=== PATIENT | female | born 1945 | race African-American/Black ===

== ENCOUNTER → 2018-11-19 | Outpatient (CLI) | payer MEDICARE ==
--- NOTE | 2018-11-19 13:21 | BD ---
EXAMINATION TYPE: Axial Bone Density DATE OF EXAM: 11/19/2018 COMPARISON: NONE CLINICAL HISTORY: Postmenopausal female Height: 62 Weight: 182 FRAX RISK QUESTIONS: Alcohol (3 or more units per day): no Family History (Parent hip fracture): no Glucocorticoids (More than 3mos): no (Ex: prednisone, prednisolone, methylprednisolone, dexamethasone, and hydrocortisone). History of Fracture in Adulthood: no Secondary Osteoporosis: 1. Type 1 Diabetes: no 2. Hyperthyroidism: no 3. Menopause before 45: no, total hysterectomy age 52 4. Malnutrition: no 5. Chronic liver disease: no Rheumatoid Arthritis: no Current Tobacco Use: yes RISK FACTORS HISTORY OF: Family History of Osteoporosis: not to patient's knowledge Active: yes Diet low in dairy products/other sources of calcium: no Postmenopausal woman: yes Take estrogen and/or progesterone medications: no Lost more than 2 inches in height since high school: no Frequent falls: no Poor Health: no Hyperparathyroidism: no Adrenal Insufficiency: no MEDICATIONS: Prednisone or other steroids: no Thyroid Medications: no Osteoporosis Medications: no Additional Medications: Pioglitazone, Atorvastatin calcium Amlodipine, Losartan, Toujeo Additional History: Diabetic EXAM MEASUREMENTS: Bone mineral densitometry was performed using the [employer] Snap System. Bone mineral density as measured about the Lumbar spine is: ----- L1-L4(G/cm2): 0.929 T Score Values are as follows: ----- L2: -2.5 ----- L3: -1.9 ----- L4: -2.2 ----- L1-L4: -2.1 Bone mineral density BASELINE Bone mineral density about the R hip (g/cm2): 0.746 Bone mineral density about the L hip (g/cm2): 0.752 T Score values are as follows: -----R Neck: -2.1 -----L Neck: -2.1 -----R Total: -1.9 -----L Total: -1.8 Bone mineral density BASELINE IMPRESSION: Osteopenia (T Score between -2.5 and -1). There is slightly increased risk of fracture and the patient may be considered for treatment. Re-Screen 2-5 years. NOTE: T-SCORE=SD OF THE YOUNG ADULT MEAN.
--- NOTE | 2018-11-20 08:57 | MM ---
Reason for exam: screening (asymptomatic). History: Patient is postmenopausal. Physical Findings: A clinical breast exam by your physician is recommended on an annual basis and results should be correlated with mammographic findings. MG 3D Screening Mammo W/Cad Bilateral CC and MLO view(s) were taken. No prior studies available for comparison. Finding #1: There are suspicious multiple obscured round masses in the right breast. Finding #2: There are indeterminate calcifications in both breasts. ASSESSMENT: Incomplete: need additional imaging evaluation, BI-RAD 0 RECOMMENDATION: Special view mammogram of both breasts. Ultrasound of the right breast. [facility] will attempt to contact patient to return for supplemental views and ultrasound.
== END | disposition home or self-care (01) ==
LOC: RADMAMWWP 11:50
PROVIDERS: ATTEND Internal Medicine
DX: Z12.31 Encounter for screening mammogram for malignant neoplasm of breast (principal); M85.80 Other specified disorders of bone density and structure, unspecified site; Z78.0 Asymptomatic menopausal state
CPT/HCPCS: 77063; 77067; 77080

== ENCOUNTER → 2018-12-04 | Outpatient (CLI) | payer MEDICARE ==
--- NOTE | 2018-12-05 09:00 | MM ---
Reason for exam: additional evaluation requested from abnormal screening. Last mammogram was performed less than 1 month ago. History: Patient is postmenopausal. Took hormonal contraceptives for 5 years. Physical Findings: Nurse did not find any significant physical abnormalities on exam. (nurse beto). MG 3D Work Up W/Cad CHERI Bilateral CC with magnification, ML with magnification, and ML view(s) were taken. Spot compression CC and spot compression MLO view(s) were taken of the right breast. Prior study comparison: November 19, 2018, bilateral MG 3d screening mammo w/cad. The breast tissue is heterogeneously dense. This may lower the sensitivity of mammography. There are four right breast masses, both round and oval and circumscribed which persist on additional views. Three in the upper outer quadrant and one in the lower inner quadrant, all at middle depth. No sonographic correlate. There is also a group of calcifications in the right upper outer quadrant middle depth for which biopsy is recommeded. Recommendation to be made post results of bilateral stereo core biopsy. There is a grou of calcification in the left breast upper outer quadrant that is 4 mm at the middlw depth for which biopsy is recomended. ASSESSMENT: Suspicious, BI-RAD 4 RECOMMENDATION: Stereotactic core biopsy of both breasts. Called Dr Wilson with mammographic findings and has scheduled an appointment for the patient for 819 at [facility] with a Radiologist to have the bilateral stereo core biopsies done at 10:20 am.
--- NOTE | 2018-12-05 09:17 | USB ---
History: Patient is postmenopausal. Took hormonal contraceptives for 5 years. US Breast Workup Limited RT Right limited breast ultrasound including focal area of concern, retroareolar and axilla demonstrates no correlate to the mammogram findings. No suspicious findings. ASSESSMENT: Negative, BI-RAD 1 RECOMMENDATION: Stereotactic core biopsy of both breasts.
== END | disposition home or self-care (01) ==
LOC: RADMAMWWP 14:43
PROVIDERS: ATTEND Internal Medicine
DX: R92.8 Other abnormal and inconclusive findings on diagnostic imaging of breast (principal)
CPT/HCPCS: 77066; 76642; G0279; 77062

== ENCOUNTER → 2018-12-06 | Day surgery (SDC) | payer MEDICARE ==
[2018-12-06 09:46] VITALS: RESP 16; BMI 32.9
[2018-12-06 11:18] VITALS: BP 147/83; PULSE 90; TEMP 98.2
--- NOTE | 2018-12-06 15:45 | MM ---
EXAMINATION TYPE: MG stereo VAD BX LT, MG stereo VAD BX RT DATE OF EXAM: 12/06/2018 COMPARISON: 12/04/2018 and 12/06/2018 CLINICAL HISTORY: Indeterminate calcifications in both breasts for which stereotactic guided biopsy was recommended. TECHNIQUE: Stereotactic guided core biopsy of bilateral breasts. FINDINGS: The procedure of stereotactic guided core biopsy was explained to the patient. Benefits, alternatives, and risks were discussed. An informed consent was then obtained. Post procedural timeout was performed. Site A (left): Shortness pathway for biopsy was chosen. Shortness pathway was CC from above approach. Preprocedural localization images were obtained and a 4 mm group of calcifications within the upper outer quadrant of the left breast was demonstrated. Coordinates were calculated. Subsequently 7 cc of lidocaine without epinephrine was utilized to anesthetize the skin and deeper subcutaneous soft tissues. The needle was advanced to the appropriate depth. Prefire images were obtained ensuring appropriate location. Postfire injection of 4 cc of lidocaine with epinephrine was utilized to anesthetize the site of biopsy. Postfire images were obtained to ensure no movement of the calcifications after instillation of additional anesthetic. A vacuum assisted biopsy gun was used to obtain 7 core samples. The patient tolerated the procedure well without any immediate complication. The patient was kept in the radiology department for short stay after the procedure and then discharged home in stable condition. Targeted calcifications are identified in specimen mammogram. Post biopsy mammogram shows the T-shaped biopsy marker to appear in satisfactory position relative to the targeted area of concern on the preprocedure images without migration. Site B (right): Shortness pathway for biopsy was chosen. Shortness pathway was CC from below approach. Preprocedural localization images were obtained and a 2 mm group of calcifications within the upper outer quadrant of the right breast was demonstrated. Coordinates were calculated. Subsequently 7 cc of lidocaine without epinephrine was utilized to anesthetize the skin and deeper subcutaneous soft tissues. The needle was advanced to the appropriate depth. Prefire images were obtained ensuring appropriate location. Postfire injection of 5 cc of lidocaine with epinephrine was utilized to anesthetize the site of biopsy. Postfire images were obtained to ensure no movement of the calcifications after instillation of additional anesthetic. A vacuum assisted biopsy gun was used to obtain 7 core samples. The patient tolerated the procedure well without any immediate complication. The patient was kept in the radiology department for short stay after the procedure and then discharged home in stable condition. Targeted calcifications are identified in both specimen mammograms. Post biopsy mammogram shows the T markers to appear in satisfactory position relative to the targeted areas of concern on the preprocedure images without migration. IMPRESSION: SUCCESSFUL, UNCOMPLICATED STEREOTACTIC GUIDED CORE BIOPSY OF INDETERMINATE CALCIFICATIONS WITHIN BOTH BREASTS DETAILED ABOVE, FULL PATHOLOGY RESULTS TO FOLLOW. Pathology Results: Benign A. 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 B. 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 Recommendation Follow up mammogram of both breasts in 6 months. MTDD
== END | disposition home or self-care (01) ==
LOC: RADMAMWWP 09:20
PROVIDERS: ATTEND Internal Medicine
DX: D24.1 Benign neoplasm of right breast (principal); N60.12 Diffuse cystic mastopathy of left breast; N60.11 Diffuse cystic mastopathy of right breast
CPT/HCPCS: 88305; 19081 ×2; A4648; J2001

== ENCOUNTER 2021-06-04 07:18 | Day surgery (SDC) | payer MEDICARE ==
[2021-06-01 12:09] VITALS: BMI 31.8
[~2021-06-04 07:18] MED LIST: LACTATED RINGERS 1,000 ML IV SCH; LIDOCAINE 1% (10MG/ML) FOR IV START INTRADERMA PRN
[2021-06-04] MEDS ORDERED: LACTATED RINGERS 1,000 ML IV ONE ×2 (07:35)
[2021-06-04 07:42] VITALS: TEMP 97.3
[2021-06-04 07:51] LABS: Glucose,Whole Blood 176 mg/dL (75-99)
[2021-06-04] MEDS ORDERED: LIDOCAINE 1% (10MG/ML) FOR IV START INTRADERMA ONE (07:51)
[2021-06-04] MEDS ORDERED: PROPOFOL 10 MG/ML 20 ML VIAL IV ONE (08:12)
[2021-06-04] MEDS ORDERED: LIDOCAINE 1% INJ 10MG/ML (20 ML MDV) ONE (08:12)
--- NOTE | 2021-06-04 08:28 | P.PCN ---
Date of Procedure: 06/04/21 Procedure(s) Performed: BRIEF HISTORY: Patient is a 76-year-old pleasant female scheduled for an elective colonoscopy as a part of evaluation of prior history of colon polyps. Last colonoscopy was 5 years ago. PROCEDURE PERFORMED: Colonoscopy. PREOPERATIVE DIAGNOSIS: History of colon polyps. IV sedation per Anesthesia. PROCEDURE: After informed consent was obtained, the patient, was brought into the endoscopy unit. IV sedation was administered by Anesthesia under continuous monitoring. Digital rectal examination was normal. Initially the Olympus CF-160 flexible video colonoscope was then inserted in the rectum, gradually advanced into the cecum without any difficulty. Careful examination was performed as the scope was gradually being withdrawn. Ileocecal valve and the appendiceal orifice were visualized and appeared normal. Prep was excellent. Mucosa of the cecum, ascending colon, transverse colon, descending colon, sigmoid colon, and rectum appeared normal. Moderate sigmoid diverticulosis. Retroflexion was performed in the rectum and no lesions were seen. The patient tolerated the procedure well. IMPRESSION: Normal-appearing colon from rectum to cecum with no evidence of colorectal neoplasia . Scattered sigmoid diverticulosis. RECOMMENDATIONS: Findings of this examination were discussed with the patient and family.. She was advised to have a repeat surveillance colonoscopy in 5 years from now.
[2021-06-04 09:03] VITALS: BP 143/83; PULSE 79; RESP 16
== END 2021-06-04 09:03 | disposition home or self-care (01) ==
LOC: ORWHC2ENDO 07:18
PROVIDERS: ATTEND Internal Medicine Gastroenterology
DX: Z12.11 Encounter for screening for malignant neoplasm of colon (principal); K57.30 Diverticulosis of large intestine without perforation or abscess without bleeding; Z86.010 Personal history of colon polyps; I10 Essential (primary) hypertension; E78.5 Hyperlipidemia, unspecified; F17.200 Nicotine dependence, unspecified, uncomplicated; E11.9 Type 2 diabetes mellitus without complications; Z90.710 Acquired absence of both cervix and uterus; Z97.2 Presence of dental prosthetic device (complete) (partial); Z79.84 Long term (current) use of oral hypoglycemic drugs; Z79.899 Other long term (current) drug therapy; Z91.048 Other nonmedicinal substance allergy status
CPT/HCPCS: J2001; J2704; G0105; 45378

== ENCOUNTER → 2021-08-02 | Outpatient (CLI) | payer MEDICARE ==
[2021-08-02 13:07] LABS: HCT 44.2 % (34.0-46.0); HGB 13.2 gm/dL (11.4-16.0); Hypochromasia Slight; MCH 29.4 pg (25.0-35.0); MCHC 29.9 g/dL (31.0-37.0); MCV 98.5 fL (80.0-100.0); Mean Platelet Volume 7.7; Platelet Count 374 k/uL (150-450); RBC 4.49 m/uL (3.80-5.40); RDW 15.5 % (11.5-15.5); WBC 9.6 k/uL (3.8-10.6)
[2021-08-02 16:09] LABS: Lymphocytes # (M) 2.11 k/uL (1.0-4.8); Monocytes # (M) 0.38 k/uL (0-1.0); Neutrophils % (M) 74 %; Nucleated Red Blood Cells 0 /100 WBC (0-0); Total Cells Counted 100
[2021-08-02 18:28] LABS: Albumin 4.5 g/dL (3.8-4.9); Albumin/Globulin Ratio 1.32 (1.60-3.17); Anion Gap 13.5 mmol/L (10.00-18.00); BUN/Creat Ratio 23.89 Ratio (12.00-20.00); Blood Urea Nitrogen 21.5 mg/dL (9.0-27.0); Carbon Dioxide 24.5 mmol/L (20.0-27.5); Globulin 3.4 g/dL (1.6-3.3); Potassium 4.9 mmol/L (3.5-5.5); Total Bilirubin 0.3 mg/dL (0.30-1.20); Total Protein 7.9 g/dL (6.2-8.2)
== END | disposition home or self-care (01) ==
LOC: LABWHC1 11:12
PROVIDERS: ATTEND Internal Medicine
DX: D72.829 Elevated white blood cell count, unspecified (principal); I10 Essential (primary) hypertension; E11.9 Type 2 diabetes mellitus without complications
CPT/HCPCS: 36415; 80053; 83036; 85027

== ENCOUNTER → 2021-12-31 | Outpatient (CLI) | payer MEDICARE ==
--- NOTE | 2021-12-31 21:23 | CTL ---
EXAMINATION TYPE: CT Low Dose Lung DATE OF EXAM ORDERED: 12/31/2021 HISTORY: Lung cancer screening CT DLP: 120.[address] CTDI: 4 mGy Automated exposure control for dose reduction was used. SCREENING VISIT: Initial COMPARISON: None TECHNIQUE: Low dose computed tomography scan was performed through the chest at 1 mm thick sections a nd reconstructed images in multiple planes at 1 mm and [address] DIAGNOSTIC QUALITY: Satisfactory FINDINGS: LUNG NODULES: None. LUNGS: COPD: Severity: Mild to moderate Fibrosis: Severity: None Lymph nodes: None Other findings: Mild atelectasis/scarring in the lung bases. There is bronchiectasis noted RIGHT PLEURAL SPACE: Effusion: None Calcification: None Thickening: None Pneumothorax: None LEFT PLEURAL SPACE: Effusion: None Calcification: None Thickening: None Pneumothorax: None HEART: Severe coronary artery atherosclerosis. Severe atherosclerosis of the arterial vasculature. 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 Dilation of the pulmonary trunk up to 3.9 cm. 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 Coronary artery atheros clerosis. IMPRESSION: 1. No clinically significant pulmonary nodules. 2. Bronchiectasis with scarring in the lung bases. 3. Mild to moderate emphysema changes. 4. Severe coronary artery atherosclerosis. 5. Severe atherosclerosis of the arterial vasculature. 6. 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 LUNG RAD AND CT CHEST RECOMMENDATION: Lung-Rad 1 Negative: Continue annual screening with LDCT in 12 months. S Modifier (other clinically significant findings): S, see impression.
== END | disposition home or self-care (01) ==
LOC: RADMAMWWP 15:36
PROVIDERS: ATTEND Internal Medicine
DX: Z12.2 Encounter for screening for malignant neoplasm of respiratory organs (principal); Z12.31 Encounter for screening mammogram for malignant neoplasm of breast; M85.80 Other specified disorders of bone density and structure, unspecified site; Z87.891 Personal history of nicotine dependence
CPT/HCPCS: 71271; 77067; 77080

== ENCOUNTER → 2022-03-22 | Outpatient (CLI) | payer MEDICARE ==
--- NOTE | 2022-03-22 11:29 | CA ---
Transthoracic Echo Report Name: Farhana Hyman Age: 77 Gender: F : 1945 Exam Date: 03/22/2022 08:37 Exam Location: [place] [facility] Ht (in): 62 Wt (lb): 180 Ordering Physician: Laina Guillen MD Attending/Referring Phys: Rotor Balancer Valeri Crowder RDCS Procedure CPT: Indications: I27.20 pulmonary hypertention Cardiac Hx: Technical Quality: Fair Contrast 1: Total Dose (mL): Contrast 2: Total Dose (mL): MEASUREMENTS (Male / Female) Normal Values 2D ECHO LV Diastolic Diameter PLAX 3.6 cm 4.2 - 5.9 / 3.9 - 5.3 cm LV Systolic Diameter PLAX 1.9 cm IVS Diastolic Thickness 1.7 cm 0.6 - 1.0 / 0.6 - 0.9 cm LVPW Diastolic Thickness 1.2 cm 0.6 - 1.0 / 0.6 - 0.9 cm LV Relative Wall Thickness 0.8 RV Internal Dim ED PLAX 3.8 cm LVOT Diameter 2.0 cm LA Volume 37.1 cm??? 18 - 58 / 22 - 52 cm??? M-MODE Aortic Root Diameter MM 3.0 cm LA Systolic Diameter MM 2.7 cm LA Ao Ratio MM 0.9 AV Cusp Separation MM 1.5 cm DOPPLER AV Peak Velocity 191.0 cm/s AV Peak Gradient 14.6 mmHg AV Mean Velocity 119.3 cm/s AV Mean Gradient 6.5 mmHg AV Velocity Time Integral 29.1 cm LVOT Peak Velocity 182.8 cm/s LVOT Peak Gradient 13.4 mmHg LVOT Velocity Time Integral 32.7 cm LVOT Stroke Volume 106.6 cm??? LVOT Stroke Volume Index 58.3 ml/m??? LVOT Cardiac Index 5427.9 cm???/min???m??? AV Area Cont Eq vti 3.7 cm??? AV Area Cont Eq pk 3.1 cm??? MV Area PHT 3.1 cm??? Mitral E Point Velocity 69.0 cm/s Mitral A Point Velocity 105.8 cm/s Mitral E to A Ratio 0.7 MV Deceleration Time 245.5 ms MV E' Velocity 4.7 cm/s Mitral E to MV E' Ratio 14.6 TR Peak Velocity 306.4 cm/s TR Peak Gradient 37.5 mmHg Right Ventricular Systolic Press 41.8 mmHg FINDINGS Left Ventricle Moderately increased left ventricular wall thickness. Normal left ventricular systolic function with no obvious regional wall motion abnormalities. Left ventricular ejection fraction is estimated at 55-60 %. Right Ventricle Mild right ventricular dilatation. Mild pulmonary hypertension. Right ventricular systolic pressure estimated at 42 mm hg. Right Atrium Normal right atrial size. Left Atrium Normal left atrial size. Mitral Valve Structurally normal mitral valve. Mild thickening of the anterior mitral valve leaflet. Mild mitral regurgitation Aortic Valve Trileaflet aortic valve. Thickened aortic valve without stenosis. Aortic valve sclerosis. Tricuspid Valve Structurally normal tricuspid valve. Mild tricuspid regurgitation. Pulmonic Valve Structurally normal pulmonic valve. Trace pulmonic regurgitation. Pericardium No pericardial effusion. Aorta Normal size aortic root and proximal ascending aorta. CONCLUSIONS 1. Normal left ventricle size and systolic function 2. Mild pulmonary hypertension 3. Mild mitral and tricuspid regurgitation. Previewed by: Dr. Ferdinand Mccarthy MD (Electronically Signed) Final Date: 22 March 2022 11:28
== END | disposition home or self-care (01) ==
LOC: RADECHMAIN 08:28
PROVIDERS: ATTEND Internal Medicine
DX: I08.1 Rheumatic disorders of both mitral and tricuspid valves (principal); I27.20 Pulmonary hypertension, unspecified
CPT/HCPCS: 93306

== ENCOUNTER → 2022-10-11 | Outpatient (CLI) | payer MEDICARE ==
[2022-10-11 20:13] LABS: Blood Urea Nitrogen 28.3 mg/dL; Carbon Dioxide 25.1 mmol/L; Chloride 101 mmol/L; Potassium 4.2 mmol/L; Sodium 140 mmol/L
[2022-10-12 01:27] LABS: MCH 29.5 pg; MCHC 29.5 d/dL; MCV 99.8 FL; Mean Platelet Volume 10.3 FL; NRBC Per 100 WBC 0 X 10*3/uL; Platelet Count 345 X 10*3/uL; RBC 4.41 X 10*6/uL; RDW 15.8 %; WBC 10.09 X 10*3/uL
== END | disposition home or self-care (01) ==
LOC: LABPAT 12:36
PROVIDERS: ATTEND Internal Medicine Interventional Cardiology
DX: Z01.812 Encounter for preprocedural laboratory examination (principal); I25.10 Atherosclerotic heart disease of native coronary artery without angina pectoris
CPT/HCPCS: 80051; 82565; 84520; 85027

== ENCOUNTER 2022-10-17 07:51 | Day surgery (SDC) | payer MEDICARE ==
[2022-10-13 10:01] VITALS: BMI 32.2
[~2022-10-17 07:51] MED LIST changes: +ALPRAZolam 0.25 MG TAB PO PRN; +ALPRAZolam 0.5 MG TAB PO PRN; +ASPIRIN 325 MG TAB PO STA; +ATORVASTATIN 80 MG TAB PO STA; +HEPARIN SODIUM,PORCINE 10,000 UNIT in SODIUM CHLORIDE 0.9% 1,000 ML IRRIGATION PRN; +HEPARIN SODIUM,PORCINE 2,500 UNIT in SODIUM CHLORIDE 0.9% 250 ML IRRIGATION PRN; -LACTATED RINGERS 1,000 ML IV SCH; -LIDOCAINE 1% (10MG/ML) FOR IV START INTRADERMA PRN; +NITROGLYCERIN SL TABS 0.4 MG TAB SUBLINGUAL PRN; +SODIUM CHLORIDE 0.9% 1,000 ML in EMPTY BAG 1 BAG IV SCH
[2022-10-17 08:22] LABS: Glucose,Whole Blood 214 mg/dL (70-110)
[2022-10-17] MEDS ORDERED: amLODIPine 10 MG TAB PO STA (08:26)
[2022-10-17] MEDS ORDERED: INSULIN ASPART (NovoLOG) 100 UNIT/ML VIAL SQ ONE (08:30)
[2022-10-17 08:36] VITALS: RESP 16; TEMP 98.5
[2022-10-17] MEDS ORDERED: VERAPAMIL 2.5 MG/ML 2 ML AMP ONE (08:42)
[2022-10-17] MEDS ORDERED: HEPARIN SODIUM 1,000 UN/ML (10ML VL) ONE (08:56)
[2022-10-17] MEDS ORDERED: fentaNYL (PF) 50 MCG/ML 2 ML AMP ONE (08:56)
[2022-10-17] MEDS ORDERED: fentaNYL (PF) 50 MCG/ML 2 ML AMP IV ONE (09:01)
[2022-10-17] MEDS ORDERED: LIDOCAINE 1% INJ 10MG/ML (5 ML VIAL-PF) SQ ONE (09:02)
[2022-10-17] MEDS ORDERED: VERAPAMIL SYRINGE (5 MG/10 ML) INTRAARTER ONE (09:03)
[2022-10-17] MEDS ORDERED: MIDAZOLAM 2 MG/2 ML VIAL IV ONE (09:05)
[2022-10-17] MEDS ORDERED: HEPARIN SODIUM 1,000 UN/ML (10ML VL) IV ONE (09:08)
[2022-10-17] MEDS ORDERED: IOPAMIDOL-370 125ML BTL INJ ONE (09:19)
[2022-10-17] MEDS ORDERED: RX INFO: IV CONTRAST WAS GIVEN 1 EACH MISC MISCELLANE PRN (09:31)
--- NOTE | 2022-10-17 09:40 | P.CARDCATH ---
Date of Procedure: 10/17/22 Description of Procedure: Cardiac Catheterization: The patient is a 77-year-old female with known history of hypertension, hyperlipidemia and diabetes mellitus and chronic tobacco use who had a recent MPI with anterior and apical ischemia Recommendations were made regarding cardiac catheterization, the risks and the complications were discussed with the patient who is in full understanding and agreement. Procedure Description: Patient was brought to lab systems analyst in fasting semi-sedated state after receiving Fentanyl and Benadryl achieiving moderate conscious sedated state. Using Xylocaine Anesthesia and Seldinger technique, a 6-St Lucian sheath was introduced in the right radial artery . Subsequently, selective coronary angiography was performed using a 5-[place] Lucian 3.5 bend Lisa catheter. Multiple views of the coronary artery including hemiaxial views were obtained. The 5-[place] Lucian pigtail catheter was used to cross the aortic valve and LVEDP was calculated. Following that, catheter and sheath were removed. Hemostasis was obtained with deployment of TR band . There was no immediate complication. Patient was returned to room in stable condition. Of note, the patient received a total of 4500 units of intravenous heparin as well as intra-arterial verapamil. Findings: Fluoroscopy: Severe calcifications of the LAD was noted Left main: This is a large size vessel, bifurcating into LAD and left circumflex, left main has no high-grade stenosis. LAD: This is a large size vessel, giving rise to a large proximal diagonal branch. At the takeoff of the diagonal branch there is a complex tortuous lesion with stenosis up to 80% involving the takeoff of the diagonal branch. The rest of the vessel has no high-grade stenosis Left circumflex: This is a large nondominant vessel evening grass to 2 obtuse marginal branch the first one is proximal margin caliber, the left circumflex and its branches have no evidence of high-grade stenosis RCA: This is a dominant vessel, large in caliber, tortuous proximally, calcified. The proximal and mid RCA has mild obstructive disease of 20-30%. Left Ventriculogram: Not performed Hemodynamics: There was no gradient across the aortic valve, LVEDP was 1216 mmHg Conclusion: 1. Severely calcified LAD 2. Severe obstructive disease involving the proximal LAD and a tortuous lesion involving a large diagonal branch 3. Mild disease in the RCA 4. Normal LVEDP Recommendations: In view of the anatomy and the appearance and a history of diabetes I have re commended to obtain surgical evaluation for possible CABG. Depending on the recommendations further recommendations will be made. The findings and the recommendations were discussed with the patient and the family and they were in full understanding and agreement. Duration of sedation is 20 minutes.
[2022-10-17] MEDS ORDERED: SODIUM CHLORIDE 0.9% 1,000 ML IV SCH (09:45)
--- NOTE | 2022-10-17 12:02 | P.GSCN ---
History of Present Illness Consult date: 10/17/22 Reason for Consult: Coronary artery disease Requesting physician: Ferdinand Mccarthy History of present illness: This is a 77-year-old female patient who is followed by Dr. Pedro Leos for her primary care and with Dr. Mccarthy for her cardiology care. She has a past medical history significant for hypertension, hyperlipidemia, diabetes mellitus type 2, obesity with a BMI of 32.6 kg/m, peripheral vascular disease, a history of a 42 mm ascending aorta dilation seen on a computed tomography scan of the chest completed in December 2021, and chronic ongoing nicotine dependence smokes about half a pack of cigarettes per day. The patient over the past year has had complaints of progressive fatigue and shortness of breath with activity. She denies any recent fever, chills, nausea, vomiting, constipation, diarrhea, chest pain/pressure, palpitations, TIA or strokelike symptoms, presyncope or syncope. She does report that she also gets some swelling to her left lower extremity at times as well. In March 2022 the patient underwent a trans-thoracic 2-D echocardiogram which demonstrated a normal left ventricular systolic function with no obvious regional wall motion abnormalities, a left ventricular ejection fraction estimated at 55-60%, mild mitral valve regurgitation, a trileaflet aortic valve, mild tricuspid valve regurgitation, trace pulmonic valve regurgitation and no pericardial effusion seen. For further evaluation the patient underwent a nuclear Lexiscan Cardiolite stress test on 09/14/2022 which showed nondiagnostic electrocardiographic stress testing, probably abnormal myocardial perfusion imaging with reversible anteroapical wall defect with normal gated SPECT images, findings suggestive of stress-induced ischemia in LAD territory although the possibility of soft tissue attenuation could not be excluded. Subsequently, due to the patient's symptoms and findings on the stress test the patient was recommended to undergo a cardiac catheterization which was completed today 10/17/2022. The cardiac catheterization results showed a severely calcified LAD, severe obstructive disease involving the proximal LAD and torturous lesions involving a large diagonal branch, mild disease in the right coronary artery and normal LVEDP. Due to the findings on the cardiac catheterization a consult was placed to cardiothoracic surgery for further evaluation and treatment recommendations. Review of Systems A 14 point review of systems was completed and was negative except as mentioned in the HPI. 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 History of Any Multi-Drug Resistant Organisms: None Reported Past Surgical History: Hysterectomy, Tubal Ligation Additional Past Surgical History / Comment(s): COLONOSCOPY , bilateral breast biopsies Past Anesthesia/Blood Transfusion Reactions: No Reported Reaction Past Psychological History: No Psychological Hx Reported Smoking Status: Current every day smoker (Smokes about 1/2 packs a day.) Past Alcohol Use History: Rare Past Drug Use History: None Reported - Past Family History Mother Family Medical History: Diabetes Mellitus, Dialysis (Chronic kidney disease), Renal Disease Father Family Medical History: CVA/TIA, Hypertension Sister(s) Family Medical History: Diabetes Mellitus Brother(s) Family Medical History: Diabetes Mellitus Medications and Allergies Home Medications Medication Instructions Recorded Confirmed Type Atorvastatin [Lipitor] 20 mg PO DAILY 04/12/16 10/17/22 History Losartan/Hydrochlorothiazide 1 each PO DAILY 04/12/16 10/17/22 History [Losartan-Hctz 100-25 mg Tab] Pioglitazone [Actos] 15 mg PO DAILY 04/12/16 10/17/22 History amLODIPine BESYLATE [Norvasc] 10 mg PO QAM 04/12/16 10/17/22 History glipiZIDE [Glucotrol] 5 mg PO AC-BID 06/01/21 10/17/22 History Aspirin 81 mg PO DAILY #90 tab 10/17/22 Rx Allergies Allergy/AdvReac Type Severity Reaction Status Date / Time Iodine and Iodide Containing Allergy Anaphylaxis Verified 10/13/22 09:44 Produc shellfish derived [Shellfish] Allergy Anaphylaxis Verified 10/13/22 09:44 Surgical - Exam Vital Signs Temp Pulse Resp BP Pulse Ox 98.5 F 82 16 196/78 96 10/17/22 08:32 10/17/22 08:32 10/17/22 08:32 10/17/22 08:32 10/17/22 08:32 - General well developed, well nourished, no distress, no pain, obese - Eyes PERRL, normal ocular movement, no pale, no icteric - ENT normal pinna, normal nares, normal mucosa, no hearing loss, no congestion, dentures - Neck Neck is supple, no lymphadenopathy. no masses, no bruits, trachea midline, no venous distension - Respiratory Lung sounds essentially clear throughout, few scattered crackles or bilateral bases. Respirations are symmetrical and nonlabored. No wheezes, or rhonchi. - Cardiovascular Regular rhythm and rate. S1 and S2 present, negative for S3 or gallop. Systolic murmur present heard best her right sternal border 2/6. Peripheral pulses palpable. No edema present. - Abdomen Abdomen is soft, nontender and nondistended. Active bowel sounds present in all 4 abdominal quadrants. No guarding or rigidity. No organomegaly appreciated. - Genitourinary Deferred - Rectum deferred - Integumentary Skin is warm and dry. No clubbing or cyanosis is present. no rash, no growths, no abnormal pigmentation - Neurologic No focal deficits. normal coordination, normal sensation - Musculoskeletal normal gait, normal posture - Psychiatric oriented to time, oriented to person, oriented to place, speech is normal, memory intact Results - Labs Abnormal Lab Results - Last 24 Hours (Table) 10/17/22 Range/Units 08:20 POC Glucose (mg/dL) 214 H (70-110) mg/dL - Imaging Additional studies: Transthoracic echocardiogram and cardiac catheterization results reviewed by Dr. Avtar Sheehan. Assessment and Plan Assessment: Coronary artery disease Hypertension Hyperlipidemia Diabetes mellitus type 2 History of aortic aneurysm dilation 42 mm on computed tomography scan of the chest Obesity with BMI of 32.6 kg/m Chronic ongoing tobacco dependence, smokes half a pack per day of cigarettes Peripheral vascular disease Plan: The patient was seen and examined at her bedside in the extended stay unit. Her chart and diagnostics were reviewed. Her case was discussed in detail with Dr. Avtar Sheehan from cardiothoracic surgery. The patient will be seen by Dr. Chevy Hyde in the office as an outpatient on 10/20/2022 at 2:30 PM. Preoperative teaching and preoperative testing has been initiated. Once the patient is able to ambulate a 5 m walk test will be completed with the patient. Once her preoperative testing has been completed an STS risk score will be calculated discussed with the patient. More recommendations to follow based on patient's clinical course and once she sees Dr. Hyde in the office on 10/20/2022. Thank you Dr. Mccarthy for this consult and we look for to working with you in the care of this patient. I have personally seen and examined the patient, performed the documentation and the assessment and plan as written. 30 minutes spent on the visit . Flako ROMAN
--- NOTE | 2022-10-17 13:18 | US ---
EXAMINATION TYPE: US carotid duplex BILAT DATE OF EXAM: 10/17/2022 COMPARISON: NONE CLINICAL INDICATION: Female, 77 years old with history of Pre-Op Cardiac Surgery; pre open heart TECHNIQUE: Carotid duplex ultrasound examination. Indirect Doppler criteria was utilized. FINDINGS: EXAM MEASUREMENTS: RIGHT: Peak Systolic Velocity (PSV) cm/sec ----- Right CCA: 90.9 ----- Right ICA: 176.0 ----- Right ECA: 173.0 ICA/CCA ratio: 1.9 RIGHT: End Diastole cm/sec ----- Right CCA: 13.0 ----- Right ICA: 23.0 ----- Right ECA: 1.1 LEFT: Peak Systolic Velocity (PSV) cm/sec ----- Left CCA: 104.0 ----- Left ICA: 174.0 ----- Left ECA: 243.0 ICA/CCA ratio: 1.7 LEFT: End Diastole cm/sec ----- Left CCA: 11.7 ----- Left ICA: 20.8 ----- Left ECA: 1.6 VERTEBRALS (direction of flow): Right Vertebral: Antegrade Left Vertebral: not seen Rhythm: Normal RETAIL BEAUTY SPECIALIST NOTES: Challenging scan due to plaque at bifurcations limits views of ECA and ICA, could not elongate vessels very far, no significant stenosis seen IMPRESSION: Bilateral atherosclerotic plaque with no definite significant hemodynamic stenosis as seen and given limitations of this exam. Criteria for Assigning % of Stenosis / Diameter reduction (Estimation based on the indirect measurements of the internal carotid artery velocities (ICA PSV). 1. Normal (no stenosis)=ICA PSV < 125 cm/s: ratio < 2.0: ICA EDV<40 cm/s. 2. Less than 50% stenosis=ICA PSV < 125 cm/s: ratio < 2.0: ICA EDV<40 cm/s. 3. 50 to 69% stenosis=ICA PSV of 125 to 230 cm/s: ration 2.0 ? 4.0: ICA EDV 40-100 cm/s. 4. Greater than 70% stenosis to near occlusion= ICA PSV > 230 cm/s: ratio > 4.0: ICA EDV > 100 cm/s. 5. Near occlusion= ICA PSV velocities may be low or undetectable: variable ratio and ICA EDV. 6. Total occlusion=unable to detect flow.
[2022-10-17 13:37] LABS: Basophils % (A) 0 %; Eosinophils # (A) 0.4 k/uL (0-0.7); Eosinophils % (A) 2 %; HCT 36.5 % (34.0-46.0); HGB 11.6 gm/dL (11.4-16.0); Lymphocytes # (A) 0.9 k/uL (1.0-4.8); Lymphocytes % (A) 6 %; MCH 29.8 pg (25.0-35.0); MCHC 31.9 g/dL (31.0-37.0); MCV 93.7 fL (80.0-100.0); Mean Platelet Volume 7.5; Monocytes # (A) 0.1 k/uL (0-1.0); Monocytes % (A) 1 %; Neutrophils # (A) 14.7 k/uL (1.3-7.7); Neutrophils % (A) 91 %; Platelet Count 394 k/uL (150-450); RDW 15.7 % (11.5-15.5); WBC 16.1 k/uL (3.8-10.6)
[2022-10-17 13:46] LABS: INR 0.9 (<1.2); Partial Thromboplastin Time 23.6 sec (22.0-30.0); Prothrombin Time 10.1 sec (9.0-12.0)
[2022-10-17 13:48] LABS: ALT 15 U/L (4-34); AST 16 U/L (14-36); African American GFR (CKD) 67 (>60 ml/min/1.73 sqM); Albumin 3.9 g/dL (3.5-5.0); Alkaline Phosphatase 89 U/L (38-126); Anion Gap 9 mmol/L; Blood Urea Nitrogen 25 mg/dL (7-17); Calcium 9.3 mg/dL (8.4-10.2); Carbon Dioxide 25 mmol/L (22-30); Chloride 105 mmol/L (98-107); Glucose 225 mg/dL (74-99); Magnesium 2.2 mg/dL (1.6-2.3); Non-African American GFR(CKD) 58 (>60 ml/min/1.73 sqM); Potassium 4.2 mmol/L (3.5-5.1); Sodium 139 mmol/L (137-145); Total Bilirubin 0.4 mg/dL (0.2-1.3)
[2022-10-17 15:30] LABS: T4, Free (Free Thyroxine) 1.49 ng/dL (0.78-2.19)
--- NOTE | 2022-10-17 15:59 | XR ---
EXAMINATION TYPE: XR chest 2V DATE OF EXAM: 10/17/2022 COMPARISON: NONE TECHNIQUE: PA and lateral views submitted. HISTORY: Previa FINDINGS: The lungs are clear and there is no pneumothorax, pleural effusion, or focal pneumonia. Heart is enl arged and there is coarsened interstitium. Atherosclerotic ectasia of the aorta noted.. Osseous struc tures demonstrate hypertrophic and degenerative changes of the spine. Scattered linear areas of subs egmental consolidation most typical of atelectasis. IMPRESSION: 1. Cardiomegaly correlate for chronic interstitial lung disease such as fibrosis or venous congestion . Scattered linear areas of subsegmental consolidation most typical of atelectasis.
[2022-10-17 16:01] LABS: Appearance,Urine Clear (Clear); Bilirubin,Urine Negative (Negative); Blood,Urine Negative (Negative); Color,Urine Light Yellow; Glucose,Urine (UA) 1+ (Negative); Ketones,Urine Negative (Negative); Leukocyte Esterase,Urine Trace (Negative); Nitrite,Urine Negative (Negative); PH, Urine 5.5 (5.0-8.0); Protein,Urine Negative (Negative); RBC,Urine 1 /hpf (0-5); Specific Gravity,Urine 1.035 (1.001-1.035); Squamous Epithelial Cell,Urine 2 /hpf (0-4); Urobilinogen,Urine <2.0 mg/dL (<2.0); WBC,Urine 2 /hpf (0-5)
[2022-10-17] MEDS ORDERED: glipiZIDE 5 MG TAB PO SCH (17:30)
[2022-10-17 18:14] VITALS: PULSE 82
[2022-10-17 18:15] VITALS: BP 100/61
[2022-10-17 22:39] LABS: Chol/HDL Ratio 2.98 Ratio; LDL Cholesterol,Calculated 106.3 mg/dL (0.0-131.0)
[2022-10-17 22:57] LABS: Hepatitis A Antibody IgM Nonreactive; Hepatitis B Core IgM Nonreactive; Hepatitis B Surface Antigen Nonreactive
[2022-10-17 22:58] LABS: Hepatitis C IgG Antibody Nonreactive
[2022-10-18] MEDS ORDERED: ATORVASTATIN 20 MG TAB PO SCH (09:00)
[2022-10-18] MEDS ORDERED: amLODIPine 10 MG TAB PO SCH (09:00)
[2022-10-18] MEDS ORDERED: PIOGLITAZONE 15 MG TAB PO SCH (09:00)
[2022-10-18] MEDS ORDERED: LOSARTAN-HCTZ 50-12.5 MG 1 EACH TAB PO SCH (09:00)
--- NOTE | 2022-10-18 11:46 | US ---
EXAMINATION TYPE: Pre-Operative Non-Invasive Evaluation of the hand for Potential Radial Artery Heena , Measurements only DATE OF EXAM: 10/17/2022 12:55 PM CLINICAL INDICATION: Female, 77 years old with history of Pre-Op Cardiac Surgery; open heart SIDE PERFORMED: Left TECHNIQUE: Radial artery is measured utilizing real time linear array sonography. Dominant hand: Right Duplex Findings: Radial Artery: Color flow seen Measurements in mm, transverse view: Right Radial: [facility] cath site Left Radial: Proximal: 3.8 x 4.1 mm Mid: 2.8 x 2.5 mm Distal: 2.5 x 3.6 mm IMPRESSION: 1. Left GSV measurements listed above. 2. Performing surgeon to determine viability as conduit.
--- NOTE | 2022-10-18 11:48 | US ---
EXAMINATION TYPE: US vein mapping BILAT DATE OF EXAM: 10/17/2022 12:55 PM COMPARISON: NONE CLINICAL INDICATION: Female, 77 years old with history of PreOp Cardiac Surgery; open heart SIDE PERFORMED: bilateral TECHNIQUE: Lower extremity saphenous vein is examined and measured utilizing real time linear array sonography. Patient History: Smoker: n Heart Disease: n Previous DVT: n Vascular Surgery: n Discoloration: n Hypertension: n Diabetes: n Paralysis: n Varicosities: n Edema: n DUPLEX FINDINGS: Greater Saphenous: Color flow seen Lesser Saphenous: Color flow seen Measurements in mm: Right Greater Saphenous: Groin: 6.5 x 6.6 mm High Thigh: 2.9 x 3.7 mm Mid Thigh: 3.8 x 4.0 mm Above Knee: 2.8 x 3.7 mm Knee: 2.9 x 2.7 mm Below Knee: 1.7 x 2.2 mm Mid Calf: 1.8 x 1.7 mm At Ankle: 1.8 x 1.6 mm Left Greater Saphenous: Groin: 9.7 x 7.5 mm High Thigh: 3.4 x 4.1 mm Mid Thigh: 3.7 x 2.9 mm Above Knee: 3.4 x 4.0 mm Knee: 2.9 x 3.5 mm Below Knee: 2.5 x 3.3 mm Mid Calf: 1.9 x 2.0 mm At Ankle: 1.7 x 1.3 mm IMPRESSION: 1. Bilateral GSV measurements listed above. 2. Performing surgeon to determine viability as conduit.
--- NOTE | 2022-10-18 11:54 | CA ---
Transthoracic Echo Report Name: Farhana Hyman Age: 77 Gender: F : 1945 Exam Date: 10/17/2022 14:02 Exam Location: [place] [facility] Ht (in): 63 Wt (lb): 184 Ordering Physician: Palmer Gardiner Attending/Referring Phys: [employer] Manager Ananya Garnica Procedure CPT: Indications: preop cardiac surgery Cardiac Hx: Technical Quality: Fair Contrast 1: Total Dose (mL): Contrast 2: Total Dose (mL): MEASUREMENTS (Male / Female) Normal Values 2D ECHO LV Diastolic Diameter PLAX 3.8 cm 4.2 - 5.9 / 3.9 - 5.3 cm LV Systolic Diameter PLAX 2.6 cm IVS Diastolic Thickness 1.2 cm 0.6 - 1.0 / 0.6 - 0.9 cm LVPW Diastolic Thickness 1.1 cm 0.6 - 1.0 / 0.6 - 0.9 cm LV Relative Wall Thickness 0.6 LA Volume 55.3 cm??? 18 - 58 / 22 - 52 cm??? M-MODE Aortic Root Diameter MM 2.8 cm LA Systolic Diameter MM 3.3 cm LA Ao Ratio MM 1.2 AV Cusp Separation MM 1.7 cm DOPPLER AV Peak Velocity 188.3 cm/s AV Peak Gradient 14.2 mmHg AV Mean Velocity 126.0 cm/s AV Mean Gradient 7.2 mmHg AV Velocity Time Integral 35.5 cm MV Area PHT 3.1 cm??? Mitral E Point Velocity 86.5 cm/s Mitral A Point Velocity 117.6 cm/s Mitral E to A Ratio 0.7 MV Deceleration Time 242.9 ms MV E' Velocity 5.8 cm/s Mitral E to MV E' Ratio 15.0 TR Peak Velocity 350.3 cm/s TR Peak Gradient 49.1 mmHg Right Atrial Pressure 3.0 mmHg Pulmonary Artery Systolic Pressu 52.1 mmHg Right Ventricular Systolic Press 52.1 mmHg FINDINGS Left Ventricle Mildly increased left ventricular wall thickness. Left ventricular cavity size normal. Normal left ventricular systolic function with no obvious regional wall motion abnormalities. Left ventricular ejection fraction is estimated at 55- 60%. Right Ventricle Normal right ventricular size and function. Moderate pulmonary hypertension. Right Atrium Normal right atrial size. Left Atrium Mildly increased left atrial volume. Mildly increased left atrial area. Mitral Valve Structurally normal mitral valve. No mitral stenosis. Trace to mild mitral regurgitation.mitral annular calcification. Aortic Valve Trileaflet aortic valve. No aortic valve stenosis or regurgitation.aortic valve sclerosis. Tricuspid Valve Structurally normal tricuspid valve. Moderate tricuspid regurgitation. Pulmonic Valve Structurally normal pulmonic valve. Trace pulmonic regurgitation. Pericardium No pleural effusion. Aorta Normal size aortic root and proximal ascending aorta. CONCLUSIONS 1. Normal left ventricular size and systolic function 2. Moderate tricuspid regurgitation with moderate pulmonary hypertension Previewed by: Dr. Ferdinand Mccarthy MD (Electronically Signed) Final Date: 18 October 2022 11:53
--- NOTE | 2022-10-18 12:34 | US ---
EXAMINATION TYPE: US arterial LE single level DATE OF EXAM: 10/17/2022 2:52 PM CLINICAL INDICATION: Female, 77 years old with history of Ankle Brachial Index (BRENDA) ; BRENDA for pre-OP CABG History of: Smoker: Yes Hypertension: Yes Diabetic: Yes Hyperlipidemia: Yes TIA/CVA: No Previous Vascular Surgery: No CAD: Yes MS: No Vascular Ulcers: No Claudication: No Gangrene: No Doppler Waveforms: Right: Multiphasic Left: Multiphasic Right Brachial Pressure: Not obtained due to right wrist heart cath Left Brachial Pressure: 100 Ankle-Brachial Indices: Right: 1.3 Left: 1.3 Toe Brachial Indices: Right: 0.9 Left: 0.8 IMPRESSION: Normal bilateral BRENDA and TBI indices
== END 2022-10-17 15:37 | disposition home or self-care (01) ==
LOC: CATHCVL 07:51
PROVIDERS: ATTEND Internal Medicine Interventional Cardiology
DX: I25.10 Atherosclerotic heart disease of native coronary artery without angina pectoris (principal); I08.2 Rheumatic disorders of both aortic and tricuspid valves; I25.9 Chronic ischemic heart disease, unspecified; I10 Essential (primary) hypertension; E78.5 Hyperlipidemia, unspecified; E11.9 Type 2 diabetes mellitus without complications; I27.20 Pulmonary hypertension, unspecified; F17.210 Nicotine dependence, cigarettes, uncomplicated; I71.40 Abdominal aortic aneurysm, without rupture, unspecified; I71.21 Aneurysm of the ascending aorta, without rupture; Z79.82 Long term (current) use of aspirin; Z79.84 Long term (current) use of oral hypoglycemic drugs; Z79.899 Other long term (current) drug therapy
CPT/HCPCS: 93458; 93306; 99152; 94150; 84439; 80061; 80053; 80074; 84443; 83735; 85025; 85610; 85730; 81001; 87070; 83036; 71046; 93931; 93970; 93922; 93880; C1769 ×2; C1894; J2250; J2001; J3010; J1644; Q9967

== ENCOUNTER → 2022-10-31 | Outpatient (CLI) | payer MEDICARE ==
[2022-10-31 16:31] LABS: HCT 40.8 % (37.2-46.3); HGB 12.5 d/dL (12.0-15.0); MCH 29.3 pg (27.0-32.0); MCHC 30.6 d/dL (32.0-37.0); MCV 95.8 FL (80.0-97.0); Mean Platelet Volume 10.1 FL (9.5-12.2); NRBC Per 100 WBC 0 X 10*3/uL (0.00-0.01); Platelet Count 383 X 10*3/uL (140-440); RBC 4.26 X 10*6/uL (4.10-5.20); RDW 15.4 % (11.5-14.5); WBC 10.06 X 10*3/uL (4.50-10.00)
--- NOTE | 2022-11-01 10:29 | P.PN ---
Progress Note - Text Progress Note Date: 11/01/22 A 5 m walk test was completed with the patient, time 1: 3.01 seconds, time to 2: 3.32 seconds, time 3: 2.68 seconds. The patient tolerated the walk well and denied any complaints of shortness breath or pain. STS risk score was calculated and discussed with the patient.
== END | disposition home or self-care (01) ==
LOC: LABWHC1 11:00
PROVIDERS: ATTEND Thoracic Surgery (Cardiothoracic Vascular Surgery)
DX: I25.10 Atherosclerotic heart disease of native coronary artery without angina pectoris (principal)
CPT/HCPCS: 36415; 85027

== ENCOUNTER 2022-11-04 05:35 | Inpatient (IN) | payer MEDICARE ==
[~2022-11-04 05:35] MED LIST changes: +ALBUMIN HUMAN 25% 50 ML IV ONE; +ALBUMIN HUMAN 5% 500 ML IVPB ONE; -ALPRAZolam 0.25 MG TAB PO PRN; -ALPRAZolam 0.5 MG TAB PO PRN; +ASPIRIN 325 MG TAB PO ONE; -ASPIRIN 325 MG TAB PO STA; -ATORVASTATIN 80 MG TAB PO STA; +CALCIUM CHLORIDE 100 MG/ML 10 ML SYRINGE IV ONE; +CARDIOPLEGIC SOLN (K+ 16 MEQ/L 1,000 ML with SODIUM BICARB (1 MEQ/ML) 20 ML, LIDOCAINE ... PERFUSION ONE; +CHLORHEXIDINE GLUCONATE 15 ML CUP MUCOUS MEM ONE; +CLEVIDIPINE BUTYRATE 25 MG in EMPTY BAG 1 BAG IV ONE; +HEPARIN SODIUM 1,000 UN/ML (10ML VL) IV ONE; -HEPARIN SODIUM,PORCINE 10,000 UNIT in SODIUM CHLORIDE 0.9% 1,000 ML IRRIGATION PRN; -HEPARIN SODIUM,PORCINE 2,500 UNIT in SODIUM CHLORIDE 0.9% 250 ML IRRIGATION PRN; +HEPARIN SODIUM,PORCINE 5,000 UNIT in SODIUM CHLORIDE 0.9% 500 ML 500 ML IV ONE; +INSULIN REGULAR 100 UNIT in SODIUM CHLORIDE 0.9% 100 ML IV ONE; +MAGNESIUM SULFATE 16.24 MEQ in EMPTY SYRINGE 1 SYR IV ONE; +MANNITOL 25% 12.5 GM/50 ML VIAL IV ONE; +NITROGLYCERIN SL TABS 0.4 MG TAB SUBLINGUAL ONE; -NITROGLYCERIN SL TABS 0.4 MG TAB SUBLINGUAL PRN; +NITROGLYCERIN-D5W PMX 25 MG/250 ML BTL IV ONE; +NITROGLYCERIN-D5W PMX 50 MG in DEXTROSE/WATER 1 250ML.BAG IV ONE; +NOREPINEPHRINE 4 MG in SODIUM CHLORIDE 0.9% 250 ML IV ONE; +PAPAVERINE 360 MG in SODIUM CHLORIDE 0.9% 90 ML IV ONE; +PHENYLEPHRINE 10 MG/ML VIAL IV ONE; +PHENYLEPHRINE 40 MG in SODIUM CHLORIDE 0.9% 250 ML IV ONE; +PROTAMINE SULFATE 10 MG/ML 25 ML VIAL IV ONE; +PROTAMINE SULFATE 250 MG in EMPTY BAG 1 BAG IV ONE; +SODIUM BICARB 8.4% 50 ML SYR (1 MEQ/ML) IV ONE; +SODIUM CHLORIDE 0.9% 1,000 ML IV ONE; -SODIUM CHLORIDE 0.9% 1,000 ML in EMPTY BAG 1 BAG IV SCH; +TRANEXAMIC ACID 2,000 MG in SODIUM CHLORIDE 0.9% 80 ML IV ONE; +ceFAZolin 1,000 MG in SODIUM CHLORIDE 0.9% IRRIGATIO 1,000 ML IRRIGATION ONE; +propofoL 1,000 MG/100 ML VIAL IV ONE
[2022-11-04] MEDS: METOPROLOL TARTRATE 12.5 MG TAB PO ONE ×2 (06:21→07:36)
[2022-11-04] MEDS: ATORVASTATIN 10 MG TAB PO ONE ×2 (06:21→07:35)
[2022-11-04] MEDS: LACTATED RINGERS 1,000 ML IV ONE ×2 (06:30→06:54)
[2022-11-04 06:41] LABS: Glucose,Whole Blood 107 mg/dL (70-110)
[2022-11-04] MEDS ORDERED: PROPOFOL 10 MG/ML 20 ML VIAL IV ONE (07:31)
[2022-11-04] MEDS ORDERED: VECURONIUM 10 MG VIAL IV ONE (07:31)
[2022-11-04] MEDS ORDERED: ALBUMIN HUMAN 5% (12.5gm) 250 ML BOTTLE IVPB ONE (07:31)
[2022-11-04] MEDS ORDERED: MIDAZOLAM 2 MG/2 ML VIAL ONE (07:31)
[2022-11-04] MEDS ORDERED: SUCCINYLCHOLINE CHLORIDE 200 MG/10 ML VIAL IV ONE (07:31)
[2022-11-04] MEDS ORDERED: IV FLUID CONTINUATION 1,000 ML IV.SOLN ONE (07:31)
[2022-11-04] MEDS ORDERED: fentaNYL (PF) 50 MCG/ML 2 ML AMP ONE (07:31)
[2022-11-04] MEDS ORDERED: ePHEDrine 50 MG/ML 1 ML VIAL ONE (07:31)
[2022-11-04 08:23] LABS: ABG Base Excess 1.5 mmol/L; ABG Glucose Whole Blood 92 mg/dL (75-99); ABG HCO3 26 mmol/L (21-25); ABG Hematocrit 32 % (34.0-46.0); ABG Ionized Calcium 4.7 mg/dL (4.5-5.3); ABG Lactic Acid Whole Blood 0.7 mmol/L (0.5-1.6); ABG Oxygen Saturation 99.2 % (94-97); ABG PCO2 40 mmHg (35-45); ABG PH 7.43 (7.35-7.45); ABG PO2 243 mmHg (83-108); ABG Potassium Whole Blood 3.4 mmol/L (3.4-4.5); ABG Sodium Whole Blood 142 mmol/L (135-146); ABG TCO2 27 mmol/L (19-24)
--- NOTE | 2022-11-04 08:49 | P.ANPRN ---
Procedure Note - Anesthesia - REBECCA Intraop Pre Bypass REBECCA Intraop - Anesthesia Indication: CABG Date of Procedure: 11/04/22 Pre-operative Diagnosis: CAD Post-operative Diagnosis: CAD Surgeon: Chevy Hyde Left Ventricle: 55-60% Ejection Fraction: Normal Regional Wall Motion Abnormalities: None Left Ventricle Hypertrophy: No R. Ventricle Function: Normal Anatomy: Trileaflet Aortic Stenosis: None Aortic Regurgitation: None Mitral Stenosis: None Mitral Regurgitation: Mild Tricuspid Stenosis: None Tricuspid Regurgitation: Trace Pulmonic Stenosis: None Pulmonic Regurgitation: Trace R. Atrial Dilation: No R. Atrial PFO: No L. Atrial Dilation: No Aortic Dissection: No Aortic Calcification: Severe Plural Effusion: None
[2022-11-04] MEDS ORDERED: SODIUM CHLORIDE 0.9% 50 ML with ceFAZolin 2,000 MG IV ONE ×2 (08:53)
[2022-11-04] MEDS ORDERED: SODIUM CHLORIDE 0.9% 500 ML 500 ML with HEPARIN SODIUM,PORCINE 5,000 UNIT IV ONE ×2 (09:34)
[2022-11-04] MEDS ORDERED: PAPAVERINE 360 MG in SODIUM CHLORIDE 0.9% 90 ML IV ONE (09:36)
[2022-11-04] MEDS ORDERED: ceFAZolin 1,000 MG in SODIUM CHLORIDE 0.9% 1,000 ML IRRIGATION ONE (09:36)
[2022-11-04 09:47] LABS: ABG Base Excess 0.8 mmol/L; ABG Glucose Whole Blood 107 mg/dL (75-99); ABG HCO3 26 mmol/L (21-25); ABG Hematocrit 31 % (34.0-46.0); ABG Ionized Calcium 4.7 mg/dL (4.5-5.3); ABG Lactic Acid Whole Blood 0.7 mmol/L (0.5-1.6); ABG Oxygen Saturation 97.8 % (94-97); ABG PCO2 40 mmHg (35-45); ABG PH 7.41 (7.35-7.45); ABG PO2 110 mmHg (83-108); ABG Potassium Whole Blood 3.7 mmol/L (3.4-4.5); ABG Sodium Whole Blood 140 mmol/L (135-146); ABG TCO2 27 mmol/L (19-24)
[2022-11-04 10:08] LABS: ABG Base Excess -0.9 mmol/L; ABG Glucose Whole Blood 113 mg/dL (75-99); ABG HCO3 24 mmol/L (21-25); ABG Hematocrit 27 % (34.0-46.0); ABG Ionized Calcium 4.6 mg/dL (4.5-5.3); ABG Lactic Acid Whole Blood 0.8 mmol/L (0.5-1.6); ABG Oxygen Saturation 98.8 % (94-97); ABG PCO2 39 mmHg (35-45); ABG PO2 180 mmHg (83-108); ABG Potassium Whole Blood 4.6 mmol/L (3.4-4.5); ABG Sodium Whole Blood 140 mmol/L (135-146); ABG TCO2 25 mmol/L (19-24)
[2022-11-04 10:44] LABS: ABG Glucose Whole Blood 123 mg/dL (75-99); ABG HCO3 23 mmol/L (21-25); ABG Ionized Calcium 4.4 mg/dL (4.5-5.3); ABG Lactic Acid Whole Blood 0.9 mmol/L (0.5-1.6); ABG Oxygen Saturation 98.6 % (94-97); ABG PCO2 39 mmHg (35-45); ABG PH 7.38 (7.35-7.45); ABG PO2 144 mmHg (83-108); ABG Potassium Whole Blood 3.8 mmol/L (3.4-4.5); ABG Sodium Whole Blood 140 mmol/L (135-146); ABG TCO2 24 mmol/L (19-24)
[2022-11-04 11:14] LABS: ABG Glucose Whole Blood 132 mg/dL (75-99); ABG HCO3 22 mmol/L (21-25); ABG Hematocrit 26 % (34.0-46.0); ABG Ionized Calcium 4.5 mg/dL (4.5-5.3); ABG Lactic Acid Whole Blood 0.8 mmol/L (0.5-1.6); ABG Oxygen Saturation 98.5 % (94-97); ABG PCO2 39 mmHg (35-45); ABG PH 7.36 (7.35-7.45); ABG PO2 145 mmHg (83-108); ABG Potassium Whole Blood 3.6 mmol/L (3.4-4.5); ABG Sodium Whole Blood 140 mmol/L (135-146); ABG TCO2 23 mmol/L (19-24)
[2022-11-04] MEDS ORDERED: DILTIAZEM 125 MG in SODIUM CHLORIDE 0.9% 100 ML IV ONE (11:15)
[2022-11-04 11:41] LABS: ABG Base Excess -3.3 mmol/L; ABG Glucose Whole Blood 143 mg/dL (75-99); ABG HCO3 22 mmol/L (21-25); ABG Hematocrit 26 % (34.0-46.0); ABG Ionized Calcium 4.5 mg/dL (4.5-5.3); ABG Lactic Acid Whole Blood 0.9 mmol/L (0.5-1.6); ABG Oxygen Saturation 98.3 % (94-97); ABG PCO2 40 mmHg (35-45); ABG PH 7.35 (7.35-7.45); ABG PO2 141 mmHg (83-108); ABG Potassium Whole Blood 3.6 mmol/L (3.4-4.5); ABG Sodium Whole Blood 141 mmol/L (135-146); ABG TCO2 23 mmol/L (19-24)
[2022-11-04 12:13] LABS: ABG Base Excess -4.8 mmol/L; ABG Glucose Whole Blood 142 mg/dL (75-99); ABG HCO3 21 mmol/L (21-25); ABG Hematocrit 27 % (34.0-46.0); ABG Ionized Calcium 4.3 mg/dL (4.5-5.3); ABG Lactic Acid Whole Blood 1.2 mmol/L (0.5-1.6); ABG Oxygen Saturation 98.5 % (94-97); ABG PCO2 41 mmHg (35-45); ABG PH 7.32 (7.35-7.45); ABG PO2 146 mmHg (83-108); ABG Potassium Whole Blood 3.7 mmol/L (3.4-4.5); ABG Sodium Whole Blood 140 mmol/L (135-146); ABG TCO2 22 mmol/L (19-24)
[2022-11-04 12:30] LABS: ABG Base Excess -5.9 mmol/L; ABG Glucose Whole Blood 128 mg/dL (75-99); ABG HCO3 20 mmol/L (21-25); ABG Hematocrit 26 % (34.0-46.0); ABG Ionized Calcium 4.2 mg/dL (4.5-5.3); ABG Lactic Acid Whole Blood 1.2 mmol/L (0.5-1.6); ABG Oxygen Saturation 97.6 % (94-97); ABG PCO2 41 mmHg (35-45); ABG PO2 113 mmHg (83-108); ABG Potassium Whole Blood 3.4 mmol/L (3.4-4.5); ABG Sodium Whole Blood 141 mmol/L (135-146); ABG TCO2 21 mmol/L (19-24)
[2022-11-04 12:43] LABS: ABG Hematocrit 24 % (34.0-46.0)
[2022-11-04] MEDS ORDERED: METOCLOPRAMIDE 5 MG/ML 2 ML VIAL IVP PRN (13:01)
[2022-11-04] MEDS ORDERED: IPRATROPIUM-ALBUTEROL 3 ML NEB INHALATION PRN (13:01)
[2022-11-04] MEDS ORDERED: DEXTROSE 50% SYRINGE 50 ML IVP PRN ×2 (13:01)
[2022-11-04] MEDS ORDERED: INSULIN REGULAR 100 UNIT in SODIUM CHLORIDE 0.9% 100 ML IV SCH (13:01)
[2022-11-04] MEDS ORDERED: DEXMEDETOMIDINE/0.9% NACL(PMX) 400 MCG in EMPTY BAG 1 BAG IV SCH (13:01)
[2022-11-04] MEDS ORDERED: hydrALAZINE HCL 20 MG/ML 1 ML VIAL IVP PRN (13:01)
[2022-11-04] MEDS ORDERED: CLEVIDIPINE BUTYRATE 25 MG in EMPTY BAG 1 BAG IV SCH (13:01)
[2022-11-04] MEDS ORDERED: BENZOCAINE/MENTHOL LOZENG 1 EACH LOZENGE MUCOUS MEM PRN (13:01)
[2022-11-04] MEDS ORDERED: Magnesium Replacement Protocol 1 EACH MISC MISCELLANE PRN (13:01)
[2022-11-04] MEDS ORDERED: Potassium Replacement Protocol 1 EACH MISC MISCELLANE PRN ×2 (13:01→15:43)
[2022-11-04] MEDS ORDERED: NITROGLYCERIN-D5W PMX 50 MG in DEXTROSE/WATER 1 250ML.BAG IV SCH (13:01)
[2022-11-04] MEDS ORDERED: AMIODARONE 360 MG in DEXTROSE 5% IN WATER 200 ML IV ONE ×2 (13:01)
--- NOTE | 2022-11-04 13:44 | P.OP ---
Date of Procedure: 11/04/22 Preoperative Diagnosis: Coronary artery disease Postoperative Diagnosis: Same Procedure(s) Performed: Off-pump CABG 2 with GARCÍA to diagonal and jump graft left radial artery off the GARCÍA to the mid LAD with ligation of the left atrial appendage with 35 mm AtriCure clip Implants: 35mm AtriCure clip Anesthesia: ALKA Surgeon: Chevy Hyde Automated Process Operator #1: Palmer Gardiner Estimated Blood Loss (ml): 200 Pathology: none sent Condition: stable Disposition: ICU Indications for Procedure: 77-year-old morbidly obese female who is an active smoker who presents with anginal symptomatology. She underwent cardiac catheterization she was found to have proximal LAD diagonal disease with tortuous calcified vessels. Coronary bypass surgery was requested by Dr. Mccarthy. I saw the patient and suggested a trial of medical therapy because her lesions did not appear to be that critical. After 3 months of medical therapy the patient was more symptomatic and was decided to perform bypass surgery electively. Operative Findings: There were adhesions of the in the left pleural space. Dissection of the GARCÍA was very difficult due to dense adhesions. Completion of the GARCÍA dissection was a good conduit all dose fairly small distally. There was good flow. On opening both the diagonal and LAD coronary arteries there was excellent flow present within the [place] vessels. On completion of the side to side graft of the GARCÍA to the diagonal, flow out the end of the GARCÍA was compromised. A probe easily threaded proximal into the anastomosis and proximal. Blood flow remained poor. Taking down the anastomosis it was discovered that was dissection focally in the GARCÍA distal to the anastomosis to the diagonal. On completion of the bypass grafts, Medistim analysis demonstrated competitive flow in each of the 2 grafts with patent grafts. Description of Procedure: Patient was brought to the operating room placed supine on the operating table. Gen. anesthesia was induced and she was intubated. T probe was placed. REBECCA was a relatively normal study. The anterior torso and lower extremities were sterilely prepped and draped. Midline sternotomy was performed. Left hemister num was retracted upwards and left pleural space was opened. Pleural adhesions were taken down with electrocautery. GARCÍA was harvested on a vascularized pedicle. Good size vessel proximally but became quite small distally. It had good pulse and on opening it had good flow. Left pleural space was drained with a 32-[place] chest tube. Standard sternal retractor was placed. Midline pericardiotomy was performed and the heart was exposed with pericardial sutures. Patient was systemically heparinized and a CTs were maintained greater than 250 during grafting. 35 mm AtriCure was applied to the base of the left atrial appendage. The GARCÍA had adequate length to graft the diagonal and LAD sequentially. The smallest portion of the end of the GARCÍA was resected. We began with a [id number] anastomosis of the GARCÍA to the first diagonal. The first diagonal was a greater than 2.5 mm vessel. On opening it had tremendous flow. Blood flow was controlled with 2.5 mm flow through. [id number] anastomosis was completed with 8-0 Prolene suture and appeared to go without a problem. On completion of the anastomosis the flow through was removed 50 probe in the proximal distal portion anastomosis and this proceeded uneventfully. Suture was tied with good result and hemostasis and the inflow was open. There was minimal flow through the end of the GARCÍA. A 1.5 mm probe was easily advanc ed through the GARCÍA into the LAD proximal to the diagonal anastomosis. Upon removal of the probes slowly improved but still remained extremely limited. We were not happy with this. His decided to take down the [id number] anastomosis. The anastomosis of the GARCÍA to the diagonal was taken down and the flow through was replaced. Careful examination of the GARCÍA revealed focal dissection of the GARCÍA just distal to the opening for the [id number] anastomosis. The GARCÍA was trimmed to good healthy tissue and an end-to-side anastomosis of the GARCÍA to the diagonal was performed. GARCÍA was not long enough at this point to reach the LAD beyond disease and so we used it for the diagonal as end to side. We trimmed back the GARCÍA that had been resected and had a short piece but still not long enough to jumped to the mid LAD beside disease. We carefully examined the end of the GARCÍA that we had previously resected but it was felt to be too small for these large vessels. Was decided to take piece of radial to perform a jump graft. The left arm was brought out sterilely prepped and draped after doing careful Randall testing in assuring good ulnar flow to the hand. Open harvest of the distal radial artery was performed. Stumps proximally and distally were tied off and the radial artery was examined. It was a good-sized artery at least 2.5 mm in diameter and had excellent flow and good quality. We now returned to the chest and opened the left anterior descending coronary artery beyond palpable disease. Here was greater than 3 mm vessel. Blood flow was controlled with a 3 mm flow through. There was copious flow through the [place] vessel. Radial artery to the LAD anastomosis was performed in end-to-side fashion with running 8-0 Prolene suture. On completion anastomosis there was excellent back flow at the radial. This was controlled with a bulldog clamp. Flow through it been removed effectively probing the proximal distal portion anastomosis suture had been tied with excellent hemostasis. Proximal anastomosis was now taken off the GARCÍA as it entered the pericardial space. Bulldog clamps were placed proximally and distally on the GARCÍA was opened longitudinally in the proximal anastomosis constructed with running 8-0 Prolene suture. On completion of the proximal anastomosis was de- aired by backbleeding and the inflow open. Metastatic testing demonstrated pat ent grafts to both the LAD and the diagonal with evidence of competitive flow. Heparin was not reversed with protamine. Good hemostasis was obtained throughout. Mediastinum was drained with a 36-[place] chest tube. After assuring good hemostasis, chest was irrigated with antibiotic solution. Sternum was closed with 7 Mersilene band's. Fascia was closed with 0 Ethibond. Subcutaneous and subcuticular layers with layers of Vicryl suture. Left radial site was also closed with layers of Vicryl suture. Skin glue and dry sterile dressings were applied. Patient was transferred to the ICU in stable condition. Patient remained hemodynamically stable throughout good cardiac output good cardiac index and good blood pressure. She did not require any inotropic support. She did not require any blood transfusions.
[2022-11-04] MEDS ORDERED: DILTIAZEM 125 MG in SODIUM CHLORIDE 0.9% 100 ML IV SCH (14:00)
[2022-11-04] MEDS ORDERED: MUPIROCIN 2% OINT 22 GM TUBE NASAL ONE (14:00)
[2022-11-04] MEDS: LACTATED RINGERS 1,000 ML IV SCH (14:00)
[2022-11-04 14:08] LABS: Glucose,Whole Blood 103 mg/dL (70-110)
[2022-11-04 14:22] LABS: Basophils % (A) 0 %; Eosinophils # (A) 0.1 k/uL (0-0.7); Eosinophils % (A) 1 %; HCT 22.5 % (34.0-46.0); Hypochromasia Slight; Lymphocytes # (A) 1.4 k/uL (1.0-4.8); Lymphocytes % (A) 11 %; MCH 31.1 pg (25.0-35.0); MCHC 32.8 g/dL (31.0-37.0); MCV 94.7 fL (80.0-100.0); Mean Platelet Volume 8.7; Monocytes # (A) 0.4 k/uL (0-1.0); Monocytes % (A) 3 %; Neutrophils # (A) 10.5 k/uL (1.3-7.7); Neutrophils % (A) 84 %; RBC 2.38 m/uL (3.80-5.40); RDW 15.8 % (11.5-15.5); WBC 12.5 k/uL (3.8-10.6)
[2022-11-04 14:25] LABS: HGB 7.4 gm/dL (11.4-16.0)
[2022-11-04 14:32] LABS: Ionized Calcium 4.6 mg/dL (4.5-5.3)
[2022-11-04 14:34] LABS: ABG Base Excess -6.8 mmol/L; ABG HCO3 20 mmol/L (21-25); ABG Oxygen Saturation 99.3 % (94-97); ABG PCO2 44 mmHg (35-45); ABG PH 7.27 (7.35-7.45); ABG PO2 246 mmHg (83-108); ABG TCO2 22 mmol/L (19-24)
[2022-11-04 14:35] LABS: Allen Test Performed? no
[2022-11-04 14:42] LABS: ALT 8 U/L (4-34); AST 15 U/L (14-36); African American GFR (CKD) >90 (>60 ml/min/1.73 sqM); Albumin 3.4 g/dL (3.5-5.0); Alkaline Phosphatase 25 U/L (38-126); Anion Gap 8 mmol/L; Blood Urea Nitrogen 17 mg/dL (7-17); Calcium 6.9 mg/dL (8.4-10.2); Carbon Dioxide 20 mmol/L (22-30); Chloride 111 mmol/L (98-107); Glucose 104 mg/dL (74-99); Non-African American GFR(CKD) 86 (>60 ml/min/1.73 sqM); Potassium 3.8 mmol/L (3.5-5.1); Sodium 139 mmol/L (137-145); Total Bilirubin 0.6 mg/dL (0.2-1.3)
[2022-11-04] MEDS: ALBUMIN HUMAN 5% 250 ML in EMPTY BAG 1 BAG IVPB PRN ×2 (14:44→15:01)
[2022-11-04 14:45] LABS: Platelet Count 121 k/uL (150-450)
--- NOTE | 2022-11-04 14:45 | XR ---
EXAMINATION TYPE: XR chest 1V portable DATE OF EXAM: 11/04/2022 CLINICAL HISTORY: Postoperative cardiac surgery. TECHNIQUE: Single AP portable supine view of the chest is obtained. COMPARISON: Chest x-ray from October 17, 2022 FINDINGS: There is no endotracheal tube with tip terminating past ashley and the right mainstem bron chus, advise pulling back approximate 6 cm. There is new orogastric tube projecting below diaphragm. There is new right internal jugular [place] catheter with tip terminating at level of pulmonary out flow tract. There is new left-sided chest tube and mediastinal drainage catheter. There is new left a trial appendage clip. Persistent mild cardiomegaly with atherosclerotic and ectatic thoracic aorta. Increased interstitial markings bilaterally. No pneumothorax is seen. Osseous structures are intact. IMPRESSION: 1. Low-lying endotracheal tube should be pulled back roughly 6.0 cm. 2. Other tubes and lines satisfactory in position. Persistent cardiomegaly with new central vascular congestion. No pneumothorax identified with left-sided chest tube in place. Patient's ICU nurse called with results at time of dictation.
[2022-11-04] MEDS ORDERED: CALCIUM GLUCONATE IN NACL 2 GM in SALINE 1 100ML.BAG IVPB ONE (14:50)
[2022-11-04] MEDS ORDERED: AMIODARONE 360 MG in DEXTROSE 5% IN WATER 200 ML IV PRN ×2 (15:02)
[2022-11-04] MEDS ORDERED: AMIODARONE 450 MG in DEXTROSE 5% IN WATER 250 ML IV PRN ×2 (15:02)
[2022-11-04 15:05] LABS: INR 1.3 (<1.2); Partial Thromboplastin Time 36.2 sec (22.0-30.0); Prothrombin Time 13.6 sec (9.0-12.0)
[2022-11-04] MEDS ORDERED: SODIUM BICARB 8.4% 50 ML SYR (1 MEQ/ML) IV STA (15:10)
[2022-11-04] MEDS ORDERED: NOREPINEPHRINE 4 MG in SODIUM CHLORIDE 0.9% 250 ML IV SCH (15:15)
[2022-11-04 15:24] LABS: Glucose,Whole Blood 179 mg/dL (70-110)
--- NOTE | 2022-11-04 15:59 | P.CNPUL ---
History of Present Illness Consult date: 11/04/22 Requesting physician: Chevy Hyde Reason for consult: other (Mechanical ventilator/critical care management) Chief complaint: Fatigue, coronary artery disease History of present illness: This is a 77-year-old female patient with a known history of hypertension, diabetes mellitus, obesity, hyperlipidemia, peripheral vascular disease, chronic tobacco dependence. Been having issues with worsening fatigue. Cardiac workup included a cardiac catheterization that revealed significant coronary artery disease. She was recommended coronary artery bypass grafting. She was brought in electively today for the procedure by Dr. Hyde and did undergo an off-pump CABG 2 with a GARCÍA to the diagonal and jump graft left radial artery off the GARCÍA to the mid LAD. Left atrial appendage ligation with a 35 mm atrial care clinic. She is seen in consultation in the intensive care unit shortly after returning from the OR. On the mechanical ventilator settings are assist-control mode at a rate of 14, temperature 100, FiO2 60% and a PEEP of 10. She is currently on propofol at 30 mcg/kg/m. Norepinephrine at 0.06 mcg/kg/m. Nitroglycerin drip at 5 mcg/m. Lactated Ringer's at 50 MLS per hour. Cardizem drip at 5 mg per hour. Insulin at 2.5 units per hour. She did have a brief episode of hypotension and received albumin and medications adjusted. Her arterial blood gases revealed a pO2 of 206, pCO2 44 and a pH of 7.27 on 100% FiO2. She received 1 amp of bicarb. Cardiac output 4.9. Cardiac index 2.6. PA pressure 52/27. CVP 19. Current blood pressure 122/52. Chest x-ray revealed a low-lying endotracheal tube. Mediastinal and left pleural chest tubes in place. No evidence of pneumothorax. Persistent cardiomegaly. Review of Systems ROS unobtainable: due to endotracheal tube Past Medical History Past Medical History: Coronary Artery Disease (CAD), COPD, Diabetes Mellitus, Hyperlipidemia, Hypertension, Osteoarthritis (OA) Additional Past Medical History / Comment(s): SOB w/ activity History of Any Multi-Drug Resistant Organisms: None Reported Past Surgical History: Heart Catheterization, Hysterectomy, Tubal Ligation Additional Past Surgical History / Comment(s): COLONOSCOPY Past Anesthesia/Blood Transfusion Reactions: No Reported Reaction Additional Past Anesthesia/Blood Transfusion Reaction / Comment(s): no hx of blood transfusion Smoking Status: Current every day smoker - Past Family History Mother Family Medical History: Diabetes Mellitus, Dialysis, Renal Disease Additional Family Medical History / Comment(s): hemodialysis Father Family Medical History: CVA/TIA Additional Family Medical History / Comment(s): heart problems Sister(s) Family Medical History: Diabetes Mellitus Brother(s) Family Medical History: Diabetes Mellitus Medications and Allergies Home Medications Medication Instructions Recorded Confirmed Type Atorvastatin [Lipitor] 20 mg PO DAILY 04/12/16 11/04/22 History Pioglitazone [Actos] 15 mg PO DAILY 04/12/16 11/04/22 History amLODIPine BESYLATE [Norvasc] 10 mg PO QAM 04/12/16 11/04/22 History glipiZIDE [Glucotrol] 5 mg PO AC-BID 06/01/21 11/04/22 History Losartan Potassium 100 mg PO DAILY 11/01/22 11/04/22 History Metoprolol Tartrate 25 mg PO BID 11/01/22 11/04/22 History Mupirocin 2% Oint [Bactroban 2% 1 applic NASAL BID 5 Days #22 gm 11/01/22 11/04/22 Rx Oint] hydroCHLOROthiazide [Hydrodiuril] 25 mg PO DAILY 11/01/22 11/04/22 History Aspirin 324 mg PO DAILY 11/04/22 11/04/22 History Allergies Allergy/AdvReac Type Severity Reaction Status Date / Time Iodine and Iodide Containing Allergy Anaphylaxis Verified 11/04/22 06:12 Produc shellfish derived [Shellfish] Allergy Anaphylaxis Verified 11/04/22 06:12 Physical Exam Vitals: Vital Signs Temp Pulse Pulse Resp BP BP BP 11/04/22 15:30 68 16 11/04/22 15:15 61 16 113/63 11/04/22 15:07 11/04/22 15:05 11/04/22 15:00 95.7 F L 68 14 56/34 11/04/22 14:45 62 14 11/04/22 14:37 11/04/22 14:30 58 L 14 11/04/22 14:15 56 L 14 11/04/22 14:00 95.5 F L 57 L 14 11/04/22 13:55 11/04/22 13:23 11/04/22 06:42 98.2 F 66 20 117/64 136/70 Pulse Ox FiO2 11/04/22 15:30 93 L 11/04/22 15:15 93 L 11/04/22 15:07 50 11/04/22 15:05 50 11/04/22 15:00 98 11/04/22 14:45 99 11/04/22 14:37 60 11/04/22 14:30 99 11/04/22 14:15 100 11/04/22 14:00 100 11/04/22 13:55 100 11/04/22 13:23 100 11/04/22 06:42 95 Intake and Output 11/04/22 11/04/22 11/04/22 06:59 14:59 22:59 Intake Total 100 53 Output Total 2900 Balance 100 -2847 Intake: IV 100 53 Output: Urine 400 Estimated Blood Loss 2500 Other: Weight 81.9 kg ABP, PAP, CO, CI - Last 8 Hours Arterial Blood Pressure 122/52 Arterial Blood Pressure 108/49 Arterial Blood Pressure 131/58 Arterial Blood Pressure 71/36 Arterial Blood Pressure 98/42 Arterial Blood Pressure 104/40 Pulmonary Artery Pressure 52/27 Pulmonary Artery Pressure 50/27 Pulmonary Artery Pressure 58/27 Pulmonary Artery Pressure 40/21 Pulmonary Artery Pressure 39/22 Pulmonary Artery Pressure 40/14 Cardiac Output 5.8 Cardiac Output 4.9 Cardiac Index 3.1 Cardiac Index 2.6 GENERAL EXAM: Intubated, sedated 77-year-old female, on the mechanical ventilator, comfortable in no apparent distress. HEAD: Normocephalic. EYES: Normal reaction of pupils, equal size. NOSE: Clear with pink turbinates. THROAT: Oral endotracheal and gastric tube secured in place No erythema or exudates. NECK: Right IJ [place]-Roscoe catheter in place No masses, no JVD. CHEST: No chest wall deformity. Sternal dressing dry and intact. Mediastinal and left pleural chest tubes in place LUNGS: Equal air entry with no crackles, wheeze, rhonchi or dullness. CVS: S1 and S2 normal with no audible murmur, regular rhythm. ABDOMEN: No hepatosplenomegaly, normal bowel sounds, no guarding or rigidity. SPINE: No scoliosis or deformity SKIN: No rashes CENTRAL NERVOUS SYSTEM: No focal deficits, tone is normal in all 4 extremities. EXTREMITIES: Revealed 2-year-old dressing dry and intact. Arterial line secured in place. There is no peripheral edema. No clubbing, no cyanosis. Peripheral pulses are intact. Results - Laboratory Findings CBC and BMP: 11/04/22 14:00 11/04/22 14:00 ABG ABG pH 7.27 (7.35-7.45) L 11/04/22 14:32 ABG pCO2 44 mmHg (35-45) 11/04/22 14:32 ABG pO2 246 mmHg (83-108) H 11/04/22 14:32 ABG O2 Saturation 99.3 % (94-97) H 11/04/22 14:32 PT/INR, D-dimer PT 13.6 sec (9.0-12.0) H 11/04/22 14:00 INR 1.3 (<1.2) H 11/04/22 14:00 Abnormal lab findings: Abnormal Labs 10/31/22 11/04/22 11/04/22 11:08 07:30 07:30 WBC RBC Hgb Hct RDW Plt Count Neutrophils # PT INR APTT Fibrinogen ABG pH ABG pO2 243 H 110 H ABG HCO3 26 H 26 H ABG Total CO2 27 H 27 H ABG O2 Saturation 99.2 H 97.8 H ABG Hematocrit 32 L 31 L ABG Potassium ABG Ionized Calcium ABG Glucose 107 H Hemoglobin 10.4 L 10.0 L Chloride Carbon Dioxide Glucose POC Glucose (mg/dL) Calcium Alkaline Phosphatase Total Protein Albumin Arterial Blood Potassium Arterial Blood Glucose 107 H Crossmatch See Detail 11/04/22 11/04/22 11/04/22 07:30 07:30 07:30 WBC RBC Hgb Hct RDW Plt Count Neutrophils # PT INR APTT Fibrinogen ABG pH ABG pO2 180 H 144 H 145 H ABG HCO3 ABG Total CO2 25 H ABG O2 Saturation 98.8 H 98.6 H 98.5 H ABG Hematocrit 27 L 24 L 26 L ABG Potassium 4.6 H ABG Ionized Calcium 4.4 L ABG Glucose 113 H 123 H 132 H Hemoglobin 8.9 L 7.7 L 8.6 L Chloride Carbon Dioxide Glucose POC Glucose (mg/dL) Calcium Alkaline Phosphatase Total Protein Albumin Arterial Blood Potassium 4.6 H Arterial Blood Glucose 113 H 123 H 132 H Crossmatch 11/04/22 11/04/22 11/04/22 07:30 07:30 12:20 WBC RBC Hgb Hct RDW Plt Count Neutrophils # PT INR APTT Fibrinogen ABG pH 7.32 L 7.30 L ABG pO2 141 H 146 H 113 H ABG HCO3 20 L ABG Total CO2 ABG O2 Saturation 98.3 H 98.5 H 97.6 H ABG Hematocrit 26 L 27 L 26 L ABG Potassium ABG Ionized Calcium 4.3 L 4.2 L ABG Glucose 143 H 142 H 128 H Hemoglobin 8.6 L 8.8 L 8.6 L Chloride Carbon Dioxide Glucose POC Glucose (mg/dL) Calcium Alkaline Phosphatase Total Protein Albumin Arterial Blood Potassium Arterial Blood Glucose 143 H 142 H 128 H Crossmatch 11/04/22 11/04/22 11/04/22 14:00 14:00 14:00 WBC 12.5 H RBC 2.38 L Hgb 7.4 L D Hct 22.5 L RDW 15.8 H Plt Count 121 L D Neutrophils # 10.5 H PT 13.6 H INR 1.3 H APTT 36.2 H Fibrinogen 197 L ABG pH ABG pO2 ABG HCO3 ABG Total CO2 ABG O2 Saturation ABG Hematocrit ABG Potassium ABG Ionized Calcium ABG Glucose Hemoglobin Chloride 111 H Carbon Dioxide 20 L Glucose 104 H POC Glucose (mg/dL) Calcium 6.9 L Alkaline Phosphatase 25 L Total Protein 5.0 L Albumin 3.4 L Arterial Blood Potassium Arterial Blood Glucose Crossmatch 11/04/22 11/04/22 14:32 15:23 WBC RBC Hgb Hct RDW Plt Count Neutrophils # PT INR APTT Fibrinogen ABG pH 7.27 L ABG pO2 246 H ABG HCO3 20 L ABG Total CO2 ABG O2 Saturation 99.3 H ABG Hematocrit ABG Potassium ABG Ionized Calcium ABG Glucose Hemoglobin Chloride Carbon Dioxide Glucose POC Glucose (mg/dL) 179 H Calcium Alkaline Phosphatase Total Protein Albumin Arterial Blood Potassium Arterial Blood Glucose Crossmatch - Diagnostic Findings Chest x-ray: image reviewed Assessment and Plan Assessment: Coronary artery disease, status post off-pump coronary artery bypass grafting 2 utilizing a GARCÍA to the diagonal and jump graft left radial artery off the GARCÍA to the mid LAD with ligation of the left atrial appendage with a 35mm AtriCure clip. Postoperative day #0. Chronic and ongoing tobacco dependence. FEV1 value was 1.36 L which is 87% of predicted Diabetes mellitus Obesity Hyperlipidemia Hypertension Peripheral vascular disease Plan: The patient was seen and evaluated Chest x-ray, ABGs, labs and medications reviewed Give 1 amp of sodium bicarbonate Pullback the endotracheal tube 5 cm Increase the respiratory rate to 16, decreased FiO2 to 50% Plan for early extubation protocol if tolerated Continue with the current treatment plan We will continue to follow and make further recommendations based on her clinical status I have personally seen and examined the patient, performed the documentation and the assessment and plan as written. Number of minutes spent on the visit: 20.
[2022-11-04] MEDS ORDERED: IPRATROPIUM-ALBUTEROL 3 ML NEB INHALATION SCH (16:00)
[2022-11-04 16:40] LABS: Glucose,Whole Blood 174 mg/dL (70-110)
[2022-11-04] MEDS: POTASSIUM CHLORIDE 10 MEQ in WATER FOR INJECTION 1 100ML.BAG IVPB SCH ×2 (16:57→18:06)
[2022-11-04 17:03] LABS: Basophils % (A) 0 %; Eosinophils % (A) 0 %; HCT 22.5 % (34.0-46.0); HGB 7.1 gm/dL (11.4-16.0); Hypochromasia Slight; Lymphocytes # (A) 1.2 k/uL (1.0-4.8); Lymphocytes % (A) 8 %; MCH 30.1 pg (25.0-35.0); MCHC 31.4 g/dL (31.0-37.0); MCV 95.8 fL (80.0-100.0); Mean Platelet Volume 8.3; Monocytes # (A) 0.5 k/uL (0-1.0); Monocytes % (A) 3 %; Neutrophils # (A) 13.8 k/uL (1.3-7.7); Neutrophils % (A) 89 %; Platelet Count 115 k/uL (150-450); RBC 2.35 m/uL (3.80-5.40); RDW 15.8 % (11.5-15.5); WBC 15.5 k/uL (3.8-10.6)
[2022-11-04] MEDS: ACETAMINOPHEN IV (For NPO) 1,000 MG in EMPTY BAG 1 BAG IVPB SCH (17:27)
[2022-11-04] MEDS: HEPARIN SODIUM,PORCINE/PF 5,000 UNIT/0.5 ML SYRINGE SQ SCH (17:35)
[2022-11-04 17:44] LABS: Glucose,Whole Blood 172 mg/dL (70-110)
[2022-11-04 18:52] LABS: ABG Base Excess -4.6 mmol/L; ABG HCO3 21 mmol/L (21-25); ABG Oxygen Saturation 95.1 % (94-97); ABG PCO2 41 mmHg (35-45); ABG PH 7.33 (7.35-7.45); ABG PO2 75 mmHg (83-108); ABG TCO2 23 mmol/L (19-24)
[2022-11-04 18:54] LABS: Allen Test Performed? no
[2022-11-04 19:08] LABS: Glucose,Whole Blood 146 mg/dL (70-110)
[2022-11-04] MEDS: IPRATROPIUM-ALBUTEROL 3 ML NEB INHALATION SCH (19:35)
[2022-11-04 19:57] LABS: Glucose,Whole Blood 133 mg/dL (70-110)
[2022-11-04] MEDS ORDERED: AMIODARONE 450 MG in DEXTROSE 5% IN WATER 250 ML IV SCH ×2 (20:00)
[2022-11-04 20:05] LABS: Basophils % (A) 0 %; Eosinophils # (A) 0.1 k/uL (0-0.7); Eosinophils % (A) 1 %; HCT 23.5 % (34.0-46.0); HGB 7.5 gm/dL (11.4-16.0); Hypochromasia Slight; Lymphocytes % (A) 7 %; MCH 30.8 pg (25.0-35.0); MCHC 31.9 g/dL (31.0-37.0); MCV 96.5 fL (80.0-100.0); Mean Platelet Volume 10.2; Monocytes # (A) 0.3 k/uL (0-1.0); Monocytes % (A) 2 %; Neutrophils # (A) 12.9 k/uL (1.3-7.7); Neutrophils % (A) 90 %; Platelet Count 110 k/uL (150-450); RBC 2.43 m/uL (3.80-5.40); RDW 15.5 % (11.5-15.5); WBC 14.3 k/uL (3.8-10.6)
[2022-11-04 21:04] LABS: Glucose,Whole Blood 111 mg/dL (70-110)
[2022-11-04] MEDS: MUPIROCIN 2% OINT 22 GM TUBE NASAL SCH (21:26)
[2022-11-04 21:59] LABS: Glucose,Whole Blood 119 mg/dL (70-110)
[2022-11-04 23:09] LABS: Glucose,Whole Blood 139 mg/dL (70-110)
[2022-11-05 00:08] LABS: Glucose,Whole Blood 131 mg/dL (70-110)
[2022-11-05] MEDS: ACETAMINOPHEN IV (For NPO) 1,000 MG in EMPTY BAG 1 BAG IVPB SCH (00:13)
[2022-11-05] MEDS: HEPARIN SODIUM,PORCINE/PF 5,000 UNIT/0.5 ML SYRINGE SQ SCH ×4 (00:15→23:41)
[2022-11-05] MEDS ORDERED: HYDROcodone/APAP 10-325MG 1 EACH TAB PO PRN (00:45)
[2022-11-05 01:07] LABS: Glucose,Whole Blood 118 mg/dL (70-110)
[2022-11-05 02:20] LABS: Glucose,Whole Blood 98 mg/dL (70-110)
[2022-11-05] MEDS: HYDROcodone/APAP 5-325MG 1 EACH TAB PO PRN ×3 (02:23→18:30)
[2022-11-05 03:09] LABS: Glucose,Whole Blood 102 mg/dL (70-110)
[2022-11-05 04:17] LABS: Glucose,Whole Blood 110 mg/dL (70-110)
[2022-11-05] MEDS: ALBUMIN HUMAN 5% 250 ML in EMPTY BAG 1 BAG IVPB PRN (05:42)
[2022-11-05 05:48] LABS: Glucose,Whole Blood 128 mg/dL (70-110)
[2022-11-05 05:48] LABS: Basophils % (A) 0 %; Eosinophils % (A) 0 %; HCT 23.7 % (34.0-46.0); HGB 7.6 gm/dL (11.4-16.0); Hypochromasia Slight; Lymphocytes # (A) 1.2 k/uL (1.0-4.8); Lymphocytes % (A) 10 %; MCH 30.5 pg (25.0-35.0); MCHC 32.1 g/dL (31.0-37.0); MCV 94.9 fL (80.0-100.0); Monocytes # (A) 0.4 k/uL (0-1.0); Monocytes % (A) 3 %; Neutrophils # (A) 10.7 k/uL (1.3-7.7); Neutrophils % (A) 86 %; Platelet Count 129 k/uL (150-450); RDW 15.7 % (11.5-15.5); WBC 12.3 k/uL (3.8-10.6)
[2022-11-05 06:13] LABS: Ionized Calcium 5.1 mg/dL (4.5-5.3)
[2022-11-05 06:21] LABS: ALT 11 U/L (4-34); AST 23 U/L (14-36); African American GFR (CKD) >90 (>60 ml/min/1.73 sqM); Albumin 3.3 g/dL (3.5-5.0); Alkaline Phosphatase 34 U/L (38-126); Anion Gap 9 mmol/L; Blood Urea Nitrogen 16 mg/dL (7-17); Calcium 8.1 mg/dL (8.4-10.2); Carbon Dioxide 20 mmol/L (22-30); Chloride 110 mmol/L (98-107); Glucose 92 mg/dL (74-99); Magnesium 1.9 mg/dL (1.6-2.3); Non-African American GFR(CKD) 87 (>60 ml/min/1.73 sqM); Potassium 3.9 mmol/L (3.5-5.1); Sodium 139 mmol/L (137-145); Total Bilirubin 0.6 mg/dL (0.2-1.3); Total Protein 4.9 g/dL (6.3-8.2)
[2022-11-05 06:24] LABS: Glucose,Whole Blood 125 mg/dL (70-110)
[2022-11-05] MEDS ORDERED: MAGNESIUM SULFATE-D5W PMX 1 GM in DEXTROSE/WATER 1 100ML.BAG IVPB ONE (06:29)
[2022-11-05] MEDS: POTASSIUM CHLORIDE 10 MEQ in WATER FOR INJECTION 1 100ML.BAG IVPB SCH ×2 (06:37→08:23)
[2022-11-05 06:59] LABS: Glucose,Whole Blood 123 mg/dL (70-110)
--- NOTE | 2022-11-05 07:44 | P.PN ---
Subjective Progress Note Date: 11/05/22 Principal diagnosis: Coronary artery disease. Previous medical history of hypertension, hyperlipidemia, type 2 diabetes, current tobacco dependence, osteoarthritis, obesity, peripheral vascular disease. Preoperative nasal swab positive for MSSA, treated POD #1 off-pump coronary artery bypass graft 2 with left internal mammary artery to the diagonal and jump graft left radial artery off the GARCÍA to the mid left anterior descending artery, ligation of the left atrial appendage with 35 mm AtriCure clip, endovascular left radial artery harvest, intraoperative transesophageal echocardiogram performed by anesthesia Postoperative acute blood loss anemia and thrombocytopenia, expected The patient was seen and examined sitting up in a recliner in the intensive care unit in no acute distress. She was successfully extubated at 19:00. Currently in sinus rhythm, hemodynamically stable. Currently on IV nitro and Cardizem for vessel spasm prophylaxis. States pain is mostly controlled with current medication regimen, denies shortness of breath. Currently on 6 L nasal cannula, only able to achieve 500 mL on her incentive spirometry with poor effort. Right internal jugular Talihina/Cordis, right radial arterial line, mediastinal/left pleural chest tubes all remain. No other new concerns. Objective - Vital Signs Vital signs: Vital Signs Temp 98.8 F 11/05/22 04:00 Pulse 80 11/05/22 07:00 Resp 23 11/05/22 07:00 BP 113/63 11/05/22 06:00 Pulse Ox 93 L 11/05/22 07:00 FiO2 50 11/04/22 18:25 Intake & Output 11/04/22 11/05/22 11/05/22 18:59 06:59 18:59 Intake Total 1461.520 919.635 359 Output Total 3615 1120 50 Balance -2153.480 -200.365 309 Weight 85.5 kg Intake: IV 189 228 259 albumin 250 ns cardiac output 100 120 ns pressure bags 36 108 9 Intake, IV Titration 1272.520 691.635 100 Amount ACETAMINOPHEN IV (For NPO 100 ) 1,000 mg In Empty Bag 1 bag @ 400 mls/hr IVPB Q6HR [facility] Rx#:[id number] Albumin Human 5% 250 ml 500 In Empty Bag 1 bag @ 250 mls/hr IVPB Q1HR PRN Rx#: [id number] Calcium Gluconate in NaCl 100 2 gm In Saline 1 100ml. bag @ 100 mls/hr IVPB ONCE ONE Rx#:[id number] Diltiazem 125 mg In 20 60 Sodium Chloride 0.9% 100 ml @ 5 MG/HR 5 mls/hr IV .Q24H [facility] Rx#:[id number] Insulin Regular 100 unit 10.808 13.635 In Sodium Chloride 0.9% 100 ml @ Per Protocol IV .Q0M [facility] Rx#:[id number] Lactated Ringers 1,000 ml 200 600 @ 20 mls/hr IV .Q24H [facility] Rx#:[id number] Nitroglycerin-D5w Pmx 50 6.0 18.0 mg In Dextrose/Water 1 250ml.bag @ 5 MCG/MIN 1.5 mls/hr IV .Q24H [facility] Rx#: [id number] Norepinephrine 4 mg In 3.952 Sodium Chloride 0.9% 250 ml @ 0.03 MCG/KG/MIN 9. 361 mls/hr IV .Q24H [facility] Rx#:[id number] Potassium Chloride 10 meq 200 In Water For Injection 1 100ml.bag @ 100 mls/hr IVPB Q1H [facility] Rx#: [id number] Potassium Chloride 10 meq 100 In Water For Injection 1 100ml.bag @ 100 mls/hr IVPB Q1H [facility] Rx#: [id number] ceFAZolin 2 gm In Sodium 50 Chloride 0.9% 50 ml @ 100 mls/hr IVPB Q8HR [facility] Rx# :[id number] propofoL 1,000 mg In 81.760 Empty Bag 1 bag @ Titrate IV .Q0M [facility] Rx#: [id number] Output: Chest Tube Drainage 390 640 20 Left Pleural/Mediastinal 390 640 20 Urine 725 480 30 Estimated Blood Loss 2500 Other: Voiding Method Indwelling Catheter Indwelling Catheter ABP, PAP, CO, CI - Last Documented Arterial Blood Pressure 126/38 Pulmonary Artery Pressure 38/8 Cardiac Output 5.2 Cardiac Index 2.8 - Exam CONSTITUTIONAL: Appears comfortable, cooperative, no acute distress RESPIRATORY: Lungs sounds diminished bilaterally. Respirations even, nonlabored. Currently on 6 L nasal cannula with oxygen saturation 93%. Only able to achieve 500 mL on incentive spirometry with poor effort. Strong cough. CARDIOVASCULAR: S1, S2 present. Regular rate and rhythm, sinus rhythm on telemetry. Sternum stable. Palpable peripheral pulses bilaterally. No edema present. No calf pain or tenderness noted. Heart hugger in place with patient demonstrating appropriate use. Antiembolism stockings, SCDs present. GASTROINTESTINAL: Abdomen soft, nontender, nondistended. Hypoactive bowel sounds present 4 quadrants. Tolerating minimal clear liquids. Denies flatus GENITOURINARY: Florez present draining clear, yellow urine. Output overnight 30-50 mL per hour INTEGUMENTARY: Skin is warm and dry with evidence of good perfusion. Anterior chest incision well approximated and covered with dry intact dressing. Left radial artery harvest site well approximated without redness or drainage. NEUROLOGIC: Cranial nerves II through XII intact MUSKULOSKELETAL: Able to move all extremities, strength equal bilaterally PSYCHIATRIC: Alert and oriented to person place and time, appropriate affect, intact judgment and insight INVASIVE LINES AND TUBES: Mediastinal/left pleural chest tubes present and connected to wall suction, no air leaks present, 530 mL serosanguineous drainage overnight, 1090 mL since surgery. Right internal jugular Talihina/Cordis, right radial arterial line present. Last CO/CI 5.2/2.8, PA 35/9, CVP 4. - Allied health notes Allied health notes reviewed: nursing - Labs CBC & Chem 7: 11/05/22 04:20 11/05/22 04:20 Labs: Abnormal Lab Results - Last 24 Hours (Table) 10/31/22 11/04/22 11/04/22 Range/Units 11:08 07:30 07:30 WBC (3.8-10.6) k/uL RBC (3.80-5.40) m/uL Hgb (11.4-16.0) gm/dL Hct (34.0-46.0) % RDW (11.5-15.5) % Plt Count (150-450) k/uL Neutrophils # (1.3-7.7) k/uL PT (9.0-12.0) sec INR (<1.2) APTT (22.0-30.0) sec Fibrinogen (200-500) mg/dL ABG pH (7.35-7.45) ABG pO2 243 H 110 H (83-108) mmHg ABG HCO3 26 H 26 H (21-25) mmol/L ABG Total CO2 27 H 27 H (19-24) mmol/L ABG O2 Saturation 99.2 H 97.8 H (94-97) % ABG Hematocrit 32 L 31 L (34.0-46.0) % ABG Potassium (3.4-4.5) mmol/L ABG Ionized Calcium (4.5-5.3) mg/dL ABG Glucose 107 H (75-99) mg/dL Hemoglobin 10.4 L 10.0 L (11.4-16.0) gm/dL Chloride (98-107) mmol/L Carbon Dioxide (22-30) mmol/L Glucose (74-99) mg/dL POC Glucose (mg/dL) (70-110) mg/dL Calcium (8.4-10.2) mg/dL Alkaline Phosphatase (38-126) U/L Total Protein (6.3-8.2) g/dL Albumin (3.5-5.0) g/dL Arterial Blood Potassium (3.4-4.5) mmol/L Arterial Blood Glucose 107 H (75-99) mg/dL Crossmatch See Detail 11/04/22 11/04/22 11/04/22 Range/Units 07:30 07:30 07:30 WBC (3.8-10.6) k/uL RBC (3.80-5.40) m/uL Hgb (11.4-16.0) gm/dL Hct (34.0-46.0) % RDW (11.5-15.5) % Plt Count (150-450) k/uL Neutrophils # (1.3-7.7) k/uL PT (9.0-12.0) sec INR (<1.2) APTT (22.0-30.0) sec Fibrinogen (200-500) mg/dL ABG pH (7.35-7.45) ABG pO2 180 H 144 H 145 H (83-108) mmHg ABG HCO3 (21-25) mmol/L ABG Total CO2 25 H (19-24) mmol/L ABG O2 Saturation 98.8 H 98.6 H 98.5 H (94-97) % ABG Hematocrit 27 L 24 L 26 L (34.0-46.0) % ABG Potassium 4.6 H (3.4-4.5) mmol/L ABG Ionized Calcium 4.4 L (4.5-5.3) mg/dL ABG Glucose 113 H 123 H 132 H (75-99) mg/dL Hemoglobin 8.9 L 7.7 L 8.6 L (11.4-16.0) gm/dL Chloride (98-107) mmol/L Carbon Dioxide (22-30) mmol/L Glucose (74-99) mg/dL POC Glucose (mg/dL) (70-110) mg/dL Calcium (8.4-10.2) mg/dL Alkaline Phosphatase (38-126) U/L Total Protein (6.3-8.2) g/dL Albumin (3.5-5.0) g/dL Arterial Blood Potassium 4.6 H (3.4-4.5) mmol/L Arterial Blood Glucose 113 H 123 H 132 H (75-99) mg/dL Crossmatch 11/04/22 11/04/22 11/04/22 Range/Units 07:30 07:30 12:20 WBC (3.8-10.6) k/uL RBC (3.80-5.40) m/uL Hgb (11.4-16.0) gm/dL Hct (34.0-46.0) % RDW (11.5-15.5) % Plt Count (150-450) k/uL Neutrophils # (1.3-7.7) k/uL PT (9.0-12.0) sec INR (<1.2) APTT (22.0-30.0) sec Fibrinogen (200-500) mg/dL ABG pH 7.32 L 7.30 L (7.35-7.45) ABG pO2 141 H 146 H 113 H (83-108) mmHg ABG HCO3 20 L (21-25) mmol/L ABG Total CO2 (19-24) mmol/L ABG O2 Saturation 98.3 H 98.5 H 97.6 H (94-97) % ABG Hematocrit 26 L 27 L 26 L (34.0-46.0) % ABG Potassium (3.4-4.5) mmol/L ABG Ionized Calcium 4.3 L 4.2 L (4.5-5.3) mg/dL ABG Glucose 143 H 142 H 128 H (75-99) mg/dL Hemoglobin 8.6 L 8.8 L 8.6 L (11.4-16.0) gm/dL Chloride (98-107) mmol/L Carbon Dioxide (22-30) mmol/L Glucose (74-99) mg/dL POC Glucose (mg/dL) (70-110) mg/dL Calcium (8.4-10.2) mg/dL Alkaline Phosphatase (38-126) U/L Total Protein (6.3-8.2) g/dL Albumin (3.5-5.0) g/dL Arterial Blood Potassium (3.4-4.5) mmol/L Arterial Blood Glucose 143 H 142 H 128 H (75-99) mg/dL Crossmatch 11/04/22 11/04/22 11/04/22 Range/Units 14:00 14:00 14:00 WBC 12.5 H (3.8-10.6) k/uL RBC 2.38 L (3.80-5.40) m/uL Hgb 7.4 L D (11.4-16.0) gm/dL Hct 22.5 L (34.0-46.0) % RDW 15.8 H (11.5-15.5) % Plt Count 121 L D (150-450) k/uL Neutrophils # 10.5 H (1.3-7.7) k/uL PT 13.6 H (9.0-12.0) sec INR 1.3 H (<1.2) APTT 36.2 H (22.0-30.0) sec Fibrinogen 197 L (200-500) mg/dL ABG pH (7.35-7.45) ABG pO2 (83-108) mmHg ABG HCO3 (21-25) mmol/L ABG Total CO2 (19-24) mmol/L ABG O2 Saturation (94-97) % ABG Hematocrit (34.0-46.0) % ABG Potassium (3.4-4.5) mmol/L ABG Ionized Calcium (4.5-5.3) mg/dL ABG Glucose (75-99) mg/dL Hemoglobin (11.4-16.0) gm/dL Chloride 111 H (98-107) mmol/L Carbon Dioxide 20 L (22-30) mmol/L Glucose 104 H (74-99) mg/dL POC Glucose (mg/dL) (70-110) mg/dL Calcium 6.9 L (8.4-10.2) mg/dL Alkaline Phosphatase 25 L (38-126) U/L Total Protein 5.0 L (6.3-8.2) g/dL Albumin 3.4 L (3.5-5.0) g/dL Arterial Blood Potassium (3.4-4.5) mmol/L Arterial Blood Glucose (75-99) mg/dL Crossmatch 11/04/22 11/04/22 11/04/22 Range/Units 14:32 15:23 16:33 WBC (3.8-10.6) k/uL RBC (3.80-5.40) m/uL Hgb (11.4-16.0) gm/dL Hct (34.0-46.0) % RDW (11.5-15.5) % Plt Count (150-450) k/uL Neutrophils # (1.3-7.7) k/uL PT (9.0-12.0) sec INR (<1.2) APTT (22.0-30.0) sec Fibrinogen (200-500) mg/dL ABG pH 7.27 L (7.35-7.45) ABG pO2 246 H (83-108) mmHg ABG HCO3 20 L (21-25) mmol/L ABG Total CO2 (19-24) mmol/L ABG O2 Saturation 99.3 H (94-97) % ABG Hematocrit (34.0-46.0) % ABG Potassium (3.4-4.5) mmol/L ABG Ionized Calcium (4.5-5.3) mg/dL ABG Glucose (75-99) mg/dL Hemoglobin (11.4-16.0) gm/dL Chloride (98-107) mmol/L Carbon Dioxide (22-30) mmol/L Glucose (74-99) mg/dL POC Glucose (mg/dL) 179 H 174 H (70-110) mg/dL Calcium (8.4-10.2) mg/dL Alkaline Phosphatase (38-126) U/L Total Protein (6.3-8.2) g/dL Albumin (3.5-5.0) g/dL Arterial Blood Potassium (3.4-4.5) mmol/L Arterial Blood Glucose (75-99) mg/dL Crossmatch 11/04/22 11/04/22 11/04/22 Range/Units 16:40 17:42 18:51 WBC 15.5 H (3.8-10.6) k/uL RBC 2.35 L (3.80-5.40) m/uL Hgb 7.1 L (11.4-16.0) gm/dL Hct 22.5 L (34.0-46.0) % RDW 15.8 H (11.5-15.5) % Plt Count 115 L (150-450) k/uL Neutrophils # 13.8 H (1.3-7.7) k/uL PT (9.0-12.0) sec INR (<1.2) APTT (22.0-30.0) sec Fibrinogen (200-500) mg/dL ABG pH 7.33 L (7.35-7.45) ABG pO2 75 L (83-108) mmHg ABG HCO3 (21-25) mmol/L ABG Total CO2 (19-24) mmol/L ABG O2 Saturation (94-97) % ABG Hematocrit (34.0-46.0) % ABG Potassium (3.4-4.5) mmol/L ABG Ionized Calcium (4.5-5.3) mg/dL ABG Glucose (75-99) mg/dL Hemoglobin (11.4-16.0) gm/dL Chloride (98-107) mmol/L Carbon Dioxide (22-30) mmol/L Glucose (74-99) mg/dL POC Glucose (mg/dL) 172 H (70-110) mg/dL Calcium (8.4-10.2) mg/dL Alkaline Phosphatase (38-126) U/L Total Protein (6.3-8.2) g/dL Albumin (3.5-5.0) g/dL Arterial Blood Potassium (3.4-4.5) mmol/L Arterial Blood Glucose (75-99) mg/dL Crossmatch 11/04/22 11/04/22 11/04/22 Range/Units 19:07 19:56 19:56 WBC 14.3 H (3.8-10.6) k/uL RBC 2.43 L (3.80-5.40) m/uL Hgb 7.5 L (11.4-16.0) gm/dL Hct 23.5 L (34.0-46.0) % RDW (11.5-15.5) % Plt Count 110 L (150-450) k/uL Neutrophils # 12.9 H (1.3-7.7) k/uL PT (9.0-12.0) sec INR (<1.2) APTT (22.0-30.0) sec Fibrinogen (200-500) mg/dL ABG pH (7.35-7.45) ABG pO2 (83-108) mmHg ABG HCO3 (21-25) mmol/L ABG Total CO2 (19-24) mmol/L ABG O2 Saturation (94-97) % ABG Hematocrit (34.0-46.0) % ABG Potassium (3.4-4.5) mmol/L ABG Ionized Calcium (4.5-5.3) mg/dL ABG Glucose (75-99) mg/dL Hemoglobin (11.4-16.0) gm/dL Chloride (98-107) mmol/L Carbon Dioxide (22-30) mmol/L Glucose (74-99) mg/dL POC Glucose (mg/dL) 146 H 133 H (70-110) mg/dL Calcium (8.4-10.2) mg/dL Alkaline Phosphatase (38-126) U/L Total Protein (6.3-8.2) g/dL Albumin (3.5-5.0) g/dL Arterial Blood Potassium (3.4-4.5) mmol/L Arterial Blood Glucose (75-99) mg/dL Crossmatch 11/04/22 11/04/22 11/04/22 Range/Units 21:03 21:58 23:08 WBC (3.8-10.6) k/uL RBC (3.80-5.40) m/uL Hgb (11.4-16.0) gm/dL Hct (34.0-46.0) % RDW (11.5-15.5) % Plt Count (150-450) k/uL Neutrophils # (1.3-7.7) k/uL PT (9.0-12.0) sec INR (<1.2) APTT (22.0-30.0) sec Fibrinogen (200-500) mg/dL ABG pH (7.35-7.45) ABG pO2 (83-108) mmHg ABG HCO3 (21-25) mmol/L ABG Total CO2 (19-24) mmol/L ABG O2 Saturation (94-97) % ABG Hematocrit (34.0-46.0) % ABG Potassium (3.4-4.5) mmol/L ABG Ionized Calcium (4.5-5.3) mg/dL ABG Glucose (75-99) mg/dL Hemoglobin (11.4-16.0) gm/dL Chloride (98-107) mmol/L Carbon Dioxide (22-30) mmol/L Glucose (74-99) mg/dL POC Glucose (mg/dL) 111 H 119 H 139 H (70-110) mg/dL Calcium (8.4-10.2) mg/dL Alkaline Phosphatase (38-126) U/L Total Protein (6.3-8.2) g/dL Albumin (3.5-5.0) g/dL Arterial Blood Potassium (3.4-4.5) mmol/L Arterial Blood Glucose (75-99) mg/dL Crossmatch 11/05/22 11/05/22 11/05/22 Range/Units 00:06 01:05 04:20 WBC 12.3 H (3.8-10.6) k/uL RBC 2.50 L (3.80-5.40) m/uL Hgb 7.6 L (11.4-16.0) gm/dL Hct 23.7 L (34.0-46.0) % RDW 15.7 H (11.5-15.5) % Plt Count 129 L (150-450) k/uL Neutrophils # 10.7 H (1.3-7.7) k/uL PT (9.0-12.0) sec INR (<1.2) APTT (22.0-30.0) sec Fibrinogen (200-500) mg/dL ABG pH (7.35-7.45) ABG pO2 (83-108) mmHg ABG HCO3 (21-25) mmol/L ABG Total CO2 (19-24) mmol/L ABG O2 Saturation (94-97) % ABG Hematocrit (34.0-46.0) % ABG Potassium (3.4-4.5) mmol/L ABG Ionized Calcium (4.5-5.3) mg/dL ABG Glucose (75-99) mg/dL Hemoglobin (11.4-16.0) gm/dL Chloride (98-107) mmol/L Carbon Dioxide (22-30) mmol/L Glucose (74-99) mg/dL POC Glucose (mg/dL) 131 H 118 H (70-110) mg/dL Calcium (8.4-10.2) mg/dL Alkaline Phosphatase (38-126) U/L Total Protein (6.3-8.2) g/dL Albumin (3.5-5.0) g/dL Arterial Blood Potassium (3.4-4.5) mmol/L Arterial Blood Glucose (75-99) mg/dL Crossmatch 11/05/22 11/05/22 11/05/22 Range/Units 04:20 05:46 06:23 WBC (3.8-10.6) k/uL RBC (3.80-5.40) m/uL Hgb (11.4-16.0) gm/dL Hct (34.0-46.0) % RDW (11.5-15.5) % Plt Count (150-450) k/uL Neutrophils # (1.3-7.7) k/uL PT (9.0-12.0) sec INR (<1.2) APTT (22.0-30.0) sec Fibrinogen (200-500) mg/dL ABG pH (7.35-7.45) ABG pO2 (83-108) mmHg ABG HCO3 (21-25) mmol/L ABG Total CO2 (19-24) mmol/L ABG O2 Saturation (94-97) % ABG Hematocrit (34.0-46.0) % ABG Potassium (3.4-4.5) mmol/L ABG Ionized Calcium (4.5-5.3) mg/dL ABG Glucose (75-99) mg/dL Hemoglobin (11.4-16.0) gm/dL Chloride 110 H (98-107) mmol/L Carbon Dioxide 20 L (22-30) mmol/L Glucose (74-99) mg/dL POC Glucose (mg/dL) 128 H 125 H (70-110) mg/dL Calcium 8.1 L (8.4-10.2) mg/dL Alkaline Phosphatase 34 L (38-126) U/L Total Protein 4.9 L (6.3-8.2) g/dL Albumin 3.3 L (3.5-5.0) g/dL Arterial Blood Potassium (3.4-4.5) mmol/L Arterial Blood Glucose (75-99) mg/dL Crossmatch 11/05/22 Range/Units 06:58 WBC (3.8-10.6) k/uL RBC (3.80-5.40) m/uL Hgb (11.4-16.0) gm/dL Hct (34.0-46.0) % RDW (11.5-15.5) % Plt Count (150-450) k/uL Neutrophils # (1.3-7.7) k/uL PT (9.0-12.0) sec INR (<1.2) APTT (22.0-30.0) sec Fibrinogen (200-500) mg/dL ABG pH (7.35-7.45) ABG pO2 (83-108) mmHg ABG HCO3 (21-25) mmol/L ABG Total CO2 (19-24) mmol/L ABG O2 Saturation (94-97) % ABG Hematocrit (34.0-46.0) % ABG Potassium (3.4-4.5) mmol/L ABG Ionized Calcium (4.5-5.3) mg/dL ABG Glucose (75-99) mg/dL Hemoglobin (11.4-16.0) gm/dL Chloride (98-107) mmol/L Carbon Dioxide (22-30) mmol/L Glucose (74-99) mg/dL POC Glucose (mg/dL) 123 H (70-110) mg/dL Calcium (8.4-10.2) mg/dL Alkaline Phosphatase (38-126) U/L Total Protein (6.3-8.2) g/dL Albumin (3.5-5.0) g/dL Arterial Blood Potassium (3.4-4.5) mmol/L Arterial Blood Glucose (75-99) mg/dL Crossmatch - Imaging and Cardiology Chest x-ray: image reviewed Assessment and Plan Assessment: Coronary artery disease, status post 2 vessel CABG History of hypertension Hyperlipidemia, treated, cholesterol 188, LDL 106, triglycerides 93 Type 2 diabetes, preoperative hemoglobin A1c 7.1% Current tobacco dependence, preoperative FEV1 96% of predicted Osteoarthritis Obesity Peripheral vascular disease Preoperative nasal swab positive for MSSA, treated Postoperative acute blood loss anemia and thrombocytopenia, expected Plan: Continue to maximize medical therapy with aspirin, statin, Plavix, beta jennifer therapy. Will increase beta jennifer therapy as tolerated. Discontinue IV nitro Continue calcium channel jennifer for radial artery spasm prophylaxis, will transition to oral Wean O2 as tolerated. Encourage incentive spirometry 10 times every hour while awake. Bronchodilators per pulmonology Increase activity, ambulate as tolerated. PT/OT/cardiac rehab consulted Will monitor daily labs and x-rays. Electrolyte replacement per protocol GI/DVT prophylaxis Pain control per current medication regimen Insulin management per internal medicine. Patient is diabetic with hemoglobin A1c 7.1%, needs tight blood sugar control to prevent infection and promote healing Discontinue Talihina. Connect Cordis to continuous CVP monitoring Continue mediastinal/left pleural chest tubes for another 24 hours Continue Florez catheter for another 24 hours for strict accurate intake and output Daily weights Smoking cessation counseling and education offered, patient is encouraged to quit smoking completely More recommendations to follow as patient progresses
[2022-11-05] MEDS: IPRATROPIUM-ALBUTEROL 3 ML NEB INHALATION SCH ×4 (07:46→21:31)
[2022-11-05] MEDS ORDERED: FUROSEMIDE 10 MG/ML 2 ML VIAL IV ONE (07:49)
[2022-11-05 08:10] LABS: Glucose,Whole Blood 92 mg/dL (70-110)
[2022-11-05] MEDS ORDERED: bisacodyL 10 MG SUPP RECTAL PRN (09:00)
[2022-11-05] MEDS ORDERED: PANTOPRAZOLE 40 MG/10 ML VIAL IVP SCH (09:00)
[2022-11-05] MEDS ORDERED: MAGNESIUM HYDROXIDE 2,400 MG/30 ML CUP PO PRN (09:00)
[2022-11-05 09:10] LABS: Glucose,Whole Blood 125 mg/dL (70-110)
--- NOTE | 2022-11-05 09:19 | XR ---
EXAMINATION TYPE: XR chest 1V portable DATE OF EXAM: 11/05/2022 COMPARISON: 11/04/2022 HISTORY: Postop cardiac surgery. TECHNIQUE: Single frontal view of the chest is obtained. FINDINGS: No change in the bilateral chest tubes or [place] catheter. There is been interval removal of the E T tube in NG tube. There is interval development of the small right pleural effusion. There is mild increase interstitia l changes in the left upper lobe.. There is moderate cardiomegaly which is unchanged. There is no pneumothorax. The osseous structures are intact. IMPRESSION: 1. Interval removal of the NG tube and ET tube. 2. Development of small right pleural effusion. 3. Increasing interstitial markings in the left upper lobe. 4. No pneumothorax
--- NOTE | 2022-11-05 09:29 | P.PN ---
Subjective Progress Note Date: 11/05/22 Principal diagnosis: POD #1 off-pump coronary artery bypass graft 2 with left internal mammary artery to the diagonal and jump graft left radial artery off the GARCÍA to the mid left anterior descending artery, ligation of the left atrial appendage with 35 mm AtriCure clip, endovascular left radial artery harvest, intraoperative transesophageal echocardiogram performed by anesthesia POD #1 off-pump coronary artery bypass graft 2 with left internal mammary artery to the diagonal and jump graft left radial artery off the GARCÍA to the mid left anterior descending artery, ligation of the left atrial appendage with 35 mm AtriCure clip, endovascular left radial artery harvest, intraoperative transesophageal echocardiogram performed by anesthesia. Patient was reevaluated today on 11/05/2022, remains in the ICU, extubated yesterday, pulmonary status is a bit marginal, she is on 6 L nasal cannula, marginal with incentive spirometry pulling about 500 mL, chest x-ray showing mild interstitial edema and right- sided pleural effusion, hence I'm recommending gentle diuresis on this patient. WBC count is 12.3 hemoglobin 7.6. Basic metabolic profile, renal profile are normal liver profile is normal Objective - Vital Signs Vital signs: Vital Signs Temp 99.5 F 11/05/22 08:00 Pulse 80 11/05/22 09:00 Resp 29 H 11/05/22 09:00 BP 113/63 11/05/22 06:00 Pulse Ox 91 L 11/05/22 09:00 FiO2 50 11/04/22 18:25 Intake & Output 11/04/22 11/05/22 11/05/22 18:59 06:59 18:59 Intake Total 1461.520 919.635 548.835 Output Total 3615 1120 85 Balance -2153.480 -200.365 463.835 Weight 85.5 kg Intake: IV 189 228 447 Potassium Chloride 10 meq 100 In Water For Injection 1 100ml.bag @ 100 mls/hr IVPB Q1H [facility] Rx#: [id number] albumin 250 ceFAZolin 2 gm In Sodium 50 Chloride 0.9% 50 ml @ 100 mls/hr IVPB Q8HR [facility] Rx# :[id number] ns cardiac output 100 120 20 ns pressure bags 36 108 27 Intake, IV Titration 1272.520 691.635 101.835 Amount ACETAMINOPHEN IV (For NPO 100 ) 1,000 mg In Empty Bag 1 bag @ 400 mls/hr IVPB Q6HR [facility] Rx#:[id number] Albumin Human 5% 250 ml 500 In Empty Bag 1 bag @ 250 mls/hr IVPB Q1HR PRN Rx#: [id number] Calcium Gluconate in NaCl 100 2 gm In Saline 1 100ml. bag @ 100 mls/hr IVPB ONCE ONE Rx#:[id number] Diltiazem 125 mg In 20 60 Sodium Chloride 0.9% 100 ml @ 5 MG/HR 5 mls/hr IV .Q24H [facility] Rx#:[id number] Insulin Regular 100 unit 10.808 13.635 1.835 In Sodium Chloride 0.9% 100 ml @ Per Protocol IV .Q0M [facility] Rx#:[id number] Lactated Ringers 1,000 ml 200 600 @ 20 mls/hr IV .Q24H [facility] Rx#:[id number] Nitroglycerin-D5w Pmx 50 6.0 18.0 mg In Dextrose/Water 1 250ml.bag @ 5 MCG/MIN 1.5 mls/hr IV .Q24H [facility] Rx#: [id number] Norepinephrine 4 mg In 3.952 Sodium Chloride 0.9% 250 ml @ 0.03 MCG/KG/MIN 9. 361 mls/hr IV .Q24H [facility] Rx#:[id number] Potassium Chloride 10 meq 200 In Water For Injection 1 100ml.bag @ 100 mls/hr IVPB Q1H [facility] Rx#: [id number] Potassium Chloride 10 meq 100 In Water For Injection 1 100ml.bag @ 100 mls/hr IVPB Q1H [facility] Rx#: [id number] ceFAZolin 2 gm In Sodium 50 Chloride 0.9% 50 ml @ 100 mls/hr IVPB Q8HR [facility] Rx# :[id number] propofoL 1,000 mg In 81.760 Empty Bag 1 bag @ Titrate IV .Q0M [facility] Rx#: [id number] Output: Chest Tube Drainage 390 640 20 Left Pleural/Mediastinal 390 640 20 Urine 725 480 65 Estimated Blood Loss 2500 Other: Voiding Method Indwelling Catheter Indwelling Catheter ABP, PAP, CO, CI - Last Documented Arterial Blood Pressure 115/35 Pulmonary Artery Pressure 37/8 Cardiac Output 4.7 Cardiac Index 2.5 - Exam Physical Exam: Revealed a 77-year-old female in no distress, on 6 L nasal cannula Head: Atraumatic, normocephalic. HEENT:[Neck is supple.] [No neck masses.] [No thyromegaly.] [No JVD.] Chest: [Fine crackles bilaterally no rhonchi and no wheezes Cardiac Exam: [Normal S1 and S2, no S3 gallop, no murmur.] Cardiac output is 5.2 index 2.8 PA pressure 35/9 CVP is 4 Abdomen: [Soft, nontender, no megaly, no rebound, no guarding, normal bowel sounds.] Extremities: [No clubbing, no edema, no cyanosis.] Neurological Exam: [No focal neurologic deficit.] No gross focal neurologic deficits. Psychiatric: Normal mood affect and normal mental status examination. - Labs CBC & Chem 7: 11/05/22 04:20 11/05/22 04:20 Labs: Abnormal Lab Results - Last 24 Hours (Table) 10/31/22 11/04/22 11/04/22 Range/Units 11:08 07:30 07:30 WBC (3.8-10.6) k/uL RBC (3.80-5.40) m/uL Hgb (11.4-16.0) gm/dL Hct (34.0-46.0) % RDW (11.5-15.5) % Plt Count (150-450) k/uL Neutrophils # (1.3-7.7) k/uL PT (9.0-12.0) sec INR (<1.2) APTT (22.0-30.0) sec Fibrinogen (200-500) mg/dL ABG pH (7.35-7.45) ABG pO2 243 H 110 H (83-108) mmHg ABG HCO3 26 H 26 H (21-25) mmol/L ABG Total CO2 27 H 27 H (19-24) mmol/L ABG O2 Saturation 99.2 H 97.8 H (94-97) % ABG Hematocrit 32 L 31 L (34.0-46.0) % ABG Potassium (3.4-4.5) mmol/L ABG Ionized Calcium (4.5-5.3) mg/dL ABG Glucose 107 H (75-99) mg/dL Hemoglobin 10.4 L 10.0 L (11.4-16.0) gm/dL Chloride (98-107) mmol/L Carbon Dioxide (22-30) mmol/L Glucose (74-99) mg/dL POC Glucose (mg/dL) (70-110) mg/dL Calcium (8.4-10.2) mg/dL Alkaline Phosphatase (38-126) U/L Total Protein (6.3-8.2) g/dL Albumin (3.5-5.0) g/dL Arterial Blood Potassium (3.4-4.5) mmol/L Arterial Blood Glucose 107 H (75-99) mg/dL Crossmatch See Detail 11/04/22 11/04/22 11/04/22 Range/Units 07:30 07:30 07:30 WBC (3.8-10.6) k/uL RBC (3.80-5.40) m/uL Hgb (11.4-16.0) gm/dL Hct (34.0-46.0) % RDW (11.5-15.5) % Plt Count (150-450) k/uL Neutrophils # (1.3-7.7) k/uL PT (9.0-12.0) sec INR (<1.2) APTT (22.0-30.0) sec Fibrinogen (200-500) mg/dL ABG pH (7.35-7.45) ABG pO2 180 H 144 H 145 H (83-108) mmHg ABG HCO3 (21-25) mmol/L ABG Total CO2 25 H (19-24) mmol/L ABG O2 Saturation 98.8 H 98.6 H 98.5 H (94-97) % ABG Hematocrit 27 L 24 L 26 L (34.0-46.0) % ABG Potassium 4.6 H (3.4-4.5) mmol/L ABG Ionized Calcium 4.4 L (4.5-5.3) mg/dL ABG Glucose 113 H 123 H 132 H (75-99) mg/dL Hemoglobin 8.9 L 7.7 L 8.6 L (11.4-16.0) gm/dL Chloride (98-107) mmol/L Carbon Dioxide (22-30) mmol/L Glucose (74-99) mg/dL POC Glucose (mg/dL) (70-110) mg/dL Calcium (8.4-10.2) mg/dL Alkaline Phosphatase (38-126) U/L Total Protein (6.3-8.2) g/dL Albumin (3.5-5.0) g/dL Arterial Blood Potassium 4.6 H (3.4-4.5) mmol/L Arterial Blood Glucose 113 H 123 H 132 H (75-99) mg/dL Crossmatch 11/04/22 11/04/22 11/04/22 Range/Units 07:30 07:30 12:20 WBC (3.8-10.6) k/uL RBC (3.80-5.40) m/uL Hgb (11.4-16.0) gm/dL Hct (34.0-46.0) % RDW (11.5-15.5) % Plt Count (150-450) k/uL Neutrophils # (1.3-7.7) k/uL PT (9.0-12.0) sec INR (<1.2) APTT (22.0-30.0) sec Fibrinogen (200-500) mg/dL ABG pH 7.32 L 7.30 L (7.35-7.45) ABG pO2 141 H 146 H 113 H (83-108) mmHg ABG HCO3 20 L (21-25) mmol/L ABG Total CO2 (19-24) mmol/L ABG O2 Saturation 98.3 H 98.5 H 97.6 H (94-97) % ABG Hematocrit 26 L 27 L 26 L (34.0-46.0) % ABG Potassium (3.4-4.5) mmol/L ABG Ionized Calcium 4.3 L 4.2 L (4.5-5.3) mg/dL ABG Glucose 143 H 142 H 128 H (75-99) mg/dL Hemoglobin 8.6 L 8.8 L 8.6 L (11.4-16.0) gm/dL Chloride (98-107) mmol/L Carbon Dioxide (22-30) mmol/L Glucose (74-99) mg/dL POC Glucose (mg/dL) (70-110) mg/dL Calcium (8.4-10.2) mg/dL Alkaline Phosphatase (38-126) U/L Total Protein (6.3-8.2) g/dL Albumin (3.5-5.0) g/dL Arterial Blood Potassium (3.4-4.5) mmol/L Arterial Blood Glucose 143 H 142 H 128 H (75-99) mg/dL Crossmatch 11/04/22 11/04/22 11/04/22 Range/Units 14:00 14:00 14:00 WBC 12.5 H (3.8-10.6) k/uL RBC 2.38 L (3.80-5.40) m/uL Hgb 7.4 L D (11.4-16.0) gm/dL Hct 22.5 L (34.0-46.0) % RDW 15.8 H (11.5-15.5) % Plt Count 121 L D (150-450) k/uL Neutrophils # 10.5 H (1.3-7.7) k/uL PT 13.6 H (9.0-12.0) sec INR 1.3 H (<1.2) APTT 36.2 H (22.0-30.0) sec Fibrinogen 197 L (200-500) mg/dL ABG pH (7.35-7.45) ABG pO2 (83-108) mmHg ABG HCO3 (21-25) mmol/L ABG Total CO2 (19-24) mmol/L ABG O2 Saturation (94-97) % ABG Hematocrit (34.0-46.0) % ABG Potassium (3.4-4.5) mmol/L ABG Ionized Calcium (4.5-5.3) mg/dL ABG Glucose (75-99) mg/dL Hemoglobin (11.4-16.0) gm/dL Chloride 111 H (98-107) mmol/L Carbon Dioxide 20 L (22-30) mmol/L Glucose 104 H (74-99) mg/dL POC Glucose (mg/dL) (70-110) mg/dL Calcium 6.9 L (8.4-10.2) mg/dL Alkaline Phosphatase 25 L (38-126) U/L Total Protein 5.0 L (6.3-8.2) g/dL Albumin 3.4 L (3.5-5.0) g/dL Arterial Blood Potassium (3.4-4.5) mmol/L Arterial Blood Glucose (75-99) mg/dL Crossmatch 11/04/22 11/04/22 11/04/22 Range/Units 14:32 15:23 16:33 WBC (3.8-10.6) k/uL RBC (3.80-5.40) m/uL Hgb (11.4-16.0) gm/dL Hct (34.0-46.0) % RDW (11.5-15.5) % Plt Count (150-450) k/uL Neutrophils # (1.3-7.7) k/uL PT (9.0-12.0) sec INR (<1.2) APTT (22.0-30.0) sec Fibrinogen (200-500) mg/dL ABG pH 7.27 L (7.35-7.45) ABG pO2 246 H (83-108) mmHg ABG HCO3 20 L (21-25) mmol/L ABG Total CO2 (19-24) mmol/L ABG O2 Saturation 99.3 H (94-97) % ABG Hematocrit (34.0-46.0) % ABG Potassium (3.4-4.5) mmol/L ABG Ionized Calcium (4.5-5.3) mg/dL ABG Glucose (75-99) mg/dL Hemoglobin (11.4-16.0) gm/dL Chloride (98-107) mmol/L Carbon Dioxide (22-30) mmol/L Glucose (74-99) mg/dL POC Glucose (mg/dL) 179 H 174 H (70-110) mg/dL Calcium (8.4-10.2) mg/dL Alkaline Phosphatase (38-126) U/L Total Protein (6.3-8.2) g/dL Albumin (3.5-5.0) g/dL Arterial Blood Potassium (3.4-4.5) mmol/L Arterial Blood Glucose (75-99) mg/dL Crossmatch 11/04/22 11/04/22 11/04/22 Range/Units 16:40 17:42 18:51 WBC 15.5 H (3.8-10.6) k/uL RBC 2.35 L (3.80-5.40) m/uL Hgb 7.1 L (11.4-16.0) gm/dL Hct 22.5 L (34.0-46.0) % RDW 15.8 H (11.5-15.5) % Plt Count 115 L (150-450) k/uL Neutrophils # 13.8 H (1.3-7.7) k/uL PT (9.0-12.0) sec INR (<1.2) APTT (22.0-30.0) sec Fibrinogen (200-500) mg/dL ABG pH 7.33 L (7.35-7.45) ABG pO2 75 L (83-108) mmHg ABG HCO3 (21-25) mmol/L ABG Total CO2 (19-24) mmol/L ABG O2 Saturation (94-97) % ABG Hematocrit (34.0-46.0) % ABG Potassium (3.4-4.5) mmol/L ABG Ionized Calcium (4.5-5.3) mg/dL ABG Glucose (75-99) mg/dL Hemoglobin (11.4-16.0) gm/dL Chloride (98-107) mmol/L Carbon Dioxide (22-30) mmol/L Glucose (74-99) mg/dL POC Glucose (mg/dL) 172 H (70-110) mg/dL Calcium (8.4-10.2) mg/dL Alkaline Phosphatase (38-126) U/L Total Protein (6.3-8.2) g/dL Albumin (3.5-5.0) g/dL Arterial Blood Potassium (3.4-4.5) mmol/L Arterial Blood Glucose (75-99) mg/dL Crossmatch 11/04/22 11/04/22 11/04/22 Range/Units 19:07 19:56 19:56 WBC 14.3 H (3.8-10.6) k/uL RBC 2.43 L (3.80-5.40) m/uL Hgb 7.5 L (11.4-16.0) gm/dL Hct 23.5 L (34.0-46.0) % RDW (11.5-15.5) % Plt Count 110 L (150-450) k/uL Neutrophils # 12.9 H (1.3-7.7) k/uL PT (9.0-12.0) sec INR (<1.2) APTT (22.0-30.0) sec Fibrinogen (200-500) mg/dL ABG pH (7.35-7.45) ABG pO2 (83-108) mmHg ABG HCO3 (21-25) mmol/L ABG Total CO2 (19-24) mmol/L ABG O2 Saturation (94-97) % ABG Hematocrit (34.0-46.0) % ABG Potassium (3.4-4.5) mmol/L ABG Ionized Calcium (4.5-5.3) mg/dL ABG Glucose (75-99) mg/dL Hemoglobin (11.4-16.0) gm/dL Chloride (98-107) mmol/L Carbon Dioxide (22-30) mmol/L Glucose (74-99) mg/dL POC Glucose (mg/dL) 146 H 133 H (70-110) mg/dL Calcium (8.4-10.2) mg/dL Alkaline Phosphatase (38-126) U/L Total Protein (6.3-8.2) g/dL Albumin (3.5-5.0) g/dL Arterial Blood Potassium (3.4-4.5) mmol/L Arterial Blood Glucose (75-99) mg/dL Crossmatch 11/04/22 11/04/22 11/04/22 Range/Units 21:03 21:58 23:08 WBC (3.8-10.6) k/uL RBC (3.80-5.40) m/uL Hgb (11.4-16.0) gm/dL Hct (34.0-46.0) % RDW (11.5-15.5) % Plt Count (150-450) k/uL Neutrophils # (1.3-7.7) k/uL PT (9.0-12.0) sec INR (<1.2) APTT (22.0-30.0) sec Fibrinogen (200-500) mg/dL ABG pH (7.35-7.45) ABG pO2 (83-108) mmHg ABG HCO3 (21-25) mmol/L ABG Total CO2 (19-24) mmol/L ABG O2 Saturation (94-97) % ABG Hematocrit (34.0-46.0) % ABG Potassium (3.4-4.5) mmol/L ABG Ionized Calcium (4.5-5.3) mg/dL ABG Glucose (75-99) mg/dL Hemoglobin (11.4-16.0) gm/dL Chloride (98-107) mmol/L Carbon Dioxide (22-30) mmol/L Glucose (74-99) mg/dL POC Glucose (mg/dL) 111 H 119 H 139 H (70-110) mg/dL Calcium (8.4-10.2) mg/dL Alkaline Phosphatase (38-126) U/L Total Protein (6.3-8.2) g/dL Albumin (3.5-5.0) g/dL Arterial Blood Potassium (3.4-4.5) mmol/L Arterial Blood Glucose (75-99) mg/dL Crossmatch 11/05/22 11/05/22 11/05/22 Range/Units 00:06 01:05 04:20 WBC 12.3 H (3.8-10.6) k/uL RBC 2.50 L (3.80-5.40) m/uL Hgb 7.6 L (11.4-16.0) gm/dL Hct 23.7 L (34.0-46.0) % RDW 15.7 H (11.5-15.5) % Plt Count 129 L (150-450) k/uL Neutrophils # 10.7 H (1.3-7.7) k/uL PT (9.0-12.0) sec INR (<1.2) APTT (22.0-30.0) sec Fibrinogen (200-500) mg/dL ABG pH (7.35-7.45) ABG pO2 (83-108) mmHg ABG HCO3 (21-25) mmol/L ABG Total CO2 (19-24) mmol/L ABG O2 Saturation (94-97) % ABG Hematocrit (34.0-46.0) % ABG Potassium (3.4-4.5) mmol/L ABG Ionized Calcium (4.5-5.3) mg/dL ABG Glucose (75-99) mg/dL Hemoglobin (11.4-16.0) gm/dL Chloride (98-107) mmol/L Carbon Dioxide (22-30) mmol/L Glucose (74-99) mg/dL POC Glucose (mg/dL) 131 H 118 H (70-110) mg/dL Calcium (8.4-10.2) mg/dL Alkaline Phosphatase (38-126) U/L Total Protein (6.3-8.2) g/dL Albumin (3.5-5.0) g/dL Arterial Blood Potassium (3.4-4.5) mmol/L Arterial Blood Glucose (75-99) mg/dL Crossmatch 11/05/22 11/05/22 11/05/22 Range/Units 04:20 05:46 06:23 WBC (3.8-10.6) k/uL RBC (3.80-5.40) m/uL Hgb (11.4-16.0) gm/dL Hct (34.0-46.0) % RDW (11.5-15.5) % Plt Count (150-450) k/uL Neutrophils # (1.3-7.7) k/uL PT (9.0-12.0) sec INR (<1.2) APTT (22.0-30.0) sec Fibrinogen (200-500) mg/dL ABG pH (7.35-7.45) ABG pO2 (83-108) mmHg ABG HCO3 (21-25) mmol/L ABG Total CO2 (19-24) mmol/L ABG O2 Saturation (94-97) % ABG Hematocrit (34.0-46.0) % ABG Potassium (3.4-4.5) mmol/L ABG Ionized Calcium (4.5-5.3) mg/dL ABG Glucose (75-99) mg/dL Hemoglobin (11.4-16.0) gm/dL Chloride 110 H (98-107) mmol/L Carbon Dioxide 20 L (22-30) mmol/L Glucose (74-99) mg/dL POC Glucose (mg/dL) 128 H 125 H (70-110) mg/dL Calcium 8.1 L (8.4-10.2) mg/dL Alkaline Phosphatase 34 L (38-126) U/L Total Protein 4.9 L (6.3-8.2) g/dL Albumin 3.3 L (3.5-5.0) g/dL Arterial Blood Potassium (3.4-4.5) mmol/L Arterial Blood Glucose (75-99) mg/dL Crossmatch 11/05/22 11/05/22 Range/Units 06:58 09:08 WBC (3.8-10.6) k/uL RBC (3.80-5.40) m/uL Hgb (11.4-16.0) gm/dL Hct (34.0-46.0) % RDW (11.5-15.5) % Plt Count (150-450) k/uL Neutrophils # (1.3-7.7) k/uL PT (9.0-12.0) sec INR (<1.2) APTT (22.0-30.0) sec Fibrinogen (200-500) mg/dL ABG pH (7.35-7.45) ABG pO2 (83-108) mmHg ABG HCO3 (21-25) mmol/L ABG Total CO2 (19-24) mmol/L ABG O2 Saturation (94-97) % ABG Hematocrit (34.0-46.0) % ABG Potassium (3.4-4.5) mmol/L ABG Ionized Calcium (4.5-5.3) mg/dL ABG Glucose (75-99) mg/dL Hemoglobin (11.4-16.0) gm/dL Chloride (98-107) mmol/L Carbon Dioxide (22-30) mmol/L Glucose (74-99) mg/dL POC Glucose (mg/dL) 123 H 125 H (70-110) mg/dL Calcium (8.4-10.2) mg/dL Alkaline Phosphatase (38-126) U/L Total Protein (6.3-8.2) g/dL Albumin (3.5-5.0) g/dL Arterial Blood Potassium (3.4-4.5) mmol/L Arterial Blood Glucose (75-99) mg/dL Crossmatch Assessment and Plan Assessment: Impression: Coronary artery disease, status post off-pump coronary artery bypass grafting 2 utilizing a GARCÍA to the diagonal and jump graft left radial artery off the GARCÍA to the mid LAD with ligation of the left atrial appendage with a 35mm AtriCure clip. Postoperative day #1, patient was extubated last night uneventfully. Chronic and ongoing tobacco dependence. FEV1 value was 1.36 L which is 87% of predicted Diabetes mellitus Obesity Hyperlipidemia Hypertension Peripheral vascular disease Plan: Continue maximal medical therapy aspirin statins and Plavix beta blockers Continue to titrate oxygen and wean accordingly Gentle diuresis, Lasix 20 mg IV push was given Continue GI and DVT prophylaxis Continue strict I's and O's. And daily weights. Patient has already been counseled regarding smoking cessation. We will continue to follow while in the ICU. Time with Patient: Less than 30
[2022-11-05 10:10] LABS: Glucose,Whole Blood 134 mg/dL (70-110)
[2022-11-05] MEDS: ONDANSETRON 4 MG/2 ML VIAL IVP PRN (10:20)
[2022-11-05] MEDS: MUPIROCIN 2% OINT 22 GM TUBE NASAL SCH ×2 (10:30→20:35)
[2022-11-05] MEDS: ATORVASTATIN 20 MG TAB PO SCH (10:44)
[2022-11-05] MEDS: CLOPIDOGREL 75 MG TAB PO SCH (10:44)
[2022-11-05] MEDS: ASPIRIN 325 MG TAB PO SCH (10:45)
[2022-11-05] MEDS: METOPROLOL TARTRATE 12.5 MG TAB PO SCH ×2 (10:45→20:34)
[2022-11-05 11:19] LABS: Glucose,Whole Blood 139 mg/dL (70-110)
[2022-11-05] MEDS: KETOROLAC 15 MG/ML 1 ML VIAL IVP SCH ×3 (11:41→23:41)
[2022-11-05 11:42] VITALS: BMI 33.3
[2022-11-05] MEDS: amLODIPine 2.5 MG TAB PO SCH (11:42)
--- NOTE | 2022-11-05 11:58 | P.CONS ---
History of Present Illness - Reason for Consult Consult date: 11/05/22 diabetes Requesting physician: Chevy Hyde - Chief Complaint CAD - History of Present Illness Patient is a 77 yo female with cad, cm2, htn, and HLD who presented for CABG X 2. Did well and was extubated on 11/04/22. Patient seen and examined at bedside. She is having some pain, but its feeling better than earlier. No shortness of breath. Vital signs reviewed General: nontoxic, no distress, appears at stated age Derm: warm, dry Eyes: EOMI, no lid lag, anicteric sclera, pupils equal round reactive to light ENT: Nose and ears atraumatic, no thrush, no pharyngeal erythema Cardiovascular: S1S2 reg, no murmur, positive posterior tibial pulse bilateral, no edema, capillary refill less than 2 seconds Lungs: clear to auscultation bilateral, no rhonchi, no rales, no wheeze, no accessory muscle use Abdominal: soft, nontender to palpation, no guarding, no appreciable organomegaly, normal bowel sounds Ext: no gross muscle atrophy, muscle strength 5 out of 5 in all 4 extremities, no contractures Neuro: CN II-XII grossly intact, light touch intact all 4 extremities, finger to nose within normal limits, Psych: Alert, oriented, appropriate affect Assessment/Plan: 77-year-old female status post 2 vessel coronary artery bypass grafting- CT surgery note reviewed: increase BB, d/w swan Diabetes mellitus type 2, [id number] -Glucotrol and Actos on hold -Continue insulin drip at 1 unit per hour, continue for the next 24 hours with possible transition to short/long-acting combo tomorrow -Blood sugars reviewed and all have been less than 150. - Pre-op A1C 7.1 Acute blood loss anemia and thrombocytopenia, anticipated outcome of surgery -No indication for transfusion at this point in time -Follow CBC COPD without exacerbation -Continue with scheduled and as needed DuoNeb -Pulmonary no reviewed: + Changes were recommended yesterday. - Pulm note reviewed: diuresis Ongoing tobacco dependency - cessation Obesity with BMI 33.4 -Structured outpatient weight loss Chronic: Hypertension Dyslipidemia Osteoarthritis Imaging: Chest x-ray reviewed by myself which shows increased interstitial infiltrate with possible left-sided opacification and mild right sided blunting of the costophrenic angle. Chest tube and mediastinal tube in place, [place] cath place. Data Review: Vitals reviewed pulse 80, respirations 23, blood pressure 126/38, central venous pressure 3, cardiac output 5.2, cardiac index 2.8, O2 sat 93% on 6 L Laboratory analysis reviewed and remarkable for white blood cell count 12.3, hemoglobin 7.6 (7.5 yesterday), platelets 129, chloride 110, carbon dioxide 20, alkaline phosphatase 34, albumin 3.3 Thank you for allowing us to participate in the care of this pleasant patient. Do not hesitate to contact us with questions. Someone can be reached from the [facility] hospitalist group all hours of the day at [phone] or via [employer]. This dictation was prepared using [employer] voice recognition software. Though every attempt is made to correct errors during dictation some may still exist. Past Medical History Past Medical History: Coronary Artery Disease (CAD), COPD, Diabetes Mellitus, Hyperlipidemia, Hypertension, Osteoarthritis (OA) Additional Past Medical History / Comment(s): SOB w/ activity History of Any Multi-Drug Resistant Organisms: None Reported Past Surgical History: Heart Catheterization, Hysterectomy, Tubal Ligation Additional Past Surgical History / Comment(s): COLONOSCOPY Past Anesthesia/Blood Transfusion Reactions: No Reported Reaction Additional Past Anesthesia/Blood Transfusion Reaction / Comm: no hx of blood transfusion Smoking Status: Current every day smoker - Past Family History Mother Family Medical History: Diabetes Mellitus, Dialysis, Renal Disease Additional Family Medical History / Comment(s): hemodialysis Father Family Medical History: CVA/TIA Additional Family Medical History / Comment(s): heart problems Sister(s) Family Medical History: Diabetes Mellitus Brother(s) Family Medical History: Diabetes Mellitus Medications and Allergies Home Medications Medication Instructions Recorded Confirmed Type Atorvastatin [Lipitor] 20 mg PO DAILY 04/12/16 11/04/22 History Pioglitazone [Actos] 15 mg PO DAILY 04/12/16 11/04/22 History amLODIPine BESYLATE [Norvasc] 10 mg PO QAM 04/12/16 11/04/22 History glipiZIDE [Glucotrol] 5 mg PO AC-BID 06/01/21 11/04/22 History Losartan Potassium 100 mg PO DAILY 11/01/22 11/04/22 History Metoprolol Tartrate 25 mg PO BID 11/01/22 11/04/22 History Mupirocin 2% Oint [Bactroban 2% 1 applic NASAL BID 5 Days #22 gm 11/01/22 11/04/22 Rx Oint] hydroCHLOROthiazide [Hydrodiuril] 25 mg PO DAILY 11/01/22 11/04/22 History Aspirin 324 mg PO DAILY 11/04/22 11/04/22 History Allergies Allergy/AdvReac Type Severity Reaction Status Date / Time Iodine and Iodide Containing Allergy Anaphylaxis Verified 11/04/22 06:12 Produc shellfish derived [Shellfish] Allergy Anaphylaxis Verified 11/04/22 06:12 Physical Exam Osteopathic Statement: *. No significant issues noted on an osteopathic structural exam other than those noted in the History and Physical/Consult. Vitals: Vital Signs Temp Pulse Resp BP Pulse Ox FiO2 11/05/22 07:00 80 23 93 L 11/05/22 06:30 80 18 92 L 11/05/22 06:00 76 21 113/63 91 L 11/05/22 05:30 73 43 H 93 L 11/05/22 05:00 76 36 H 92 L 11/05/22 04:30 76 35 H 92 L 11/05/22 04:15 75 43 H 94 L 11/05/22 04:00 98.8 F 74 33 H 95 11/05/22 03:45 77 25 H 93 L 11/05/22 03:30 78 33 H 93 L 11/05/22 03:15 77 36 H 94 L 11/05/22 03:00 77 26 H 94 L 11/05/22 02:45 74 18 93 L 11/05/22 02:30 72 32 H 91 L 11/05/22 02:15 75 29 H 92 L 11/05/22 02:00 80 31 H 93 L 11/05/22 01:45 78 14 92 L 11/05/22 01:30 81 29 H 93 L 11/05/22 01:15 81 28 H 91 L 11/05/22 01:00 85 17 92 L 11/05/22 00:45 80 13 91 L 11/05/22 00:30 81 27 H 90 L 11/05/22 00:15 82 42 H 90 L 11/05/22 00:11 83 13 91 L 11/05/22 00:00 98.1 F 83 16 92 L 06/30/23 23:45 84 16 92 L 11/04/22 23:30 82 17 92 L 11/04/22 23:15 82 15 90 L 11/04/22 23:00 83 22 93 L 11/04/22 22:45 82 14 93 L 11/04/22 22:30 82 37 H 92 L 11/04/22 22:15 80 17 93 L 11/04/22 22:00 76 20 92 L 11/04/22 21:45 80 19 93 L 11/04/22 21:30 82 14 93 L 11/04/22 21:15 82 30 H 91 L 11/04/22 21:00 80 21 91 L 11/04/22 20:45 82 26 H 93 L 11/04/22 20:30 80 12 90 L 11/04/22 20:15 79 8 L 89 L 11/04/22 20:00 97.9 F 83 14 113/63 91 L 11/04/22 19:46 81 11/04/22 19:45 81 10 L 113/63 96 11/04/22 19:36 81 11/04/22 19:30 81 20 113/63 90 L 11/04/22 19:15 83 28 H 113/63 90 L 11/04/22 19:00 97.9 F 95 20 90 L 11/04/22 18:45 81 26 H 94 L 11/04/22 18:30 79 28 H 94 L 11/04/22 18:25 50 11/04/22 18:15 71 25 H 95 11/04/22 18:00 72 22 94 L 11/04/22 17:45 84 16 95 11/04/22 17:30 81 18 93 L 11/04/22 17:15 77 18 94 L 11/04/22 17:00 97.2 F L 80 20 93 L 11/04/22 16:45 82 20 93 L 11/04/22 16:30 78 18 93 L 11/04/22 16:15 76 20 93 L 11/04/22 16:00 96.4 F L 80 16 93 L 50 11/04/22 15:45 82 16 93 L 11/04/22 15:30 68 16 93 L 11/04/22 15:15 61 16 113/63 93 L 11/04/22 15:07 50 11/04/22 15:05 50 11/04/22 15:00 95.7 F L 68 14 56/34 98 11/04/22 14:45 62 14 99 11/04/22 14:37 60 11/04/22 14:30 58 L 14 99 11/04/22 14:15 56 L 14 100 11/04/22 14:00 95.5 F L 57 L 14 100 11/04/22 13:55 100 11/04/22 13:23 100 Intake and Output 11/04/22 11/05/22 11/05/22 22:59 06:59 14:59 Intake Total 1469.888 588.267 359 Output Total 845 850 50 Balance 624.888 -261.733 309 Intake: IV 212 132 259 albumin 250 ns cardiac output 140 60 ns pressure bags 72 72 9 Intake, IV Titration 1257.888 456.267 100 Amount ACETAMINOPHEN IV (For NPO 100 ) 1,000 mg In Empty Bag 1 bag @ 400 mls/hr IVPB Q6HR [facility] Rx#:[id number] Albumin Human 5% 250 ml 250 In Empty Bag 1 bag @ 250 mls/hr IVPB Q1HR PRN Rx#: [id number] Calcium Gluconate in NaCl 100 2 gm In Saline 1 100ml. bag @ 100 mls/hr IVPB ONCE ONE Rx#:[id number] Diltiazem 125 mg In 40 40 Sodium Chloride 0.9% 100 ml @ 5 MG/HR 5 mls/hr IV .Q24H [facility] Rx#:[id number] Insulin Regular 100 unit 20.176 4.267 In Sodium Chloride 0.9% 100 ml @ Per Protocol IV .Q0M [facility] Rx#:[id number] Lactated Ringers 1,000 ml 400 400 @ 20 mls/hr IV .Q24H [facility] Rx#:[id number] Nitroglycerin-D5w Pmx 50 12.0 12.0 mg In Dextrose/Water 1 250ml.bag @ 5 MCG/MIN 1.5 mls/hr IV .Q24H [facility] Rx#: [id number] Norepinephrine 4 mg In 3.952 Sodium Chloride 0.9% 250 ml @ 0.03 MCG/KG/MIN 9. 361 mls/hr IV .Q24H [facility] Rx#:[id number] Potassium Chloride 10 meq 200 In Water For Injection 1 100ml.bag @ 100 mls/hr IVPB Q1H [facility] Rx#: [id number] Potassium Chloride 10 meq 100 In Water For Injection 1 100ml.bag @ 100 mls/hr IVPB Q1H [facility] Rx#: [id number] ceFAZolin 2 gm In Sodium 50 Chloride 0.9% 50 ml @ 100 mls/hr IVPB Q8HR [facility] Rx# :[id number] propofoL 1,000 mg In 81.760 Empty Bag 1 bag @ Titrate IV .Q0M [facility] Rx#: [id number] Output: Chest Tube Drainage 400 530 20 Left Pleural/Mediastinal 400 530 20 Urine 445 320 30 Other: Voiding Method Indwelling Catheter Indwelling Catheter Weight 85.5 kg ABP, PAP, CO, CI - Last 8 Hours Arterial Blood Pressure 126/38 Arterial Blood Pressure 129/37 Arterial Blood Pressure 127/39 Arterial Blood Pressure 102/40 Arterial Blood Pressure 124/43 Arterial Blood Pressure 123/42 Arterial Blood Pressure 35/35 Arterial Blood Pressure 121/42 Arterial Blood Pressure 129/43 Arterial Blood Pressure 117/42 Arterial Blood Pressure 122/42 Arterial Blood Pressure 128/41 Arterial Blood Pressure 107/38 Arterial Blood Pressure 101/38 Arterial Blood Pressure 106/37 Arterial Blood Pressure 108/39 Arterial Blood Pressure 116/40 Arterial Blood Pressure 131/44 Arterial Blood Pressure 134/44 Arterial Blood Pressure 130/42 Arterial Blood Pressure 136/42 Arterial Blood Pressure 133/43 Arterial Blood Pressure 125/41 Arterial Blood Pressure 131/42 Arterial Blood Pressure 130/42 Arterial Blood Pressure 129/42 Pulmonary Artery Pressure 38/8 Pulmonary Artery Pressure 33/7 Pulmonary Artery Pressure 33/10 Pulmonary Artery Pressure 43/13 Pulmonary Artery Pressure 41/14 Pulmonary Artery Pressure 41/14 Pulmonary Artery Pressure 41/14 Pulmonary Artery Pressure 45/14 Pulmonary Artery Pressure 47/16 Pulmonary Artery Pressure 39/15 Pulmonary Artery Pressure 41/14 Pulmonary Artery Pressure 39/11 Pulmonary Artery Pressure 38/11 Pulmonary Artery Pressure 38/12 Pulmonary Artery Pressure 36/13 Pulmonary Artery Pressure 36/13 Pulmonary Artery Pressure 36/11 Pulmonary Artery Pressure 33/11 Pulmonary Artery Pressure 34/10 Pulmonary Artery Pressure 39/12 Pulmonary Artery Pressure 39/14 Pulmonary Artery Pressure 34/13 Pulmonary Artery Pressure 40/14 Pulmonary Artery Pressure 38/15 Pulmonary Artery Pressure 39/11 Pulmonary Artery Pressure 44/15 Cardiac Output 5.2 Cardiac Output 5.2 Cardiac Output 5.2 Cardiac Output 5.3 Cardiac Output 5.3 Cardiac Output 5.3 Cardiac Output 5.3 Cardiac Output 5.3 Cardiac Output 6.4 Cardiac Output 6.4 Cardiac Output 6.4 Cardiac Output 6.4 Cardiac Output 6.4 Cardiac Output 6.4 Cardiac Output 6.4 Cardiac Output 6.4 Cardiac Output 6.4 Cardiac Output 6.4 Cardiac Output 6.4 Cardiac Output 6.4 Cardiac Output 6.4 Cardiac Output 6.4 Cardiac Output 6.4 Cardiac Output 6.4 Cardiac Output 6.4 Cardiac Output 6.5 Cardiac Index 2.8 Cardiac Index 2.8 Cardiac Index 2.8 Cardiac Index 2.9 Cardiac Index 2.9 Cardiac Index 2.9 Cardiac Index 2.9 Cardiac Index 2.9 Cardiac Index 3.5 Cardiac Index 3.5 Cardiac Index 3.5 Cardiac Index 3.5 Cardiac Index 3.5 Cardiac Index 3.5 Cardiac Index 3.5 Cardiac Index 3.5 Cardiac Index 3.5 Cardiac Index 3.5 Cardiac Index 3.5 Cardiac Index 3.5 Cardiac Index 3.5 Cardiac Index 3.5 Cardiac Index 3.5 Cardiac Index 3.5 Cardiac Index 3.5 Cardiac Index 3.5 Results CBC & Chem 7: 11/05/22 04:20 11/05/22 04:20 Labs: Abnormal Lab Results - Last 24 Hours (Table) 10/31/22 11/04/22 11/04/22 Range/Units 11:08 07:30 07:30 WBC (3.8-10.6) k/uL RBC (3.80-5.40) m/uL Hgb (11.4-16.0) gm/dL Hct (34.0-46.0) % RDW (11.5-15.5) % Plt Count (150-450) k/uL Neutrophils # (1.3-7.7) k/uL PT (9.0-12.0) sec INR (<1.2) APTT (22.0-30.0) sec Fibrinogen (200-500) mg/dL ABG pH (7.35-7.45) ABG pO2 243 H 110 H (83-108) mmHg ABG HCO3 26 H 26 H (21-25) mmol/L ABG Total CO2 27 H 27 H (19-24) mmol/L ABG O2 Saturation 99.2 H 97.8 H (94-97) % ABG Hematocrit 32 L 31 L (34.0-46.0) % ABG Potassium (3.4-4.5) mmol/L ABG Ionized Calcium (4.5-5.3) mg/dL ABG Glucose 107 H (75-99) mg/dL Hemoglobin 10.4 L 10.0 L (11.4-16.0) gm/dL Chloride (98-107) mmol/L Carbon Dioxide (22-30) mmol/L Glucose (74-99) mg/dL POC Glucose (mg/dL) (70-110) mg/dL Calcium (8.4-10.2) mg/dL Alkaline Phosphatase (38-126) U/L Total Protein (6.3-8.2) g/dL Albumin (3.5-5.0) g/dL Arterial Blood Potassium (3.4-4.5) mmol/L Arterial Blood Glucose 107 H (75-99) mg/dL Crossmatch See Detail 11/04/22 11/04/22 11/04/22 Range/Units 07:30 07:30 07:30 WBC (3.8-10.6) k/uL RBC (3.80-5.40) m/uL Hgb (11.4-16.0) gm/dL Hct (34.0-46.0) % RDW (11.5-15.5) % Plt Count (150-450) k/uL Neutrophils # (1.3-7.7) k/uL PT (9.0-12.0) sec INR (<1.2) APTT (22.0-30.0) sec Fibrinogen (200-500) mg/dL ABG pH (7.35-7.45) ABG pO2 180 H 144 H 145 H (83-108) mmHg ABG HCO3 (21-25) mmol/L ABG Total CO2 25 H (19-24) mmol/L ABG O2 Saturation 98.8 H 98.6 H 98.5 H (94-97) % ABG Hematocrit 27 L 24 L 26 L (34.0-46.0) % ABG Potassium 4.6 H (3.4-4.5) mmol/L ABG Ionized Calcium 4.4 L (4.5-5.3) mg/dL ABG Glucose 113 H 123 H 132 H (75-99) mg/dL Hemoglobin 8.9 L 7.7 L 8.6 L (11.4-16.0) gm/dL Chloride (98-107) mmol/L Carbon Dioxide (22-30) mmol/L Glucose (74-99) mg/dL POC Glucose (mg/dL) (70-110) mg/dL Calcium (8.4-10.2) mg/dL Alkaline Phosphatase (38-126) U/L Total Protein (6.3-8.2) g/dL Albumin (3.5-5.0) g/dL Arterial Blood Potassium 4.6 H (3.4-4.5) mmol/L Arterial Blood Glucose 113 H 123 H 132 H (75-99) mg/dL Crossmatch 11/04/22 11/04/22 11/04/22 Range/Units 07:30 07:30 12:20 WBC (3.8-10.6) k/uL RBC (3.80-5.40) m/uL Hgb (11.4-16.0) gm/dL Hct (34.0-46.0) % RDW (11.5-15.5) % Plt Count (150-450) k/uL Neutrophils # (1.3-7.7) k/uL PT (9.0-12.0) sec INR (<1.2) APTT (22.0-30.0) sec Fibrinogen (200-500) mg/dL ABG pH 7.32 L 7.30 L (7.35-7.45) ABG pO2 141 H 146 H 113 H (83-108) mmHg ABG HCO3 20 L (21-25) mmol/L ABG Total CO2 (19-24) mmol/L ABG O2 Saturation 98.3 H 98.5 H 97.6 H (94-97) % ABG Hematocrit 26 L 27 L 26 L (34.0-46.0) % ABG Potassium (3.4-4.5) mmol/L ABG Ionized Calcium 4.3 L 4.2 L (4.5-5.3) mg/dL ABG Glucose 143 H 142 H 128 H (75-99) mg/dL Hemoglobin 8.6 L 8.8 L 8.6 L (11.4-16.0) gm/dL Chloride (98-107) mmol/L Carbon Dioxide (22-30) mmol/L Glucose (74-99) mg/dL POC Glucose (mg/dL) (70-110) mg/dL Calcium (8.4-10.2) mg/dL Alkaline Phosphatase (38-126) U/L Total Protein (6.3-8.2) g/dL Albumin (3.5-5.0) g/dL Arterial Blood Potassium (3.4-4.5) mmol/L Arterial Blood Glucose 143 H 142 H 128 H (75-99) mg/dL Crossmatch 11/04/22 11/04/22 11/04/22 Range/Units 14:00 14:00 14:00 WBC 12.5 H (3.8-10.6) k/uL RBC 2.38 L (3.80-5.40) m/uL Hgb 7.4 L D (11.4-16.0) gm/dL Hct 22.5 L (34.0-46.0) % RDW 15.8 H (11.5-15.5) % Plt Count 121 L D (150-450) k/uL Neutrophils # 10.5 H (1.3-7.7) k/uL PT 13.6 H (9.0-12.0) sec INR 1.3 H (<1.2) APTT 36.2 H (22.0-30.0) sec Fibrinogen 197 L (200-500) mg/dL ABG pH (7.35-7.45) ABG pO2 (83-108) mmHg ABG HCO3 (21-25) mmol/L ABG Total CO2 (19-24) mmol/L ABG O2 Saturation (94-97) % ABG Hematocrit (34.0-46.0) % ABG Potassium (3.4-4.5) mmol/L ABG Ionized Calcium (4.5-5.3) mg/dL ABG Glucose (75-99) mg/dL Hemoglobin (11.4-16.0) gm/dL Chloride 111 H (98-107) mmol/L Carbon Dioxide 20 L (22-30) mmol/L Glucose 104 H (74-99) mg/dL POC Glucose (mg/dL) (70-110) mg/dL Calcium 6.9 L (8.4-10.2) mg/dL Alkaline Phosphatase 25 L (38-126) U/L Total Protein 5.0 L (6.3-8.2) g/dL Albumin 3.4 L (3.5-5.0) g/dL Arterial Blood Potassium (3.4-4.5) mmol/L Arterial Blood Glucose (75-99) mg/dL Crossmatch 11/04/22 11/04/22 11/04/22 Range/Units 14:32 15:23 16:33 WBC (3.8-10.6) k/uL RBC (3.80-5.40) m/uL Hgb (11.4-16.0) gm/dL Hct (34.0-46.0) % RDW (11.5-15.5) % Plt Count (150-450) k/uL Neutrophils # (1.3-7.7) k/uL PT (9.0-12.0) sec INR (<1.2) APTT (22.0-30.0) sec Fibrinogen (200-500) mg/dL ABG pH 7.27 L (7.35-7.45) ABG pO2 246 H (83-108) mmHg ABG HCO3 20 L (21-25) mmol/L ABG Total CO2 (19-24) mmol/L ABG O2 Saturation 99.3 H (94-97) % ABG Hematocrit (34.0-46.0) % ABG Potassium (3.4-4.5) mmol/L ABG Ionized Calcium (4.5-5.3) mg/dL ABG Glucose (75-99) mg/dL Hemoglobin (11.4-16.0) gm/dL Chloride (98-107) mmol/L Carbon Dioxide (22-30) mmol/L Glucose (74-99) mg/dL POC Glucose (mg/dL) 179 H 174 H (70-110) mg/dL Calcium (8.4-10.2) mg/dL Alkaline Phosphatase (38-126) U/L Total Protein (6.3-8.2) g/dL Albumin (3.5-5.0) g/dL Arterial Blood Potassium (3.4-4.5) mmol/L Arterial Blood Glucose (75-99) mg/dL Crossmatch 11/04/22 11/04/22 11/04/22 Range/Units 16:40 17:42 18:51 WBC 15.5 H (3.8-10.6) k/uL RBC 2.35 L (3.80-5.40) m/uL Hgb 7.1 L (11.4-16.0) gm/dL Hct 22.5 L (34.0-46.0) % RDW 15.8 H (11.5-15.5) % Plt Count 115 L (150-450) k/uL Neutrophils # 13.8 H (1.3-7.7) k/uL PT (9.0-12.0) sec INR (<1.2) APTT (22.0-30.0) sec Fibrinogen (200-500) mg/dL ABG pH 7.33 L (7.35-7.45) ABG pO2 75 L (83-108) mmHg ABG HCO3 (21-25) mmol/L ABG Total CO2 (19-24) mmol/L ABG O2 Saturation (94-97) % ABG Hematocrit (34.0-46.0) % ABG Potassium (3.4-4.5) mmol/L ABG Ionized Calcium (4.5-5.3) mg/dL ABG Glucose (75-99) mg/dL Hemoglobin (11.4-16.0) gm/dL Chloride (98-107) mmol/L Carbon Dioxide (22-30) mmol/L Glucose (74-99) mg/dL POC Glucose (mg/dL) 172 H (70-110) mg/dL Calcium (8.4-10.2) mg/dL Alkaline Phosphatase (38-126) U/L Total Protein (6.3-8.2) g/dL Albumin (3.5-5.0) g/dL Arterial Blood Potassium (3.4-4.5) mmol/L Arterial Blood Glucose (75-99) mg/dL Crossmatch 11/04/22 11/04/22 11/04/22 Range/Units 19:07 19:56 19:56 WBC 14.3 H (3.8-10.6) k/uL RBC 2.43 L (3.80-5.40) m/uL Hgb 7.5 L (11.4-16.0) gm/dL Hct 23.5 L (34.0-46.0) % RDW (11.5-15.5) % Plt Count 110 L (150-450) k/uL Neutrophils # 12.9 H (1.3-7.7) k/uL PT (9.0-12.0) sec INR (<1.2) APTT (22.0-30.0) sec Fibrinogen (200-500) mg/dL ABG pH (7.35-7.45) ABG pO2 (83-108) mmHg ABG HCO3 (21-25) mmol/L ABG Total CO2 (19-24) mmol/L ABG O2 Saturation (94-97) % ABG Hematocrit (34.0-46.0) % ABG Potassium (3.4-4.5) mmol/L ABG Ionized Calcium (4.5-5.3) mg/dL ABG Glucose (75-99) mg/dL Hemoglobin (11.4-16.0) gm/dL Chloride (98-107) mmol/L Carbon Dioxide (22-30) mmol/L Glucose (74-99) mg/dL POC Glucose (mg/dL) 146 H 133 H (70-110) mg/dL Calcium (8.4-10.2) mg/dL Alkaline Phosphatase (38-126) U/L Total Protein (6.3-8.2) g/dL Albumin (3.5-5.0) g/dL Arterial Blood Potassium (3.4-4.5) mmol/L Arterial Blood Glucose (75-99) mg/dL Crossmatch 11/04/22 11/04/22 11/04/22 Range/Units 21:03 21:58 23:08 WBC (3.8-10.6) k/uL RBC (3.80-5.40) m/uL Hgb (11.4-16.0) gm/dL Hct (34.0-46.0) % RDW (11.5-15.5) % Plt Count (150-450) k/uL Neutrophils # (1.3-7.7) k/uL PT (9.0-12.0) sec INR (<1.2) APTT (22.0-30.0) sec Fibrinogen (200-500) mg/dL ABG pH (7.35-7.45) ABG pO2 (83-108) mmHg ABG HCO3 (21-25) mmol/L ABG Total CO2 (19-24) mmol/L ABG O2 Saturation (94-97) % ABG Hematocrit (34.0-46.0) % ABG Potassium (3.4-4.5) mmol/L ABG Ionized Calcium (4.5-5.3) mg/dL ABG Glucose (75-99) mg/dL Hemoglobin (11.4-16.0) gm/dL Chloride (98-107) mmol/L Carbon Dioxide (22-30) mmol/L Glucose (74-99) mg/dL POC Glucose (mg/dL) 111 H 119 H 139 H (70-110) mg/dL Calcium (8.4-10.2) mg/dL Alkaline Phosphatase (38-126) U/L Total Protein (6.3-8.2) g/dL Albumin (3.5-5.0) g/dL Arterial Blood Potassium (3.4-4.5) mmol/L Arterial Blood Glucose (75-99) mg/dL Crossmatch 11/05/22 11/05/22 11/05/22 Range/Units 00:06 01:05 04:20 WBC 12.3 H (3.8-10.6) k/uL RBC 2.50 L (3.80-5.40) m/uL Hgb 7.6 L (11.4-16.0) gm/dL Hct 23.7 L (34.0-46.0) % RDW 15.7 H (11.5-15.5) % Plt Count 129 L (150-450) k/uL Neutrophils # 10.7 H (1.3-7.7) k/uL PT (9.0-12.0) sec INR (<1.2) APTT (22.0-30.0) sec Fibrinogen (200-500) mg/dL ABG pH (7.35-7.45) ABG pO2 (83-108) mmHg ABG HCO3 (21-25) mmol/L ABG Total CO2 (19-24) mmol/L ABG O2 Saturation (94-97) % ABG Hematocrit (34.0-46.0) % ABG Potassium (3.4-4.5) mmol/L ABG Ionized Calcium (4.5-5.3) mg/dL ABG Glucose (75-99) mg/dL Hemoglobin (11.4-16.0) gm/dL Chloride (98-107) mmol/L Carbon Dioxide (22-30) mmol/L Glucose (74-99) mg/dL POC Glucose (mg/dL) 131 H 118 H (70-110) mg/dL Calcium (8.4-10.2) mg/dL Alkaline Phosphatase (38-126) U/L Total Protein (6.3-8.2) g/dL Albumin (3.5-5.0) g/dL Arterial Blood Potassium (3.4-4.5) mmol/L Arterial Blood Glucose (75-99) mg/dL Crossmatch 11/05/22 11/05/22 11/05/22 Range/Units 04:20 05:46 06:23 WBC (3.8-10.6) k/uL RBC (3.80-5.40) m/uL Hgb (11.4-16.0) gm/dL Hct (34.0-46.0) % RDW (11.5-15.5) % Plt Count (150-450) k/uL Neutrophils # (1.3-7.7) k/uL PT (9.0-12.0) sec INR (<1.2) APTT (22.0-30.0) sec Fibrinogen (200-500) mg/dL ABG pH (7.35-7.45) ABG pO2 (83-108) mmHg ABG HCO3 (21-25) mmol/L ABG Total CO2 (19-24) mmol/L ABG O2 Saturation (94-97) % ABG Hematocrit (34.0-46.0) % ABG Potassium (3.4-4.5) mmol/L ABG Ionized Calcium (4.5-5.3) mg/dL ABG Glucose (75-99) mg/dL Hemoglobin (11.4-16.0) gm/dL Chloride 110 H (98-107) mmol/L Carbon Dioxide 20 L (22-30) mmol/L Glucose (74-99) mg/dL POC Glucose (mg/dL) 128 H 125 H (70-110) mg/dL Calcium 8.1 L (8.4-10.2) mg/dL Alkaline Phosphatase 34 L (38-126) U/L Total Protein 4.9 L (6.3-8.2) g/dL Albumin 3.3 L (3.5-5.0) g/dL Arterial Blood Potassium (3.4-4.5) mmol/L Arterial Blood Glucose (75-99) mg/dL Crossmatch 11/05/22 Range/Units 06:58 WBC (3.8-10.6) k/uL RBC (3.80-5.40) m/uL Hgb (11.4-16.0) gm/dL Hct (34.0-46.0) % RDW (11.5-15.5) % Plt Count (150-450) k/uL Neutrophils # (1.3-7.7) k/uL PT (9.0-12.0) sec INR (<1.2) APTT (22.0-30.0) sec Fibrinogen (200-500) mg/dL ABG pH (7.35-7.45) ABG pO2 (83-108) mmHg ABG HCO3 (21-25) mmol/L ABG Total CO2 (19-24) mmol/L ABG O2 Saturation (94-97) % ABG Hematocrit (34.0-46.0) % ABG Potassium (3.4-4.5) mmol/L ABG Ionized Calcium (4.5-5.3) mg/dL ABG Glucose (75-99) mg/dL Hemoglobin (11.4-16.0) gm/dL Chloride (98-107) mmol/L Carbon Dioxide (22-30) mmol/L Glucose (74-99) mg/dL POC Glucose (mg/dL) 123 H (70-110) mg/dL Calcium (8.4-10.2) mg/dL Alkaline Phosphatase (38-126) U/L Total Protein (6.3-8.2) g/dL Albumin (3.5-5.0) g/dL Arterial Blood Potassium (3.4-4.5) mmol/L Arterial Blood Glucose (75-99) mg/dL Crossmatch
--- NOTE | 2022-11-05 12:42 | CONS ---
CONSULTATION HISTORY OF PRESENT ILLNESS: Farhana is a 77-year-old lady with multivessel coronary artery disease, who underwent bypass surgery yesterday. Today is postoperative day #1. She is extubated, remains in sinus rhythm, hemodynamically stable, and is free of significant cardiac symptoms. Her vital signs are stable. She is currently on aspirin, Norvasc, Lipitor, Plavix, Lopressor, and amiodarone. PAST MEDICAL HISTORY: Significant for coronary artery disease, hypertension, and diabetes. MEDICATIONS AT HOME: Include: 1. Aspirin. 2. Norvasc. 3. HydroDIURIL. 4. Glucotrol. 5. Actos. 6. Metoprolol. 7. Lipitor. 8. Losartan. ALLERGIES: 1. IV dye. 2. Shellfish. FAMILY HISTORY: Negative for premature coronary artery disease. SOCIAL HISTORY: Negative for current smoking, EtOH, or drug abuse. REVIEW OF SYSTEMS: 14 out of 14 review of systems has been performed. Pertinents are as documented. PHYSICAL EXAMINATION: GENERAL: Comfortable at rest. VITAL SIGNS: Stable. CHEST: Reveals diminished air entry at the bases. HEART: Reveals first and second heart sounds. No gallop. ABDOMEN: Soft. EXTREMITIES: Did not reveal any edema. Peripheral pulses are felt. LABORATORY DATA: Show potassium of 3.9, creatinine of 0.6. Hemoglobin is 7.6, platelet count is 129. ASSESSMENT AND PLAN: Multivessel coronary artery disease, status post coronary artery bypass grafting with left internal mammary artery to diagonal and left radial artery graft to mid left anterior descending. The patient will continue current medications. MMODL / IJN: [id number] /
[2022-11-05 13:14] LABS: Glucose,Whole Blood 147 mg/dL (70-110)
[2022-11-05 14:20] LABS: Glucose,Whole Blood 144 mg/dL (70-110)
[2022-11-05 16:24] LABS: Glucose,Whole Blood 117 mg/dL (70-110)
[2022-11-05 17:11] LABS: Glucose,Whole Blood 119 mg/dL (70-110)
[2022-11-05 18:17] LABS: Glucose,Whole Blood 145 mg/dL (70-110)
[2022-11-05] MEDS: LACTATED RINGERS 1,000 ML IV SCH (18:31)
[2022-11-05 20:06] LABS: Glucose,Whole Blood 162 mg/dL (70-110)
[2022-11-05] MEDS ORDERED: DOPamine DRIP 800 MG in DEXTROSE/WATER 1 250ML.BAG IV SCH (20:30)
[2022-11-05] MEDS: SENNOSIDES-DOCUSATE SODIUM 1 EACH TAB PO SCH (20:34)
[2022-11-05 21:53] LABS: Glucose,Whole Blood 126 mg/dL (70-110)
[2022-11-05 23:06] LABS: ABG Base Excess -2.9 mmol/L; ABG HCO3 23 mmol/L (21-25); ABG PCO2 42 mmHg (35-45); ABG PH 7.35 (7.35-7.45); ABG TCO2 24 mmol/L (19-24)
[2022-11-05 23:27] LABS: ABG PO2 54 mmHg (83-108); Allen Test Performed? no
--- NOTE | 2022-11-05 23:30 | XR ---
EXAMINATION TYPE: XR chest 1V portable DATE OF EXAM: 11/05/2022 COMPARISON: 11/05/2022 INDICATION: Increasing O2 demand TECHNIQUE: Single frontal view of the chest is obtained. FINDINGS: The heart size is enlarged. The pulmonary vasculature is mildly prominent. Mild increased lung markings are present. Correlate for pulmonary edema. Left-sided chest tube is present. No pneumothorax is evident. There appears to be a mediastinal tube in the midline. Verden-Roscoe catheter is been removed. IMPRESSION: 1. Cardiomegaly with prominent pulmonary vascular markings and increased diffuse lung markings. Corre late for congestive heart failure. 2. Lines and catheters discussed above
[2022-11-05] MEDS ORDERED: FUROSEMIDE 10 MG/ML 4 ML VIAL IV STA (23:31)
[2022-11-05 23:56] LABS: Glucose,Whole Blood 142 mg/dL (70-110)
[2022-11-06 01:56] LABS: Glucose,Whole Blood 134 mg/dL (70-110)
[2022-11-06 03:58] LABS: Glucose,Whole Blood 130 mg/dL (70-110)
[2022-11-06] MEDS: HYDROcodone/APAP 5-325MG 1 EACH TAB PO PRN (04:00)
[2022-11-06 04:21] LABS: Ionized Calcium 5.2 mg/dL (4.5-5.3)
[2022-11-06 04:23] LABS: Basophils % (A) 0 %; Eosinophils # (A) 0.1 k/uL (0-0.7); Eosinophils % (A) 1 %; HGB 7.7 gm/dL (11.4-16.0); Hypochromasia Slight; Lymphocytes # (A) 1.8 k/uL (1.0-4.8); Lymphocytes % (A) 10 %; MCH 30.9 pg (25.0-35.0); MCHC 32.2 g/dL (31.0-37.0); MCV 95.8 fL (80.0-100.0); Mean Platelet Volume 8.2; Monocytes # (A) 0.6 k/uL (0-1.0); Monocytes % (A) 3 %; Neutrophils # (A) 14.5 k/uL (1.3-7.7); Neutrophils % (A) 85 %; Platelet Count 149 k/uL (150-450); RBC 2.51 m/uL (3.80-5.40); RDW 15.6 % (11.5-15.5)
[2022-11-06 04:27] LABS: ALT 12 U/L (4-34); AST 25 U/L (14-36); African American GFR (CKD) 60 (>60 ml/min/1.73 sqM); Albumin 3.2 g/dL (3.5-5.0); Alkaline Phosphatase 39 U/L (38-126); Anion Gap 7 mmol/L; Blood Urea Nitrogen 21 mg/dL (7-17); Calcium 8.5 mg/dL (8.4-10.2); Carbon Dioxide 23 mmol/L (22-30); Chloride 107 mmol/L (98-107); Glucose 114 mg/dL (74-99); Magnesium 2.1 mg/dL (1.6-2.3); Non-African American GFR(CKD) 52 (>60 ml/min/1.73 sqM); Potassium 3.9 mmol/L (3.5-5.1); Sodium 137 mmol/L (137-145); Total Bilirubin 0.5 mg/dL (0.2-1.3); Total Protein 5.2 g/dL (6.3-8.2)
[2022-11-06] MEDS: PANTOPRAZOLE 40 MG TABLET PO SCH (05:36)
[2022-11-06] MEDS: ONDANSETRON 4 MG/2 ML VIAL IVP PRN (05:36)
[2022-11-06] MEDS: KETOROLAC 15 MG/ML 1 ML VIAL IVP SCH (05:36)
[2022-11-06 05:45] LABS: Glucose,Whole Blood 130 mg/dL (70-110)
[2022-11-06 05:46] LABS: ABG Base Excess -1.4 mmol/L; ABG HCO3 24 mmol/L (21-25); ABG Oxygen Saturation 95.1 % (94-97); ABG PCO2 40 mmHg (35-45); ABG PH 7.38 (7.35-7.45); ABG PO2 71 mmHg (83-108); ABG TCO2 25 mmol/L (19-24)
[2022-11-06 05:49] LABS: Allen Test Performed? no
[2022-11-06] MEDS ORDERED: POTASSIUM CHLORIDE ER 20 MEQ TAB.ER PO SCH (06:00)
[2022-11-06] MEDS ORDERED: FUROSEMIDE 10 MG/ML 4 ML VIAL IV STA (07:49)
[2022-11-06] MEDS: IPRATROPIUM-ALBUTEROL 3 ML NEB INHALATION SCH ×4 (07:52→19:36)
[2022-11-06] MEDS ORDERED: DEXTROSE 50% SYRINGE 50 ML IVP PRN ×2 (07:54)
--- NOTE | 2022-11-06 08:01 | P.PN ---
Subjective Progress Note Date: 11/06/22 Principal diagnosis: Coronary artery disease. Previous medical history of hypertension, hyperlipidemia, type 2 diabetes, current tobacco dependence, osteoarthritis, obesity, peripheral vascular disease. Preoperative nasal swab positive for MSSA, treated POD #2 off-pump coronary artery bypass graft 2 with left internal mammary artery to the diagonal and jump graft left radial artery off the GARCÍA to the mid left anterior descending artery, ligation of the left atrial appendage with 35 mm AtriCure clip, endovascular left radial artery harvest, intraoperative transesophageal echocardiogram performed by anesthesia Postoperative acute blood loss anemia and thrombocytopenia, expected Acute hypoxic respiratory failure secondary to volume overload, current tobacco dependence The patient was seen and examined sitting up in a recliner in the intensive care unit. Currently in sinus rhythm, hypotensive. Patient had increasing respiratory distress last night, was given IV Lasix with 650 mL urine output, was placed on Airvo. Oxygen saturation currently in the mid 90s on Airvo. Patient was started on IV dopamine to improve urine output. Hemoglobin 7.7 this morning, will give 1 unit packed red blood cells followed by IV Lasix. Denies pain, does complain of some shortness of breath. Only able to achieve 500 mL on her incentive spirometry with poor effort. Right internal jugular Cordis, right radial arterial line, mediastinal/left pleural chest tubes all remain. No other new concerns. Objective - Vital Signs Vital signs: Vital Signs Temp 98.6 F 11/06/22 04:00 Pulse 90 11/06/22 07:00 Resp 18 11/06/22 07:00 BP 113/63 11/05/22 22:30 Pulse Ox 97 11/06/22 07:00 FiO2 93 11/06/22 04:00 Intake & Output 11/05/22 11/06/22 11/06/22 18:59 06:59 18:59 Intake Total 1481.078 840.425 26 Output Total 785 1220 35 Balance 696.078 -379.575 -9 Weight 85.5 kg 85.5 kg Intake: IV 784 292 26 Lactated Ringers 1,000 ml 280 220 20 @ 20 mls/hr IV .Q24H [facility] Rx#:[id number] Potassium Chloride 10 meq 100 In Water For Injection 1 100ml.bag @ 100 mls/hr IVPB Q1H [facility] Rx#: [id number] albumin 250 ceFAZolin 2 gm In Sodium 50 Chloride 0.9% 50 ml @ 100 mls/hr IVPB Q8HR [facility] Rx# :[id number] ns cardiac output 20 ns pressure bags 84 72 6 Intake, IV Titration 107.078 8.425 Amount Insulin Regular 100 unit 7.078 8.425 In Sodium Chloride 0.9% 100 ml @ Per Protocol IV .Q0M [facility] Rx#:[id number] Potassium Chloride 10 meq 100 In Water For Injection 1 100ml.bag @ 100 mls/hr IVPB Q1H [facility] Rx#: [id number] Oral 590 540 Output: Chest Tube Drainage 390 240 Left Pleural/Mediastinal 390 240 Urine 395 980 35 Other: Voiding Method Indwelling Catheter Indwelling Catheter ABP, PAP, CO, CI - Last Documented Arterial Blood Pressure 101/38 Pulmonary Artery Pressure 33/9 Cardiac Output 4.7 Cardiac Index 2.5 - Exam CONSTITUTIONAL: Appears comfortable, cooperative RESPIRATORY: Lungs sounds diminished bilaterally. Respirations even, nonlabored on Airvo, oxygen saturation 94-97%. Only able to achieve 500 mL on incentive spirometry with poor effort. Strong loose cough. CARDIOVASCULAR: S1, S2 present. Regular rate and rhythm, sinus rhythm on telemetry. Sternum stable. Palpable peripheral pulses bilaterally. No edema present. No calf pain or tenderness noted. Heart hugger in place with patient demonstrating appropriate use. Antiembolism stockings, SCDs present. GASTROINTESTINAL: Abdomen soft, nontender, nondistended. Active bowel sounds present 4 quadrants. Tolerating clear liquids. Denies flatus GENITOURINARY: Florez present draining clear, yellow urine. Output overnight 25-60 mL per hour with 650 mL output after IV Lasix given, 1375 mL in the last 24 hours INTEGUMENTARY: Skin is warm and dry with evidence of good perfusion. Anterior chest incision well approximated and covered with dry intact dressing. Left radial artery harvest site well approximated without redness or drainage. NEUROLOGIC: Cranial nerves II through XII intact MUSKULOSKELETAL: Able to move all extremities, strength equal bilaterally PSYCHIATRIC: Alert and oriented to person place and time, appropriate affect, intact judgment and insight INVASIVE LINES AND TUBES: Mediastinal/left pleural chest tubes present and connected to wall suction, no air leaks present, 140 mL serosanguineous drainage overnight, 700 m in the last 24 hours. Right internal jugular cordis, right radial arterial line present. Last CVP 1. - Allied health notes Allied health notes reviewed: nursing - Labs CBC & Chem 7: 11/06/22 04:00 11/06/22 04:00 Labs: Abnormal Lab Results - Last 24 Hours (Table) 11/05/22 11/05/22 11/05/22 Range/Units 09:08 10:08 11:17 WBC (3.8-10.6) k/uL RBC (3.80-5.40) m/uL Hgb (11.4-16.0) gm/dL Hct (34.0-46.0) % RDW (11.5-15.5) % Plt Count (150-450) k/uL Neutrophils # (1.3-7.7) k/uL ABG pO2 (83-108) mmHg ABG Total CO2 (19-24) mmol/L ABG O2 Saturation (94-97) % BUN (7-17) mg/dL Creatinine (0.52-1.04) mg/dL Glucose (74-99) mg/dL POC Glucose (mg/dL) 125 H 134 H 139 H (70-110) mg/dL Total Protein (6.3-8.2) g/dL Albumin (3.5-5.0) g/dL 11/05/22 11/05/22 11/05/22 Range/Units 13:12 14:19 16:23 WBC (3.8-10.6) k/uL RBC (3.80-5.40) m/uL Hgb (11.4-16.0) gm/dL Hct (34.0-46.0) % RDW (11.5-15.5) % Plt Count (150-450) k/uL Neutrophils # (1.3-7.7) k/uL ABG pO2 (83-108) mmHg ABG Total CO2 (19-24) mmol/L ABG O2 Saturation (94-97) % BUN (7-17) mg/dL Creatinine (0.52-1.04) mg/dL Glucose (74-99) mg/dL POC Glucose (mg/dL) 147 H 144 H 117 H (70-110) mg/dL Total Protein (6.3-8.2) g/dL Albumin (3.5-5.0) g/dL 07/05/3011/05/22 11/05/22 Range/Units 17:11 18:16 20:05 WBC (3.8-10.6) k/uL RBC (3.80-5.40) m/uL Hgb (11.4-16.0) gm/dL Hct (34.0-46.0) % RDW (11.5-15.5) % Plt Count (150-450) k/uL Neutrophils # (1.3-7.7) k/uL ABG pO2 (83-108) mmHg ABG Total CO2 (19-24) mmol/L ABG O2 Saturation (94-97) % BUN (7-17) mg/dL Creatinine (0.52-1.04) mg/dL Glucose (74-99) mg/dL POC Glucose (mg/dL) 119 H 145 H 162 H (70-110) mg/dL Total Protein (6.3-8.2) g/dL Albumin (3.5-5.0) g/dL 11/05/22 11/05/22 11/05/22 Range/Units 21:52 23:02 23:55 WBC (3.8-10.6) k/uL RBC (3.80-5.40) m/uL Hgb (11.4-16.0) gm/dL Hct (34.0-46.0) % RDW (11.5-15.5) % Plt Count (150-450) k/uL Neutrophils # (1.3-7.7) k/uL ABG pO2 54 L* (83-108) mmHg ABG Total CO2 (19-24) mmol/L ABG O2 Saturation 87.0 L (94-97) % BUN (7-17) mg/dL Creatinine (0.52-1.04) mg/dL Glucose (74-99) mg/dL POC Glucose (mg/dL) 126 H 142 H (70-110) mg/dL Total Protein (6.3-8.2) g/dL Albumin (3.5-5.0) g/dL 11/06/22 11/06/22 11/06/22 Range/Units 01:55 03:55 04:00 WBC 17.0 H (3.8-10.6) k/uL RBC 2.51 L (3.80-5.40) m/uL Hgb 7.7 L (11.4-16.0) gm/dL Hct 24.0 L (34.0-46.0) % RDW 15.6 H (11.5-15.5) % Plt Count 149 L (150-450) k/uL Neutrophils # 14.5 H (1.3-7.7) k/uL ABG pO2 (83-108) mmHg ABG Total CO2 (19-24) mmol/L ABG O2 Saturation (94-97) % BUN (7-17) mg/dL Creatinine (0.52-1.04) mg/dL Glucose (74-99) mg/dL POC Glucose (mg/dL) 134 H 130 H (70-110) mg/dL Total Protein (6.3-8.2) g/dL Albumin (3.5-5.0) g/dL 11/06/22 11/06/22 11/06/22 Range/Units 04:00 05:44 05:45 WBC (3.8-10.6) k/uL RBC (3.80-5.40) m/uL Hgb (11.4-16.0) gm/dL Hct (34.0-46.0) % RDW (11.5-15.5) % Plt Count (150-450) k/uL Neutrophils # (1.3-7.7) k/uL ABG pO2 71 L (83-108) mmHg ABG Total CO2 25 H (19-24) mmol/L ABG O2 Saturation (94-97) % BUN 21 H (7-17) mg/dL Creatinine 1.05 H (0.52-1.04) mg/dL Glucose 114 H (74-99) mg/dL POC Glucose (mg/dL) 130 H (70-110) mg/dL Total Protein 5.2 L (6.3-8.2) g/dL Albumin 3.2 L (3.5-5.0) g/dL - Imaging and Cardiology Chest x-ray: image reviewed Assessment and Plan Assessment: Coronary artery disease, status post 2 vessel CABG History of hypertension Hyperlipidemia, treated, cholesterol 188, LDL 106, triglycerides 93 Type 2 diabetes, preoperative hemoglobin A1c 7.1% Current tobacco dependence, preoperative FEV1 96% of predicted Osteoarthritis Obesity Peripheral vascular disease Preoperative nasal swab positive for MSSA, treated Postoperative acute blood loss anemia and thrombocytopenia, expected Acute hypoxic respiratory failure Plan: Continue to maximize medical therapy with aspirin, statin, Plavix, beta jennifer therapy. Will increase beta jennifer therapy as tolerated, hold parameters on beta jennifer. Will wean dopamine as tolerated Continue calcium channel jennifer for radial artery spasm prophylaxis, hold parameters placed Wean O2 as tolerated. Encourage incentive spirometry 10 times every hour while awake. Bronchodilators per pulmonology Increase activity, ambulate as tolerated. PT/OT/cardiac rehab consulted Will monitor daily labs and x-rays. Electrolyte replacement per protocol. Will give 1 unit packed red blood cells followed by 40 mg IV push Lasix today GI/DVT prophylaxis Pain control per current medication regimen. Toradol discontinued. Avoid narcotics if possible Insulin management per internal medicine. Patient is diabetic with hemoglobin A1c 7.1%, needs tight blood sugar control to prevent infection and promote healing Continue mediastinal/left pleural chest tubes for another 24 hours Continue Florez catheter for another 24 hours for strict accurate intake and output Daily weights Smoking cessation counseling and education offered, patient is encouraged to quit smoking completely More recommendations to follow as patient progresses
[2022-11-06 08:13] LABS: Glucose,Whole Blood 129 mg/dL (70-110)
[2022-11-06] MEDS: INSULIN DETEMIR (LEVEMIR) 100 UNIT/ML SYR SQ SCH (08:55)
[2022-11-06] MEDS: ATORVASTATIN 20 MG TAB PO SCH (08:55)
[2022-11-06] MEDS: CLOPIDOGREL 75 MG TAB PO SCH (08:55)
[2022-11-06] MEDS: HEPARIN SODIUM,PORCINE/PF 5,000 UNIT/0.5 ML SYRINGE SQ SCH ×3 (08:55→23:22)
[2022-11-06] MEDS: ASPIRIN 325 MG TAB PO SCH (08:55)
[2022-11-06] MEDS ORDERED: POTASSIUM BICARBONATE/CIT AC 20 MEQ TABLET.EFF NG-TUBE SCH (09:00)
[2022-11-06] MEDS: MUPIROCIN 2% OINT 22 GM TUBE NASAL SCH ×2 (09:06→20:28)
--- NOTE | 2022-11-06 10:00 | PN ---
PROGRESS NOTE SUBJECTIVE: Farhana is a 77-year-old lady with history of coronary artery disease, status post bypass surgery on Monday. Today is postop day #2. She developed some hypoxia and respiratory difficulty last night and needed a dose of IV Lasix and she received another dose of IV Lasix this morning. She is oxygenating better. Currently on Norvasc 2.5 mg daily, Lipitor 20 mg daily, Plavix, Lopressor 12.5 b.i.d. and blood pressure is somewhat marginal. OBJECTIVE: VITAL SIGNS: Heart rate is 89 beats per minute, blood pressure is 96/72, respiratory rate is 18. CHEST: Reveals diminished air entry bilaterally. HEART: Reveals first and second heart sounds. No gallop. No murmur. ABDOMEN: Soft. EXTREMITIES: Revealed mild edema. Peripheral pulses are palpable. She is on high- flow nasal O2, saturating at 95%. ASSESSMENT: 1. Coronary artery disease, status post coronary artery bypass graft, postop day #2. 2. Respiratory insufficiency. PLAN: We will continue with IV Lasix as needed. The patient will continue with the incentive spirometry and rest of her medications will be continued. MMODL / IJN: [id number] /
[2022-11-06] MEDS: METOPROLOL TARTRATE 12.5 MG TAB PO SCH ×2 (10:30→20:28)
[2022-11-06 10:40] LABS: Glucose,Whole Blood 126 mg/dL (70-110)
--- NOTE | 2022-11-06 10:49 | XR ---
EXAMINATION TYPE: XR chest 1V portable DATE OF EXAM: 11/06/2022 COMPARISON: 11/05/2022 INDICATION: Postop cardiac surgery TECHNIQUE: Single frontal view of the chest is obtained. FINDINGS: The heart size is moderately prominent. The pulmonary vasculature is somewhat prominent. Bibasilar infiltrates and/or pleural effusions are present. Left-sided chest tube is present. No pneu mothorax is evident. Mediastinal tube is present. IMPRESSION: 1. Cardiomegaly with prominent pulmonary vascular markings and bilateral pleural effusions. Correlate for congestive heart failure and volume overload.
[2022-11-06] MEDS ORDERED: VASOPRESSIN 20 UNIT in SODIUM CHLORIDE 0.9% 50 ML IV SCH (11:15)
[2022-11-06] MEDS: amLODIPine 2.5 MG TAB PO SCH (11:15)
[2022-11-06 11:34] LABS: Glucose,Whole Blood 131 mg/dL (70-110)
[2022-11-06] MEDS: VASOPRESSIN 20 UNIT in SODIUM CHLORIDE 0.9% 50 ML IV SCH ×3 (11:34→18:40)
[2022-11-06] MEDS: INSULIN ASPART (NovoLOG) 100 UNIT/ML VIAL SQ SCH ×5 (11:36→20:29)
[2022-11-06] MEDS: LACTATED RINGERS 1,000 ML IV SCH (11:37)
--- NOTE | 2022-11-06 11:51 | P.PN ---
Subjective Progress Note Date: 11/06/22 Principal diagnosis: POD # 2 off-pump coronary artery bypass graft 2 with left internal mammary artery to the diagonal and jump graft left radial artery off the GARCÍA to the mid left anterior descending artery, ligation of the left atrial appendage with 35 mm AtriCure clip, endovascular left radial artery harvest, intraoperative transesophageal echocardiogram performed by anesthesia POD #1 off-pump coronary artery bypass graft 2 with left internal mammary artery to the diagonal and jump graft left radial artery off the GARCÍA to the mid left anterior descending artery, ligation of the left atrial appendage with 35 mm AtriCure clip, endovascular left radial artery harvest, intraoperative transesophageal echocardiogram performed by anesthesia. Patient was reevaluated today on 11/05/2022, remains in the ICU, extubated yesterday, pulmonary status is a bit marginal, she is on 6 L nasal cannula, marginal with incentive spirometry pulling about 500 mL, chest x-ray showing mild interstitial edema and right- sided pleural effusion, hence I'm recommending gentle diuresis on this patient. WBC count is 12.3 hemoglobin 7.6. Basic metabolic profile, renal profile are normal liver profile is normal Patient was evaluated today on 11/06/2022, she is now postoperative day #2, patient desaturated yesterday, she developed mostly bibasilar atelectasis, poor urine output, and she developed some component of mild congestive heart failure. Patient was placed on dopamine at 3 mcg/kg/m, they called me on the patient last night and I recommended that the patient goes on airvo high flow and high FiO2, patient was also given a dose of Lasix 40 mg IV push, and today she is scheduled to have a unit of blood for hemoglobin of 7.7 and should be given more Lasix after the units of blood given. Patient is not making good effort with her incentive spirometry, she is only achieving no more than 500 mL. Basically the patient is marginal at best. ABG this morning showed a pO2 of 70 pCO2 40 pH of 7.38. Patient is in sinus rhythm, and seems to be hemodynamically marginal, blood pressure seems to be running a bit on the low side. Objective - Vital Signs Vital signs: Vital Signs Temp 98.7 F 11/06/22 10:30 Pulse 94 11/06/22 11:38 Resp 14 11/06/22 11:00 BP 77/54 11/06/22 11:00 Pulse Ox 96 11/06/22 11:31 FiO2 80 11/06/22 11:31 Intake & Output 11/05/22 11/06/22 11/06/22 18:59 06:59 18:59 Intake Total 1481.078 840.425 199.2 Output Total 785 1220 195 Balance 696.078 -379.575 4.2 Weight 85.5 kg 85.5 kg Intake: IV 784 292 149.2 DOPamine DRIP 800 mg In 19.2 Dextrose/Water 1 250ml. bag @ 3 MCG/KG/MIN 4.809 mls/hr IV .Q24H [facility] Rx#: [id number] Lactated Ringers 1,000 ml 280 220 100 @ 20 mls/hr IV .Q24H [facility] Rx#:[id number] Potassium Chloride 10 meq 100 In Water For Injection 1 100ml.bag @ 100 mls/hr IVPB Q1H [facility] Rx#: [id number] albumin 250 ceFAZolin 2 gm In Sodium 50 Chloride 0.9% 50 ml @ 100 mls/hr IVPB Q8HR [facility] Rx# :[id number] ns cardiac output 20 ns pressure bags 84 72 30 Intake, IV Titration 107.078 8.425 Amount Insulin Regular 100 unit 7.078 8.425 In Sodium Chloride 0.9% 100 ml @ Per Protocol IV .Q0M [facility] Rx#:[id number] Potassium Chloride 10 meq 100 In Water For Injection 1 100ml.bag @ 100 mls/hr IVPB Q1H [facility] Rx#: [id number] Oral 590 540 50 Blood Product 0 Rc As-1 Unit 0 [id number] Output: Chest Tube Drainage 390 240 50 Left Pleural/Mediastinal 390 240 50 Urine 395 980 145 Other: Voiding Method Indwelling Catheter Indwelling Catheter Indwelling Catheter ABP, PAP, CO, CI - Last Documented Arterial Blood Pressure 83/38 Pulmonary Artery Pressure 33/9 Cardiac Output 4.7 Cardiac Index 2.5 - Exam Physical Exam: Revealed a 77-year-old female in no distress, on airvo at 90% FiO2. And 60 L flow. Head: Atraumatic, normocephalic. HEENT:[Neck is supple.] [No neck masses.] [No thyromegaly.] [No JVD.] Chest: Diminished breath sound bilaterally no rhonchi no wheezes Cardiac Exam: [Normal S1 and S2, no S3 gallop, no murmur.] Abdomen: [Soft, nontender, no megaly, no rebound, no guarding, normal bowel sounds.] Extremities: [No clubbing, no edema, no cyanosis.] Neurological Exam: [No focal neurologic deficit.] Psychiatric: Normal mood affect and normal mental status examination. - Labs CBC & Chem 7: 11/06/22 04:00 11/06/22 04:00 Labs: Abnormal Lab Results - Last 24 Hours (Table) 11/05/22 11/05/22 11/05/22 Range/Units 13:12 14:19 16:23 WBC (3.8-10.6) k/uL RBC (3.80-5.40) m/uL Hgb (11.4-16.0) gm/dL Hct (34.0-46.0) % RDW (11.5-15.5) % Plt Count (150-450) k/uL Neutrophils # (1.3-7.7) k/uL ABG pO2 (83-108) mmHg ABG Total CO2 (19-24) mmol/L ABG O2 Saturation (94-97) % BUN (7-17) mg/dL Creatinine (0.52-1.04) mg/dL Glucose (74-99) mg/dL POC Glucose (mg/dL) 147 H 144 H 117 H (70-110) mg/dL Total Protein (6.3-8.2) g/dL Albumin (3.5-5.0) g/dL Crossmatch 11/05/22 11/05/22 11/05/22 Range/Units 17:11 18:16 20:05 WBC (3.8-10.6) k/uL RBC (3.80-5.40) m/uL Hgb (11.4-16.0) gm/dL Hct (34.0-46.0) % RDW (11.5-15.5) % Plt Count (150-450) k/uL Neutrophils # (1.3-7.7) k/uL ABG pO2 (83-108) mmHg ABG Total CO2 (19-24) mmol/L ABG O2 Saturation (94-97) % BUN (7-17) mg/dL Creatinine (0.52-1.04) mg/dL Glucose (74-99) mg/dL POC Glucose (mg/dL) 119 H 145 H 162 H (70-110) mg/dL Total Protein (6.3-8.2) g/dL Albumin (3.5-5.0) g/dL Crossmatch 11/05/22 11/05/22 11/05/22 Range/Units 21:52 23:02 23:55 WBC (3.8-10.6) k/uL RBC (3.80-5.40) m/uL Hgb (11.4-16.0) gm/dL Hct (34.0-46.0) % RDW (11.5-15.5) % Plt Count (150-450) k/uL Neutrophils # (1.3-7.7) k/uL ABG pO2 54 L* (83-108) mmHg ABG Total CO2 (19-24) mmol/L ABG O2 Saturation 87.0 L (94-97) % BUN (7-17) mg/dL Creatinine (0.52-1.04) mg/dL Glucose (74-99) mg/dL POC Glucose (mg/dL) 126 H 142 H (70-110) mg/dL Total Protein (6.3-8.2) g/dL Albumin (3.5-5.0) g/dL Crossmatch 11/06/22 11/06/22 11/06/22 Range/Units 01:55 03:55 04:00 WBC 17.0 H (3.8-10.6) k/uL RBC 2.51 L (3.80-5.40) m/uL Hgb 7.7 L (11.4-16.0) gm/dL Hct 24.0 L (34.0-46.0) % RDW 15.6 H (11.5-15.5) % Plt Count 149 L (150-450) k/uL Neutrophils # 14.5 H (1.3-7.7) k/uL ABG pO2 (83-108) mmHg ABG Total CO2 (19-24) mmol/L ABG O2 Saturation (94-97) % BUN (7-17) mg/dL Creatinine (0.52-1.04) mg/dL Glucose (74-99) mg/dL POC Glucose (mg/dL) 134 H 130 H (70-110) mg/dL Total Protein (6.3-8.2) g/dL Albumin (3.5-5.0) g/dL Crossmatch 11/06/22 11/06/22 11/06/22 Range/Units 04:00 05:44 05:45 WBC (3.8-10.6) k/uL RBC (3.80-5.40) m/uL Hgb (11.4-16.0) gm/dL Hct (34.0-46.0) % RDW (11.5-15.5) % Plt Count (150-450) k/uL Neutrophils # (1.3-7.7) k/uL ABG pO2 71 L (83-108) mmHg ABG Total CO2 25 H (19-24) mmol/L ABG O2 Saturation (94-97) % BUN 21 H (7-17) mg/dL Creatinine 1.05 H (0.52-1.04) mg/dL Glucose 114 H (74-99) mg/dL POC Glucose (mg/dL) 130 H (70-110) mg/dL Total Protein 5.2 L (6.3-8.2) g/dL Albumin 3.2 L (3.5-5.0) g/dL Crossmatch 11/06/22 11/06/22 11/06/22 Range/Units 08:11 08:12 10:37 WBC (3.8-10.6) k/uL RBC (3.80-5.40) m/uL Hgb (11.4-16.0) gm/dL Hct (34.0-46.0) % RDW (11.5-15.5) % Plt Count (150-450) k/uL Neutrophils # (1.3-7.7) k/uL ABG pO2 (83-108) mmHg ABG Total CO2 (19-24) mmol/L ABG O2 Saturation (94-97) % BUN (7-17) mg/dL Creatinine (0.52-1.04) mg/dL Glucose (74-99) mg/dL POC Glucose (mg/dL) 129 H 126 H (70-110) mg/dL Total Protein (6.3-8.2) g/dL Albumin (3.5-5.0) g/dL Crossmatch See Detail 11/06/22 Range/Units 11:32 WBC (3.8-10.6) k/uL RBC (3.80-5.40) m/uL Hgb (11.4-16.0) gm/dL Hct (34.0-46.0) % RDW (11.5-15.5) % Plt Count (150-450) k/uL Neutrophils # (1.3-7.7) k/uL ABG pO2 (83-108) mmHg ABG Total CO2 (19-24) mmol/L ABG O2 Saturation (94-97) % BUN (7-17) mg/dL Creatinine (0.52-1.04) mg/dL Glucose (74-99) mg/dL POC Glucose (mg/dL) 131 H (70-110) mg/dL Total Protein (6.3-8.2) g/dL Albumin (3.5-5.0) g/dL Crossmatch Assessment and Plan Assessment: Impression: Coronary artery disease, status post off-pump coronary artery bypass grafting 2 utilizing a GARCÍA to the diagonal and jump graft left radial artery off the GARCÍA to the mid LAD with ligation of the left atrial appendage with a 35mm AtriCure clip. Postoperative day #2. Chronic and ongoing tobacco dependence. FEV1 value was 1.36 L which is 87% of predicted Diabetes mellitus Obesity Hyperlipidemia Hypertension Postoperative atelectasis, expected. Acute blood loss anemia secondary to surgery, expected Peripheral vascular disease Plan: Continue airvo and titrate accordingly Continue incentive spirometry Agree with blood transfusion and Lasix Continue intermittent diuretics Continue maximal medical therapy aspirin statins and Plavix beta blockers Continue GI and DVT prophylaxis Continue strict I's and O's. Continue bronchodilators Patient is marginal at best. If she gets worse, may require reintubation mechanical ventilation. We will continue to follow while in the ICU. Time with Patient: Less than 30
[2022-11-06] MEDS: ACETAMINOPHEN TAB 325 MG TAB PO PRN ×3 (11:55→23:34)
[2022-11-06] MEDS ORDERED: DOPamine DRIP 800 MG in DEXTROSE/WATER 1 250ML.BAG IV SCH (14:00)
--- NOTE | 2022-11-06 14:54 | P.PN ---
Subjective Progress Note Date: 11/06/22 (delayed charting seen at 0930) Patient is a 77 yo female with cad, cm2, htn, and HLD who presented for CABG X 2. Did well and was extubated on 11/04/22. She had increasing respiratory distress on 11/05 and required AirVo. Patient seen and examined at bedside. Patient seen and examined at bedside. She denies any shortness of breath but just states that she feels weak and tired overall. Pain is better than yesterday. Vital signs reviewed General: nontoxic, mild distress, appears at stated age Cardiovascular: S1S2 reg, no murmur, positive posterior tibial pulse bilateral, Lungs: Course bs bilateral, no rhonchi, no rales , no accessory muscle use Abdominal: soft, nontender to palpation, no guarding, no appreciable organomegaly, chest tube in place Ext: no gross muscle atrophy, no edema b/l lower extremities, no contractures Neuro: CN II-XI grossly intact, no focal neuro deficits Psych: Alert, oriented, appropriate affect Assessment/Plan: 77-year-old female status post 2 vessel coronary artery bypass grafting- - Cardiothoracic note reviewed: 1 unit of packed red cells, IV Lasix, Continue with chest tube and mediastinal tubes 24 additional hours Diabetes mellitus type 2, [id number] -Glucotrol and Actos on hold - Insulin drip discontinued, started on Levemir 10 units in the morning, NovoLog 2 units with each meals, and sliding scale - Pre-op A1C 7.1 Acute blood loss anemia and thrombocytopenia, anticipated outcome of surgery - 1 unit pRBC ordered -Follow CBC Increased Cr - oliguira and now on dopamine gtt - agree with holding toradol - Monitor Cr, avoid additional nephrotoxic agents. COPD without exacerbation -Continue with scheduled and as needed DuoNeb -Pulmonary note reviewed: Continue aerosol and titrate accordingly, blood transfusion and Lasix, intermittent diuretics Ongoing tobacco dependency - cessation Obesity with BMI 33.4 -Structured outpatient weight loss Chronic: Hypertension Dyslipidemia Osteoarthritis Imaging: Chest x-ray reviewed by myself. Right-sided pleural effusion, lines and tubes in good position. Data Review: Vitals reviewed pulse 86, respirations 13, blood pressure 91/38, O2 sat 94% on Airvo Labs reviewed and remarkable for white blood cell count of 17, hemoglobin 7.7, platelets 149, creatinine 1.05 Thank you for allowing us to participate in the care of this pleasant patient. Do not hesitate to contact us with questions. Someone can be reached from the [facility] [facility] hospitalist group all hours of the day at [phone] or via perfect serve. This dictation was prepared using [email or web address] voice recognition software. Though every attempt is made to correct errors during dictation some may still exist. Objective - Vital Signs Vital signs: Vital Signs Temp 98.3 F 11/06/22 12:30 Pulse 93 11/06/22 14:00 Resp 19 11/06/22 14:00 BP 78/49 11/06/22 13:00 Pulse Ox 94 L 11/06/22 14:00 FiO2 75 11/06/22 13:30 Intake & Output 11/05/22 11/06/22 11/06/22 18:59 06:59 18:59 Intake Total 1481.078 840.425 709.96 Output Total 785 1220 475 Balance 696.078 -379.575 234.96 Weight 85.5 kg 85.5 kg Intake: IV 784 292 259.96 DOPamine DRIP 800 mg In 33.6 Dextrose/Water 1 250ml. bag @ 3 MCG/KG/MIN 4.809 mls/hr IV .Q24H [facility] Rx#: [id number] Lactated Ringers 1,000 ml 280 220 160 @ 20 mls/hr IV .Q24H [facility] Rx#:[id number] Potassium Chloride 10 meq 100 In Water For Injection 1 100ml.bag @ 100 mls/hr IVPB Q1H [facility] Rx#: [id number] Vasopressin 20 unit In 18.36 Sodium Chloride 0.9% 50 ml @ 0.04 UNITS/MIN 6.12 mls/hr IV .Q8H20M [facility] Rx# :[id number] albumin 250 ceFAZolin 2 gm In Sodium 50 Chloride 0.9% 50 ml @ 100 mls/hr IVPB Q8HR [facility] Rx# :[id number] ns cardiac output 20 ns pressure bags 84 72 48 Intake, IV Titration 107.078 8.425 Amount Insulin Regular 100 unit 7.078 8.425 In Sodium Chloride 0.9% 100 ml @ Per Protocol IV .Q0M [facility] Rx#:[id number] Potassium Chloride 10 meq 100 In Water For Injection 1 100ml.bag @ 100 mls/hr IVPB Q1H [facility] Rx#: [id number] Oral 590 540 110 Blood Product 310 Rc As-1 Unit 310 [id number] Other 30 Rc As-1 Unit 30 [id number] Output: Chest Tube Drainage 390 240 90 Left Pleural/Mediastinal 390 240 90 Urine 395 980 385 Other: Voiding Method Indwelling Catheter Indwelling Catheter Indwelling Catheter ABP, PAP, CO, CI - Last Documented Arterial Blood Pressure 104/40 Pulmonary Artery Pressure 33/9 Cardiac Output 4.7 Cardiac Index 2.5 - Labs CBC & Chem 7: 11/06/22 04:00 11/06/22 04:00 Labs: Abnormal Lab Results - Last 24 Hours (Table) 11/05/22 11/05/22 11/05/22 Range/Units 16:23 17:11 18:16 WBC (3.8-10.6) k/uL RBC (3.80-5.40) m/uL Hgb (11.4-16.0) gm/dL Hct (34.0-46.0) % RDW (11.5-15.5) % Plt Count (150-450) k/uL Neutrophils # (1.3-7.7) k/uL ABG pO2 (83-108) mmHg ABG Total CO2 (19-24) mmol/L ABG O2 Saturation (94-97) % BUN (7-17) mg/dL Creatinine (0.52-1.04) mg/dL Glucose (74-99) mg/dL POC Glucose (mg/dL) 117 H 119 H 145 H (70-110) mg/dL Total Protein (6.3-8.2) g/dL Albumin (3.5-5.0) g/dL Crossmatch 11/05/22 11/05/22 11/05/22 Range/Units 20:05 21:52 23:02 WBC (3.8-10.6) k/uL RBC (3.80-5.40) m/uL Hgb (11.4-16.0) gm/dL Hct (34.0-46.0) % RDW (11.5-15.5) % Plt Count (150-450) k/uL Neutrophils # (1.3-7.7) k/uL ABG pO2 54 L* (83-108) mmHg ABG Total CO2 (19-24) mmol/L ABG O2 Saturation 87.0 L (94-97) % BUN (7-17) mg/dL Creatinine (0.52-1.04) mg/dL Glucose (74-99) mg/dL POC Glucose (mg/dL) 162 H 126 H (70-110) mg/dL Total Protein (6.3-8.2) g/dL Albumin (3.5-5.0) g/dL Crossmatch 11/05/22 11/06/22 11/06/22 Range/Units 23:55 01:55 03:55 WBC (3.8-10.6) k/uL RBC (3.80-5.40) m/uL Hgb (11.4-16.0) gm/dL Hct (34.0-46.0) % RDW (11.5-15.5) % Plt Count (150-450) k/uL Neutrophils # (1.3-7.7) k/uL ABG pO2 (83-108) mmHg ABG Total CO2 (19-24) mmol/L ABG O2 Saturation (94-97) % BUN (7-17) mg/dL Creatinine (0.52-1.04) mg/dL Glucose (74-99) mg/dL POC Glucose (mg/dL) 142 H 134 H 130 H (70-110) mg/dL Total Protein (6.3-8.2) g/dL Albumin (3.5-5.0) g/dL Crossmatch 11/06/22 11/06/22 11/06/22 Range/Units 04:00 04:00 05:44 WBC 17.0 H (3.8-10.6) k/uL RBC 2.51 L (3.80-5.40) m/uL Hgb 7.7 L (11.4-16.0) gm/dL Hct 24.0 L (34.0-46.0) % RDW 15.6 H (11.5-15.5) % Plt Count 149 L (150-450) k/uL Neutrophils # 14.5 H (1.3-7.7) k/uL ABG pO2 (83-108) mmHg ABG Total CO2 (19-24) mmol/L ABG O2 Saturation (94-97) % BUN 21 H (7-17) mg/dL Creatinine 1.05 H (0.52-1.04) mg/dL Glucose 114 H (74-99) mg/dL POC Glucose (mg/dL) 130 H (70-110) mg/dL Total Protein 5.2 L (6.3-8.2) g/dL Albumin 3.2 L (3.5-5.0) g/dL Crossmatch 11/06/22 11/06/22 11/06/22 Range/Units 05:45 08:11 08:12 WBC (3.8-10.6) k/uL RBC (3.80-5.40) m/uL Hgb (11.4-16.0) gm/dL Hct (34.0-46.0) % RDW (11.5-15.5) % Plt Count (150-450) k/uL Neutrophils # (1.3-7.7) k/uL ABG pO2 71 L (83-108) mmHg ABG Total CO2 25 H (19-24) mmol/L ABG O2 Saturation (94-97) % BUN (7-17) mg/dL Creatinine (0.52-1.04) mg/dL Glucose (74-99) mg/dL POC Glucose (mg/dL) 129 H (70-110) mg/dL Total Protein (6.3-8.2) g/dL Albumin (3.5-5.0) g/dL Crossmatch See Detail 11/06/22 11/06/22 Range/Units 10:37 11:32 WBC (3.8-10.6) k/uL RBC (3.80-5.40) m/uL Hgb (11.4-16.0) gm/dL Hct (34.0-46.0) % RDW (11.5-15.5) % Plt Count (150-450) k/uL Neutrophils # (1.3-7.7) k/uL ABG pO2 (83-108) mmHg ABG Total CO2 (19-24) mmol/L ABG O2 Saturation (94-97) % BUN (7-17) mg/dL Creatinine (0.52-1.04) mg/dL Glucose (74-99) mg/dL POC Glucose (mg/dL) 126 H 131 H (70-110) mg/dL Total Protein (6.3-8.2) g/dL Albumin (3.5-5.0) g/dL Crossmatch
[2022-11-06 16:36] LABS: Glucose,Whole Blood 178 mg/dL (70-110)
[2022-11-06 20:22] LABS: Glucose,Whole Blood 184 mg/dL (70-110)
[2022-11-06] MEDS: SENNOSIDES-DOCUSATE SODIUM 1 EACH TAB PO SCH (20:28)
[2022-11-07 04:51] LABS: Basophils % (A) 0 %; Eosinophils # (A) 0.2 k/uL (0-0.7); Eosinophils % (A) 2 %; HCT 25.3 % (34.0-46.0); HGB 8.1 gm/dL (11.4-16.0); Hypochromasia Slight; Lymphocytes # (A) 1.5 k/uL (1.0-4.8); Lymphocytes % (A) 13 %; MCH 30.8 pg (25.0-35.0); MCHC 32.2 g/dL (31.0-37.0); MCV 95.6 fL (80.0-100.0); Mean Platelet Volume 8.5; Monocytes # (A) 0.5 k/uL (0-1.0); Monocytes % (A) 4 %; Neutrophils # (A) 9.4 k/uL (1.3-7.7); Neutrophils % (A) 81 %; Platelet Count 164 k/uL (150-450); RBC 2.65 m/uL (3.80-5.40); RDW 15.8 % (11.5-15.5); WBC 11.6 k/uL (3.8-10.6)
[2022-11-07 05:11] LABS: ALT 11 U/L (4-34); AST 22 U/L (14-36); African American GFR (CKD) 70 (>60 ml/min/1.73 sqM); Albumin 2.9 g/dL (3.5-5.0); Alkaline Phosphatase 42 U/L (38-126); Anion Gap 5 mmol/L; Blood Urea Nitrogen 25 mg/dL (7-17); Calcium 8.1 mg/dL (8.4-10.2); Carbon Dioxide 25 mmol/L (22-30); Chloride 109 mmol/L (98-107); Glucose 75 mg/dL (74-99); Magnesium 1.9 mg/dL (1.6-2.3); Non-African American GFR(CKD) 61 (>60 ml/min/1.73 sqM); Potassium 3.7 mmol/L (3.5-5.1); Sodium 139 mmol/L (137-145); Total Bilirubin 0.6 mg/dL (0.2-1.3)
[2022-11-07] MEDS: VASOPRESSIN 20 UNIT in SODIUM CHLORIDE 0.9% 50 ML IV SCH (05:54)
[2022-11-07] MEDS: ACETAMINOPHEN TAB 325 MG TAB PO PRN ×4 (05:55→23:09)
[2022-11-07] MEDS ORDERED: MAGNESIUM SULFATE-D5W PMX 1 GM in DEXTROSE/WATER 1 100ML.BAG IVPB ONE (05:58)
[2022-11-07 05:59] LABS: Glucose,Whole Blood 87 mg/dL (70-110)
[2022-11-07] MEDS ORDERED: POTASSIUM BICARBONATE/CIT AC 20 MEQ TABLET.EFF NG-TUBE SCH (06:00)
[2022-11-07] MEDS: INSULIN ASPART (NovoLOG) 100 UNIT/ML VIAL SQ SCH ×7 (06:44→20:00)
[2022-11-07] MEDS: INSULIN DETEMIR (LEVEMIR) 100 UNIT/ML SYR SQ SCH (06:51)
[2022-11-07] MEDS: PANTOPRAZOLE 40 MG TABLET PO SCH (06:51)
--- NOTE | 2022-11-07 07:26 | P.PN ---
Subjective Progress Note Date: 11/07/22 Principal diagnosis: CAD status post CABG The patient is a 77-year-old -[place] female patient who is status post CABG day #3. The patient was seen and evaluated today. She still hypoxic requiring high flow oxygen. On examination she continues to be congested. Clinically she feels "tired". She continues to be on dopamine which is in process to be weaned out. Her urine output continues to be within normal limits. Hemoglobin is 8.1. GFR is within normal limits. The chest x-ray showed bilateral pleural effusion. Assessment CAD and status post CABG Hypertension Dyslipidemia Multiple comorbid conditions Plan The right wean the patient from dopamine Continue the rest of the current medical regimen She might need another dose of Lasix IV today Continue monitor the hemoglobin and kidney function Objective - Vital Signs Vital signs: Vital Signs Temp 98.4 F 11/07/22 04:00 Pulse 90 11/07/22 07:00 Resp 25 H 11/07/22 07:00 BP 101/59 11/07/22 07:00 Pulse Ox 96 11/07/22 07:00 FiO2 60 11/07/22 07:00 Intake & Output 11/06/22 11/07/22 11/07/22 18:59 06:59 18:59 Intake Total 871.092 492.774 23 Output Total 1310 570 25 Balance -438.908 -77.226 -2 Weight 85.7 kg Intake: IV 391.92 284.8 23 DOPamine DRIP 800 mg In 9.6 28.8 Dextrose/Water 1 250ml. bag @ 1.5 MCG/KG/MIN 2. 405 mls/hr IV .Q24H [facility] Rx#:[id number] DOPamine DRIP 800 mg In 33.6 Dextrose/Water 1 250ml. bag @ 3 MCG/KG/MIN 4.809 mls/hr IV .Q24H [facility] Rx#: [id number] Lactated Ringers 1,000 ml 240 220 20 @ 20 mls/hr IV .Q24H [facility] Rx#:[id number] Vasopressin 20 unit In 36.72 Sodium Chloride 0.9% 50 ml @ 0.04 UNITS/MIN 6.12 mls/hr IV .Q8H20M [facility] Rx# :[id number] ns pressure bags 72 36 3 Intake, IV Titration 29.172 27.974 Amount Vasopressin 20 unit In 29.172 Sodium Chloride 0.9% 50 ml @ 0.04 UNITS/MIN 6.12 mls/hr IV .Q8H20M [facility] Rx# :[id number] Vasopressin 20 unit In 27.974 Sodium Chloride 0.9% 50 ml @ 0.04 UNITS/MIN 6.12 mls/hr IV .Q8H20M [facility] Rx# :[id number] Oral 110 180 Blood Product 310 Rc As-1 Unit 310 [id number] Other 30 Rc As-1 Unit 30 [id number] Output: Chest Tube Drainage 130 120 Left Pleural/Mediastinal 130 120 Urine 1180 450 25 Other: Voiding Method Indwelling Catheter Indwelling Catheter ABP, PAP, CO, CI - Last Documented Arterial Blood Pressure 102/60 Pulmonary Artery Pressure 33/9 Cardiac Output 4.7 Cardiac Index 2.5 - Labs CBC & Chem 7: 11/07/22 04:35 11/07/22 04:35 Labs: Abnormal Lab Results - Last 24 Hours (Table) 11/06/22 11/06/22 11/06/22 Range/Units 08:11 08:12 10:37 WBC (3.8-10.6) k/uL RBC (3.80-5.40) m/uL Hgb (11.4-16.0) gm/dL Hct (34.0-46.0) % RDW (11.5-15.5) % Neutrophils # (1.3-7.7) k/uL Chloride (98-107) mmol/L BUN (7-17) mg/dL POC Glucose (mg/dL) 129 H 126 H (70-110) mg/dL Calcium (8.4-10.2) mg/dL Total Protein (6.3-8.2) g/dL Albumin (3.5-5.0) g/dL Crossmatch See Detail 11/06/22 11/06/22 11/06/22 Range/Units 11:32 16:33 20:20 WBC (3.8-10.6) k/uL RBC (3.80-5.40) m/uL Hgb (11.4-16.0) gm/dL Hct (34.0-46.0) % RDW (11.5-15.5) % Neutrophils # (1.3-7.7) k/uL Chloride (98-107) mmol/L BUN (7-17) mg/dL POC Glucose (mg/dL) 131 H 178 H 184 H (70-110) mg/dL Calcium (8.4-10.2) mg/dL Total Protein (6.3-8.2) g/dL Albumin (3.5-5.0) g/dL Crossmatch 11/07/22 11/07/22 Range/Units 04:35 04:35 WBC 11.6 H (3.8-10.6) k/uL RBC 2.65 L (3.80-5.40) m/uL Hgb 8.1 L (11.4-16.0) gm/dL Hct 25.3 L (34.0-46.0) % RDW 15.8 H (11.5-15.5) % Neutrophils # 9.4 H (1.3-7.7) k/uL Chloride 109 H (98-107) mmol/L BUN 25 H (7-17) mg/dL POC Glucose (mg/dL) (70-110) mg/dL Calcium 8.1 L (8.4-10.2) mg/dL Total Protein 5.0 L (6.3-8.2) g/dL Albumin 2.9 L (3.5-5.0) g/dL Crossmatch
--- NOTE | 2022-11-07 07:42 | P.PN ---
Subjective Progress Note Date: 11/07/22 Principal diagnosis: Coronary artery disease. Previous medical history of hypertension, hyperlipidemia, type 2 diabetes, current tobacco dependence, osteoarthritis, obesity, peripheral vascular disease. Preoperative nasal swab positive for MSSA, treated POD #3 off-pump coronary artery bypass graft 2 with left internal mammary artery to the diagonal and jump graft left radial artery off the GARCÍA to the mid left anterior descending artery, ligation of the left atrial appendage with 35 mm AtriCure clip, endovascular left radial artery harvest, intraoperative transesophageal echocardiogram performed by anesthesia Postoperative acute blood loss anemia and thrombocytopenia, expected Acute hypoxic respiratory failure secondary to volume overload, current tobacco dependence The patient was seen and examined sitting up in a recliner in the intensive care unit. Currently in sinus rhythm, hemodynamically stable on low dose dopamine. Remains on airvo but has been weaned down accordingly. Received 1 unit PRBCs yesterday followed by IV lasix, good urine output from lasix. Was started on vasopressin yesterday afternoon due to hypotension but has been off since 399. Denies pain, does complain of some shortness of breath. Barely able to achieve 500 mL on her incentive spirometry with poor effort. Right internal jugular Cordis, mediastinal/left pleural chest tubes remain. No other new concerns. Objective - Vital Signs Vital signs: Vital Signs Temp 98.4 F 11/07/22 04:00 Pulse 90 11/07/22 07:00 Resp 25 H 11/07/22 07:00 BP 101/59 11/07/22 07:00 Pulse Ox 96 11/07/22 07:00 FiO2 60 11/07/22 07:00 Intake & Output 11/06/22 11/07/22 11/07/22 18:59 06:59 18:59 Intake Total 871.092 492.774 23 Output Total 1310 570 25 Balance -438.908 -77.226 -2 Weight 85.7 kg Intake: IV 391.92 284.8 23 DOPamine DRIP 800 mg In 9.6 28.8 Dextrose/Water 1 250ml. bag @ 1.5 MCG/KG/MIN 2. 405 mls/hr IV .Q24H [facility] Rx#:[id number] DOPamine DRIP 800 mg In 33.6 Dextrose/Water 1 250ml. bag @ 3 MCG/KG/MIN 4.809 mls/hr IV .Q24H [facility] Rx#: [id number] Lactated Ringers 1,000 ml 240 220 20 @ 20 mls/hr IV .Q24H [facility] Rx#:[id number] Vasopressin 20 unit In 36.72 Sodium Chloride 0.9% 50 ml @ 0.04 UNITS/MIN 6.12 mls/hr IV .Q8H20M [facility] Rx# :[id number] ns pressure bags 72 36 3 Intake, IV Titration 29.172 27.974 Amount Vasopressin 20 unit In 29.172 Sodium Chloride 0.9% 50 ml @ 0.04 UNITS/MIN 6.12 mls/hr IV .Q8H20M [facility] Rx# :[id number] Vasopressin 20 unit In 27.974 Sodium Chloride 0.9% 50 ml @ 0.04 UNITS/MIN 6.12 mls/hr IV .Q8H20M [facility] Rx# :[id number] Oral 110 180 Blood Product 310 Rc As-1 Unit 310 [id number] Other 30 Rc As-1 Unit 30 [id number] Output: Chest Tube Drainage 130 120 Left Pleural/Mediastinal 130 120 Urine 1180 450 25 Other: Voiding Method Indwelling Catheter Indwelling Catheter ABP, PAP, CO, CI - Last Documented Arterial Blood Pressure 102/60 Pulmonary Artery Pressure 33/9 Cardiac Output 4.7 Cardiac Index 2.5 - Exam CONSTITUTIONAL: Appears comfortable, cooperative RESPIRATORY: Lungs sounds diminished bilaterally. Respirations even, nonlabored on Airvo, oxygen saturation 96%. Only able to achieve 500 mL on incentive spirometry with poor effort. Strong loose cough. CARDIOVASCULAR: S1, S2 present. Regular rate and rhythm, sinus rhythm on telemetry. Sternum stable. Palpable peripheral pulses bilaterally. No edema present. No calf pain or tenderness noted. Heart hugger in place with patient demonstrating appropriate use. Antiembolism stockings, SCDs present. GASTROINTESTINAL: Abdomen soft, nontender, nondistended. Active bowel sounds present 4 quadrants. Tolerating clear liquids GENITOURINARY: Florez present draining clear, yellow urine. Output overnight 15-45 mL per hour with 845 mL output after IV Lasix given, 1630 mL in the last 2 4 hours INTEGUMENTARY: Skin is warm and dry with evidence of good perfusion. Anterior chest incision well approximated and covered with dry intact dressing. Left radial artery harvest site well approximated without redness or drainage. NEUROLOGIC: Cranial nerves II through XII intact MUSKULOSKELETAL: Able to move all extremities, strength equal bilaterally PSYCHIATRIC: Alert and oriented to person place and time, appropriate affect, intact judgment and insight INVASIVE LINES AND TUBES: Mediastinal/left pleural chest tubes present and connected to wall suction, no air leaks present, 80 mL serosanguineous drainage overnight, 250 m in the last 24 hours. Right internal jugular cordis present. Last CVP 4. - Allied health notes Allied health notes reviewed: nursing - Labs CBC & Chem 7: 11/07/22 04:35 11/07/22 04:35 Labs: Abnormal Lab Results - Last 24 Hours (Table) 11/06/22 11/06/22 11/06/22 Range/Units 08:11 08:12 10:37 WBC (3.8-10.6) k/uL RBC (3.80-5.40) m/uL Hgb (11.4-16.0) gm/dL Hct (34.0-46.0) % RDW (11.5-15.5) % Neutrophils # (1.3-7.7) k/uL Chloride (98-107) mmol/L BUN (7-17) mg/dL POC Glucose (mg/dL) 129 H 126 H (70-110) mg/dL Calcium (8.4-10.2) mg/dL Total Protein (6.3-8.2) g/dL Albumin (3.5-5.0) g/dL Crossmatch See Detail 11/06/22 11/06/22 11/06/22 Range/Units 11:32 16:33 20:20 WBC (3.8-10.6) k/uL RBC (3.80-5.40) m/uL Hgb (11.4-16.0) gm/dL Hct (34.0-46.0) % RDW (11.5-15.5) % Neutrophils # (1.3-7.7) k/uL Chloride (98-107) mmol/L BUN (7-17) mg/dL POC Glucose (mg/dL) 131 H 178 H 184 H (70-110) mg/dL Calcium (8.4-10.2) mg/dL Total Protein (6.3-8.2) g/dL Albumin (3.5-5.0) g/dL Crossmatch 11/07/22 11/07/22 Range/Units 04:35 04:35 WBC 11.6 H (3.8-10.6) k/uL RBC 2.65 L (3.80-5.40) m/uL Hgb 8.1 L (11.4-16.0) gm/dL Hct 25.3 L (34.0-46.0) % RDW 15.8 H (11.5-15.5) % Neutrophils # 9.4 H (1.3-7.7) k/uL Chloride 109 H (98-107) mmol/L BUN 25 H (7-17) mg/dL POC Glucose (mg/dL) (70-110) mg/dL Calcium 8.1 L (8.4-10.2) mg/dL Total Protein 5.0 L (6.3-8.2) g/dL Albumin 2.9 L (3.5-5.0) g/dL Crossmatch - Imaging and Cardiology Chest x-ray: image reviewed Assessment and Plan Assessment: Coronary artery disease, status post 2 vessel CABG History of hypertension Hyperlipidemia, treated, cholesterol 188, LDL 106, triglycerides 93 Type 2 diabetes, preoperative hemoglobin A1c 7.1% Current tobacco dependence, preoperative FEV1 96% of predicted Osteoarthritis Obesity Peripheral vascular disease Preoperative nasal swab positive for MSSA, treated Postoperative acute blood loss anemia and thrombocytopenia, expected Acute hypoxic respiratory failure Plan: Continue to maximize medical therapy with aspirin, statin, Plavix, beta jennifer therapy. Will increase beta jennifer therapy as tolerated, hold parameters on beta jennifer. Will wean dopamine as tolerated, vasopressin discontinued Continue calcium channel jennifer for radial artery spasm prophylaxis, hold parameters placed Wean O2 as tolerated. Encourage incentive spirometry 10 times every hour while awake. Bronchodilators per pulmonology Increase activity, ambulate as tolerated. PT/OT/cardiac rehab consulted Will monitor daily labs and x-rays. Electrolyte replacement per protocol. Will give 20 mg IV push Lasix BID GI/DVT prophylaxis Pain control per current medication regimen. Avoid narcotics if possible Insulin management per internal medicine. Patient is diabetic with hemoglobin A 1c 7.1%, needs tight blood sugar control to prevent infection and promote healing Will discontinue chest tubes, discontinue cordis Will discontinue Florez catheter when able to wean from airvo Strict accurate intake and output Daily weights Smoking cessation counseling and education offered, patient is encouraged to quit smoking completely More recommendations to follow as patient progresses
--- NOTE | 2022-11-07 08:28 | XR ---
EXAMINATION TYPE: XR chest 1V portable DATE OF EXAM: 11/07/2022 COMPARISON: 11/06/2022 HISTORY: Shortness of breath TECHNIQUE: Single frontal view of the chest is obtained. FINDINGS: Heart isn't enlarged and there is diffuse interstitial pattern with bilateral consolidatio n and small effusion. No sizable pneumothorax. Heart is enlarged and atherosclerotic changes aorta. Hypertrophic change of the spine. Postsurgical changes are seen with mediastinal drain and left-sided chest tube stable. IMPRESSION: Stable findings compatible CHF.
[2022-11-07] MEDS: HEPARIN SODIUM,PORCINE/PF 5,000 UNIT/0.5 ML SYRINGE SQ SCH ×3 (08:50→23:09)
[2022-11-07] MEDS: FUROSEMIDE 10 MG/ML 2 ML VIAL IV SCH ×2 (08:50→20:07)
[2022-11-07] MEDS: ASPIRIN 325 MG TAB PO SCH (08:50)
[2022-11-07] MEDS: ATORVASTATIN 20 MG TAB PO SCH (08:50)
[2022-11-07] MEDS: POTASSIUM BICARBONATE/CIT AC 20 MEQ TABLET.EFF PO SCH ×2 (08:51→20:07)
[2022-11-07] MEDS: MUPIROCIN 2% OINT 22 GM TUBE NASAL SCH ×2 (08:51→20:08)
[2022-11-07] MEDS: CLOPIDOGREL 75 MG TAB PO SCH (08:51)
[2022-11-07] MEDS: METOPROLOL TARTRATE 12.5 MG TAB PO SCH ×2 (08:51→20:18)
--- NOTE | 2022-11-07 09:41 | P.PN ---
Subjective Progress Note Date: 11/07/22 Patient is a 77 yo female with cad, cm2, htn, and HLD who presented for CABG X 2. Did well and was extubated on 11/04/22. She had increasing respiratory distress on 11/05 and required AirVo. Patient seen and examined at bedside. Doing better than yesterday, weakness is better. Excited to get Chest tube and mediastinal tubes removed. Vital signs reviewed General: nontoxic, no distress, appears at stated age Cardiovascular: S1S2 reg, no murmur, positive posterior tibial pulse bilateral, Lungs: Course bs bilateral, no rhonchi, no rales , no accessory muscle use Abdominal: soft, nontender to palpation, no guarding, no appreciable organomegaly, chest tube in place Ext: no gross muscle atrophy, no edema b/l lower extremities, no contractures Neuro: CN II-XI grossly intact, no focal neuro deficits Psych: Alert, oriented, appropriate affect Assessment/Plan: 77-year-old female status post 2 vessel coronary artery bypass grafting- - Cardiothoracic note reviewed: Start Lasix 20 mg IV push twice daily, discontinue Florez when able to wean from airvo, discontinue chest -Cardiology note reviewed: May benefit from Lasix. tubes and Cordis Diabetes mellitus type 2, [id number] -Glucotrol and Actos on hold -Decrease Levemir from 10-5 units as she'll likely have decreasing insulin requirements. Continue with fixed dose and sliding scale insulin. Monitor blood sugars. Check 2 AM blood sugar. - Pre-op A1C 7.1 Acute blood loss anemia, anticipated outcome of surgery - s/p 1 unit pRBC -Follow CBC COPD without exacerbation -Continue with scheduled and as needed DuoNeb Ongoing tobacco dependency - cessation Obesity with BMI 33.4 -Structured outpatient weight loss Chronic: Hypertension Dyslipidemia Osteoarthritis Increased Cr, resolved thrombocytopenia, resolved Imaging: Chest x-rays reviewed by myself reveals left-sided chest tube and mediastinal chest tube in good position, bilateral pleural effusions right greater than left, increased interstitial infiltrate Data Review: Vital signs reviewed temperature 98.5, pulse 90, respirations 17, blood pressure 108/64, O2 sat 96% on airvo 40 L flow and 60% FiO2 Labs reviewed and remarkable for white blood cell count 11.6, hemoglobin 8.1 (up from 7.7), platelet count 164, BUN 25, creatinine 0.93, glucose 87 Thank you for allowing us to participate in the care of this pleasant patient. Do not hesitate to contact us with questions. Someone can be reached from the [facility] hospitalist group all hours of the day at [phone] or via perfect serve. This dictation was prepared using [employer] voice recognition software. Though every attempt is made to correct errors during dictation some may still exist. Objective - Vital Signs Vital signs: Vital Signs Temp 98.5 F 11/07/22 08:00 Pulse 87 11/07/22 09:00 Resp 25 H 11/07/22 09:00 BP 108/92 11/07/22 09:00 Pulse Ox 97 11/07/22 08:45 FiO2 60 11/07/22 08:00 Intake & Output 11/06/22 11/07/22 11/07/22 18:59 06:59 18:59 Intake Total 871.092 492.774 373 Output Total 1310 570 105 Balance -438.908 -77.226 268 Weight 85.7 kg Intake: IV 391.92 284.8 73 DOPamine DRIP 800 mg In 9.6 28.8 Dextrose/Water 1 250ml. bag @ 1.5 MCG/KG/MIN 2. 405 mls/hr IV .Q24H [facility] Rx#:[id number] DOPamine DRIP 800 mg In 33.6 Dextrose/Water 1 250ml. bag @ 3 MCG/KG/MIN 4.809 mls/hr IV .Q24H [facility] Rx#: [id number] Lactated Ringers 1,000 ml 240 220 60 @ 20 mls/hr IV .Q24H [facility] Rx#:[id number] Vasopressin 20 unit In 36.72 Sodium Chloride 0.9% 50 ml @ 0.04 UNITS/MIN 6.12 mls/hr IV .Q8H20M [facility] Rx# :[id number] ns pressure bags 72 36 13 Intake, IV Titration 29.172 27.974 Amount Vasopressin 20 unit In 29.172 Sodium Chloride 0.9% 50 ml @ 0.04 UNITS/MIN 6.12 mls/hr IV .Q8H20M [facility] Rx# :[id number] Vasopressin 20 unit In 27.974 Sodium Chloride 0.9% 50 ml @ 0.04 UNITS/MIN 6.12 mls/hr IV .Q8H20M [facility] Rx# :[id number] Oral 110 180 300 Blood Product 310 Rc As-1 Unit 310 [id number] Other 30 Rc As-1 Unit 30 [id number] Output: Chest Tube Drainage 130 120 20 Left Pleural/Mediastinal 130 120 20 Urine 1180 450 85 Other: Voiding Method Indwelling Catheter Indwelling Catheter Indwelling Catheter ABP, PAP, CO, CI - Last Documented Arterial Blood Pressure 102/60 Pulmonary Artery Pressure 33/9 Cardiac Output 4.7 Cardiac Index 2.5 - Labs CBC & Chem 7: 11/07/22 04:35 11/07/22 04:35 Labs: Abnormal Lab Results - Last 24 Hours (Table) 11/06/22 11/06/22 11/06/22 Range/Units 08:12 10:37 11:32 WBC (3.8-10.6) k/uL RBC (3.80-5.40) m/uL Hgb (11.4-16.0) gm/dL Hct (34.0-46.0) % RDW (11.5-15.5) % Neutrophils # (1.3-7.7) k/uL Chloride (98-107) mmol/L BUN (7-17) mg/dL POC Glucose (mg/dL) 126 H 131 H (70-110) mg/dL Calcium (8.4-10.2) mg/dL Total Protein (6.3-8.2) g/dL Albumin (3.5-5.0) g/dL Crossmatch See Detail 11/06/22 11/06/22 11/07/22 Range/Units 16:33 20:20 04:35 WBC 11.6 H (3.8-10.6) k/uL RBC 2.65 L (3.80-5.40) m/uL Hgb 8.1 L (11.4-16.0) gm/dL Hct 25.3 L (34.0-46.0) % RDW 15.8 H (11.5-15.5) % Neutrophils # 9.4 H (1.3-7.7) k/uL Chloride (98-107) mmol/L BUN (7-17) mg/dL POC Glucose (mg/dL) 178 H 184 H (70-110) mg/dL Calcium (8.4-10.2) mg/dL Total Protein (6.3-8.2) g/dL Albumin (3.5-5.0) g/dL Crossmatch 11/07/22 Range/Units 04:35 WBC (3.8-10.6) k/uL RBC (3.80-5.40) m/uL Hgb (11.4-16.0) gm/dL Hct (34.0-46.0) % RDW (11.5-15.5) % Neutrophils # (1.3-7.7) k/uL Chloride 109 H (98-107) mmol/L BUN 25 H (7-17) mg/dL POC Glucose (mg/dL) (70-110) mg/dL Calcium 8.1 L (8.4-10.2) mg/dL Total Protein 5.0 L (6.3-8.2) g/dL Albumin 2.9 L (3.5-5.0) g/dL Crossmatch
[2022-11-07] MEDS: IPRATROPIUM-ALBUTEROL 3 ML NEB INHALATION SCH ×4 (09:43→19:11)
--- NOTE | 2022-11-07 11:02 | P.PN ---
Subjective Progress Note Date: 11/07/22 This is a 77-year-old female patient with a known history of hypertension, diabetes mellitus, obesity, hyperlipidemia, peripheral vascular disease, chronic tobacco dependence. Been having issues with worsening fatigue. Cardiac workup included a cardiac catheterization that revealed significant coronary artery disease. She was recommended coronary artery bypass grafting. She was brought in electively today for the procedure by Dr. Hyde and did undergo an off-pump CABG 2 with a GARCÍA to the diagonal and jump graft left radial artery off the GARCÍA to the mid LAD. Left atrial appendage ligation with a 35 mm atrial care clinic. She is seen in consultation in the intensive care unit shortly after returning from the OR. On the mechanical ventilator settings are assist-control mode at a rate of 14, temperature 100, FiO2 60% and a PEEP of 10. She is currently on propofol at 30 mcg/kg/m. Norepinephrine at 0.06 mcg/kg/m. Nitroglycerin drip at 5 mcg/m. Lactated Ringer's at 50 MLS per hour. Cardizem drip at 5 mg per hour. Insulin at 2.5 units per hour. She did have a brief episode of hypotension and received albumin and medications adjusted. Her arterial blood gases revealed a pO2 of 206, pCO2 44 and a pH of 7.27 on 100% FiO2. She received 1 amp of bicarb. Cardiac output 4.9. Cardiac index 2.6. PA pressure 52/27. CVP 19. Current blood pressure 122/52. Chest x-ray revealed a low-lying endotracheal tube. Mediastinal and left pleural chest tubes in place. No evidence of pneumothorax. Persistent cardiomegaly. POD #1 off-pump coronary artery bypass graft 2 with left internal mammary artery to the diagonal and jump graft left radial artery off the GARCÍA to the mid left anterior descending artery, ligation of the left atrial appendage with 35 mm AtriCure clip, endovascular left radial artery harvest, intraoperative transesophageal echocardiogram performed by anesthesia. Patient was reevaluated today on 11/05/2022, remains in the ICU, extubated yesterday, pulmonary status is a bit marginal, she is on 6 L nasal cannula, marginal with incentive spirometry pulling about 500 mL, chest x-ray showing mild interstitial edema and right- sided pleural effusion, hence I'm recommending gentle diuresis on this patient. WBC count is 12.3 hemoglobin 7.6. Basic metabolic profile, renal profile are normal liver profile is normal Patient was evaluated today on 11/06/2022, she is now postoperative day #2, patient desaturated yesterday, she developed mostly bibasilar atelectasis, poor urine output, and she developed some component of mild congestive heart failure. Patient was placed on dopamine at 3 mcg/kg/m, they called me on the patient last night and I recommended that the patient goes on airvo high flow and high FiO2, patient was also given a dose of Lasix 40 mg IV push, and today she is scheduled to have a unit of blood for hemoglobin of 7.7 and should be given more Lasix after the units of blood given. Patient is not making good effort with her incentive spirometry, she is only achieving no more than 500 mL. Basically the patient is marginal at best. ABG this morning showed a pO2 of 70 pCO2 40 pH of 7.38. Patient is in sinus rhythm, and seems to be hemodynamically marginal, blood pressure seems to be running a bit on the low side. The patient is seen today 11/07/2022 in follow-up in the intensive care unit. Postoperative day #3. She is currently sitting up in a chair at the bedside. Awake and alert in no acute distress. She is AirVo high flow nasal cannula at 40 L and 60% FiO2 to maintain O2 saturations in the 90s. She is only pulling ap proximately 500 ML's on her incentive spirometer. Chest x-ray shows no sizable pneumothorax. There is diffuse interstitial pattern with bilateral consolidation and small effusions. She is currently on Lasix 20 mg IV every 12 hours. Currently in a -500 ML balance. Lactated Ringer's at 20 ML's per hour. Dopamine is off. She has received 1 unit of packed red blood cells. White count 11.6. Hemoglobin 8.1. Platelets 164. Sodium 139. Potassium 3.7. Bicarb 25. BUN 25. Creatinine 0.93. Magnesium 1.9. Albumin 2.9. He is continued on bronchodilators. Heparin for DVT prophylaxis. Objective - Vital Signs Vital signs: Vital Signs Temp 98.5 F 11/07/22 08:00 Pulse 75 11/07/22 10:00 Resp 21 11/07/22 10:00 BP 93/62 11/07/22 10:00 Pulse Ox 97 11/07/22 10:00 FiO2 60 11/07/22 08:00 Intake & Output 11/06/22 11/07/22 11/07/22 18:59 06:59 18:59 Intake Total 871.092 492.774 373 Output Total 1310 570 230 Balance -438.908 -77.226 143 Weight 85.7 kg Intake: IV 391.92 284.8 73 DOPamine DRIP 800 mg In 9.6 28.8 Dextrose/Water 1 250ml. bag @ 1.5 MCG/KG/MIN 2. 405 mls/hr IV .Q24H [facility] Rx#:[id number] DOPamine DRIP 800 mg In 33.6 Dextrose/Water 1 250ml. bag @ 3 MCG/KG/MIN 4.809 mls/hr IV .Q24H [facility] Rx#: [id number] Lactated Ringers 1,000 ml 240 220 60 @ 20 mls/hr IV .Q24H [facility] Rx#:[id number] Vasopressin 20 unit In 36.72 Sodium Chloride 0.9% 50 ml @ 0.04 UNITS/MIN 6.12 mls/hr IV .Q8H20M [facility] Rx# :[id number] ns pressure bags 72 36 13 Intake, IV Titration 29.172 27.974 Amount Vasopressin 20 unit In 29.172 Sodium Chloride 0.9% 50 ml @ 0.04 UNITS/MIN 6.12 mls/hr IV .Q8H20M [facility] Rx# :[id number] Vasopressin 20 unit In 27.974 Sodium Chloride 0.9% 50 ml @ 0.04 UNITS/MIN 6.12 mls/hr IV .Q8H20M [facility] Rx# :[id number] Oral 110 180 300 Blood Product 310 Rc As-1 Unit 310 [id number] Other 30 Rc As-1 Unit 30 [id number] Output: Chest Tube Drainage 130 120 20 Left Pleural/Mediastinal 130 120 20 Urine 1180 450 210 Other: Voiding Method Indwelling Catheter Indwelling Catheter Indwelling Catheter ABP, PAP, CO, CI - Last Documented Arterial Blood Pressure 102/60 Pulmonary Artery Pressure 33/9 Cardiac Output 4.7 Cardiac Index 2.5 - Exam GENERAL EXAM: Alert, pleasant, weak 77-year-old female, on AirVo high flow oxygen, fairly comfortable in no apparent distress. HEAD: Normocephalic. EYES: Normal reaction of pupils, equal size. NOSE: Clear with pink turbinates. THROAT: No erythema or exudates. NECK: Right IJ Cordis in place. No masses, no JVD. CHEST: Sternum stable. Dressing dry and intact. Heart Hugger in place. Chest tubes remain in place. LUNGS: Equal air entry with crackles in the bilateral bases. CVS: S1 and S2 normal with no audible murmur, regular rhythm. ABDOMEN: No hepatosplenomegaly, normal bowel sounds, no guarding or rigidity. SPINE: No scoliosis or deformity SKIN: No rashes CENTRAL NERVOUS SYSTEM: No focal deficits, tone is normal in all 4 extremities. EXTREMITIES: SCDs in place. Radial artery site intact. There is trace peripheral edema. No clubbing, no cyanosis. Peripheral pulses are intact. - Labs CBC & Chem 7: 11/07/22 04:35 11/07/22 04:35 Labs: Abnormal Lab Results - Last 24 Hours (Table) 11/06/22 11/06/22 11/06/22 Range/Units 08:12 11:32 16:33 WBC (3.8-10.6) k/uL RBC (3.80-5.40) m/uL Hgb (11.4-16.0) gm/dL Hct (34.0-46.0) % RDW (11.5-15.5) % Neutrophils # (1.3-7.7) k/uL Chloride (98-107) mmol/L BUN (7-17) mg/dL POC Glucose (mg/dL) 131 H 178 H (70-110) mg/dL Calcium (8.4-10.2) mg/dL Total Protein (6.3-8.2) g/dL Albumin (3.5-5.0) g/dL Crossmatch See Detail 11/06/22 11/07/22 11/07/22 Range/Units 20:20 04:35 04:35 WBC 11.6 H (3.8-10.6) k/uL RBC 2.65 L (3.80-5.40) m/uL Hgb 8.1 L (11.4-16.0) gm/dL Hct 25.3 L (34.0-46.0) % RDW 15.8 H (11.5-15.5) % Neutrophils # 9.4 H (1.3-7.7) k/uL Chloride 109 H (98-107) mmol/L BUN 25 H (7-17) mg/dL POC Glucose (mg/dL) 184 H (70-110) mg/dL Calcium 8.1 L (8.4-10.2) mg/dL Total Protein 5.0 L (6.3-8.2) g/dL Albumin 2.9 L (3.5-5.0) g/dL Crossmatch Assessment and Plan Assessment: Coronary artery disease, status post off-pump coronary artery bypass grafting 2 utilizing a GARCÍA to the diagonal and jump graft left radial artery off the GARCÍA to the mid LAD with ligation of the left atrial appendage with a 35mm AtriCure clip. Postoperative day #3. Chest x-ray continues to show diffuse interstitial pattern with bilateral consolidation and small effusions. Chronic and ongoing tobacco dependence. FEV1 value was 1.36 L which is 87% of predicted Acute hypoxemic respiratory failure secondary to above. Requiring AirVo high flow oxygen at 40 L and 60% FiO2 Diabetes mellitus Obesity Hyperlipidemia Hypertension Peripheral vascular disease Plan: The patient was seen and evaluated Chest x-ray, labs and medications reviewed Receiving Lasix 20 mg IV every 12 hours Encourage increased use of incentive spirometer Increase her activity as tolerated Titrate the FiO2 as tolerated We will continue to follow I have personally seen and examined the patient, performed the documentation and the assessment and plan as written. Number of minutes spent on the visit: 10.
[2022-11-07 11:19] LABS: Glucose,Whole Blood 103 mg/dL (70-110)
[2022-11-07] MEDS: amLODIPine 2.5 MG TAB PO SCH (12:32)
[2022-11-07 16:13] LABS: Glucose,Whole Blood 84 mg/dL (70-110)
[2022-11-07 19:57] LABS: Glucose,Whole Blood 102 mg/dL (70-110)
[2022-11-07] MEDS: SENNOSIDES-DOCUSATE SODIUM 1 EACH TAB PO SCH (20:07)
[2022-11-08 02:07] LABS: Glucose,Whole Blood 87 mg/dL (70-110)
[2022-11-08 05:21] LABS: HCT 25.6 % (34.0-46.0); HGB 8.4 gm/dL (11.4-16.0); Hypochromasia Slight; MCH 31.5 pg (25.0-35.0); MCHC 32.7 g/dL (31.0-37.0); MCV 96.3 fL (80.0-100.0); Platelet Count 240 k/uL (150-450); RBC 2.66 m/uL (3.80-5.40); RDW 15.6 % (11.5-15.5); WBC 11.4 k/uL (3.8-10.6)
[2022-11-08 05:29] LABS: African American GFR (CKD) 71 (>60 ml/min/1.73 sqM); Anion Gap 5 mmol/L; Blood Urea Nitrogen 27 mg/dL (7-17); Calcium 8.5 mg/dL (8.4-10.2); Carbon Dioxide 31 mmol/L (22-30); Chloride 103 mmol/L (98-107); Glucose 69 mg/dL (74-99); Magnesium 2.1 mg/dL (1.6-2.3); Non-African American GFR(CKD) 61 (>60 ml/min/1.73 sqM); Potassium 4.4 mmol/L (3.5-5.1); Sodium 139 mmol/L (137-145)
[2022-11-08 06:24] LABS: Glucose,Whole Blood 74 mg/dL (70-110)
[2022-11-08] MEDS: INSULIN DETEMIR (LEVEMIR) 100 UNIT/ML SYR SQ SCH (06:49)
[2022-11-08] MEDS: INSULIN ASPART (NovoLOG) 100 UNIT/ML VIAL SQ SCH ×5 (06:50→20:32)
[2022-11-08] MEDS: PANTOPRAZOLE 40 MG TABLET PO SCH (06:55)
[2022-11-08] MEDS: ACETAMINOPHEN TAB 325 MG TAB PO PRN ×2 (07:11→21:07)
--- NOTE | 2022-11-08 07:31 | P.PN ---
Subjective Progress Note Date: 11/08/22 Principal diagnosis: Coronary artery disease. Previous medical history of hypertension, hyperlipidemia, type 2 diabetes, current tobacco dependence, osteoarthritis, obesity, peripheral vascular disease. Preoperative nasal swab positive for MSSA, treated POD #4 off-pump coronary artery bypass graft 2 with left internal mammary artery to the diagonal and jump graft left radial artery off the GARCÍA to the mid left anterior descending artery, ligation of the left atrial appendage with 35 mm AtriCure clip, endovascular left radial artery harvest, intraoperative transesophageal echocardiogram performed by anesthesia Postoperative acute blood loss anemia and thrombocytopenia, expected Acute hypoxic respiratory failure secondary to volume overload, current tobacco dependence The patient was seen and examined sitting up in a recliner in the intensive care unit. Currently in sinus rhythm, hemodynamically stable off all pressors. Currently on 3 LPM high flow nasal cannula, able to achieve 750 mL on incentive spirometry with better effort. Does complain of some post surgical discomfort but just received pain meds, denies shortness of breath. States she did ambulate out to the hallway yesterday and today with assistance. No other new concerns. Objective - Vital Signs Vital signs: Vital Signs Temp 98.4 F 11/08/22 04:00 Pulse 83 11/08/22 07:00 Resp 22 11/08/22 07:00 BP 99/59 11/08/22 07:00 Pulse Ox 93 L 11/08/22 07:00 FiO2 60 11/07/22 08:00 Intake & Output 11/07/22 11/08/22 11/08/22 18:59 06:59 18:59 Intake Total 493 Output Total 650 1100 Balance -157 -1100 Weight 84.6 kg Intake: IV 73 Lactated Ringers 1,000 ml 60 @ 20 mls/hr IV .Q24H [facility] Rx#:[id number] ns pressure bags 13 Oral 420 Output: Chest Tube Drainage 20 Left Pleural/Mediastinal 20 Urine 630 1100 Other: Voiding Method Indwelling Catheter Bedside Commode # Voids 0 1 0 ABP, PAP, CO, CI - Last Documented Arterial Blood Pressure 102/60 Pulmonary Artery Pressure 33/9 Cardiac Output 4.7 Cardiac Index 2.5 - Exam CONSTITUTIONAL: Appears comfortable, cooperative RESPIRATORY: Lungs sounds diminished bilaterally. Respirations even, nonlabored. Currently on 3 LPM high flow nasal cannula with oxygen saturation 93%. Able to achieve 750 mL on incentive spirometry with better effort. Strong loose cough. CARDIOVASCULAR: S1, S2 present. Regular rate and rhythm, sinus rhythm on telemetry. Sternum stable. Palpable peripheral pulses bilaterally. No edema present. No calf pain or tenderness noted. Heart hugger in place with patient demonstrating appropriate use. Antiembolism stockings, SCDs present. GASTROINTESTINAL: Abdomen soft, nontender, nondistended. Active bowel sounds present 4 quadrants. Tolerating diet. Positive flatus GENITOURINARY: Florez discontinued yesterday, continues to void clear, yellow urine. Output 1730 mL in the last 24 hours INTEGUMENTARY: Skin is warm and dry with evidence of good perfusion. Anterior chest incision well approximated and covered with dry intact dressing. Left radial artery harvest site well approximated without redness or drainage. NEUROLOGIC: Cranial nerves II through XII intact MUSKULOSKELETAL: Able to move all extremities, strength equal bilaterally PSYCHIATRIC: Alert and oriented to person place and time, appropriate affect, intact judgment and insight - Allied health notes Allied health notes reviewed: nursing - Labs CBC & Chem 7: 11/08/22 04:43 11/08/22 04:43 Labs: Abnormal Lab Results - Last 24 Hours (Table) 11/08/22 11/08/22 Range/Units 04:43 04:43 WBC 11.4 H (3.8-10.6) k/uL RBC 2.66 L (3.80-5.40) m/uL Hgb 8.4 L (11.4-16.0) gm/dL Hct 25.6 L (34.0-46.0) % RDW 15.6 H (11.5-15.5) % Carbon Dioxide 31 H (22-30) mmol/L BUN 27 H (7-17) mg/dL Glucose 69 L (74-99) mg/dL - Imaging and Cardiology Chest x-ray: image reviewed Assessment and Plan Assessment: Coronary artery disease, status post 2 vessel CABG History of hypertension Hyperlipidemia, treated, cholesterol 188, LDL 106, triglycerides 93 Type 2 diabetes, preoperative hemoglobin A1c 7.1% Current tobacco dependence, preoperative FEV1 96% of predicted Osteoarthritis Obesity Peripheral vascular disease Preoperative nasal swab positive for MSSA, treated Postoperative acute blood loss anemia and thrombocytopenia, expected Acute hypoxic respiratory failure, recovering Plan: Continue to maximize medical therapy with aspirin, statin, Plavix, beta jennifer therapy. Will increase beta jennifer therapy as tolerated, hold parameters on beta jennifer Continue calcium channel jennifer for radial artery spasm prophylaxis, hold parameters placed Wean O2 as tolerated. Encourage incentive spirometry 10 times every hour while awake. Bronchodilators per pulmonology Increase activity, ambulate as tolerated. PT/OT/cardiac rehab consulted Will monitor daily labs and x-rays. Electrolyte replacement per protocol. Continue 20 mg IV push Lasix BID for another 24 hours GI/DVT prophylaxis Pain control per current medication regimen Insulin management per internal medicine. Patient is diabetic with hemoglobin A1c 7.1%, needs tight blood sugar control to prevent infection and promote healing Strict accurate intake and output Daily weights Smoking cessation counseling and education offered, patient is encouraged to quit smoking completely Will place transfer orders for 3S cardiac stepdown unit, may transfer when bed available More recommendations to follow as patient progresses
[2022-11-08] MEDS: IPRATROPIUM-ALBUTEROL 3 ML NEB INHALATION SCH ×4 (07:38→20:31)
[2022-11-08] MEDS: ATORVASTATIN 20 MG TAB PO SCH (08:48)
[2022-11-08] MEDS: CLOPIDOGREL 75 MG TAB PO SCH (08:48)
[2022-11-08] MEDS: HEPARIN SODIUM,PORCINE/PF 5,000 UNIT/0.5 ML SYRINGE SQ SCH ×2 (08:48→16:52)
[2022-11-08] MEDS: METOPROLOL TARTRATE 12.5 MG TAB PO SCH ×2 (08:48→21:08)
[2022-11-08] MEDS: FUROSEMIDE 10 MG/ML 2 ML VIAL IV SCH ×2 (08:48→21:08)
[2022-11-08] MEDS: ASPIRIN 325 MG TAB PO SCH (08:48)
[2022-11-08] MEDS: POTASSIUM BICARBONATE/CIT AC 20 MEQ TABLET.EFF PO SCH ×2 (08:48→22:54)
--- NOTE | 2022-11-08 10:10 | P.PN ---
Subjective Progress Note Date: 11/08/22 Subjective: Patient seen and examined at bedside. No acute events overnight. Claims that she has some midsternal chest pain around the incision site. Denies any difficulty with breathing, or urinating. She has not had a bowel movement, but passing flatus. Pertinent positives and negatives as discussed above, a complete review of systems was performed and all other systems are negative. Vitals Signs Reviewed. General: nontoxic, no distress, appears at stated age Derm: warm, dry, dressing clean, dry, intact Head: atraumatic, normocephalic, symmetric Eyes: EOMI, no lid lag, anicteric sclera Mouth: no lip lesion, mucus membranes moist Cardiovascular: S1S2 reg, no murmur Lungs: CTA bilateral, no rhonchi, no rales , no accessory muscle use, supplemental oxygen Abdominal: soft, nontender to palpation, no guarding, no appreciable organomegaly Ext: no gross muscle atrophy, no edema, no contractures Neuro: CN II-XI grossly intact, no focal neuro deficits Psych: Alert, oriented, appropriate affect Data Reviewed Today: Pertinent Labs: WBC 11.4, hemoglobin 8.4, sodium 139, potassium 4.4, creatinine 0.9 to, blood sugars range between 69-102 Imaging: Chest x-ray independently interpreted, bilateral interstitial opacities, unchanged from yesterday Assessment and Plan: Type 2 diabetes mellitus, [id number], A1c 7.1 Status post CABG Acute blood loss anemia, anticipated, surgery COPD without exacerbation Nicotine dependence Obesity with BMI of 33 Hypertension Dyslipidemia Osteoarthritis Elevated creatinine, resolved Thrombocytopenia, resolved -Continue Levemir 5 units daily, pre-meal insulin discontinued, sliding scale i nsulin continue -Continue to hold home glipizide and pioglitazone -Cardiothoracic note reviewed, continue IV Lasix 20 twice a day -She is status post 1 unit of PRBCs, hemoglobin of stable -On bronchodilators -Counseled regarding smoking cessation -Continue amlodipine for now, holding other home antihypertensives -On aspirin, Plavix, atorvastatin Thank you for allowing us to participate in the care of this pleasant patient. Do not hesitate to contact us with questions. Someone can be reached from the [facility] hospitalist group all hours of the day at [phone] or via perfect serve. Objective - Vital Signs Vital signs: Vital Signs Temp 98.1 F 11/08/22 08:00 Pulse 97 11/08/22 09:00 Resp 21 11/08/22 09:00 BP 108/61 11/08/22 09:00 Pulse Ox 90 L 11/08/22 09:05 FiO2 60 11/07/22 08:00 Intake & Output 11/07/22 11/08/22 11/08/22 18:59 06:59 18:59 Intake Total 493 240 Output Total 650 1100 Balance -157 -1100 240 Weight 84.6 kg Intake: IV 73 Lactated Ringers 1,000 ml 60 @ 20 mls/hr IV .Q24H [facility] Rx#:[id number] ns pressure bags 13 Oral 420 240 Output: Chest Tube Drainage 20 Left Pleural/Mediastinal 20 Urine 630 1100 Other: Voiding Method Indwelling Catheter Bedside Commode Bedside Commode # Voids 0 1 0 ABP, PAP, CO, CI - Last Documented Arterial Blood Pressure 102/60 Pulmonary Artery Pressure 33/9 Cardiac Output 4.7 Cardiac Index 2.5 - Labs CBC & Chem 7: 11/08/22 04:43 11/08/22 04:43 Labs: Abnormal Lab Results - Last 24 Hours (Table) 11/08/22 11/08/22 Range/Units 04:43 04:43 WBC 11.4 H (3.8-10.6) k/uL RBC 2.66 L (3.80-5.40) m/uL Hgb 8.4 L (11.4-16.0) gm/dL Hct 25.6 L (34.0-46.0) % RDW 15.6 H (11.5-15.5) % Carbon Dioxide 31 H (22-30) mmol/L BUN 27 H (7-17) mg/dL Glucose 69 L (74-99) mg/dL
--- NOTE | 2022-11-08 10:13 | XR ---
EXAMINATION TYPE: XR chest 1V portable DATE OF EXAM: 11/08/2022 COMPARISON: 11/07/2022 INDICATION: Postcardiac surgery TECHNIQUE: Single frontal view of the chest is obtained. FINDINGS: The heart size is enlarged. The pulmonary vasculature is prominent. Small bilateral pleural effusions are present. Some mild subsegmental atelectasis may be present at t he lung bases greater on the left. The slight progression from the comparison study IMPRESSION: 1. Cardiomegaly with prominent pulmonary vascular markings small pleural effusions and bibasilar infi ltrates. Correlate for congestive heart failure which may be slightly worsening from comparison study . Continued follow-up is recommended.
--- NOTE | 2022-11-08 11:18 | P.PN ---
Subjective Progress Note Date: 11/08/22 This is a 77-year-old female patient with a known history of hypertension, diabetes mellitus, obesity, hyperlipidemia, peripheral vascular disease, chronic tobacco dependence. Been having issues with worsening fatigue. Cardiac workup included a cardiac catheterization that revealed significant coronary artery disease. She was recommended coronary artery bypass grafting. She was brought in electively today for the procedure by Dr. Hyde and did undergo an off-pump CABG 2 with a GARCÍA to the diagonal and jump graft left radial artery off the GARCÍA to the mid LAD. Left atrial appendage ligation with a 35 mm atrial care clinic. She is seen in consultation in the intensive care unit shortly after returning from the OR. On the mechanical ventilator settings are assist-control mode at a rate of 14, temperature 100, FiO2 60% and a PEEP of 10. She is currently on propofol at 30 mcg/kg/m. Norepinephrine at 0.06 mcg/kg/m. Nitroglycerin drip at 5 mcg/m. Lactated Ringer's at 50 MLS per hour. Cardizem drip at 5 mg per hour. Insulin at 2.5 units per hour. She did have a brief episode of hypotension and received albumin and medications adjusted. Her arterial blood gases revealed a pO2 of 206, pCO2 44 and a pH of 7.27 on 100% FiO2. She received 1 amp of bicarb. Cardiac output 4.9. Cardiac index 2.6. PA pressure 52/27. CVP 19. Current blood pressure 122/52. Chest x-ray revealed a low-lying endotracheal tube. Mediastinal and left pleural chest tubes in place. No evidence of pneumothorax. Persistent cardiomegaly. POD #1 off-pump coronary artery bypass graft 2 with left internal mammary artery to the diagonal and jump graft left radial artery off the GARCÍA to the mid left anterior descending artery, ligation of the left atrial appendage with 35 mm AtriCure clip, endovascular left radial artery harvest, intraoperative transesophageal echocardiogram performed by anesthesia. Patient was reevaluated today on 11/05/2022, remains in the ICU, extubated yesterday, pulmonary status is a bit marginal, she is on 6 L nasal cannula, marginal with incentive spirometry pulling about 500 mL, chest x-ray showing mild interstitial edema and right- sided pleural effusion, hence I'm recommending gentle diuresis on this patient. WBC count is 12.3 hemoglobin 7.6. Basic metabolic profile, renal profile are normal liver profile is normal Patient was evaluated today on 11/06/2022, she is now postoperative day #2, patient desaturated yesterday, she developed mostly bibasilar atelectasis, poor urine output, and she developed some component of mild congestive heart failure. Patient was placed on dopamine at 3 mcg/kg/m, they called me on the patient last night and I recommended that the patient goes on airvo high flow and high FiO2, patient was also given a dose of Lasix 40 mg IV push, and today she is scheduled to have a unit of blood for hemoglobin of 7.7 and should be given more Lasix after the units of blood given. Patient is not making good effort with her incentive spirometry, she is only achieving no more than 500 mL. Basically the patient is marginal at best. ABG this morning showed a pO2 of 70 pCO2 40 pH of 7.38. Patient is in sinus rhythm, and seems to be hemodynamically marginal, blood pressure seems to be running a bit on the low side. The patient is seen today 11/07/2022 in follow-up in the intensive care unit. Postoperative day #3. She is currently sitting up in a chair at the bedside. Awake and alert in no acute distress. She is AirVo high flow nasal cannula at 40 L and 60% FiO2 to maintain O2 saturations in the 90s. She is only pulling ap proximately 500 ML's on her incentive spirometer. Chest x-ray shows no sizable pneumothorax. There is diffuse interstitial pattern with bilateral consolidation and small effusions. She is currently on Lasix 20 mg IV every 12 hours. Currently in a -500 ML balance. Lactated Ringer's at 20 ML's per hour. Dopamine is off. She has received 1 unit of packed red blood cells. White count 11.6. Hemoglobin 8.1. Platelets 164. Sodium 139. Potassium 3.7. Bicarb 25. BUN 25. Creatinine 0.93. Magnesium 1.9. Albumin 2.9. He is continued on bronchodilators. Heparin for DVT prophylaxis. The patient is seen today 11/08/2022 in follow-up in the intensive care unit. Postoperative day #4. She is currently sitting up in a chair. Awake and alert in no acute distress. She is breathing better today. She is down to 3 L high flow nasal cannula. No IV fluids. She remains on Lasix 20 mg IV every 12 hours. She is currently in a -1.2 L balance. She is pulling approximately 750 MLS on her incentive spirometer. His x-ray shows cardiomegaly with prominent pulmonary vascular markings and small bilateral effusions. White count 11.4. Hemoglobin 8.4. Platelets 240,000. Sodium 139. Potassium 4.4. Bicarb 31. BUN 27. Creatinine 0.92. Glucose 74. She remains on DuoNeb inhalations. H eparin for DVT prophylaxis. Objective - Vital Signs Vital signs: Vital Signs Temp 98.1 F 11/08/22 08:00 Pulse 97 11/08/22 09:00 Resp 21 11/08/22 09:00 BP 108/61 11/08/22 09:00 Pulse Ox 90 L 11/08/22 09:05 FiO2 60 11/07/22 08:00 Intake & Output 11/07/22 11/08/22 11/08/22 18:59 06:59 18:59 Intake Total 493 240 Output Total 650 1100 Balance -157 -1100 240 Weight 84.6 kg Intake: IV 73 Lactated Ringers 1,000 ml 60 @ 20 mls/hr IV .Q24H [facility] Rx#:[id number] ns pressure bags 13 Oral 420 240 Output: Chest Tube Drainage 20 Left Pleural/Mediastinal 20 Urine 630 1100 Other: Voiding Method Indwelling Catheter Bedside Commode Bedside Commode # Voids 0 1 0 ABP, PAP, CO, CI - Last Documented Arterial Blood Pressure 102/60 Pulmonary Artery Pressure 33/9 Cardiac Output 4.7 Cardiac Index 2.5 - Exam GENERAL EXAM: Alert, 77-year-old female, on 2 L nasal cannula, fairly comfortable in no apparent distress. HEAD: Normocephalic. EYES: Normal reaction of pupils, equal size. NOSE: Clear with pink turbinates. THROAT: No erythema or exudates. NECK: No masses, no JVD. CHEST: Sternum stable. Dressing dry and intact. Heart Hugger in place. LUNGS: Equal air entry with crackles in the bilateral bases. CVS: S1 and S2 normal with no audible murmur, regular rhythm. ABDOMEN: No hepatosplenomegaly, normal bowel sounds, no guarding or rigidity. SPINE: No scoliosis or deformity SKIN: No rashes CENTRAL NERVOUS SYSTEM: No focal deficits, tone is normal in all 4 extremities. EXTREMITIES: SCDs in place. Radial artery site intact. There is trace peripheral edema. No clubbing, no cyanosis. Peripheral pulses are intact. - Labs CBC & Chem 7: 11/08/22 04:43 11/08/22 04:43 Labs: Abnormal Lab Results - Last 24 Hours (Table) 11/08/22 11/08/22 Range/Units 04:43 04:43 WBC 11.4 H (3.8-10.6) k/uL RBC 2.66 L (3.80-5.40) m/uL Hgb 8.4 L (11.4-16.0) gm/dL Hct 25.6 L (34.0-46.0) % RDW 15.6 H (11.5-15.5) % Carbon Dioxide 31 H (22-30) mmol/L BUN 27 H (7-17) mg/dL Glucose 69 L (74-99) mg/dL Assessment and Plan Assessment: Coronary artery disease, status post off-pump coronary artery bypass grafting 2 utilizing a GARCÍA to the diagonal and jump graft left radial artery off the GARCÍA to the mid LAD with ligation of the left atrial appendage with a 35mm AtriCure clip. Postoperative day #4. Chest x-ray continues to show diffuse interstitial pattern with bilateral consolidation and small effusions. Chronic and ongoing tobacco dependence. FEV1 value was 1.36 L which is 87% of predicted Acute hypoxemic respiratory failure secondary to above. Improving and on 3 L nasal cannula Diabetes mellitus Obesity Hyperlipidemia Hypertension Peripheral vascular disease Plan: The patient was seen and evaluated Chest x-ray, labs and medications reviewed Continue Lasix 20 mg IV every 12 hours Titrate the FiO2 as tolerated Increase her activity as tolerated We will continue to follow I have personally seen and examined the patient, performed the documentation and the assessment and plan as written. Number of minutes spent on the visit: 10.
[2022-11-08 11:37] LABS: Glucose,Whole Blood 102 mg/dL (70-110)
[2022-11-08] MEDS: amLODIPine 2.5 MG TAB PO SCH (12:36)
--- NOTE | 2022-11-08 14:11 | PN ---
PROGRESS NOTE SUBJECTIVE: A 77-year-old lady, who is admitted to ICU following the bypass surgery. Today is postoperative day #4. She is somewhat hypotensive. She is on Norvasc 2.5 mg daily, aspirin, Lipitor, Plavix, and metoprolol 12.5 b.i.d. She is otherwise doing well, remains in sinus rhythm, stable and free of symptoms. OBJECTIVE: GENERAL: On exam, comfortable at rest. VITAL SIGNS: Stable. NECK: There is no jugular venous distention. CHEST: Reveals good air entry bilaterally. HEART: Reveals first and second heart sounds. No gallop. No murmur. No rub. EXTREMITIES: Did not reveal any edema. Peripheral pulses are felt. LABORATORY DATA: Show hemoglobin of 8.4, platelet count is 240. Potassium is 4.4, creatinine is 0.9. ASSESSMENT: 1. Coronary artery disease, status post coronary artery bypass grafting. 2. Hypotension. PLAN: The patient is doing well. She will continue current medications. MMODL / IJN: [id number] /
[2022-11-08 16:24] LABS: Glucose,Whole Blood 103 mg/dL (70-110)
[2022-11-08 20:20] LABS: Glucose,Whole Blood 131 mg/dL (70-110)
[2022-11-08] MEDS: SENNOSIDES-DOCUSATE SODIUM 1 EACH TAB PO SCH (21:08)
[2022-11-09] MEDS: HEPARIN SODIUM,PORCINE/PF 5,000 UNIT/0.5 ML SYRINGE SQ SCH ×4 (00:53→23:33)
[2022-11-09 01:52] LABS: Glucose,Whole Blood 121 mg/dL (70-110)
[2022-11-09 06:32] LABS: Glucose,Whole Blood 116 mg/dL (70-110)
[2022-11-09] MEDS: INSULIN ASPART (NovoLOG) 100 UNIT/ML VIAL SQ SCH ×4 (06:37→20:31)
[2022-11-09] MEDS: INSULIN DETEMIR (LEVEMIR) 100 UNIT/ML SYR SQ SCH (06:44)
[2022-11-09] MEDS: PANTOPRAZOLE 40 MG TABLET PO SCH (06:44)
[2022-11-09] MEDS ORDERED: SENNOSIDES-DOCUSATE SODIUM 1 EACH TAB PO PRN (06:57)
--- NOTE | 2022-11-09 07:12 | P.PN ---
Subjective Progress Note Date: 11/09/22 Principal diagnosis: Coronary artery disease. Previous medical history of hypertension, hyperlipidemia, type 2 diabetes, current tobacco dependence, osteoarthritis, obesity, peripheral vascular disease. Preoperative nasal swab positive for MSSA, treated POD #5 off-pump coronary artery bypass graft 2 with left internal mammary artery to the diagonal and jump graft left radial artery off the GARCÍA to the mid left anterior descending artery, ligation of the left atrial appendage with 35 mm AtriCure clip, endovascular left radial artery harvest, intraoperative transesophageal echocardiogram performed by anesthesia Postoperative acute blood loss anemia and thrombocytopenia, expected Acute hypoxic respiratory failure secondary to volume overload, current tobacco dependence The patient was seen and examined sitting up in a recliner on the cardiac stepdown unit. Currently in sinus rhythm, hemodynamically stable. Currently on 3 LPM high flow nasal cannula with oxygen saturation in the high 90s, able to achieve 750 mL on incentive spirometry with better effort. Does complain of some post surgical discomfort but hasn't had pain meds since last night, denies shortness of breath. States she did ambulate in the hallway yesterday 3 times with assistance, had first post op shower yesterday. No other new concerns. Objective - Vital Signs Vital signs: Vital Signs Temp 98.6 F 11/09/22 00:00 Pulse 96 11/09/22 04:00 Resp 16 11/09/22 04:00 BP 114/65 11/09/22 04:00 Pulse Ox 97 11/09/22 04:00 FiO2 60 11/07/22 08:00 Intake & Output 11/08/22 11/09/22 11/09/22 18:59 06:59 18:59 Intake Total 250 20 Balance 250 20 Weight 87.5 kg Intake: IV 10 20 Invasive Line 5 10 20 Oral 240 Other: Voiding Method Bedside Commode Toilet Bedside Commode # Voids 1 1 # Bowel Movements 1 1 ABP, PAP, CO, CI - Last Documented Arterial Blood Pressure 102/60 Pulmonary Artery Pressure 33/9 Cardiac Output 4.7 Cardiac Index 2.5 - Exam CONSTITUTIONAL: Appears comfortable, cooperative RESPIRATORY: Lungs sounds diminished bilaterally. Respirations even, nonlab ored. Currently on 3 LPM high flow nasal cannula with oxygen saturation 97%. Able to achieve 750 mL on incentive spirometry with better effort. Strong loose cough. CARDIOVASCULAR: S1, S2 present. Regular rate and rhythm, sinus rhythm on telemetry. Sternum stable. Palpable peripheral pulses bilaterally. No edema present. No calf pain or tenderness noted. Heart hugger in place with patient demonstrating appropriate use. Antiembolism stockings, SCDs present. GASTROINTESTINAL: Abdomen soft, nontender, nondistended. Active bowel sounds present 4 quadrants. Tolerating diet. Positive bowel movement x 2 yesterday GENITOURINARY: Continues to void although not measured INTEGUMENTARY: Skin is warm and dry with evidence of good perfusion. Anterior chest incision well approximated. Left radial artery harvest site well approximated without redness or drainage. NEUROLOGIC: Cranial nerves II through XII intact MUSKULOSKELETAL: Able to move all extremities, strength equal bilaterally PSYCHIATRIC: Alert and oriented to person place and time, appropriate affect, intact judgment and insight - Allied health notes Allied health notes reviewed: nursing - Labs CBC & Chem 7: 11/09/22 08:17 11/09/22 08:17 Labs: Abnormal Lab Results - Last 24 Hours (Table) 11/08/22 11/09/22 11/09/22 Range/Units 20:17 01:48 06:30 POC Glucose (mg/dL) 131 H 121 H 116 H (70-110) mg/dL - Imaging and Cardiology Chest x-ray: image reviewed Assessment and Plan Assessment: Coronary artery disease, status post 2 vessel CABG History of hypertension Hyperlipidemia, treated, cholesterol 188, LDL 106, triglycerides 93 Type 2 diabetes, preoperative hemoglobin A1c 7.1% Current tobacco dependence, preoperative FEV1 96% of predicted Osteoarthritis Obesity Peripheral vascular disease Preoperative nasal swab positive for MSSA, treated Postoperative acute blood loss anemia and thrombocytopenia, expected Acute hypoxic respiratory failure, recovering Plan: Continue to maximize medical therapy with aspirin, statin, Plavix, beta jennifer therapy. Will increase beta jennifer therapy as tolerated, hold parameters on beta jennifer Continue calcium channel jennifer for radial artery spasm prophylaxis, hold parameters placed Wean O2 as tolerated. Encourage incentive spirometry 10 times every hour while awake. Bronchodilators per pulmonology Increase activity, ambulate as tolerated. PT/OT/cardiac rehab consulted Will monitor daily labs and x-rays. Electrolyte replacement per protocol. Continue 20 mg IV push Lasix BID for another 24 hours GI/DVT prophylaxis Pain control per current medication regimen Insulin management per internal medicine. Patient is diabetic with hemoglobin A1c 7.1%, needs tight blood sugar control to prevent infection and promote healing Strict accurate intake and output Daily weights Smoking cessation counseling and education offered, patient is encouraged to quit smoking completely Discharge planning in progress, anticipate discharge to home with home care in the next 24-48 hours More recommendations to follow as patient progresses
--- NOTE | 2022-11-09 08:13 | XR ---
EXAMINATION TYPE: XR chest 2V DATE OF EXAM: 11/09/2022 COMPARISON: NONE HISTORY: Postcardiac surgery FINDINGS: There are bilateral pleural effusions with cardiomegaly and bibasilar infiltrate. There is a diffuse interstitial pattern. Postsurgical changes are seen. Atherosclerotic change aorta. IMPRESSION: 1. Stable bilateral parenchymal changes correlate for CHF.
[2022-11-09] MEDS: ASPIRIN 325 MG TAB PO SCH (08:31)
[2022-11-09] MEDS: FUROSEMIDE 10 MG/ML 2 ML VIAL IV SCH ×2 (08:32→20:24)
[2022-11-09] MEDS: ACETAMINOPHEN TAB 325 MG TAB PO PRN ×4 (08:32→20:31)
[2022-11-09] MEDS: CLOPIDOGREL 75 MG TAB PO SCH (08:32)
[2022-11-09] MEDS: METOPROLOL TARTRATE 12.5 MG TAB PO SCH ×2 (08:32→20:24)
[2022-11-09] MEDS: ATORVASTATIN 20 MG TAB PO SCH (08:32)
[2022-11-09 08:41] LABS: HCT 27.1 % (34.0-46.0); HGB 8.5 gm/dL (11.4-16.0); Hypochromasia Slight; MCH 29.8 pg (25.0-35.0); MCHC 31.2 g/dL (31.0-37.0); MCV 95.5 fL (80.0-100.0); Mean Platelet Volume 7.7; Platelet Count 309 k/uL (150-450); RBC 2.84 m/uL (3.80-5.40); RDW 15.8 % (11.5-15.5); WBC 11.1 k/uL (3.8-10.6)
[2022-11-09 09:00] LABS: African American GFR (CKD) 83 (>60 ml/min/1.73 sqM); Anion Gap 9 mmol/L; Blood Urea Nitrogen 25 mg/dL (7-17); Calcium 8.6 mg/dL (8.4-10.2); Carbon Dioxide 27 mmol/L (22-30); Chloride 105 mmol/L (98-107); Glucose 101 mg/dL (74-99); Non-African American GFR(CKD) 72 (>60 ml/min/1.73 sqM); Potassium 4.3 mmol/L (3.5-5.1); Sodium 141 mmol/L (137-145)
[2022-11-09] MEDS: IPRATROPIUM-ALBUTEROL 3 ML NEB INHALATION SCH ×4 (09:21→20:56)
[2022-11-09] MEDS: POTASSIUM BICARBONATE/CIT AC 20 MEQ TABLET.EFF PO SCH (09:38)
--- NOTE | 2022-11-09 11:27 | P.PN ---
Subjective Progress Note Date: 11/09/22 Principal diagnosis: Open heart surgery. Patient was evaluated today on 11/06/2022, she is now postoperative day #2, patient desaturated yesterday, she developed mostly bibasilar atelectasis, poor urine output, and she developed some component of mild congestive heart failure. Patient was placed on dopamine at 3 mcg/kg/m, they called me on the patient last night and I recommended that the patient goes on airvo high flow and high FiO2, patient was also given a dose of Lasix 40 mg IV push, and today she is scheduled to have a unit of blood for hemoglobin of 7.7 and should be given more Lasix after the units of blood given. Patient is not making good effort with her incentive spirometry, she is only achieving no more than 500 mL. Basically the patient is marginal at best. ABG this morning showed a pO2 of 70 pCO2 40 pH of 7.38. Patient is in sinus rhythm, and seems to be hemodynamically marginal, blood pressure seems to be running a bit on the low side. The patient is seen today 11/07/2022 in follow-up in the intensive care unit. Postoperative day #3. She is currently sitting up in a chair at the bedside. Awake and alert in no acute distress. She is AirVo high flow nasal cannula at 40 L and 60% FiO2 to maintain O2 saturations in the 90s. She is only pulling approximately 500 ML's on her incentive spirometer. Chest x-ray shows no sizable pneumothorax. There is diffuse interstitial pattern with bilateral consolidation and small effusions. She is currently on Lasix 20 mg IV every 12 hours. Currently in a -500 ML balance. Lactated Ringer's at 20 ML's per hour. Dopamine is off. She has received 1 unit of packed red blood cells. White count 11.6. Hemoglobin 8.1. Platelets 164. Sodium 139. Potassium 3.7. Bicarb 25. BUN 25. Creatinine 0.93. Magnesium 1.9. Albumin 2.9. He is continued on bronchodilators. Heparin for DVT prophylaxis. The patient is seen today 11/08/2022 in follow-up in the intensive care unit. Postoperative day #4. She is currently sitting up in a chair. Awake and alert in no acute distress. She is breathing better today. She is down to 3 L high flow nasal cannula. No IV fluids. She remains on Lasix 20 mg IV every 12 hours. She is currently in a -1.2 L balance. She is pulling approximately 750 MLS on her incentive spirometer. His x-ray shows cardiomegaly with prominent pulmonary vascular markings and small bilateral effusions. White count 11.4. Hemoglobin 8.4. Platelets 240,000. Sodium 139. Potassium 4.4. Bicarb 31. BUN 27. Creatinine 0.92. Glucose 74. She remains on DuoNeb inhalations. Heparin for DVT prophylaxis. Progress note dated 11/09/2022. The patient was transferred out of the intensive care unit yesterday, and to room 360. She is currently been weaned down to 1.5 L of oxygen. She's not receiving any IV fluids. She's feeling much better and states that she may be discharged home tomorrow. White count 11.1, hemoglobin 8.5, hematocrit 27.1, with a normal platelet count. Sodium 141, potassium 4.3, chlorides 105, CO2 27, BUN 25, creatinine 0.81. Chest x-ray shows diffuse bilateral infiltrates, consistent with mild fluid overload, and bibasilar atelectasis. Objective - Vital Signs Vital signs: Vital Signs Temp 98.9 F 11/09/22 08:20 Pulse 79 11/09/22 09:32 Resp 18 11/09/22 08:20 BP 96/53 11/09/22 08:20 Pulse Ox 90 L 11/09/22 09:24 FiO2 60 11/07/22 08:00 Intake & Output 11/08/22 11/09/22 11/09/22 18:59 06:59 18:59 Intake Total 250 20 Output Total 50 Balance 250 20 -50 Weight 87.5 kg 83.4 kg Intake: IV 10 20 Invasive Line 5 10 20 Oral 240 Output: Urine 50 Other: Voiding Method Bedside Commode Toilet Toilet Bedside Commode Bedside Commode # Voids 1 1 # Bowel Movements 1 1 ABP, PAP, CO, CI - Last Documented Arterial Blood Pressure 102/60 Pulmonary Artery Pressure 33/9 Cardiac Output 4.7 Cardiac Index 2.5 - Exam No acute distress, oriented 3. Currently on nasal O2 at 1.5 L. HEENT examination is grossly unremarkable. Mucous membranes are moist. No oral lesions. Neck supple. Full range of motion. No adenopathy thyromegaly or neck vein distention. Cardiovascular examination reveals regular rhythm rate. S1-S2 normal. No S3 or S4. No discernible murmur noted. Heart rate is 79 bpm. Lungs reveal scattered mild to moderate rhonchi and crackles. Breath sounds equal bilaterally. No wheezes. Saturations are 94%. Abdomen soft bowel sounds are heard. No masses or tenderness. Extremities are intact. No cyanosis clubbing or edema. Skin is without rash or lesion. Neurologic examination is brief but nonfocal. - Labs CBC & Chem 7: 11/09/22 08:17 11/09/22 08:17 Labs: Abnormal Lab Results - Last 24 Hours (Table) 11/08/22 11/09/22 11/09/22 Range/Units 20:17 01:48 06:30 WBC (3.8-10.6) k/uL RBC (3.80-5.40) m/uL Hgb (11.4-16.0) gm/dL Hct (34.0-46.0) % RDW (11.5-15.5) % BUN (7-17) mg/dL Glucose (74-99) mg/dL POC Glucose (mg/dL) 131 H 121 H 116 H (70-110) mg/dL Magnesium (1.6-2.3) mg/dL 11/09/22 11/09/22 11/09/22 Range/Units 08:17 08:17 08:17 WBC 11.1 H (3.8-10.6) k/uL RBC 2.84 L (3.80-5.40) m/uL Hgb 8.5 L (11.4-16.0) gm/dL Hct 27.1 L (34.0-46.0) % RDW 15.8 H (11.5-15.5) % BUN 25 H (7-17) mg/dL Glucose 101 H (74-99) mg/dL POC Glucose (mg/dL) (70-110) mg/dL Magnesium 2.5 H (1.6-2.3) mg/dL Assessment and Plan Assessment: Coronary artery disease, status post off-pump coronary artery bypass grafting 2 utilizing a GARCÍA to the diagonal and jump graft left radial artery off the GARCÍA to the mid LAD with ligation of the left atrial appendage with a 35mm AtriCure clip. Postoperative day #5. Chest x-ray continues to show diffuse interstitial pattern with bilateral consolidation and small effusions. Routine postoperative ventilator management. Chronic and ongoing tobacco dependence. FEV1 value was 1.36 L which is 87% of predicted. Acute hypoxemic respiratory failure secondary to above. Diabetes mellitus. Obesity. Hyperlipidemia. Hypertension. Peripheral vascular disease. Plan: Plan dated 11/09/2022. The patient states that she may be discharged home tomorrow. She is currently down to 1.5 L of oxygen. She continues on the incentive spirometer every hour, and we encourage deep breathing, cough, and clear secretions. She may need to be discharged home on oxygen. That'll be determined tomorrow before discharge. Labs, x-rays, and medications are reviewed. Prognosis is guarded. We will continue to follow the patient and make recommendations along the way. Time with Patient: Less than 30
[2022-11-09] MEDS: amLODIPine 2.5 MG TAB PO SCH (11:35)
--- NOTE | 2022-11-09 11:38 | P.PN ---
Subjective Progress Note Date: 11/09/22 Subjective: Patient seen and examined at bedside. No acute events overnight. Claims that she has some midsternal chest pain around the incision site. Denies any difficulty with breathing, urinary or bowel complaints. Pertinent positives and negatives as discussed above, a complete review of systems was performed and all other systems are negative. Vitals Signs Reviewed. General: nontoxic, no distress, appears at stated age Derm: warm, dry, dressing clean, dry, intact Head: atraumatic, normocephalic, symmetric Eyes: EOMI, no lid lag, anicteric sclera Mouth: no lip lesion, mucus membranes moist Cardiovascular: S1S2 reg, no murmur Lungs: CTA bilateral, no rhonchi, no rales , no accessory muscle use, supplemental oxygen Abdominal: soft, nontender to palpation, no guarding, no appreciable organomegaly Ext: no gross muscle atrophy, no edema, no contractures Neuro: CN II-XI grossly intact, no focal neuro deficits Psych: Alert, oriented, appropriate affect Data Reviewed Today: Pertinent Labs: WBC 11.1, hemoglobin 8.5, sodium 141, potassium 4.3, creatinine 0.81, blood sugars range between 101-131, magnesium 2.5 Imaging: Chest x-ray independently interpreted, bilateral interstitial opacities, unchanged from yesterday Assessment and Plan: Type 2 diabetes mellitus, [id number], A1c 7.1 Status post CABG Acute blood loss anemia, anticipated outcome of surgery, stable COPD without exacerbation Nicotine dependence Obesity with BMI of 33 Hypertension Dyslipidemia Osteoarthritis Elevated creatinine, resolved Thrombocytopenia, resolved -Continue Levemir 5 units daily, sliding scale insulin continue -Continue to hold home glipizide and pioglitazone -Cardiothoracic note reviewed, continue IV Lasix 20 twice a day for another 24 hours, anticipated discharge in 1-2 days -She is status post 1 unit of PRBCs, hemoglobin of stable -On bronchodilators -Pulmonology note reviewed, no changes -Counseled regarding smoking cessation -Continue amlodipine for now, holding other home antihypertensives -On aspirin, Plavix, atorvastatin Thank you for allowing us to participate in the care of this pleasant patient. Do not hesitate to contact us with questions. Someone can be reached from the [facility] hospitalist group all hours of the day at [phone] or via perfect serve. Objective - Vital Signs Vital signs: Vital Signs Temp 98 F 11/09/22 11:30 Pulse 86 11/09/22 11:30 Resp 18 11/09/22 11:30 BP 111/52 11/09/22 11:31 Pulse Ox 93 L 11/09/22 11:30 FiO2 60 11/07/22 08:00 Intake & Output 11/08/22 11/09/22 11/09/22 18:59 06:59 18:59 Intake Total 250 20 Output Total 50 Balance 250 20 -50 Weight 87.5 kg 83.4 kg Intake: IV 10 20 Invasive Line 5 10 20 Oral 240 Output: Urine 50 Other: Voiding Method Bedside Commode Toilet Toilet Bedside Commode Bedside Commode # Voids 1 1 # Bowel Movements 1 1 ABP, PAP, CO, CI - Last Documented Arterial Blood Pressure 102/60 Pulmonary Artery Pressure 33/9 Cardiac Output 4.7 Cardiac Index 2.5 - Labs CBC & Chem 7: 11/09/22 08:17 11/09/22 08:17 Labs: Abnormal Lab Results - Last 24 Hours (Table) 11/08/22 11/09/22 11/09/22 Range/Units 20:17 01:48 06:30 WBC (3.8-10.6) k/uL RBC (3.80-5.40) m/uL Hgb (11.4-16.0) gm/dL Hct (34.0-46.0) % RDW (11.5-15.5) % BUN (7-17) mg/dL Glucose (74-99) mg/dL POC Glucose (mg/dL) 131 H 121 H 116 H (70-110) mg/dL Magnesium (1.6-2.3) mg/dL 11/09/22 11/09/22 11/09/22 Range/Units 08:17 08:17 08:17 WBC 11.1 H (3.8-10.6) k/uL RBC 2.84 L (3.80-5.40) m/uL Hgb 8.5 L (11.4-16.0) gm/dL Hct 27.1 L (34.0-46.0) % RDW 15.8 H (11.5-15.5) % BUN 25 H (7-17) mg/dL Glucose 101 H (74-99) mg/dL POC Glucose (mg/dL) (70-110) mg/dL Magnesium 2.5 H (1.6-2.3) mg/dL
[2022-11-09 11:50] LABS: Glucose,Whole Blood 105 mg/dL (70-110)
--- NOTE | 2022-11-09 14:26 | P.PN ---
Subjective Progress Note Date: 11/09/22 CAD status post CABG The patient is a 77-year-old -[place] female patient who is status post CABG day #5 R in the cardiac stepdown unit. She is anticipating discharge on . The patient was seen and evaluated today. Oxygenation is improving she is down to 1.5 L with pulse ox is 93%. Repeat blood work reveals WBC 11.1, hemoglobin 8.5, electrolytes normal, BUN 25 and creatinine 0.81. Repeat chest x-ray reveals stable bilateral parenchymal changes correlate for heart failure. Blood pressure 96/53, heart rate in the 80s and 90s. Patient is resting comfortably in a chair, heart sounds are normal no murmur, lungs clear bilaterally no lower extremity edema. Assessment CAD and status post CABG Hypertension Dyslipidemia Multiple comorbid conditions Plan Continue the rest of the current medical regimen Continue monitor the hemoglobin and kidney function Nurse practitioner note has been reviewed, I agree with the documented findings and plan of care. Patient was seen and examined. Objective - Vital Signs Vital signs: Vital Signs Temp 98 F 11/09/22 11:30 Pulse 86 11/09/22 11:30 Resp 18 11/09/22 11:30 BP 111/52 11/09/22 11:31 Pulse Ox 93 L 11/09/22 11:30 FiO2 60 11/07/22 08:00 Intake & Output 11/08/22 11/09/22 11/09/22 18:59 06:59 18:59 Intake Total 250 20 Output Total 50 Balance 250 20 -50 Weight 87.5 kg 83.4 kg Intake: IV 10 20 Invasive Line 5 10 20 Oral 240 Output: Urine 50 Other: Voiding Method Bedside Commode Toilet Toilet Bedside Commode Bedside Commode # Voids 1 1 # Bowel Movements 1 1 ABP, PAP, CO, CI - Last Documented Arterial Blood Pressure 102/60 Pulmonary Artery Pressure 33/9 Cardiac Output 4.7 Cardiac Index 2.5 - Labs CBC & Chem 7: 11/09/22 08:17 11/09/22 08:17 Labs: Abnormal Lab Results - Last 24 Hours (Table) 11/08/22 11/09/22 11/09/22 Range/Units 20:17 01:48 06:30 WBC (3.8-10.6) k/uL RBC (3.80-5.40) m/uL Hgb (11.4-16.0) gm/dL Hct (34.0-46.0) % RDW (11.5-15.5) % BUN (7-17) mg/dL Glucose (74-99) mg/dL POC Glucose (mg/dL) 131 H 121 H 116 H (70-110) mg/dL Magnesium (1.6-2.3) mg/dL 11/09/22 11/09/22 11/09/22 Range/Units 08:17 08:17 08:17 WBC 11.1 H (3.8-10.6) k/uL RBC 2.84 L (3.80-5.40) m/uL Hgb 8.5 L (11.4-16.0) gm/dL Hct 27.1 L (34.0-46.0) % RDW 15.8 H (11.5-15.5) % BUN 25 H (7-17) mg/dL Glucose 101 H (74-99) mg/dL POC Glucose (mg/dL) (70-110) mg/dL Magnesium 2.5 H (1.6-2.3) mg/dL
[2022-11-09 16:34] LABS: Glucose,Whole Blood 98 mg/dL (70-110)
[2022-11-09 20:15] LABS: Glucose,Whole Blood 117 mg/dL (70-110)
[2022-11-10] MEDS: ACETAMINOPHEN TAB 325 MG TAB PO PRN ×2 (01:42→15:50)
[2022-11-10 01:43] LABS: Glucose,Whole Blood 96 mg/dL (70-110)
--- NOTE | 2022-11-10 06:07 | P.PN ---
Subjective Progress Note Date: 11/10/22 Principal diagnosis: CAD status post CABG The patient is a 77-year-old -[place] female patient who is status post CABG. She was seen this morning. She continues to be hypoxic requiring oxygen. She continues to be symptomatic in terms of shortness of breath. No pain in the chest. On examination she does have diminished breathing sounds bilaterally and she does have crackles mainly in the bases as well. Currently she is on Lasix IV which I would agree on with the possible need for additional dose of Lasix IV. Otherwise she has been maintaining normal sinus mechanism. Chest x- ray is in process to be done. Blood work still pending. Assessment CAD and status post CABG Hypertension Dyslipidemia Multiple comorbid conditions Plan Continue the rest of the current medical regimen She might need another dose of Lasix IV today Continue monitor the hemoglobin and kidney function Objective - Vital Signs Vital signs: Vital Signs Temp 98.2 F 11/10/22 03:59 Pulse 92 11/10/22 03:59 Resp 20 11/10/22 03:59 BP 140/66 11/10/22 03:59 Pulse Ox 92 L 11/10/22 03:59 FiO2 60 11/07/22 08:00 Intake & Output 11/09/22 11/09/22 11/10/22 06:59 18:59 06:59 Intake Total 20 240 Output Total 300 550 Balance 20 -300 -310 Weight 87.5 kg 83.4 kg 82.1 kg Intake: IV 20 Invasive Line 5 20 Oral 240 Output: Urine 300 550 Other: Voiding Method Toilet Toilet Bedside Commode Bedside Commode # Voids 1 # Bowel Movements 1 ABP, PAP, CO, CI - Last Documented Arterial Blood Pressure 102/60 Pulmonary Artery Pressure 33/9 Cardiac Output 4.7 Cardiac Index 2.5 - Labs CBC & Chem 7: 11/09/22 08:17 11/09/22 08:17 Labs: Abnormal Lab Results - Last 24 Hours (Table) 11/09/22 11/09/22 11/09/22 Range/Units 06:30 08:17 08:17 WBC 11.1 H (3.8-10.6) k/uL RBC 2.84 L (3.80-5.40) m/uL Hgb 8.5 L (11.4-16.0) gm/dL Hct 27.1 L (34.0-46.0) % RDW 15.8 H (11.5-15.5) % BUN 25 H (7-17) mg/dL Glucose 101 H (74-99) mg/dL POC Glucose (mg/dL) 116 H (70-110) mg/dL Magnesium (1.6-2.3) mg/dL 11/09/22 11/09/22 Range/Units 08:17 20:14 WBC (3.8-10.6) k/uL RBC (3.80-5.40) m/uL Hgb (11.4-16.0) gm/dL Hct (34.0-46.0) % RDW (11.5-15.5) % BUN (7-17) mg/dL Glucose (74-99) mg/dL POC Glucose (mg/dL) 117 H (70-110) mg/dL Magnesium 2.5 H (1.6-2.3) mg/dL
[2022-11-10 06:19] LABS: Glucose,Whole Blood 99 mg/dL (70-110)
[2022-11-10] MEDS: INSULIN ASPART (NovoLOG) 100 UNIT/ML VIAL SQ SCH ×4 (06:21→20:06)
[2022-11-10] MEDS: PANTOPRAZOLE 40 MG TABLET PO SCH (06:22)
--- NOTE | 2022-11-10 07:10 | P.PN ---
Subjective Progress Note Date: 11/10/22 Principal diagnosis: Coronary artery disease. Previous medical history of hypertension, hyperlipidemia, type 2 diabetes, current tobacco dependence, osteoarthritis, obesity, peripheral vascular disease. Preoperative nasal swab positive for MSSA, treated POD #6 off-pump coronary artery bypass graft 2 with left internal mammary artery to the diagonal and jump graft left radial artery off the GARCÍA to the mid left anterior descending artery, ligation of the left atrial appendage with 35 mm AtriCure clip, endovascular left radial artery harvest, intraoperative transesophageal echocardiogram performed by anesthesia Postoperative acute blood loss anemia and thrombocytopenia, expected Acute hypoxic respiratory failure secondary to volume overload, current tobacco dependence The patient was seen and examined sitting up in a recliner on the cardiac stepdown unit. Currently in sinus rhythm, hemodynamically stable. Currently on 1.5 LPM nasal cannula with oxygen saturation in the low-mid 90s, able to achieve 750 mL on incentive spirometry with better effort. Does complain of some post surgical discomfort, complains of some shortness of breath. States she did ambulate in the hallway yesterday. CXR reviewed. No other new concerns. Objective - Vital Signs Vital signs: Vital Signs Temp 98.2 F 11/10/22 03:59 Pulse 92 11/10/22 03:59 Resp 20 11/10/22 03:59 BP 140/66 11/10/22 03:59 Pulse Ox 92 L 11/10/22 03:59 FiO2 60 11/07/22 08:00 Intake & Output 11/09/22 11/10/22 11/10/22 18:59 06:59 18:59 Intake Total 240 Output Total 300 550 Balance -300 -310 Weight 83.4 kg 82.1 kg Intake: Oral 240 Output: Urine 300 550 Other: Voiding Method Toilet Bedside Commode ABP, PAP, CO, CI - Last Documented Arterial Blood Pressure 102/60 Pulmonary Artery Pressure 33/9 Cardiac Output 4.7 Cardiac Index 2.5 - Exam CONSTITUTIONAL: Appears comfortable, cooperative RESPIRATORY: Lungs sounds diminished bilaterally. Respirations even, nonlabored. Currently on 1.5 LPM high flow nasal cannula with oxygen saturation 92%. Able to achieve 750 mL on incentive spirometry with better effort. Strong loose cough. CARDIOVASCULAR: S1, S2 present. Regular rate and rhythm, sinus rhythm on telemetry. Sternum stable. Palpable peripheral pulses bilaterally. No edema present. No calf pain or tenderness noted. Heart hugger in place with patient demonstrating appropriate use. Antiembolism stockings, SCDs present. GASTROINTESTINAL: Abdomen soft, nontender, nondistended. Active bowel sounds present 4 quadrants. Tolerating diet. Positive bowel movement 11/08 GENITOURINARY: Continues to void, 850 mL in the last 24 hours INTEGUMENTARY: Skin is warm and dry with evidence of good perfusion. Anterior chest incision well approximated. Left radial artery harvest site well approximated without redness or drainage. NEUROLOGIC: Cranial nerves II through XII intact MUSKULOSKELETAL: Able to move all extremities, strength equal bilaterally PSYCHIATRIC: Alert and oriented to person place and time, appropriate affect, intact judgment and insight - Allied health notes Allied health notes reviewed: nursing - Labs CBC & Chem 7: 11/10/22 08:40 11/10/22 08:40 Labs: Abnormal Lab Results - Last 24 Hours (Table) 11/09/22 11/09/22 11/09/22 Range/Units 08:17 08:17 08:17 WBC 11.1 H (3.8-10.6) k/uL RBC 2.84 L (3.80-5.40) m/uL Hgb 8.5 L (11.4-16.0) gm/dL Hct 27.1 L (34.0-46.0) % RDW 15.8 H (11.5-15.5) % BUN 25 H (7-17) mg/dL Glucose 101 H (74-99) mg/dL POC Glucose (mg/dL) (70-110) mg/dL Magnesium 2.5 H (1.6-2.3) mg/dL 11/09/22 Range/Units 20:14 WBC (3.8-10.6) k/uL RBC (3.80-5.40) m/uL Hgb (11.4-16.0) gm/dL Hct (34.0-46.0) % RDW (11.5-15.5) % BUN (7-17) mg/dL Glucose (74-99) mg/dL POC Glucose (mg/dL) 117 H (70-110) mg/dL Magnesium (1.6-2.3) mg/dL - Imaging and Cardiology Chest x-ray: image reviewed Assessment and Plan Assessment: Coronary artery disease, status post 2 vessel CABG History of hypertension Hyperlipidemia, treated, cholesterol 188, LDL 106, triglycerides 93 Type 2 diabetes, preoperative hemoglobin A1c 7.1% Current tobacco dependence, preoperative FEV1 96% of predicted Osteoarthritis Obesity Peripheral vascular disease Preoperative nasal swab positive for MSSA, treated Postoperative acute blood loss anemia and thrombocytopenia, expected Acute hypoxic respiratory failure, recovering Plan: Continue to maximize medical therapy with aspirin, statin, Plavix, beta jennifer therapy. Will increase beta jennifer therapy as tolerated, hold parameters on beta jennifer Continue calcium channel jenniefr for radial artery spasm prophylaxis, hold parameters placed Wean O2 as tolerated. Encourage incentive spirometry 10 times every hour while awake. Bronchodilators per pulmonology Increase activity, ambulate as tolerated. PT/OT/cardiac rehab consulted Will monitor daily labs and x-rays. Electrolyte replacement per protocol. Continue IV push Lasix BID, will increase to 40 mg GI/DVT prophylaxis Pain control per current medication regimen Insulin management per internal medicine. Patient is diabetic with hemoglobin A1c 7.1%, needs tight blood sugar control to prevent infection and promote healing Strict accurate intake and output Daily weights Smoking cessation counseling and education offered, patient is encouraged to quit smoking completely Discharge planning in progress, anticipate discharge to home with home care in the next 24 hours, hopefully able to get off oxygen More recommendations to follow as patient progresses
--- NOTE | 2022-11-10 08:38 | XR ---
EXAMINATION TYPE: XR chest 2V DATE OF EXAM: 11/10/2022 COMPARISON: 11/09/2022 TECHNIQUE: PA and lateral views submitted. HISTORY: Post cardiac surgery FINDINGS: Hyperexpansion. There is bilateral consolidation and pleural effusion with cardiomegaly. Atherosclero tic change aorta. Diffuse interstitial pattern. Postsurgical changes. IMPRESSION: 1. COPD with superimposed CHF stable.
[2022-11-10] MEDS: ASPIRIN 325 MG TAB PO SCH (08:59)
[2022-11-10] MEDS: INSULIN DETEMIR (LEVEMIR) 100 UNIT/ML SYR SQ SCH (08:59)
[2022-11-10] MEDS: ATORVASTATIN 20 MG TAB PO SCH (08:59)
[2022-11-10] MEDS: HEPARIN SODIUM,PORCINE/PF 5,000 UNIT/0.5 ML SYRINGE SQ SCH ×3 (08:59→23:12)
[2022-11-10] MEDS: CLOPIDOGREL 75 MG TAB PO SCH (08:59)
[2022-11-10] MEDS: FUROSEMIDE 10 MG/ML 4 ML VIAL IV SCH ×2 (09:00→20:06)
[2022-11-10] MEDS: METOPROLOL TARTRATE 12.5 MG TAB PO SCH ×2 (09:00→20:06)
[2022-11-10] MEDS: POTASSIUM BICARBONATE/CIT AC 20 MEQ TABLET.EFF PO SCH (09:00)
[2022-11-10] MEDS: IPRATROPIUM-ALBUTEROL 3 ML NEB INHALATION SCH ×4 (09:21→21:11)
[2022-11-10 09:43] LABS: HGB 8.8 gm/dL (11.4-16.0); Hypochromasia Marked; MCH 29.2 pg (25.0-35.0); MCHC 29.5 g/dL (31.0-37.0); MCV 98.9 fL (80.0-100.0); Macrocytosis Slight; Mean Platelet Volume 7.8; Platelet Count 372 k/uL (150-450); RBC 3.03 m/uL (3.80-5.40); RDW 15.3 % (11.5-15.5); WBC 13.5 k/uL (3.8-10.6)
[2022-11-10 10:02] LABS: African American GFR (CKD) >90 (>60 ml/min/1.73 sqM); Anion Gap 12 mmol/L; Blood Urea Nitrogen 23 mg/dL (7-17); Carbon Dioxide 25 mmol/L (22-30); Chloride 102 mmol/L (98-107); Glucose 119 mg/dL (74-99); Non-African American GFR(CKD) 80 (>60 ml/min/1.73 sqM); Potassium 4.2 mmol/L (3.5-5.1); Sodium 139 mmol/L (137-145)
[2022-11-10] MEDS: amLODIPine 2.5 MG TAB PO SCH (11:05)
[2022-11-10 11:43] LABS: Glucose,Whole Blood 102 mg/dL (70-110)
--- NOTE | 2022-11-10 11:45 | P.PN ---
Subjective Progress Note Date: 11/10/22 Principal diagnosis: Open heart surgery. Patient was evaluated today on 11/06/2022, she is now postoperative day #2, patient desaturated yesterday, she developed mostly bibasilar atelectasis, poor urine output, and she developed some component of mild congestive heart failure. Patient was placed on dopamine at 3 mcg/kg/m, they called me on the patient last night and I recommended that the patient goes on airvo high flow and high FiO2, patient was also given a dose of Lasix 40 mg IV push, and today she is scheduled to have a unit of blood for hemoglobin of 7.7 and should be given more Lasix after the units of blood given. Patient is not making good effort with her incentive spirometry, she is only achieving no more than 500 mL. Basically the patient is marginal at best. ABG this morning showed a pO2 of 70 pCO2 40 pH of 7.38. Patient is in sinus rhythm, and seems to be hemodynamically marginal, blood pressure seems to be running a bit on the low side. The patient is seen today 11/07/2022 in follow-up in the intensive care unit. Postoperative day #3. She is currently sitting up in a chair at the bedside. Awake and alert in no acute distress. She is AirVo high flow nasal cannula at 40 L and 60% FiO2 to maintain O2 saturations in the 90s. She is only pulling approximately 500 ML's on her incentive spirometer. Chest x-ray shows no sizable pneumothorax. There is diffuse interstitial pattern with bilateral consolidation and small effusions. She is currently on Lasix 20 mg IV every 12 hours. Currently in a -500 ML balance. Lactated Ringer's at 20 ML's per hour. Dopamine is off. She has received 1 unit of packed red blood cells. White count 11.6. Hemoglobin 8.1. Platelets 164. Sodium 139. Potassium 3.7. Bicarb 25. BUN 25. Creatinine 0.93. Magnesium 1.9. Albumin 2.9. He is continued on bronchodilators. Heparin for DVT prophylaxis. The patient is seen today 11/08/2022 in follow-up in the intensive care unit. Postoperative day #4. She is currently sitting up in a chair. Awake and alert in no acute distress. She is breathing better today. She is down to 3 L high flow nasal cannula. No IV fluids. She remains on Lasix 20 mg IV every 12 hours. She is currently in a -1.2 L balance. She is pulling approximately 750 MLS on her incentive spirometer. His x-ray shows cardiomegaly with prominent pulmonary vascular markings and small bilateral effusions. White count 11.4. Hemoglobin 8.4. Platelets 240,000. Sodium 139. Potassium 4.4. Bicarb 31. BUN 27. Creatinine 0.92. Glucose 74. She remains on DuoNeb inhalations. Heparin for DVT prophylaxis. Progress note dated 11/09/2022. The patient was transferred out of the intensive care unit yesterday, and to room 360. She is currently been weaned down to 1.5 L of oxygen. She's not receiving any IV fluids. She's feeling much better and states that she may be discharged home tomorrow. White count 11.1, hemoglobin 8.5, hematocrit 27.1, with a normal platelet count. Sodium 141, potassium 4.3, chlorides 105, CO2 27, BUN 25, creatinine 0.81. Chest x-ray shows diffuse bilateral infiltrates, consistent with mild fluid overload, and bibasilar atelectasis. Progress note dated 11/10/2022. The patient is doing well. She seen today in room 360. She was hoping to go home today, but the patient is being kept an additional day, according to cardiology and cardiothoracic surgery. The patient has been weaned down to 1 L of oxygen. She is now receiving some IV Lasix. She's not on any IV fluids. Clinically, she appears stable. Her chest x-ray does appear to show fluid overload. White count 13.5, hemoglobin 8.8, hematocrit 30, and platelet count is normal. Sodium 139, potassium 4.2, chlorides 102, CO2 25, BUN 23, creatinine 0.74. Chest x-rays consistent with CHF. Objective - Vital Signs Vital signs: Vital Signs Temp 99 F 11/10/22 08:00 Pulse 94 11/10/22 09:31 Resp 20 11/10/22 08:10 BP 103/63 11/10/22 08:00 Pulse Ox 91 L 11/10/22 09:21 FiO2 60 11/07/22 08:00 Intake & Output 07/05/23 07/06/23 07/06/23 18:59 06:59 18:59 Intake Total 240 598 Output Total 300 550 750 Balance -300 -310 -152 Weight 83.4 kg 82.1 kg Intake: Oral 240 598 Output: Urine 300 550 750 Other: Voiding Method Toilet Toilet Bedside Commode ABP, PAP, CO, CI - Last Documented Arterial Blood Pressure 102/60 Pulmonary Artery Pressure 33/9 Cardiac Output 4.7 Cardiac Index 2.5 - Exam No acute distress, oriented 3. Currently on nasal O2 at 1 L. HEENT examination is grossly unremarkable. Mucous membranes are moist. No oral lesions. Neck supple. Full range of motion. No adenopathy thyromegaly or neck vein distention. Cardiovascular examination reveals regular rhythm rate. S1-S2 normal. No S3 or S4. No discernible murmur noted. Heart rate is 94 bpm. Lungs reveal scattered mild to moderate rhonchi and crackles. Breath sounds equal bilaterally. No wheezes. Saturations are 91 %. Abdomen soft bowel sounds are heard. No masses or tenderness. Extremities are intact. No cyanosis clubbing or edema. Skin is without rash or lesion. Neurologic examination is brief but nonfocal. - Labs CBC & Chem 7: 11/10/22 08:40 11/10/22 08:40 Labs: Abnormal Lab Results - Last 24 Hours (Table) 11/09/22 11/10/22 11/10/22 Range/Units 20:14 08:40 08:40 WBC 13.5 H (3.8-10.6) k/uL RBC 3.03 L (3.80-5.40) m/uL Hgb 8.8 L (11.4-16.0) gm/dL Hct 30.0 L (34.0-46.0) % MCHC 29.5 L (31.0-37.0) g/dL BUN 23 H (7-17) mg/dL Glucose 119 H (74-99) mg/dL POC Glucose (mg/dL) 117 H (70-110) mg/dL Assessment and Plan Assessment: Coronary artery disease, status post off-pump coronary artery bypass grafting 2 utilizing a GARCÍA to the diagonal and jump graft left radial artery off the GARCÍA to the mid LAD with ligation of the left atrial appendage with a 35mm AtriCure clip. Postoperative day #6. Chest x-ray continues to show diffuse interstitial pattern with bilateral consolidation and small effusions. Routine postoperative ventilator management. Chronic and ongoing tobacco dependence. FEV1 value was 1.36 L which is 87% of predicted. Acute hypoxemic respiratory failure secondary to above. Diabetes mellitus. Obesity. Hyperlipidemia. Hypertension. Peripheral vascular disease. Plan: Plan dated 11/09/2022. The patient states that she may be discharged home tomorrow. She is currently down to 1.5 L of oxygen. She continues on the incentive spirometer every hour, and we encourage deep breathing, cough, and clear secretions. She may need to be discharged home on oxygen. That'll be determined tomorrow before discharge. Labs, x-rays, and medications are reviewed. Prognosis is guarded. We will continue to follow the patient and make recommendations along the way. Plan dated 11/10/2022. The patient has been weaned down to 1 L. On room air, her saturations are in the mid to high 80s. The patient is not receiving IV Lasix. Labs, x-rays, and medications are reviewed. The patient is postop day #6. Prognosis is guarded. We will continue to follow the patient and make recommendations along the way. Time with Patient: Less than 30
--- NOTE | 2022-11-10 12:37 | P.PN ---
Subjective Progress Note Date: 11/10/22 Subjective: Patient seen and examined at bedside. No acute events overnight. Claims that she has some midsternal chest pain around the incision site. Denies any difficulty with breathing, urinary or bowel complaints. Pertinent positives and negatives as discussed above, a complete review of systems was performed and all other systems are negative. Vitals Signs Reviewed. General: nontoxic, no distress, appears at stated age Derm: warm, dry, dressing clean, dry, intact Head: atraumatic, normocephalic, symmetric Eyes: EOMI, no lid lag, anicteric sclera Mouth: no lip lesion, mucus membranes moist Cardiovascular: S1S2 reg, no murmur Lungs: CTA bilateral, no rhonchi, no rales , no accessory muscle use, supplemental oxygen Abdominal: soft, nontender to palpation, no guarding, no appreciable organomegaly Ext: no gross muscle atrophy, no edema, no contractures Neuro: CN II-XI grossly intact, no focal neuro deficits Psych: Alert, oriented, appropriate affect Data Reviewed Today: Pertinent Labs: WBC 13.5, hemoglobin 8.8, sodium 139, potassium 4.2, creatinine 0.74, blood sugars range between 96-119 Imaging: Chest x-ray independently interpreted, bilateral interstitial opaci ties, unchanged from yesterday Assessment and Plan: Type 2 diabetes mellitus, [id number], A1c 7.1 Status post CABG Acute blood loss anemia, anticipated outcome of surgery, stable COPD without exacerbation Nicotine dependence Obesity with BMI of 33 Hypertension Dyslipidemia Osteoarthritis Elevated creatinine, resolved Thrombocytopenia, resolved -Continue Levemir 5 units daily, sliding scale insulin continue -Continue to hold home glipizide and pioglitazone -Cardiothoracic note reviewed, IV Lasix increased to 40 twice a day for another 24 hours, anticipated discharge in the next 24 hours -She is status post 1 unit of PRBCs, hemoglobin of stable -On bronchodilators -Pulmonology note reviewed, no changes -Counseled regarding smoking cessation -Continue amlodipine for now, holding other home antihypertensives -On aspirin, Plavix, atorvastatin Thank you for allowing us to participate in the care of this pleasant patient. Do not hesitate to contact us with questions. Someone can be reached from the [facility] hospitalist group all hours of the day at [phone] or via [employer]. Objective - Vital Signs Vital signs: Vital Signs Temp 99 F 11/10/22 08:00 Pulse 94 11/10/22 09:31 Resp 20 11/10/22 08:10 BP 103/63 11/10/22 08:00 Pulse Ox 91 L 11/10/22 09:21 FiO2 60 11/07/22 08:00 Intake & Output 11/09/22 11/10/22 11/10/22 18:59 06:59 18:59 Intake Total 240 598 Output Total 300 550 750 Balance -300 -310 -152 Weight 83.4 kg 82.1 kg Intake: Oral 240 598 Output: Urine 300 550 750 Other: Voiding Method Toilet Toilet Bedside Commode ABP, PAP, CO, CI - Last Documented Arterial Blood Pressure 102/60 Pulmonary Artery Pressure 33/9 Cardiac Output 4.7 Cardiac Index 2.5 - Labs CBC & Chem 7: 11/10/22 08:40 11/10/22 08:40 Labs: Abnormal Lab Results - Last 24 Hours (Table) 11/09/22 11/10/22 11/10/22 Range/Units 20:14 08:40 08:40 WBC 13.5 H (3.8-10.6) k/uL RBC 3.03 L (3.80-5.40) m/uL Hgb 8.8 L (11.4-16.0) gm/dL Hct 30.0 L (34.0-46.0) % MCHC 29.5 L (31.0-37.0) g/dL BUN 23 H (7-17) mg/dL Glucose 119 H (74-99) mg/dL POC Glucose (mg/dL) 117 H (70-110) mg/dL
[2022-11-10 16:33] LABS: Glucose,Whole Blood 84 mg/dL (70-110)
[2022-11-10 19:55] LABS: Glucose,Whole Blood 121 mg/dL (70-110)
[2022-11-10 23:26] VITALS: RESP 18
[2022-11-11] MEDS: ACETAMINOPHEN TAB 325 MG TAB PO PRN (01:17)
[2022-11-11 02:02] LABS: Glucose,Whole Blood 106 mg/dL (70-110)
--- NOTE | 2022-11-11 06:10 | P.PN ---
Subjective Progress Note Date: 11/11/22 Principal diagnosis: CAD status post CABG The patient is a 77-year-old -[place] female patient who is status post CABG. She was seen this morning. She continues to be hypoxic requiring oxygen. She continues to be symptomatic in terms of shortness of breath. No pain in the chest. On examination she does have diminished breathing sounds bilaterally and she does have crackles mainly in the bases as well. Currently she is on Lasix IV which I would agree on with the possible need for additional dose of Lasix IV. Otherwise she has been maintaining normal sinus mechanism. Chest x- ray is in process to be done. Blood work still pending. 11/11/2022 The patient was seen and evaluated this morning. She stated hypoxic but currently she is only on 1 L of oxygen. She has been diuresing well overnight and she put out about 1 L. She is on Lasix IV. On examination she continues to have bilateral rhonchi/crackles with diminished breathing sounds in both bases. As a matter of fact the chest x-ray from yesterday showed evidence of heart failure along with COPD. From the Standpoint of view, I will suggest keeping the patient on Lasix IV for additional 24 hours and continue monitor the kidney function and electrolytes and a chest x-ray. She might benefit from going into rehab facility from the hospital. Meanwhile continue the rest of the current medical regimen in addition to Lasix and continue follow-up with the patient. Assessment CAD and status post CABG Hypertension Dyslipidemia Heart failure/COPD Multiple comorbid conditions Plan Continue the rest of the current medical regimen Continue IV Lasix for now Continue monitor the kidney function and electrolytes Follow-up with the patient Objective - Vital Signs Vital signs: Vital Signs Temp 98.3 F 11/11/22 03:15 Pulse 86 11/11/22 03:15 Resp 18 11/11/22 03:15 BP 128/74 11/11/22 03:15 Pulse Ox 95 11/11/22 03:15 FiO2 60 11/07/22 08:00 Intake & Output 11/10/22 11/10/22 11/11/22 06:59 18:59 06:59 Intake Total 240 1138 Output Total 550 1250 1100 Balance -310 -112 -1100 Weight 82.1 kg Intake: Oral 240 1138 Output: Urine 550 1250 1100 Other: Voiding Method Toilet Toilet ABP, PAP, CO, CI - Last Documented Arterial Blood Pressure 102/60 Pulmonary Artery Pressure 33/9 Cardiac Output 4.7 Cardiac Index 2.5 - Labs CBC & Chem 7: 11/10/22 08:40 11/10/22 08:40 Labs: Abnormal Lab Results - Last 24 Hours (Table) 11/10/22 11/10/22 11/10/22 Range/Units 08:40 08:40 19:54 WBC 13.5 H (3.8-10.6) k/uL RBC 3.03 L (3.80-5.40) m/uL Hgb 8.8 L (11.4-16.0) gm/dL Hct 30.0 L (34.0-46.0) % MCHC 29.5 L (31.0-37.0) g/dL BUN 23 H (7-17) mg/dL Glucose 119 H (74-99) mg/dL POC Glucose (mg/dL) 121 H (70-110) mg/dL
[2022-11-11] MEDS: INSULIN ASPART (NovoLOG) 100 UNIT/ML VIAL SQ SCH ×2 (06:14→11:35)
[2022-11-11] MEDS: PANTOPRAZOLE 40 MG TABLET PO SCH (06:22)
[2022-11-11] MEDS: INSULIN DETEMIR (LEVEMIR) 100 UNIT/ML SYR SQ SCH (06:22)
[2022-11-11 06:24] LABS: Glucose,Whole Blood 95 mg/dL (70-110)
[2022-11-11] MEDS: IPRATROPIUM-ALBUTEROL 3 ML NEB INHALATION SCH ×3 (08:44→16:13)
[2022-11-11] MEDS ORDERED: METOPROLOL TARTRATE 25 MG TAB PO SCH (09:00)
[2022-11-11 09:04] VITALS: TEMP 96.7
--- NOTE | 2022-11-11 10:20 | XR ---
EXAMINATION TYPE: XR chest 1V portable DATE OF EXAM: 11/11/2022 COMPARISON: 11/10/2022 HISTORY: Postop CABG TECHNIQUE: Single frontal view of the chest is obtained. FINDINGS: The heart is enlarged. Postsurgical changes. There is a diffuse interstitial pattern with bilateral consolidation and small effusion. No pneumothorax. Underlying COPD noted. Hypertrophic and degenerative change of the spine. IMPRESSION: A bilateral infiltrate and pleural effusion. Heart is enlarged. Correlate for CHF.
[2022-11-11] MEDS: HEPARIN SODIUM,PORCINE/PF 5,000 UNIT/0.5 ML SYRINGE SQ SCH (10:27)
[2022-11-11] MEDS: ASPIRIN 325 MG TAB PO SCH (10:28)
[2022-11-11] MEDS: POTASSIUM BICARBONATE/CIT AC 20 MEQ TABLET.EFF PO SCH (10:28)
[2022-11-11] MEDS: CLOPIDOGREL 75 MG TAB PO SCH (10:28)
[2022-11-11] MEDS: ATORVASTATIN 20 MG TAB PO SCH (10:28)
[2022-11-11] MEDS: FUROSEMIDE 10 MG/ML 4 ML VIAL IV SCH ×2 (10:28→15:51)
[2022-11-11 10:52] LABS: Basophils % (A) 0 %; Eosinophils # (A) 0.3 k/uL (0-0.7); Eosinophils % (A) 2 %; HGB 9.3 gm/dL (11.4-16.0); Hypochromasia Moderate; Lymphocytes # (A) 2.3 k/uL (1.0-4.8); Lymphocytes % (A) 16 %; MCH 30.1 pg (25.0-35.0); MCV 96.9 fL (80.0-100.0); Mean Platelet Volume 7.7; Monocytes # (A) 0.7 k/uL (0-1.0); Monocytes % (A) 5 %; Neutrophils # (A) 10.4 k/uL (1.3-7.7); Neutrophils % (A) 75 %; Platelet Count 476 k/uL (150-450); RDW 15.2 % (11.5-15.5); WBC 13.9 k/uL (3.8-10.6)
[2022-11-11 11:08] LABS: African American GFR (CKD) 87 (>60 ml/min/1.73 sqM); Anion Gap 10 mmol/L; Blood Urea Nitrogen 27 mg/dL (7-17); Calcium 9.1 mg/dL (8.4-10.2); Carbon Dioxide 32 mmol/L (22-30); Chloride 98 mmol/L (98-107); Glucose 112 mg/dL (74-99); Non-African American GFR(CKD) 76 (>60 ml/min/1.73 sqM); Sodium 140 mmol/L (137-145)
[2022-11-11 11:11] LABS: Potassium 4.4 mmol/L (3.5-5.1)
[2022-11-11 11:32] LABS: Glucose,Whole Blood 98 mg/dL (70-110)
--- NOTE | 2022-11-11 11:42 | P.PN ---
Subjective Progress Note Date: 11/11/22 Subjective: Patient seen and examined at bedside. No acute events overnight. He denies any new problems Pertinent positives and negatives as discussed above, a complete review of systems was performed and all other systems are negative. Vitals Signs Reviewed. General: nontoxic, no distress, appears at stated age Derm: warm, dry, dressing clean, dry, intact Head: atraumatic, normocephalic, symmetric Eyes: EOMI, no lid lag, anicteric sclera Mouth: no lip lesion, mucus membranes moist Cardiovascular: S1S2 reg, no murmur Lungs: CTA bilateral, no rhonchi, no rales , no accessory muscle use, supplemental oxygen Abdominal: soft, nontender to palpation, no guarding, no appreciable organo megaly Ext: no gross muscle atrophy, no edema, no contractures Neuro: CN II-XI grossly intact, no focal neuro deficits Psych: Alert, oriented, appropriate affect Data Reviewed Today: Pertinent Labs: WBC 13.9, hemoglobin 9.3, platelet 476, potassium 4.4, creatinine 0.77, blood sugar ranged between 95-112 Imaging: Chest x-ray independently interpreted, bilateral interstitial opacities, unchanged from yesterday Assessment and Plan: Type 2 diabetes mellitus, [id number], A1c 7.1 Status post CABG Acute blood loss anemia, anticipated outcome of surgery, stable COPD without exacerbation Nicotine dependence Obesity with BMI of 33 Hypertension Dyslipidemia Osteoarthritis Elevated creatinine, resolved Thrombocytopenia, resolved -Continue Levemir 5 units daily, sliding scale insulin continue -Restart glipizide at the time of discharge, pioglitazone discontinued due to concern of heart failure, metformin started -Cardiothoracic following, possible discharge today -She is status post 1 unit of PRBCs, hemoglobin of stable -On bronchodilators -Pulmonology following -Counseled regarding smoking cessation -Continue amlodipine at a reduced dose, holding other home antihypertensives, likely due to holding the time of discharge as well -On aspirin, Plavix, atorvastatin Patient is otherwise medically optimized for discharge home Thank you for allowing us to participate in the care of this pleasant patient. Do not hesitate to contact us with questions. Someone can be reached from the [facility] hospitalist group all hours of the day at [phone] or via perfect serve. Objective - Vital Signs Vital signs: Vital Signs Temp 96.7 F L 11/11/22 08:00 Pulse 98 11/11/22 10:25 Resp 18 11/11/22 08:00 BP 100/55 11/11/22 08:00 Pulse Ox 91 L 11/11/22 10:25 FiO2 60 11/07/22 08:00 Intake & Output 11/10/22 11/11/22 11/11/22 18:59 06:59 18:59 Intake Total 1138 118 Output Total 1250 1100 Balance -112 -1100 118 Weight 80.6 kg Intake: Oral 1138 118 Output: Urine 1250 1100 Other: Voiding Method Toilet Toilet ABP, PAP, CO, CI - Last Documented Arterial Blood Pressure 102/60 Pulmonary Artery Pressure 33/9 Cardiac Output 4.7 Cardiac Index 2.5 - Labs CBC & Chem 7: 11/11/22 09:54 11/11/22 09:54 Labs: Abnormal Lab Results - Last 24 Hours (Table) 11/10/22 11/11/22 11/11/22 Range/Units 19:54 09:54 09:54 WBC 13.9 H (3.8-10.6) k/uL RBC 3.10 L (3.80-5.40) m/uL Hgb 9.3 L (11.4-16.0) gm/dL Hct 30.0 L (34.0-46.0) % Plt Count 476 H (150-450) k/uL Neutrophils # 10.4 H (1.3-7.7) k/uL Carbon Dioxide 32 H (22-30) mmol/L BUN 27 H (7-17) mg/dL Glucose 112 H (74-99) mg/dL POC Glucose (mg/dL) 121 H (70-110) mg/dL
[2022-11-11] MEDS: amLODIPine 2.5 MG TAB PO SCH (12:16)
--- NOTE | 2022-11-11 12:44 | P.PN ---
Subjective Progress Note Date: 11/11/22 Principal diagnosis: Coronary artery disease. Previous medical history of hypertension, hyperlipidemia, type 2 diabetes, current tobacco dependence, osteoarthritis, obesity, peripheral vascular disease. Preoperative nasal swab positive for MSSA, treated POD #7 off-pump coronary artery bypass graft 2 with left internal mammary artery to the diagonal and jump graft left radial artery off the GARCÍA to the mid left anterior descending artery, ligation of the left atrial appendage with 35 mm AtriCure clip, endovascular left radial artery harvest, intraoperative transesophageal echocardiogram performed by anesthesia Postoperative acute blood loss anemia and thrombocytopenia, expected Acute hypoxic respiratory failure secondary to volume overload, current tobacco dependence The patient was seen and examined in follow-up today 11/11/2022 at her bedside on the cardiac study done in. Currently she is sitting up to the bedside chair, is awake, alert, oriented 3 and is in no acute apparent distress. Oxygen saturations are 91% on room air and she is achieving 1000 mL on her incentive spirometry with encouragement. Denies any complaints of pain or shortness of breath at this time, although complaints of some shortness of breath with activity. She ambulated in the cardiac stepdown unit hallway this morning with physical therapy and tolerated walking around 100 feet. Chest x-ray and laboratory results remain pending. She is been afebrile the last 24 hours. D ischarge planning is in place. Laboratory and chest x-ray results reviewed. Objective - Vital Signs Vital signs: Vital Signs Temp 98.3 F 11/11/22 03:15 Pulse 88 11/11/22 08:54 Resp 18 11/11/22 03:15 BP 128/74 11/11/22 03:15 Pulse Ox 95 11/11/22 06:16 FiO2 60 11/07/22 08:00 Intake & Output 11/10/22 11/11/22 11/11/22 18:59 06:59 18:59 Intake Total 1138 118 Output Total 1250 1100 Balance -112 -1100 118 Weight 80.6 kg Intake: Oral 1138 118 Output: Urine 1250 1100 Other: Voiding Method Toilet Toilet ABP, PAP, CO, CI - Last Documented Arterial Blood Pressure 102/60 Pulmonary Artery Pressure 33/9 Cardiac Output 4.7 Cardiac Index 2.5 - Exam CONSTITUTIONAL: Appears comfortable, cooperative RESPIRATORY: Lungs sounds diminished bilaterally, few scattered crackles to bilateral bases. Respirations are symmetrical and nonlabored. Currently on room air with oxygen saturation 91%. Able to achieve 1000 mL on incentive spirometry with better effort. Strong cough. CARDIOVASCULAR: S1, S2 present, negative for S3, gallop or murmur. Regular rate and rhythm, sinus rhythm on telemetry, heart rate 95 BPM. Sternum stable. Palpable peripheral pulses bilaterally. No edema present. No calf pain or tenderness noted. Heart hugger in place with patient demonstrating appropriate use. Antiembolism stockings, SCDs present. GASTROINTESTINAL: Abdomen soft, nontender, nondistended. Active bowel sounds present 4 quadrants. Tolerating diet. Bowel movement 11/08 GENITOURINARY: Continues to void, 2350 mL urine output in the last 24 hours. INTEGUMENTARY: Skin is warm and dry, without any cyanosis or clubbing. Midline sternal incision, clean, dry and well approximated. Left radial artery harvest site well approximated without redness or drainage. NEUROLOGIC: Cranial nerves II through XII intact. No focal deficits. MUSKULOSKELETAL: Able to move all extremities, strength equal bilaterally. PSYCHIATRIC: Alert and oriented to person place and time, flat affect, intact judgment and insight. - Allied health notes Allied health notes reviewed: nursing - Labs CBC & Chem 7: 11/11/22 09:54 11/11/22 09:54 Labs: Abnormal Lab Results - Last 24 Hours (Table) 11/10/22 11/10/22 11/10/22 Range/Units 08:40 08:40 19:54 WBC 13.5 H (3.8-10.6) k/uL RBC 3.03 L (3.80-5.40) m/uL Hgb 8.8 L (11.4-16.0) gm/dL Hct 30.0 L (34.0-46.0) % MCHC 29.5 L (31.0-37.0) g/dL BUN 23 H (7-17) mg/dL Glucose 119 H (74-99) mg/dL POC Glucose (mg/dL) 121 H (70-110) mg/dL Assessment and Plan Assessment: Coronary artery disease, status post 2 vessel CABG History of hypertension Hyperlipidemia, treated, cholesterol 188, LDL 106, triglycerides 93 Type 2 diabetes, preoperative hemoglobin A1c 7.1% Current ongoing tobacco dependence, preoperative FEV1 96% of predicted Osteoarthritis Obesity, with a BMI of 31.5 kg/m Peripheral vascular disease Preoperative nasal swab positive for MSSA, treated Postoperative acute blood loss anemia and thrombocytopenia, expected Acute hypoxic respiratory failure, recovering Plan: Continue to maximize medical therapy with aspirin, statin, Plavix, and beta jennifer. Will increase metoprolol tartrate 25 mg by mouth twice a day, hold parameters on beta jennifer. Continue amlodipine 2.5 mg by mouth daily at noon for radial artery spasm prophylaxis, hold parameters placed. Wean O2 as tolerated. Encourage incentive spirometry 10 times every hour while awake. Bronchodilators per pulmonology. Increase activity, ambulate as tolerated. PT/OT/cardiac rehab following. Will monitor daily labs and chest x-rays. Electrolyte replacement per protocol. Continue IV push Lasix 40 mg BID. GI/DVT prophylaxis. Pain control per current medication regimen. Insulin management per internal medicine. Patient is diabetic with hemoglobin A1c 7.1%, needs tight blood sugar control to prevent infection and promote healing. Strict accurate intake and output. Daily weights. Importance of risk modification including smoking cessation counseling and education offered, patient is encouraged to quit smoking completely. Discharge planning in progress, anticipate discharge to home with home care in the next 24 hours. More recommendations to follow based on patient's clinical course. Time with Patient: Greater than 30
--- NOTE | 2022-11-11 13:41 | P.PN ---
Subjective Progress Note Date: 11/11/22 Principal diagnosis: Open heart surgery. Patient was evaluated today on 11/06/2022, she is now postoperative day #2, patient desaturated yesterday, she developed mostly bibasilar atelectasis, poor urine output, and she developed some component of mild congestive heart failure. Patient was placed on dopamine at 3 mcg/kg/m, they called me on the patient last night and I recommended that the patient goes on airvo high flow and high FiO2, patient was also given a dose of Lasix 40 mg IV push, and today she is scheduled to have a unit of blood for hemoglobin of 7.7 and should be given more Lasix after the units of blood given. Patient is not making good effort with her incentive spirometry, she is only achieving no more than 500 mL. Basically the patient is marginal at best. ABG this morning showed a pO2 of 70 pCO2 40 pH of 7.38. Patient is in sinus rhythm, and seems to be hemodynamically marginal, blood pressure seems to be running a bit on the low side. The patient is seen today 11/07/2022 in follow-up in the intensive care unit. Postoperative day #3. She is currently sitting up in a chair at the bedside. Awake and alert in no acute distress. She is AirVo high flow nasal cannula at 40 L and 60% FiO2 to maintain O2 saturations in the 90s. She is only pulling approximately 500 ML's on her incentive spirometer. Chest x-ray shows no sizable pneumothorax. There is diffuse interstitial pattern with bilateral consolidation and small effusions. She is currently on Lasix 20 mg IV every 12 hours. Currently in a -500 ML balance. Lactated Ringer's at 20 ML's per hour. Dopamine is off. She has received 1 unit of packed red blood cells. White count 11.6. Hemoglobin 8.1. Platelets 164. Sodium 139. Potassium 3.7. Bicarb 25. BUN 25. Creatinine 0.93. Magnesium 1.9. Albumin 2.9. He is continued on bronchodilators. Heparin for DVT prophylaxis. The patient is seen today 11/08/2022 in follow-up in the intensive care unit. Postoperative day #4. She is currently sitting up in a chair. Awake and alert in no acute distress. She is breathing better today. She is down to 3 L high flow nasal cannula. No IV fluids. She remains on Lasix 20 mg IV every 12 hours. She is currently in a -1.2 L balance. She is pulling approximately 750 MLS on her incentive spirometer. His x-ray shows cardiomegaly with prominent pulmonary vascular markings and small bilateral effusions. White count 11.4. Hemoglobin 8.4. Platelets 240,000. Sodium 139. Potassium 4.4. Bicarb 31. BUN 27. Creatinine 0.92. Glucose 74. She remains on DuoNeb inhalations. Heparin for DVT prophylaxis. Progress note dated 11/09/2022. The patient was transferred out of the intensive care unit yesterday, and to room 360. She is currently been weaned down to 1.5 L of oxygen. She's not receiving any IV fluids. She's feeling much better and states that she may be discharged home tomorrow. White count 11.1, hemoglobin 8.5, hematocrit 27.1, with a normal platelet count. Sodium 141, potassium 4.3, chlorides 105, CO2 27, BUN 25, creatinine 0.81. Chest x-ray shows diffuse bilateral infiltrates, consistent with mild fluid overload, and bibasilar atelectasis. Progress note dated 11/10/2022. The patient is doing well. She seen today in room 360. She was hoping to go home today, but the patient is being kept an additional day, according to cardiology and cardiothoracic surgery. The patient has been weaned down to 1 L of oxygen. She is now receiving some IV Lasix. She's not on any IV fluids. Clinically, she appears stable. Her chest x-ray does appear to show fluid overload. White count 13.5, hemoglobin 8.8, hematocrit 30, and platelet count is normal. Sodium 139, potassium 4.2, chlorides 102, CO2 25, BUN 23, creatinine 0.74. Chest x-rays consistent with CHF. Progress note dated 11/11/2022. The patient is seen today in room 360. The patient is currently on room air. She's not receiving any IV fluids. The patient is hoping to be discharged sometime today. She was kept an extra day by cardiology and cardiothoracic surgery. White count 13.9, hemoglobin 9.3, hematocrit 30, and platelet count 476,000. Sodium 140, potassium 4.4, chlorides 98, CO2 32, BUN 27, and creatinine 0.77. Chest x-ray shows findings that could be consistent with mild fluid overload. There is some atelectasis at the bases as well. Objective - Vital Signs Vital signs: Vital Signs Temp 96.7 F L 11/11/22 08:00 Pulse 82 11/11/22 12:02 Resp 18 11/11/22 08:00 BP 100/55 11/11/22 08:00 Pulse Ox 91 L 11/11/22 10:25 FiO2 60 11/07/22 08:00 Intake & Output 11/10/22 11/11/22 11/11/22 18:59 06:59 18:59 Intake Total 1138 118 Output Total 1250 1100 400 Balance -112 -1100 -282 Weight 80.6 kg Intake: Oral 1138 118 Output: Urine 1250 1100 400 Other: Voiding Method Toilet Toilet # Voids 1 ABP, PAP, CO, CI - Last Documented Arterial Blood Pressure 102/60 Pulmonary Artery Pressure 33/9 Cardiac Output 4.7 Cardiac Index 2.5 - Exam No acute distress, oriented 3. The patient is currently on room air. Saturations are 94% at rest. HEENT examination is grossly unremarkable. Mucous membranes are moist. No oral lesions. Neck supple. Full range of motion. No adenopathy thyromegaly or neck vein distention. Cardiovascular examination reveals regular rhythm rate. S1-S2 normal. No S3 or S4. No discernible murmur noted. Heart rate is 82 bpm. Lungs reveal scattered mild to moderate rhonchi and crackles. Breath sounds equal bilaterally. No wheezes. Abdomen soft bowel sounds are heard. No masses or tenderness. Extremities are intact. No cyanosis clubbing or edema. Skin is without rash or lesion. Neurologic examination is brief but nonfocal. - Labs CBC & Chem 7: 11/11/22 09:54 11/11/22 09:54 Labs: Abnormal Lab Results - Last 24 Hours (Table) 11/10/22 11/11/22 11/11/22 Range/Units 19:54 09:54 09:54 WBC 13.9 H (3.8-10.6) k/uL RBC 3.10 L (3.80-5.40) m/uL Hgb 9.3 L (11.4-16.0) gm/dL Hct 30.0 L (34.0-46.0) % Plt Count 476 H (150-450) k/uL Neutrophils # 10.4 H (1.3-7.7) k/uL Carbon Dioxide 32 H (22-30) mmol/L BUN 27 H (7-17) mg/dL Glucose 112 H (74-99) mg/dL POC Glucose (mg/dL) 121 H (70-110) mg/dL Assessment and Plan Assessment: Coronary artery disease, status post off-pump coronary artery bypass grafting 2 utilizing a GARCÍA to the diagonal and jump graft left radial artery off the GARCÍA to the mid LAD with ligation of the left atrial appendage with a 35mm AtriCure clip. Postoperative day #7. Chest x-ray continues to show diffuse interstitial pattern with bilateral consolidation and small effusions. Routine postoperative ventilator management. Chronic and ongoing tobacco dependence. FEV1 value was 1.36 L which is 87% of predicted. Acute hypoxemic respiratory failure secondary to above. Diabetes mellitus. Obesity. Hyperlipidemia. Hypertension. Peripheral vascular disease. Plan: Plan dated 11/09/2022. The patient states that she may be discharged home tomorrow. She is currently down to 1.5 L of oxygen. She continues on the incentive spirometer every hour, and we encourage deep breathing, cough, and clear secretions. She may need to be discharged home on oxygen. That'll be determined tomorrow before discharge. Labs, x-rays, and medications are reviewed. Prognosis is guarded. We will continue to follow the patient and make recommendations along the way. Plan dated 11/10/2022. The patient has been weaned down to 1 L. On room air, her saturations are in the mid to high 80s. The patient is not receiving IV Lasix. Labs, x-rays, and medications are reviewed. The patient is postop day #6. Prognosis is guarded. We will continue to follow the patient and make recommendations along the way. Plan dated 11/11/2022. The patient has been weaned off of oxygen. He is currently just on room air, with saturations of 94%. Labs, x-rays, and all medications are all reviewed. The patient is doing much better. She denies any significant shortness of breath, cough, wheezing, chest tightness, or phlegm production. The patient will follow-up in our office, and see one of my partners. Overall, the patient appears be doing well. Today is postop day #7. Time with Patient: Less than 30
--- NOTE | 2022-11-11 16:02 | P.DS ---
Providers Date of admission: 11/04/22 05:35 Expected date of discharge: 11/11/22 Attending physician: Chevy Hyde Consults: 11/04/22 13:01 Consult Physician Routine Consulting Provider: Angela Cortez Consult Reason/Comments: med renny; [place]af[place] patient Do you want consulting provider notified?: Yes Consult Physician Routine Consulting Provider: Laina Guillen Consult Reason/Comments: Computer Publisher Consult: post cardiac surgery Do you want consulting provider notified?: Yes Consult Physician Routine Consulting Provider: Lionel Marshall Consult Reason/Comments: Resident Care Assistant Consult: post cardiac surgery; Fabio patient Do you want consulting provider notified?: Yes Primary care physician: Pedro Leos MD Hospital Course: FINAL DIAGNOSIS: Coronary artery disease, status post 2 vessel CABG History of hypertension Hyperlipidemia, treated, cholesterol 188, LDL 106, triglycerides 93 Type 2 diabetes, preoperative hemoglobin A1c 7.1% Current ongoing tobacco dependence, preoperative FEV1 96% of predicted Osteoarthritis Obesity, with a BMI of 31.5 kg/m Peripheral vascular disease Preoperative nasal swab positive for MSSA, treated Postoperative acute blood loss anemia and thrombocytopenia, expected Acute hypoxic respiratory failure, recovering COPD, without exacerbation PRINCIPAL PROCEDURE: Off-pump CABG 2 with GARCÍA to diagonal and jump graft left radial artery off the GARCÍA to the mid LAD with ligation of the left atrial appendage with 35 mm AtriCure clip HISTORY OF PRESENT ILLNESS: This is a 77-year-old female patient who follows on an outpatient basis with Dr. Pedro Leos for her primary care and with Dr. Mccarthy for her cardiology care. Recently, the patient has had complaints of progressive fatigue and shortness of breath with activity over the past year. Due to her symptoms she underwent a transthoracic 2-D echocardiogram in March 2022 which demonstrated a normal left ventricular systolic function with no obvious regional wall motion abnormalities, left ventricular ejection fraction estimated at 55-60%, mild mitral valve regurgitation, a trileaflet aortic valve, mild tricuspid valve regurgitation, trace pulmonic valve regurgitation and no pericardial effusion was seen. Subsequently, for further evaluation the patient underwent a Lexiscan nuclear Cardiolite stress test on 09/14/2022 which showed nondiagnostic electrocardiographic stress testing, probable abnormal myocardial perfusion imaging with reversible anteroapical wall defect with normal gated SPECT images, findings suggestive of stress-induced ischemia in LAD territory although the possibility of soft tissue attenuation could not be excluded. Due to the findings on the stress test and the patient's progressive shortness of breath she underwent a cardiac catheterization which demonstrated a severely calcified LAD, severe obstructive disease involving the proximal LAD and torturous lesions involving a large diagonal branch, mild disease in the right coronary artery and normal LVEDP. The heart catheterization results were reviewed with the patient by Dr. Mccarthy and she was subsequently referred to Dr. Chevy Hyde from cardiothoracic surgery for further evaluation and treatment recommendations including myocardial revascularization surgery. Treatment options were discussed with the patient by Dr. Hyde including myocardial revascularization surgery. Risks and benefits of myocardial revascularization surgery were discussed with the patient including the STS risk score and knowing and understanding the risks the patient wished to proceed with the surgical option. HOSPITAL COURSE: The patient was brought to the hospital on 11/04/2022, taken to the preoperative area, prepared in the usual fashion and subsequently taken to the operating room where Dr. Chevy Hyde performed a 2 vessel off-pump CABG. Upon completion of the surgery the patient was transferred to the cardiovascular intensive care unit where she was recovered and monitored hemodynamically. She was extubated, all lines, tubes and supportive drips were discontinued when appropriate and she was transferred to the third floor cardiac stepdown unit for further monitoring and rehabilitation. Attempts were made to wean her oxygen off, although a walk test demonstrated her oxygen saturations to be 84% on room air with activity. Subsequently she will be discharged home with oxygen. The patient continued to work with physical and occupational therapy, cardiac rehab, she was tolerating an oral diet, her pain was well controlled and she was ready to be discharged home with [facility] on postoperative day #7. She has received written and verbal instructions regarding her medications, activity restrictions, signs and symptoms requiring physician notification and her follow-up appointments. Plan - Discharge Summary Discharge Rx Participant: No New Discharge Prescriptions: New Aspirin 325 mg PO DAILY #30 tab Potassium Chloride ER [K-Dur 10] 10 meq PO DAILY #30 tab Atorvastatin [Lipitor] 20 mg PO DAILY tab amLODIPine [Norvasc] 2.5 mg PO DAILY@1200 #30 tab Sennosides-Docusate Sodium [Senokot-S] 2 each PO HS PRN #14 tab PRN Reason: Constipation Furosemide [Lasix] 40 mg PO DAILY #30 tablet Ipratropium-Albuterol Nebulize [Duoneb 0.5 mg-3 mg/3 ml Soln] 3 ml INHALATION RT-QID #120 each Clopidogrel [Plavix] 75 mg PO DAILY #30 tab Pantoprazole [Protonix] 40 mg PO AC-BRKFST #30 tab Acetaminophen Tab [Tylenol] 650 mg PO Q4HR PRN tab PRN Reason: Fever And/ Or Pain Continue glipiZIDE [Glucotrol] 5 mg PO AC-BID Metoprolol Tartrate 25 mg PO BID Discontinued amLODIPine BESYLATE [Norvasc] 10 mg PO QAM Pioglitazone [Actos] 15 mg PO DAILY Atorvastatin [Lipitor] 20 mg PO DAILY Mupirocin 2% Oint [Bactroban 2% Oint] 1 applic NASAL BID 5 Days #22 gm Losartan Potassium 100 mg PO DAILY hydroCHLOROthiazide [Hydrodiuril] 25 mg PO DAILY Aspirin 324 mg PO DAILY Discharge Medication List glipiZIDE [Glucotrol] 5 mg PO AC-BID 06/01/21 [History] Metoprolol Tartrate 25 mg PO BID 11/01/22 [History] Acetaminophen Tab [Tylenol] 650 mg PO Q4HR PRN tab 11/11/22 [Rx] Aspirin 325 mg PO DAILY #30 tab 11/11/22 [Rx] Atorvastatin [Lipitor] 20 mg PO DAILY tab 11/11/22 [Rx] Clopidogrel [Plavix] 75 mg PO DAILY #30 tab 11/11/22 [Rx] Furosemide [Lasix] 40 mg PO DAILY #30 tablet 11/11/22 [Rx] Ipratropium-Albuterol Nebulize [Duoneb 0.5 mg-3 mg/3 ml Soln] 3 ml INHALATION RT-QID #120 each 11/11/22 [Rx] Pantoprazole [Protonix] 40 mg PO AC-BRKFST #30 tab 11/11/22 [Rx] Potassium Chloride ER [K-Dur 10] 10 meq PO DAILY #30 tab 11/11/22 [Rx] Sennosides-Docusate Sodium [Senokot-S] 2 each PO HS PRN #14 tab 11/11/22 [Rx] amLODIPine [Norvasc] 2.5 mg PO DAILY@1200 #30 tab 11/11/22 [Rx] Follow up Appointment(s)/Referral(s): Laina Guillen MD [STAFF PHYSICIAN] - 12/07/22 1:15 pm Teagan Bloom NPC [Nurse Practitioner] - 11/15/22 11:00 am (Come after your appointment with jeremiah Ogden ok if your late. You will be seen in the surgeon's office behind the hospital in [facility], [address] Office phone number is ) Ferdinand Mccarthy MD [STAFF PHYSICIAN] - 11/22/22 10:15 am (Appointment is with [facility]) Rehab Millie PARKINSON,Cardiac [NON-STAFF] - 4 Weeks (You will receive a phone call in approximately 4-6 weeks for evaluation for cardiac rehab) [facility] [NON-STAFF] - 1-2 Days (To be seen the day after discharge, 2-3 times per week until starts cardiac rehab) Chevy Hyde MD [STAFF PHYSICIAN] - 12/01/22 2:15 pm Pedro Leos MD [Primary Care Provider] - 11/15/22 10:00 am Ambulatory/Diagnostic Orders: Complete Blood Count w/diff [LAB.AMB] Time Frame: 3 Days, Location: None Selected Comprehensive Metabolic Panel [LAB.AMB] Time Frame: 3 Days, Location: None Selected Activity/Diet/Wound Care/Special Instructions: DISCHARGE INSTRUCTIONS: 1. No driving for 4 weeks, or until physician gives their ok. 2. The patient should sleep in their own bed, no medical bed needed. 3. Stairs are not an issue. If the bedroom is upstairs, it is advised that the patient go up at night and down in the morning for the first week. Go slowly, using handrail and take 1 step at a time. 4. NE hose are to be worn for 30 days post surgery or until physician discontinues. 5. Heart hugger is to be worn 100% of the time until physician discontinues.(except when showering) 6. No lifting, pushing, or pulling more than 10 pounds for 12 weeks. The physician will advise of any restriction changes. 7. The patient is expected to continue the prescribed walking program. 8. Continue pain control per as needed orders. 9. Continue with incentive spirometry and splinting/heart hugger until otherwise directed by the physician. 10. Must shower daily using liquid antibacterial soap 11. Routine sternal incision care. No powders, lotions, ointments on incisions. No dressings are necessary on incisions unless they are draining. Dermabond tape is to remain on sternal incision until surgeon follow-up. 12. Please call surgeon/BRAIDER TENDER for temp greater than 101 F or purulent drainage from incisions. 13. You should weigh yourself daily, record and bring log with you to follow up appointments. 14. All prescriptions given by surgeon for 30 days. Refills need to be filled through web content producer/primary care physician. 15. A Red armband has been placed on the patient. It should be worn for 30 days post discharge from surgery and will be removed by the cardiac surgeons. If an ER visit is necessary, please make sure the number on the Red armband is called before going to ER. 16. You have been referred to and are expected to begin Cardiac Rehab in approximately 4-6 weeks. HOME HEALTH SERVICES TO PROVIDE: RN SKILLED HOME CARE SERVICES FOR POST-OP SURGICAL PATIENTS WITH THE FOLLOWING: Coronary Artery Bypass Surgery (CABG), Mitral Valve Replacement/Repair ( MVR), Aortic Valve Replacement/Repair (AVR) RN TO CONTINUE EDUCATION FROM ``ROAD TO A HEALTH HEART PATIENT EDUCATION MANUAL (GIVEN TO PATIENT IN THE HOSPITAL) MEDICATION RECONCILIATION WITH EDUCATION NEEDED ON FIRST HOME VISIT EMPHASIZE IMPORTANCE OF WEARING BREAST SUPPORT/HEART HUGGER ENCOURAGE USE OF INCENTIVE SPIROMETER 10 X EVERY HOUR WHILE AWAKE ENCOURAGE UTILIZATION OF LOWER EXTREMITY COMPRESSION STOCKINGS/NE HOSE and ELEVATE LEGS ABOVE LEVEL OF HEART WHILE AT REST. ENCOURAGE AMBULATION 3-5x/day INCREASING TOLERATES, WHILE AVOIDING EXTREMES IN TEMPERATURE FREQUENCY: RN TO OPEN THE PATIENT WITHIN 24 HOURS OF DISCHARGE FROM THE HOSPITAL WITH TELEHEALTH INSTALLED AT [facility] [place], RN TO VISIT 2-3 X A WEEK FOR 4 WEEKS ESTABLISHED BY PATIENT NEEDS. LABORATORY: CBC, CMP TO BE DRAWN ON THE THIRD DAY HOME, (RAN STAT) FAX RESULTS TO [phone]. TELEHEALTH PARAMETERS: WEIGHT: NOTIFY MD OF WEIGHT GAIN OF 2 LBS IN 24 HOURS OR 5 LBS IN ONE WEEK HR: NOTIFY MD OF HR <55 BPM OR HR>100 BPM BP: NOTIFY MD IF BP <90/55 OR BP>140/100 O2 SAT: NOTIFY MD IF PO2<93% ON ROOM AIR SEND TELEHEALTH REPORT TO MERCHANT MARINER AND CARDIOVASCULAR SURGEON THE FIRST WEEK OF CARE AND THEN BI-WEEKLY. PLEASE ADDITIONALLY COMMUNICATE ANY ABNORMALS AND NEW FINDINGS TO THE SURGEONS OFFICE. Discharge Disposition: HOME WITH HOME HEALTH SERVICES
[2022-11-11 16:14] VITALS: PULSE 72
[2022-11-11 16:25] VITALS: BP 99/65
--- NOTE | 2022-11-14 13:23 | CDI ---
Documentation Clarification Form Date: 11/14/22 From: Terrie Kessler Admit Date: 11/04/2022 05:35:00 AM Patient Name: Farhana Hyman Visit Number: [id number] Discharge Date: 11/11/2022 05:42:00 PM ATTENTION: The Clinical Documentation Specialists (CDI) and [facility] Coding Staff appreciate your assistance in clarifying documentation. Please respond to the clarification below the line at the bottom and electronically sign. The CDI & [facility] Coding staff will review the response and follow-up if needed. Please note: Queries are made part of the Legal Health Record. If you have any questions, please contact the author of this message via ITS. Dr. Chevy Hyde, Your patient has the documented diagnosis of unspecified CHF on 11/06 Dr Sanchez progress notes. Additional information regarding the [type, acuity] of CHF is requested. History/Risk Factors: 2-vessel CAD off pump CABG w left atrial appendage with AtriCure Clip Clinical Indicators: VS/Pulse OX: (11/05) P77, R 32, ARTERIAL BP 113/36, P2 Sat 91/92 BNP: none REBECCA Results: EF normal, no left ventricle hypertrophy, right ventricle function normal Chest X Ray: 11/06- Cardiomegalywith prominent pulmonary vascular markings andbilateral pleural effusions. Correlate forcongestive heart failureandvolume overload. Treatment: IV Lasix 20 mg 11/05, 11/07, IV Lasix 40 mg 11/05, 11/06, 11/10 In your professional opinion, can you please clarify the [acuity and type] of CHF if known? [ ] Acute Systolic Heart Failure (reduced EF) [ ] Chronic Systolic Heart Failure (reduced EF) [ ] Acute on Chronic Systolic Heart Failure (reduced EF) [ ] Acute Diastolic Heart Failure (preserved EF) [ ] Chronic Diastolic Heart Failure (preserved EF) [ ] Acute on Chronic Diastolic Heart Failure (preserved EF) [ ] Acute Systolic & Diastolic Heart Failure [ ] Chronic Systolic & Diastolic Heart Failure [ ] Acute on Chronic Heart Failure Systolic & Diastolic Heart Failure [x [ No CHF, only volume overload [ ] Other, please specify [ ] Unable to determine MTDD
== END 2022-11-11 17:42 | disposition home health service (06) | DRG 235 ==
LOC: 2ORMAIN 05:35 → 2SICU 14:16 → 3SCARD 11-08 14:00
PROVIDERS: ADMIT Thoracic Surgery (Cardiothoracic Vascular Surgery); ATTEND Thoracic Surgery (Cardiothoracic Vascular Surgery)
PROC: B24BZZ4 Ultrasonography of Heart with Aorta, Transesophageal (ICD-10-PCS; 2022-11-04)
PROC: 02L70CK Occlusion of Left Atrial Appendage with Extraluminal Device, Open Approach (ICD-10-PCS; principal; 2022-11-04 08:00)
PROC: 03BC4ZZ Excision of Left Radial Artery, Percutaneous Endoscopic Approach (ICD-10-PCS; principal; 2022-11-04 08:00)
PROC: 02100Z9 Bypass Coronary Artery, One Artery from Left Internal Mammary, Open Approach (ICD-10-PCS; principal; 2022-11-04 08:00)
PROC: 4A0305C Measurement of Arterial Flow, Coronary, Open Approach (ICD-10-PCS; principal; 2022-11-04 08:00)
PROC: 02100AW Bypass Coronary Artery, One Artery from Aorta with Autologous Arterial Tissue, Open Approach (ICD-10-PCS; principal; 2022-11-04 08:00)
PROC: 30233N1 Transfusion of Nonautologous Red Blood Cells into Peripheral Vein, Percutaneous Approach (ICD-10-PCS; 2022-11-06)
DX: I25.119 Atherosclerotic heart disease of native coronary artery with unspecified angina pectoris (principal); J96.01 Acute respiratory failure with hypoxia; D62 Acute posthemorrhagic anemia; J98.11 Atelectasis; D69.6 Thrombocytopenia, unspecified; I95.9 Hypotension, unspecified; E11.51 Type 2 diabetes mellitus with diabetic peripheral angiopathy without gangrene; I11.9 Hypertensive heart disease without heart failure; J44.9 Chronic obstructive pulmonary disease, unspecified; I08.1 Rheumatic disorders of both mitral and tricuspid valves; I25.84 Coronary atherosclerosis due to calcified coronary lesion; E78.5 Hyperlipidemia, unspecified; E87.70 Fluid overload, unspecified; I25.2 Old myocardial infarction; E66.9 Obesity, unspecified; Z68.31 Body mass index [BMI] 31.0-31.9, adult; K66.0 Peritoneal adhesions (postprocedural) (postinfection); M19.90 Unspecified osteoarthritis, unspecified site; F17.210 Nicotine dependence, cigarettes, uncomplicated; Z22.321 Carrier or suspected carrier of Methicillin susceptible Staphylococcus aureus; Z79.82 Long term (current) use of aspirin; Z79.84 Long term (current) use of oral hypoglycemic drugs; Z79.899 Other long term (current) drug therapy; Z71.6 Tobacco abuse counseling; Z71.3 Dietary counseling and surveillance; Z88.8 Allergy status to other drugs, medicaments and biological substances; Z91.041 Radiographic dye allergy status; Z91.013 Allergy to seafood
CPT/HCPCS: 71045; 71046; 80048; 80053; 82330; 82805; 83735; 85025; 85027; 85384; 85610; 85730; 86850; 86891; 86900; 86901; 86920; 94002; 94640; 94760

== ENCOUNTER → 2023-04-11 | Outpatient (CLI) | payer MEDICARE ==
--- NOTE | 2023-04-12 07:21 | US ---
EXAMINATION TYPE: US kidneys/renal and bladder DATE OF EXAM: 04/11/2023 COMPARISON: NONE CLINICAL INDICATION: Female, 78 years old with history of N28.9 DISORDER OF KIDNEY AND URETER, UNSPEC IFIED; Abnormal labs. No pain. EXAM MEASUREMENTS: Right Kidney: 9.7 x 5.3 x 4.5 cm Left Kidney: 8.9 x 4.9 x 4.4 cm Right Kidney: No hydronephrosis or masses seen Left Kidney: No hydronephrosis or masses seen Bladder: distended, anechoic Bilateral Jets seen IMPRESSION: 1. No suspicious ultrasound changes renal ultrasound
== END | disposition home or self-care (01) ==
LOC: RADUSWWP 15:29
PROVIDERS: ATTEND Internal Medicine
DX: N28.9 Disorder of kidney and ureter, unspecified (principal)
CPT/HCPCS: 76770

== ENCOUNTER → 2023-04-11 | Outpatient (CLI) | payer MEDICARE ==
--- NOTE | 2023-04-13 12:54 | CTL ---
EXAMINATION TYPE: CT Low Dose Lung DATE OF EXAM ORDERED: 04/11/2023 COMPARISON: 12/31/2021 HISTORY: . Low Dose CT Lung Screening CT DLP: 74.[address] CTDI: 2.4 mGy IV CONTRAST USED: None. SCREENING VISIT: First visit COMPARISON: None. TECHNIQUE: Low dose computed tomography scan was performed through the chest at 1 millimeter thick se ctions and reconstructed images in the coronal plane at [address] DIAGNOSTIC QUALITY: Satisfactory FINDINGS: LUNG NODULES: Lingular density may reflect an area of consolidation or atelectasis. Follow-up study i n 6 months is recommended. Lower lobe bronchiectasis noted right lower lobe. No distinct pulmonary no dule identified. Upper lobe emphysematous change. LUNGS: COPD: Severity: Mild Fibrosis: Severity:None Lymph nodes: None Other findings: None RIGHT PLEURAL SPACE: Effusion: None Calcification: None Thickening: None Pneumothorax: None LEFT PLEURAL SPACE: Effusion: None Calcification: None Thickening: None Pneumothorax: None HEART: Heart Size: Mildly enlarged Coronary calcification: Mild Pericardial effusion: None OTHER FINDINGS: Upper abdomen: No significant abnormality Bony thorax: Degenerative changes Supraclavicular region: No significant abnormalityOther: No significant abnormalityI IMPRESSION: Lingular density may reflect an area of consolidation or atelectasis. Follow-up study in 6 months is recommended. FOLLOW UP CT CHEST RECOMMENDATION: 6 month follow-up CT of the chest. CT LUNG RAD: Category 3 probably benign. LUNG RAD CATEGORY
--- NOTE | 2023-04-20 10:12 | MM ---
Reason for Exam: Screening (asymptomatic). Last mammogram was performed 1 year(s) and 4 month(s) ago. Patient History: Menarche at age 14. First Full-Term at age 29. Left ovary removed at age 52. Right ovary removed at age 52. Hysterectomy at age 52. Postmenopausal. Patient used Hormonal Contraceptives for 5 years. 12/06/2018, Benign Core Biopsy on the left side. 12/06/2018, Benign Core Biopsy on the right side. Risk Values: Kaitlin 5 year model risk: 1.9%. NCI Lifetime model risk: 3.7%. Prior Study Comparison: 11/19/2018 Bilateral Screening Mammogram, [facility]. 12/04/2018 Bilateral Diagnostic Mammogram, [facility]. 12/31/2021 Bilateral MG screening mammo w CAD, [facility]. Tissue Density: There are scattered fibroglandular densities. Findings: Analyzed By CAD. There is no suspicious group of microcalcifications or new suspicious mass in either breast. Overall Assessment: Negative, BI-RAD 1 Management: Screening Mammogram of both breasts in 1 year. . Patient should continue monthly self-breast exams. A clinical breast exam by your physician is recommended on an annual basis. This exam should not preclude additional follow-up of suspicious palpable abnormalities. Note on Kaitlin scores and lifetime risk: 1. A Kaitlin score greater than 3% is considered moderate risk. If this is the case, consider specialist referral to assess eligibility for a risk reducing agent. 2. If overall lifetime risk for the development of breast cancer is 20% or higher, the patient may qualify for future screening with alternating mammogram and breast MRI. Electronically signed and approved by: Arsenio Hernandes M.D. Radiologis
== END | disposition home or self-care (01) ==
LOC: RADCTMAIN 16:03
PROVIDERS: ATTEND Internal Medicine Hematology & Oncology
DX: Z12.31 Encounter for screening mammogram for malignant neoplasm of breast (principal); Z12.2 Encounter for screening for malignant neoplasm of respiratory organs; J98.4 Other disorders of lung; D47.2 Monoclonal gammopathy; D72.829 Elevated white blood cell count, unspecified; F17.210 Nicotine dependence, cigarettes, uncomplicated; Z78.0 Asymptomatic menopausal state; Z71.3 Dietary counseling and surveillance
CPT/HCPCS: 71271; 77063; 77067

== ENCOUNTER 2023-05-24 18:29 | Inpatient (IN) | payer MEDICARE ==
[2023-05-24 18:33] LABS: Glucose,Whole Blood 278 mg/dL (70-110)
[2023-05-24] MEDS ORDERED: MIDAZOLAM 1 MG/ML 5 ML VIAL IV STA (18:34)
[2023-05-24] MEDS ORDERED: SODIUM CHLORIDE 0.9% 1,000 ML IV ONE (18:38)
[2023-05-24 19:25] LABS: Partial Thromboplastin Time 22.1 sec (22.0-30.0); Prothrombin Time 10.8 sec (10.0-12.5)
[2023-05-24 19:27] LABS: Anisocytosis Slight; Basophils % (A) 0 %; Eosinophils # (A) 0.1 k/uL (0-0.7); Eosinophils % (A) 0 %; HGB 12.4 gm/dL (11.4-16.0); Hypochromasia Moderate; Lymphocytes # (A) 0.6 k/uL (1.0-4.8); Lymphocytes % (A) 3 %; MCH 28.7 pg (25.0-35.0); MCHC 31.7 g/dL (31.0-37.0); MCV 90.6 fL (80.0-100.0); Mean Platelet Volume 8.3; Monocytes # (A) 0.4 k/uL (0-1.0); Monocytes % (A) 2 %; Neutrophils # (A) 16.6 k/uL (1.3-7.7); Neutrophils % (A) 94 %; Platelet Count 318 k/uL (150-450); RBC 4.31 m/uL (3.80-5.40); RDW 16.7 % (11.5-15.5); WBC 17.7 k/uL (3.8-10.6)
--- NOTE | 2023-05-24 19:27 | CT ---
EXAMINATION TYPE: CT brain wo con CT DLP: 1138.4 mGycm, Automated exposure control for dose reduction was used. DATE OF EXAM: 05/24/2023 7:08 PM COMPARISON: None. CLINICAL INDICATION:Female, 78 years old with history of Altered mental status, ams TECHNIQUE: Brain: Axial CT images of the brain were obtained with coronal and sagittal reformats created and rev iewed. Contrast used: None. Oral contrast used: None. FINDINGS: Brain: Extra-axial spaces: Subdural hemorrhage along the left frontal lobe measuring up to 4 mm in thickness . Scattered blood products present within the sulci throughout the left cerebrum. Ventricular system: Layering blood products are seen within the bilateral ventricles Cerebral parenchyma: There is a large intraparenchymal hemorrhage with surrounding vasogenic edema wi thin the left frontal lobe/temporal lobe. Area measures roughly 8.1 x 4.4 x 5.4 cm there is rightward shift compatible with subfalcine herniation up to 16 mm. Cerebellum: Unremarkable. Intracranial vasculature: unremarkable Soft tissues: Normal. Calvarium/osseous structures: No depressed skull fracture. Paranasal sinuses and mastoid air cells: Mild scattered paranasal sinus disease. Visualized orbits: Orbital contents are intact. IMPRESSION: Large left intra-axial hemorrhage with associated subarachnoid hemorrhage and intraventricular hemorr migue. There is rightward subfalcine herniation up to 16 mm. Associated intraventricular, subarachnoid and subdural hemorrhages are also present. Findings communicated to Dr. Raiza Girard on 05/24/2023 7:[address] Fly Menezes.
--- NOTE | 2023-05-24 19:31 | ED ---
Altered Mental Status HPI - General Chief Complaint: Altered Mental Status Stated Complaint: unresponsive Time Seen by Provider: 05/24/23 18:30 Source: patient Mode of arrival: ambulatory Limitations: no limitations - History of Present Illness Initial Comments: 78 year old female with past history of diabetes, hypertension, open heart surgery who presents to the emergency department unresponsive. EMS provided the history. States that the patient was heard from by her daughter last night. The daughter found the patient today on the ground unresponsive. It appeared that the patient had thrown up. EMS states that she was posturing. She was int ubated in the field. No history of stroke. Daughter states that she is noncompliant with her high blood pressure medication. Patient reportedly takes Plavix. No recent illnesses. HPI is limited because the patient's current condition - Related Data Home Medications Medication Instructions Recorded Confirmed glipiZIDE [Glucotrol] 5 mg PO DAILY 06/01/21 05/24/23 Metoprolol Tartrate 25 mg PO BID 11/01/22 05/24/23 Atorvastatin [Lipitor] 40 mg PO HS 05/24/23 05/24/23 Triamcinolone 0.1% Cream [Kenalog 1 applicatio TOPICAL DAILY PRN 05/24/23 05/24/23 0.1% Cream] amLODIPine [Norvasc] 2.5 mg PO DAILY 05/24/23 05/24/23 Previous Rx's Medication Instructions Recorded Clopidogrel [Plavix] 75 mg PO DAILY #30 tab 11/11/22 Allergies Allergy/AdvReac Type Severity Reaction Status Date / Time Iodine and Iodide Containing Allergy Anaphylaxis Verified 05/24/23 18:36 Produc shellfish derived [Shellfish] Allergy Anaphylaxis Verified 05/24/23 18:36 Review of Systems ROS Statement: Those systems with pertinent positive or pertinent negative responses have been documented in the HPI. ROS Other: All systems not noted in ROS Statement are negative. 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 History of Any Multi-Drug Resistant Organisms: None Reported Past Surgical History: Hysterectomy Additional Past Surgical History / Comment(s): COLONOSCOPY , bilateral breast biopsies Past Anesthesia/Blood Transfusion Reactions: No Reported Reaction Additional Past Anesthesia/Blood Transfusion Reaction / Comment(s): no hx of blood transfusion Past Psychological History: No Psychological Hx Reported Smoking Status: Current every day smoker Past Alcohol Use History: None Reported Past Drug Use History: None Reported - Past Family History Mother Family Medical History: Diabetes Mellitus, Dialysis, Renal Disease Additional Family Medical History / Comment(s): hemodialysis Father Family Medical History: CVA/TIA Additional Family Medical History / Comment(s): heart problems Sister(s) Family Medical History: Diabetes Mellitus Brother(s) Family Medical History: Diabetes Mellitus General Exam Limitations: altered mental status General appearance: obtunded, other (intubated. decerebrate posturing) Head exam: Present: atraumatic Eye exam: Present: other (unequal pupils - 5 mm left, 3 mm right) ENT exam: Present: normal exam, mucous membranes moist Neck exam: Present: normal inspection. Absent: tenderness, meningismus, lymphadenopathy Respiratory exam: Present: other (patient intubated, bagged. no spontanous respirations) Cardiovascular Exam: Present: regular rate, normal rhythm, normal heart sounds. Absent: systolic murmur, diastolic murmur, rubs, gallop, clicks GI/Abdominal exam: Present: soft, normal bowel sounds. Absent: distended, tenderness, guarding, rebound, rigid Extremities exam: Present: other (no spontaneous movements) Neurological exam: Present: altered Course Vital Signs 05/24/23 05/24/23 05/24/23 18:31 19:12 19:35 Pulse Rate 81 87 Respiratory 18 24 Rate Blood Pressure 162/101 100/68 O2 Sat by Pulse 98 Oximetry Fraction of 100 Inspired Oxygen (FIO2) 05/24/23 05/24/23 20:40 21:00 Pulse Rate 75 Respiratory 20 Rate Blood Pressure 142/80 O2 Sat by Pulse 98 Oximetry Fraction of 100 Inspired Oxygen (FIO2) Medical Decision Making - Medical Decision Making Was pt. sent in by a medical professional or institution (, PA, EMBEDDED SOFTWARE ARCHITECT, urgent care, hospital, or senior living...) When possible be specific @ -No Did you speak to anyone other than the patient for history (EMS, parent, family, police, friend...)? What history was obtained from this source @ -EMS and daughter Did you review nursing and triage notes (agree or disagree)? Why? @ -I reviewed and agree with nursing and triage notes Were old charts reviewed (outside hosp., previous admission, EMS record, old EKG, old radiological studies, urgent care reports/EKG's, senior living records)? Report findings @ -No old charts were reviewed Differential Diagnosis (chest pain, altered mental status, abdominal pain women, abdominal pain men, vaginal bleeding, weakness, fever, dyspnea, syncope, headache, dizziness, GI bleed, back pain, seizure, CVA, palpatations, mental health, musculoskeletal)? @ -Differential Altered Mental Status: Hypoglycemia, DKA, hypercapnia, ETOH, overdose, CO poisoning, trauma, myxedema coma, HTN encephalopathy, infection, encephalitis, psychosis, intercranial hemorrhage, hepatic encephalopathy, meningitis, CVA, this is not meant to be an all-inclusive list EKG interpreted by me (3pts min.). @ -Yes and demonstrates sinus rhythm with a rate of 82. NC interval 146. QRS 138. QTC of 507. Right bundle branch block. Left anterior fascicular block X-rays interpreted by me (1pt min.). @ -yes, appropriate placement of ET tube CT interpreted by me (1pt min.). @ -yes and demonstrates very large intracranial bleed U/S interpreted by me (1pt. min.). @ -None done What testing was considered but not performed or refused? (CT, X-rays, U/S, labs)? Why? @ -None What meds were considered but not given or refused? Why? @ -None Did you discuss the management of the patient with other professionals (professionals i.e. , PA, EMBEDDED SOFTWARE ARCHITECT, lab, RT, psych nurse, social work lecturer, senior contract specialist, teacher, service officer, case management coordinator)? Give summary @ -Dr. Rucker Was smoking cessation discussed for >3mins.? @ -No Was critical care preformed (if so, how long)? @ -yes, 40 minutes Were there social determinants of health that impacted care today? How? (Homelessness, low income, unemployed, alcoholism, drug addiction, transportation, low edu. Level, literacy, decrease access to med. care, prison, rehab)? @ -No Was there de-escalation of care discussed even if they declined (Discuss DNR or withdrawal of care, Hospice)? DNR status @ -yes, daughter wishes for comfort care as patient will not have meaningful outcome What co-morbidities impacted this encounter? (DM, HTN, Smoking, COPD, CAD, Cancer, CVA, ARF, Chemo, Hep., AIDS, mental health diagnosis, sleep apnea, morbid obesity)? @ -Htn Was patient admitted / discharged? Hospital course, mention meds given and route, prescriptions, significant lab abnormalities, going to OR and other pertinent info. @ -Upon arrival patient was placed in a trauma 1. ET tube is confirmed by chest x-ray. Accu-Chek and EKG are performed. Laboratory studies were conducted. Patient is sent for a CT of her brain which demonstrates very large intracranial bleed. I did speak with Dr. Rucker about the CT. He does not feel that the patient has any sort of meaningful outcome. Patient is posturing at this time. I did speak with the patient's daughter in regards to this. She would like the patient comfortable. ET tube will remain in place as we are awaiting family. Patient is made DNR status. Did speak with Dr. Santillan and Dr. Jaffe. Patient taken to the ICU for terminal extubation Undiagnosed new problem with uncertain prognosis? @ -No Drug Therapy requiring intensive monitoring for toxicity (Heparin, Nitro, Insulin, Cardizem)? @ -No Were any procedures done? @ -No Diagnosis/symptom? @ -acute encephalopathy, acute vent dependance, intracranial hemorrhage Acute, or Chronic, or Acute on Chronic? @ -acute Uncomplicated (without systemic symptoms) or Complicated (systemic symptoms)? @ -complicated Side effects of treatment? @ -No Exacerbation, Progression, or Severe Exacerbation? @ -No Poses a threat to life or bodily function? How? (Chest pain, USA, SD, pneumonia, PE, COPD, DKA, ARF, appy, cholecystitis, CVA, Diverticulitis, Homicidal, Suicidal, threat to staff... and all critical care pts) @ -yes patient will succumb to her diagnosis - Lab Data Result diagrams: 05/24/23 19:00 05/24/23 19:00 Lab Results 05/24/23 05/24/23 05/24/23 Range/Units 18:32 19:00 19:00 WBC 17.7 H (3.8-10.6) k/uL RBC 4.31 (3.80-5.40) m/uL Hgb 12.4 (11.4-16.0) gm/dL Hct 39.0 (34.0-46.0) % MCV 90.6 (80.0-100.0) fL MCH 28.7 (25.0-35.0) pg MCHC 31.7 (31.0-37.0) g/dL RDW 16.7 H (11.5-15.5) % Plt Count 318 (150-450) k/uL MPV 8.3 Neutrophils % 94 % Lymphocytes % 3 % Monocytes % 2 % Eosinophils % 0 % Basophils % 0 % Neutrophils # 16.6 H (1.3-7.7) k/uL Lymphocytes # 0.6 L (1.0-4.8) k/uL Monocytes # 0.4 (0-1.0) k/uL Eosinophils # 0.1 (0-0.7) k/uL Basophils # 0.0 (0-0.2) k/uL Hypochromasia Moderate Anisocytosis Slight PT 10.8 (10.0-12.5) sec INR 1.0 (<1.2) APTT 22.1 (22.0-30.0) sec Sodium (137-145) mmol/L Potassium (3.5-5.1) mmol/L Chloride (98-107) mmol/L Carbon Dioxide (22-30) mmol/L Anion Gap mmol/L BUN (7-17) mg/dL Creatinine (0.52-1.04) mg/dL Est GFR (CKD-EPI)AfAm (>60 ml/min/1.73 sqM) Est GFR (CKD-EPI)NonAf (>60 ml/min/1.73 sqM) Glucose (74-99) mg/dL POC Glucose (mg/dL) 278 H (70-110) mg/dL POC Glu [facility] Specialist ID Belval, Maxine Calcium (8.4-10.2) mg/dL Total Bilirubin (0.2-1.3) mg/dL AST (14-36) U/L ALT (4-34) U/L Alkaline Phosphatase (38-126) U/L Ammonia (<30) umol/L Troponin I (0.000-0.034) ng/mL Total Protein (6.3-8.2) g/dL Albumin (3.5-5.0) g/dL Serum Alcohol mg/dL 05/24/23 05/24/23 05/24/23 Range/Units 19:00 19:00 19:00 WBC (3.8-10.6) k/uL RBC (3.80-5.40) m/uL Hgb (11.4-16.0) gm/dL Hct (34.0-46.0) % MCV (80.0-100.0) fL MCH (25.0-35.0) pg MCHC (31.0-37.0) g/dL RDW (11.5-15.5) % Plt Count (150-450) k/uL MPV Neutrophils % % Lymphocytes % % Monocytes % % Eosinophils % % Basophils % % Neutrophils # (1.3-7.7) k/uL Lymphocytes # (1.0-4.8) k/uL Monocytes # (0-1.0) k/uL Eosinophils # (0-0.7) k/uL Basophils # (0-0.2) k/uL Hypochromasia Anisocytosis PT (10.0-12.5) sec INR (<1.2) APTT (22.0-30.0) sec Sodium 140 (137-145) mmol/L Potassium 3.5 (3.5-5.1) mmol/L Chloride 102 (98-107) mmol/L Carbon Dioxide 22 (22-30) mmol/L Anion Gap 16 mmol/L BUN 23 H (7-17) mg/dL Creatinine 0.69 (0.52-1.04) mg/dL Est GFR (CKD-EPI)AfAm >90 (>60 ml/min/1.73 sqM) Est GFR (CKD-EPI)NonAf 85 (>60 ml/min/1.73 sqM) Glucose 314 H (74-99) mg/dL POC Glucose (mg/dL) (70-110) mg/dL POC Glu Ehs Specialist ID Calcium 9.5 (8.4-10.2) mg/dL Total Bilirubin 0.8 (0.2-1.3) mg/dL AST 33 (14-36) U/L ALT 50 H (4-34) U/L Alkaline Phosphatase 121 (38-126) U/L Ammonia <9 (<30) umol/L Troponin I 0.024 (0.000-0.034) ng/mL Total Protein 7.1 (6.3-8.2) g/dL Albumin 3.9 (3.5-5.0) g/dL Serum Alcohol <10 mg/dL Disposition Clinical Impression: Intracranial bleed, Ventilator dependence, Encephalopathy, Hypertension Disposition: ADMITTED IP TO THIS [facility] Condition: Good Is patient prescribed a controlled substance at d/c from ED?: No Time of Disposition: 19:29 Decision to Admit Reason: Admit from EC Decision Date: 05/24/23 Decision Time: 19:29
--- NOTE | 2023-05-24 19:31 | XR ---
EXAMINATION TYPE: XR chest 1V confirm line plcmt DATE OF EXAM: 05/24/2023 6:45 PM CLINICAL INDICATION:Female, 78 years old with history of intubated/og tube; [facility] COMPARISON: Chest radiographs from from 723 TECHNIQUE: XR chest 1V confirm line plcmt Frontal view of the chest. FINDINGS: Lungs/Pleura: Left lower lobe airspace opacity. There is no evidence of pleural effusion, right focal consolidation, or pneumothorax. Pulmonary vascularity: Pulmonary vascular congestion. Heart/mediastinum: Cardiomediastinal silhouette is unremarkable. Left atrial appendage occlusion luis alberto ce is present. Musculoskeletal: No acute osseous pathology. Other findings: None Lines/Tubes: Endotracheal tube with distal tip at the ostium of the right main bronchus. Nasogastric tube with side-port projecting over the distal esophagus. IMPRESSION: 1. Endotracheal tube at the right main bronchus and retraction of 3.4 cm recommended for optimal sukhjinder cement. 2. Nasogastric tube side-port terminating in the distal esophagus and advancement of 8 cm recommende d for optimal placement. 3. Cardiomegaly with pulmonary vascular congestion. 4. Left lower lobe airspace opacities correlate for pneumonia.
[2023-05-24 19:35] LABS: ALT 50 U/L (4-34); AST 33 U/L (14-36); African American GFR (CKD) >90 (>60 ml/min/1.73 sqM); Albumin 3.9 g/dL (3.5-5.0); Alcohol <10 mg/dL; Alkaline Phosphatase 121 U/L (38-126); Anion Gap 16 mmol/L; Blood Urea Nitrogen 23 mg/dL (7-17); Calcium 9.5 mg/dL (8.4-10.2); Carbon Dioxide 22 mmol/L (22-30); Chloride 102 mmol/L (98-107); Glucose 314 mg/dL (74-99); Non-African American GFR(CKD) 85 (>60 ml/min/1.73 sqM); Potassium 3.5 mmol/L (3.5-5.1); Sodium 140 mmol/L (137-145); Total Bilirubin 0.8 mg/dL (0.2-1.3); Total Protein 7.1 g/dL (6.3-8.2)
--- NOTE | 2023-05-24 20:31 | P.CNPUL ---
History of Present Illness Consult date: 05/24/23 Chief complaint: Acute CVA/intracranial bleed History of present illness: This is a 78-year-old female patient who was brought in with an acute mental status change. The patient was hypertensive at the time of arrival with a blood pressure 160/101.. The patient was found to have agonal breathing. The patient was intubated in the field and the patient was brought in to the emergency department. Computed tomography scan of the brain was done and a CAT scan showed subdural hemorrhage along the left frontal lobe measuring 4 mm in thickness. Scattered blood products throughout the sulci in the left cerebrum. The ventricular system showed layering blood products within the bilateral ventricles. As for the setting the parenchyma, there was a large intraparenchymal hemorrhage with surrounding vasogenic edema within the left frontal/temporal lobe. The area was measuring 8 x 5.4 x 4.4 cm in size causing right shift. This is compatible with a cell phone sign herniation up to 16 mm. The patient is completely unresponsive. The patient a mechanical ventilator for now. She is on assist control rate of 24, tidal volume of 400, FiO2 is at 100% and a PEEP of 5. Blood pressure has normalized. Right pupil is fixed dilated. Left pupil is round 3 mm in size. Cardiac rhythm is sinus. The patient has posturing and the patient had decerebrate posture upon examination. Noted the patient is known to have coronary artery disease and the patient has undergone recent bypass surgery where she underwent two-vessel bypass surgery that was done in November 2022. She is known to have diabetes mellitus type 2 and hyperlipidemia and hypertension. We were told that her blood pressure was running high and the patient for a compliancy with her medication in general. She also has peripheral artery disease. No other information is available. Family is at the bedside. Requested no surgical intervention. The patient will be terminally weaned per family's wishes once more family members arrive to the hospital. Based on that, it was requested for this patient to the chest to the intensive care unit for supportive care pending terminal wean. I did accept the patient accordingly to come to the intensive care unit. Labs show his evidence of 17, hemoglobin is at 12.4, normal coagulation profile, normal renal function, normal LFTs. Alcohol level is less than 10. Review of Systems ROS unobtainable: due to endotracheal tube, due to mental status Past Medical History Past Medical History: Coronary Artery Disease (CAD), Diabetes Mellitus, Hyperlipidemia, Hypertension Additional Past Medical History / Comment(s): Obesity with a BMI of 32.6 kg/m, history of a 42 mm ascending aorta dilation found on computed tomography scan in December 2021. History of Any Multi-Drug Resistant Organisms: None Reported Past Surgical History: Coronary Bypass/CABG, Hysterectomy Additional Past Surgical History / Comment(s): COLONOSCOPY , bilateral breast biopsies Past Anesthesia/Blood Transfusion Reactions: No Reported Reaction Additional Past Anesthesia/Blood Transfusion Reaction / Comment(s): no hx of blood transfusion Past Psychological History: No Psychological Hx Reported Smoking Status: Current every day smoker Past Alcohol Use History: None Reported Past Drug Use History: None Reported - Past Family History Mother Family Medical History: Diabetes Mellitus, Dialysis, Renal Disease Additional Family Medical History / Comment(s): hemodialysis Father Family Medical History: CVA/TIA Additional Family Medical History / Comment(s): heart problems Sister(s) Family Medical History: Diabetes Mellitus Brother(s) Family Medical History: Diabetes Mellitus Medications and Allergies Home Medications Medication Instructions Recorded Confirmed Type glipiZIDE [Glucotrol] 5 mg PO AC-BID 06/01/21 11/04/22 History Metoprolol Tartrate 25 mg PO BID 11/01/22 11/04/22 History Clopidogrel [Plavix] 75 mg PO DAILY #30 tab 11/11/22 Rx Atorvastatin [Lipitor] 40 mg PO HS 05/24/23 05/24/23 History Triamcinolone 0.1% Cream [Kenalog 1 applicatio TOPICAL DAILY PRN 05/24/23 05/24/23 History 0.1% Cream] amLODIPine [Norvasc] 2.5 mg PO DAILY 05/24/23 05/24/23 History Allergies Allergy/AdvReac Type Severity Reaction Status Date / Time Iodine and Iodide Containing Allergy Anaphylaxis Verified 05/24/23 18:36 Produc shellfish derived [Shellfish] Allergy Anaphylaxis Verified 05/24/23 18:36 Physical Exam Vitals: Vital Signs Pulse Resp BP Pulse Ox FiO2 05/24/23 19:35 87 24 100/68 98 05/24/23 19:12 100 05/24/23 19:11 100 05/24/23 18:31 81 18 162/101 Intake and Output 05/24/23 05/24/23 05/24/23 06:59 14:59 22:59 Other: Weight 73.936 kg Patient is currently intubated on a mechanical ventilator, completely comatose and unresponsive, no breathing effort and the patient is residing the mechanical ventilator. Upon stimulation, the patient goes into decerebrate posturing. Head exam was generally normal. There was no scleral icterus or corneal arcus. Mucous membranes were moist. Neck was supple and without jugular venous distension, thyromegaly, or carotid bruits. Carotids were easily palpable bilaterally. There was no adenopathy. Lungs were clear to auscultation and percussion, and with normal diaphragmatic excursion. No wheezes or rales were noted. Cardiac exam revealed the PMI to be normally situated and sized. The rhythm was regular and no extrasystoles were noted during several minutes of auscultation. The first and second heart sounds were normal and physiologic splitting of the second heart sound was noted. There were no murmurs, rubs, clicks, or gallops. The patient is a thoracotomy scar over the anterior chest area. The incision is dry and clean. Abdominal exam revealed normal bowel sounds. The abdomen was soft, non-tender, and without masses, organomegaly, or appreciable enlargement of the abdominal aorta. Examination of the extremities revealed easily palpable radial, femoral and pedal pulses. There was no cyanosis, clubbing or edema. Examination of the skin revealed no evidence of significant rashes, suspicious appearing nevi or other concerning lesions. Neurologically the patient is comatose. The patient has a fixed wide-open right-sided pupil. Left pupil is around 3-4 mm in size, nonreactive to light. No nystagmus , no clonus. Decerebrate posturing. Hyperreflexic. Positive Babinski. The sensory and motor functions cannot be evaluated. No cough or gag reflex. Results - Laboratory Findings CBC and BMP: 05/24/23 19:00 05/24/23 19:00 PT/INR, D-dimer PT 10.8 sec (10.0-12.5) 05/24/23 19:00 INR 1.0 (<1.2) 05/24/23 19:00 Abnormal lab findings: Abnormal Labs 05/24/23 05/24/23 05/24/23 18:32 19:00 19:00 WBC 17.7 H RDW 16.7 H Neutrophils # 16.6 H Lymphocytes # 0.6 L BUN 23 H Glucose 314 H POC Glucose (mg/dL) 278 H ALT 50 H - Diagnostic Findings Chest x-ray: image reviewed Assessment and Plan Plan: Acute intracranial hemorrhage and the patient is a large intraparenchymal hemorrhage involving the left frontal/temporal lobe and areas measuring 8 x 5.4 x 4.4 cm in size and the patient has right-sided along with signs of subfalcine herniation. There is patient was admitted to be up to 16 mm in size. The patient has also intraventricular/subarachnoid/subdural hemorrhage. No history of trauma. Likely hypertensive bleed related to poorly controlled blood pressure. Patient has limited on accommodation of aspirin and Plavix on outpatient basis. Comatose state secondary to above Acute hypoxic respiratory failure secondary to a massive intracranial bleed with secondary herniation, currently on a mechanical ventilator. Acute hypertensive episode at the time of admission, currently normotensive Coronary artery disease with recent coronary artery bypass surgery, the patient underwent two-vessel bypass surgery Diabetes mellitus type 2 History of hypertension with poorly controlled blood pressure Hyperlipidemia Plan Family the bedside and they will proceed with terminal wean once more members arrive to the hospital. The patient will be transferred to the intensive care for supportive care pending terminal wean. Patient is neurologically impaired and comatose state and has signs of subfalcine herniation Monitor hemodynamics Pressors if needed We'll initiate morphine drip and subsequently presented with terminal wean after coordinating this with the family. Extremely poor prognosis Case was discussed with ED department physician Time with Patient: Greater than 30
[2023-05-24 21:05] LABS: Glucose,Whole Blood 304 mg/dL (70-110)
[2023-05-24] MEDS: MORPHINE SULFATE (100 MG/2 ML) 100 MG in SODIUM CHLORIDE 0.9% 100 ML IV SCH (21:20)
[2023-05-24] MEDS: propofoL 100 ML IV ONE ×2 (22:10→22:34)
[2023-05-24] MEDS ORDERED: NALOXONE 0.4 MG/ML 1 ML VIAL IV PRN (22:27)
[2023-05-24 22:31] VITALS: RESP 24
--- NOTE | 2023-05-25 00:34 | P.HPIM ---
History of Present Illness H&P Date: 05/24/23 Patient is a 78-year-old female with a PMH of hypertension, hyperlipidemia, type II DM, and CAD status post CABG who had presented to the emergency room for altered mental status. The patient had reportedly been found to be unresponsive and upon EMS arrival was found to have agonal breathing and was subsequently intubated at the scene. History thereby obtained from the ED provider, documentation, and from the family at the bedside. The patient had previously been her usual self throughout the day today until being found unresponsive. No reports of trauma. CT brain in the emergency room revealed a large hemorrhage with associated subarachnoid hemorrhage and intraventricular hemorrhage with a rightward subfalcine herniation of a 16 mm. Chest x-ray revealed cardiomegaly with pulmonary vascular congestion. Laboratory evaluation revealed leukocytosis of 17.7, BUN 23, creatinine 0.69, glucose 314, troponin 0.0-4, and serum alcohol less than 10. ED documentation reviewed and case discussed with ED provider. Review of systems: Unable to obtain since patient intubated Physical examination: Vital signs reviewed General: Intubated, no distress, appears at stated age, overweight Derm: no unusual rashes/lesions, warm Head: atraumatic, normocephalic, symmetric Eyes: No dramatic right pupil and unreactive, left pupil 3 mm also nonreactive ENT: Nose and ears atraumatic Neck: No cervical lymphadenopathy, trachea midline, supple Mouth: no lip lesion, mucus membranes moist Cardiovascular: S1S2 reg, no murmur, positive dorsalis pedis pulse bilateral, no edema Lungs: Some scattered breath sounds without wheezing Abdominal: soft, nontender to palpation, no guarding Ext: no gross muscle atrophy, no contractures, Neuro: Unable to assess, absent gag and cough reflex Psych: Patient intubated, unable to assess Assessment: Acute large intracranial hemorrhage, 8.1 x 4.4 x 5.4 cm Altered mental status, patient comatose likely due to above Chronic conditions: Type II DM, hypertension, hyperlipidemia, CAD Imaging: CT brain in the emergency room revealed a large hemorrhage with associated subarachnoid hemorrhage and intraventricular hemorrhage with a rightward subfalcine herniation of a 16 mm. Chest x-ray revealed cardiomegaly with pulmonary vascular congestion. Data Review: Laboratory evaluation revealed leukocytosis of 17.7, BUN 23, creatinine 0.69, glucose 314, troponin 0.0-4, and serum alcohol less than 10. Plan: Discussed with the family at the bedside including sister and regarding the patient's grave prognosis niece who noted that the patient "would not have wanted to be kept alive on machines". They requested that the patient be terminally extubated after family members have had a chance to say their goodbyes. She notes that they will be arriving in the morning. 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 History of Any Multi-Drug Resistant Organisms: None Reported Past Surgical History: Coronary Bypass/CABG, Hysterectomy Additional Past Surgical History / Comment(s): COLONOSCOPY , bilateral breast biopsies Past Anesthesia/Blood Transfusion Reactions: No Reported Reaction Additional Past Anesthesia/Blood Transfusion Reaction / Comment(s): no hx of blood transfusion Past Psychological History: No Psychological Hx Reported Smoking Status: Former smoker Past Alcohol Use History: None Reported Additional Past Alcohol Use History / Comment(s): started smoking at age 27, SMOKES 1/2 ppd Past Drug Use History: None Reported - Past Family History Mother Family Medical History: Diabetes Mellitus, Dialysis, Renal Disease Additional Family Medical History / Comment(s): hemodialysis Father Family Medical History: CVA/TIA Additional Family Medical History / Comment(s): heart problems Sister(s) Family Medical History: Diabetes Mellitus Brother(s) Family Medical History: Diabetes Mellitus Medications and Allergies Home Medications Medication Instructions Recorded Confirmed Type glipiZIDE [Glucotrol] 5 mg PO DAILY 06/01/21 05/24/23 History Metoprolol Tartrate 25 mg PO BID 11/01/22 05/24/23 History Clopidogrel [Plavix] 75 mg PO DAILY #30 tab 11/11/22 05/24/23 Rx Atorvastatin [Lipitor] 40 mg PO HS 05/24/23 05/24/23 History Triamcinolone 0.1% Cream [Kenalog 1 applicatio TOPICAL DAILY PRN 05/24/23 05/24/23 History 0.1% Cream] amLODIPine [Norvasc] 2.5 mg PO DAILY 05/24/23 05/24/23 History Allergies Allergy/AdvReac Type Severity Reaction Status Date / Time Iodine and Iodide Containing Allergy Anaphylaxis Verified 05/24/23 18:36 Produc shellfish derived [Shellfish] Allergy Anaphylaxis Verified 05/24/23 18:36 Physical Exam Vitals: Vital Signs Pulse Resp BP Pulse Ox FiO2 05/24/23 22:10 74 24 98/63 99 05/24/23 22:07 100 05/24/23 22:00 75 24 96/61 99 100 05/24/23 21:50 74 24 96/61 99 05/24/23 21:40 74 24 177/87 99 05/24/23 21:30 70 24 177/87 99 05/24/23 21:20 78 24 152/101 98 05/24/23 21:10 74 24 152/101 98 05/24/23 21:05 24 99 05/24/23 21:00 100 05/24/23 20:40 75 20 142/80 98 05/24/23 19:35 87 24 100/68 98 05/24/23 19:12 100 05/24/23 18:31 81 18 162/101 Intake and Output 05/24/23 05/24/23 05/25/23 14:59 22:59 06:59 Intake Total 14.42 9.316 Output Total 10 Balance 4.42 9.316 Intake: IV 10 .9 @ kvo 10 Intake, IV Titration 4.42 9.316 Amount Morphine Sulfate (100 mg/ 4.42 2 ml) 100 mg In Sodium Chloride 0.9% 100 ml @ 1 MG/HR 1.02 mls/hr IV . Q24H [facility] Rx#:[id number] propofoL 1,000 mg In 9.316 Empty Bag 1 bag @ 15 MCG/ KG/MIN 6.654 mls/hr IV . Q15H2M [facility]IR Rx#:[id number] Output: Urine 10 Other: Voiding Method Indwelling Catheter Weight 73.936 kg Results CBC & Chem 7: 05/24/23 19:00 05/24/23 19:00 Labs: Abnormal Lab Results - Last 24 Hours (Table) 05/24/23 05/24/23 05/24/23 Range/Units 18:32 19:00 19:00 WBC 17.7 H (3.8-10.6) k/uL RDW 16.7 H (11.5-15.5) % Neutrophils # 16.6 H (1.3-7.7) k/uL Lymphocytes # 0.6 L (1.0-4.8) k/uL BUN 23 H (7-17) mg/dL Glucose 314 H (74-99) mg/dL POC Glucose (mg/dL) 278 H (70-110) mg/dL ALT 50 H (4-34) U/L 05/24/23 Range/Units 21:04 WBC (3.8-10.6) k/uL RDW (11.5-15.5) % Neutrophils # (1.3-7.7) k/uL Lymphocytes # (1.0-4.8) k/uL BUN (7-17) mg/dL Glucose (74-99) mg/dL POC Glucose (mg/dL) 304 H (70-110) mg/dL ALT (4-34) U/L
[2023-05-25] MEDS: CHLORHEXIDINE GLUCONATE 15 ML CUP MUCOUS MEM SCH ×2 (02:38→08:41)
[2023-05-25 08:54] VITALS: TEMP 98.7
--- NOTE | 2023-05-25 09:45 | P.PN ---
Subjective Progress Note Date: 05/25/23 This is a 78-year-old female patient who was brought in with an acute mental status change. The patient was hypertensive at the time of arrival with a blood pressure 160/101.. The patient was found to have agonal breathing. The patient was intubated in the field and the patient was brought in to the emergency department. Computed tomography scan of the brain was done and a CAT scan showed subdural hemorrhage along the left frontal lobe measuring 4 mm in thickness. Scattered blood products throughout the sulci in the left cerebrum. The ventricular system showed layering blood products within the bilateral ventricles. As for the setting the parenchyma, there was a large intraparenchymal hemorrhage with surrounding vasogenic edema within the left frontal/temporal lobe. The area was measuring 8 x 5.4 x 4.4 cm in size causing right shift. This is compatible with a cell phone sign herniation up to 16 mm. The patient is completely unresponsive. The patient a mechanical ventilator for now. She is on assist control rate of 24, tidal volume of 400, FiO2 is at 100% and a PEEP of 5. Blood pressure has normalized. Right pupil is fixed dilated. Left pupil is round 3 mm in size. Cardiac rhythm is sinus. The patient has posturing and the patient had decerebrate posture upon examination. Noted the patient is known to have coronary artery disease and the patient has undergone recent bypass surgery where she underwent two-vessel bypass surgery that was done in November 2022. She is known to have diabetes mellitus type 2 and hyperlipidemia and hypertension. We were told that her blood pressure was running high and the patient for a compliancy with her medication in general. She also has peripheral artery disease. No other information is available. Family is at the bedside. Requested no surgical intervention. The patient will be terminally weaned per family's wishes once more family members arrive to the hospital. Based on that, it was requested for this patient to the chest to the intensive care unit for supportive care pending terminal wean. I did accept the patient accordingly to come to the intensive care unit. Labs show his evidence of 17, hemoglobin is at 12.4, normal coagulation profile, normal renal function, normal LFTs. Alcohol level is less than 10. On 05/25/2023, the patient is still receiving supportive care in the intensive care unit. The patient's was admitted to the intensive care unit and the plan was to do a terminal wean and we're still awaiting for family members to arrive. The patient has a massive intracranial bleed with herniation. The patient remains comatose. No cough. No gag. She is not breathing above the vent. She is not triggering the mechanical ventilator.. The right pupil is pinpoint today. Left pupil is around 2 or 3 mm in size with a cataract. No nystagmus. No seizure activity. Continues to have decerebrate posturing and the patient has positive Babinski in both lower extremities. Overnight, she remained hypertensive. There has not required any pressors. Cardiac rhythm is sinus. No issues with cardiac arrhythmias. No labs are available from today. Not a candidate for organ donation based on just of life. The patient is on assist- control mode at the rate of 24, tidal volume of 400, FiO2 of 100% with a PEEP of 5. Objective - Vital Signs Vital signs: Vital Signs Temp 98.7 F 05/25/23 08:00 Pulse 91 05/25/23 08:00 Resp 24 05/25/23 08:00 BP 106/63 05/25/23 08:00 Pulse Ox 96 05/25/23 08:00 FiO2 100 05/25/23 08:00 Intake & Output 05/24/23 05/25/23 05/25/23 18:59 06:59 18:59 Intake Total 86.554 10 Output Total 630 0 Balance -543.446 10 Weight 73.936 kg 74 kg Intake: IV 55 10 .9 @ kvo 55 10 Intake, IV Titration 31.554 Amount Morphine Sulfate (100 mg/ 4.42 2 ml) 100 mg In Sodium Chloride 0.9% 100 ml @ 1 MG/HR 1.02 mls/hr IV . Q24H [facility] Rx#:[id number] propofoL 1,000 mg In 27.134 Empty Bag 1 bag @ 15 MCG/ KG/MIN 6.654 mls/hr IV . Q15H2M [facility] Rx#:[id number] Output: Gastric Drainage 600 Urine 30 0 Other: Voiding Method Indwelling Catheter Indwelling Catheter - Exam Patient is currently intubated on a mechanical ventilator, completely comatose and unresponsive, no breathing effort and the patient is residing the mechanical ventilator. Upon stimulation, the patient goes into decerebrate posturing. Head exam was generally normal. There was no scleral icterus or corneal arcus. Mucous membranes were moist. Neck was supple and without jugular venous distension, thyromegaly, or carotid bruits. Carotids were easily palpable bilaterally. There was no adenopathy. Lungs were clear to auscultation and percussion, and with normal diaphragmatic excursion. No wheezes or rales were noted. Cardiac exam revealed the PMI to be normally situated and sized. The rhythm was regular and no extrasystoles were noted during several minutes of auscultation. The first and second heart sounds were normal and physiologic splitting of the second heart sound was noted. There were no murmurs, rubs, clicks, or gallops. The patient is a thoracotomy scar over the anterior chest area. The incision is dry and clean. Abdominal exam revealed normal bowel sounds. The abdomen was soft, non-tender, and without masses, organomegaly, or appreciable enlargement of the abdominal aorta. Examination of the extremities revealed easily palpable radial, femoral and pedal pulses. There was no cyanosis, clubbing or edema. Examination of the skin revealed no evidence of significant rashes, suspicious appearing nevi or other concerning lesions. Neurologically the patient is comatose. The patient has a pin point right-sided pupil. Left pupil is around 3 mm in size, nonreactive to light. No nystagmus , no clonus. Decerebrate posturing. Hyperreflexic. Positive Babinski. The sensory and motor functions cannot be evaluated. No cough or gag reflex. - Labs CBC & Chem 7: 05/24/23 19:00 05/24/23 19:00 Labs: Abnormal Lab Results - Last 24 Hours (Table) 05/24/23 05/24/23 05/24/23 Range/Units 18:32 19:00 19:00 WBC 17.7 H (3.8-10.6) k/uL RDW 16.7 H (11.5-15.5) % Neutrophils # 16.6 H (1.3-7.7) k/uL Lymphocytes # 0.6 L (1.0-4.8) k/uL BUN 23 H (7-17) mg/dL Glucose 314 H (74-99) mg/dL POC Glucose (mg/dL) 278 H (70-110) mg/dL ALT 50 H (4-34) U/L 01/17/24 Range/Units 21:04 WBC (3.8-10.6) k/uL RDW (11.5-15.5) % Neutrophils # (1.3-7.7) k/uL Lymphocytes # (1.0-4.8) k/uL BUN (7-17) mg/dL Glucose (74-99) mg/dL POC Glucose (mg/dL) 304 H (70-110) mg/dL ALT (4-34) U/L Assessment and Plan Plan: Acute intracranial hemorrhage and the patient is a large intraparenchymal hemorr migue involving the left frontal/temporal lobe and areas measuring 8 x 5.4 x 4.4 cm in size and the patient has right-sided along with signs of subfalcine herniation. There is patient was admitted to be up to 16 mm in size. The patient has also intraventricular/subarachnoid/subdural hemorrhage. No history of trauma. Likely hypertensive bleed related to poorly controlled blood pressure. Patient has limited on accommodation of aspirin and Plavix on outpatient basis. Comatose state secondary to above Acute hypoxic respiratory failure secondary to a massive intracranial bleed with secondary herniation, currently on a mechanical ventilator. Acute hypertensive episode at the time of admission, currently normotensive Coronary artery disease with recent coronary artery bypass surgery, the patient underwent two-vessel bypass surgery Diabetes mellitus type 2 History of hypertension with poorly controlled blood pressure Hyperlipidemia Plan Her condition remains unchanged.. Remains comatose and markedly impairedn Neurologic functions. The plan is to still terminally wean the patient. The patient is not a candidate for organ donation based on if the life Patient is neurologically impaired and comatose state and has signs of subfalcine herniation Monitor hemodynamics Pressors if needed We'll initiate morphine drip and subsequently presented with terminal wean after coordinating this with the family. Extremely poor prognosis
[2023-05-25] MEDS ORDERED: MORPHINE SULFATE 4 MG/ML SYRINGE IV PRN (11:16)
[2023-05-25] MEDS ORDERED: MORPHINE SULFATE 2 MG/ML SYRINGE IV PRN (11:16)
[2023-05-25 11:25] VITALS: BP 112/60; PULSE 88
[2023-05-25] MEDS: MORPHINE SULFATE (100 MG/2 ML) 100 MG in SODIUM CHLORIDE 0.9% 100 ML IV SCH (11:29)
--- NOTE | 2023-05-25 15:46 | P.DS ---
Providers Date of admission: 05/24/23 19:37 Expected date of discharge: 05/25/23 Attending physician: Antonella Santillan MD Consults: 05/24/23 19:31 Consult Physician Stat Consulting Provider: Roseline Jiménez Consult Reason/Comments: vent dependant resp failure, ich Do you want consulting provider notified?: Already Contacted Primary care physician: Pedro [facility] Course: Assessment: Acute large intracranial hemorrhage, 8.1 x 4.4 x 5.4 cm Altered mental status, patient comatose likely due to above Chronic conditions: Type II DM, hypertension, hyperlipidemia, CAD Patient is a 78-year-old female with a PMH of hypertension, hyperlipidemia, type II DM, and CAD status post CABG who had presented to the emergency room for altered mental status. CT brain in the emergency room revealed a large hemorrhage with associated subarachnoid hemorrhage and intraventricular hemorrhage with a rightward subfalcine herniation of a 16 mm. Chest x-ray r evealed cardiomegaly with pulmonary vascular congestion. Laboratory evaluation revealed leukocytosis of 17.7, BUN 23, creatinine 0.69, glucose 314, troponin 0.0-4, and serum alcohol less than 10. Pts poor prognosis was shared with family and decision was made to treat patient with comfort measures. Pt did pass away today on 05/25. Pt passed prior to my assessment for phx. Patient Condition at Discharge: Good Plan - Discharge Summary New Discharge Prescriptions: No Action glipiZIDE [Glucotrol] 5 mg PO DAILY Atorvastatin [Lipitor] 40 mg PO HS Metoprolol Tartrate 25 mg PO BID Clopidogrel [Plavix] 75 mg PO DAILY #30 tab amLODIPine [Norvasc] 2.5 mg PO DAILY Triamcinolone 0.1% Cream [Kenalog 0.1% Cream] 1 applicatio TOPICAL DAILY PRN PRN Reason: Rash Discharge Medication List glipiZIDE [Glucotrol] 5 mg PO DAILY 06/01/21 [History] Metoprolol Tartrate 25 mg PO BID 11/01/22 [History] Clopidogrel [Plavix] 75 mg PO DAILY #30 tab 11/11/22 [Rx] Atorvastatin [Lipitor] 40 mg PO HS 05/24/23 [History] Triamcinolone 0.1% Cream [Kenalog 0.1% Cream] 1 applicatio TOPICAL DAILY PRN 05/24/23 [History] amLODIPine [Norvasc] 2.5 mg PO DAILY 05/24/23 [History] Follow up Appointment(s)/Referral(s): Pedro Leos DO [Primary Care Provider] - 1-2 days
== END 2023-05-25 17:01 | disposition expired | DRG 64 ==
LOC: EC 18:29 → 2SICU 19:37
PROVIDERS: ADMIT Internal Medicine; ATTEND Internal Medicine
PROC: 5A1935Z Respiratory Ventilation, Less than 24 Consecutive Hours (ICD-10-PCS; principal; 2023-05-24)
PROC: 0BH17EZ Insertion of Endotracheal Airway into Trachea, Via Natural or Artificial Opening (ICD-10-PCS; 2023-05-24)
DX: I62.00 Nontraumatic subdural hemorrhage, unspecified (principal); G93.5 Compression of brain; G93.6 Cerebral edema; J96.01 Acute respiratory failure with hypoxia; Z99.11 Dependence on respirator [ventilator] status; I45.2 Bifascicular block; I61.5 Nontraumatic intracerebral hemorrhage, intraventricular; I60.9 Nontraumatic subarachnoid hemorrhage, unspecified; Z66 Do not resuscitate; E11.36 Type 2 diabetes mellitus with diabetic cataract; Z51.5 Encounter for palliative care; R40.2A Nontraumatic coma due to underlying condition; E66.9 Obesity, unspecified; I25.10 Atherosclerotic heart disease of native coronary artery without angina pectoris; E78.5 Hyperlipidemia, unspecified; Z68.32 Body mass index [BMI] 32.0-32.9, adult; Z79.02 Long term (current) use of antithrombotics/antiplatelets; Z79.84 Long term (current) use of oral hypoglycemic drugs; Z79.899 Other long term (current) drug therapy; Z90.710 Acquired absence of both cervix and uterus; Z95.1 Presence of aortocoronary bypass graft; Z91.041 Radiographic dye allergy status; Z91.013 Allergy to seafood
CPT/HCPCS: 36415; 70450; 80053; 80320; 82140; 84484; 85025; 85610; 85730; 93005; 94002; 94003; 99285; 99291